=== PATIENT | female | born 1955 | race Caucasian/White ===

== ENCOUNTER 2016-08-03 16:42 | Inpatient (IN) | payer OTHER ==
[~2016-08-03] VITALS: Ht 170.2 cm; Wt 74.0 kg
[2016-08-03] MEDS ORDERED: SOD CHLORIDE 0.9% 1,000 ML IV STA (17:09)
[2016-08-03] MEDS ORDERED: morphine 4 MG/ML VIAL IV STA (17:09)
[2016-08-03] MEDS ORDERED: ONDANSETRON 4 MG INJ IV STA (17:09)
[2016-08-03] MEDS ORDERED: LETR2.5T11 PO (17:23)
[2016-08-03] MEDS ORDERED: GABA400C PO (17:23)
[2016-08-03 17:41] LABS: ADD SCAN DIFF NO
[2016-08-03 17:42] LABS: BASOPHILS % 0.4 % (0.0-2.0); EOSINOPHILS # 0.2 10^3/ul (0.0-0.5); EOSINOPHILS % 2.2 % (0.0-7.0); HEMATOCRIT 40.4 % (37.0-47.0); HEMOGLOBIN 14.1 g/dl (12.0-16.0); LYMPHOCYTES # 1.3 10^3/ul (0.8-2.9); LYMPHOCYTES % 16.2 % (15.0-51.0); MEAN CORPUSCULAR HEMOGLOBIN 30.7 pg (29.0-33.0); MEAN CORPUSCULAR HGB CONC 34.9 g/dl (32.0-37.0); MEAN PLATELET VOLUME 9.5 fl (7.4-10.4); MONOCYTE # 0.6 10^3/ul (0.3-0.9); MONOCYTES % 7.4 % (0.0-11.0); NEUTROPHIL # 5.9 10^3/ul (1.6-7.5); NEUTROPHILS % 73.2 % (39.0-77.0); PLATELET COUNT 233 10^3/UL (140-415); RED BLOOD COUNT 4.59 10^6/ul (4.20-5.40); RED CELL DISTRIBUTION WIDTH 12.2 % (11.5-14.5)
[2016-08-03 17:44] LABS: ADD UMIC YES; URINE BILIRUBIN (Dip) NEGATIVE (NEGATIVE); URINE BLOOD (Dip) TRACE (NEGATIVE); URINE COLOR LT. YELLOW (YELLOW); URINE GLUCOSE (Dip) NEGATIVE (NEGATIVE); URINE KETONES (Dip) NEGATIVE (NEGATIVE); URINE LEUKOCYTE ESTERASE (Dip) NEGATIVE (NEGATIVE); URINE NITRITE (Dip) NEGATIVE (NEGATIVE); URINE TOTAL PROTEIN (Dip) NEGATIVE (NEGATIVE); URINE UROBILINOGEN (Dip) 0.2 E.U./dL (0.1-1.0)
--- NOTE | 2016-08-03 17:45 | RADRPT ---
PROCEDURE: XR Chest 1 View. CLINICAL INDICATION: Abdominal pain, abnormal breath sounds TECHNIQUE: AP view of the chest was obtained. COMPARISON: None. FINDINGS: The cardiomediastinal silhouette is within normal limits. The lungs are hyperexpanded. No consolidat ions are identified. No pneumothorax is seen. The osseous structures are osteopenic, but appear in tact. Diffuse sclerosis in the visualized right humeral head is seen. Surgical clips are noted in the left axilla. IMPRESSION: Hyperexpanded, clear lungs. Diffuse sclerosis in the visualized right humeral head. Etiology is uncertain. An underlying scler otic bony lesion or metastatic disease is not excluded. Further characterization is needed a dedica cachorro right shoulder series is recommended. RPTAT: AA .Chago Bryant MD, Date Time Electronically viewed and signed by .Chago Bryant MD, on 08/03/2016 17:44 .P/
[2016-08-03 17:56] LABS: SQUAMOUS EPITHELIAL CELL,UR FEW; URINE RBCS 0-2 /HPF (0)
[2016-08-03 18:03] LABS: POTASSIUM 3.8 mmol/L (3.5-5.1)
[2016-08-03 18:05] LABS: CREATININE 0.78 mg/dl (0.44-1.00)
[2016-08-03 18:06] LABS: ALBUMIN/GLOBULIN RATIO 1.38; BILIRUBIN,INDIRECT 0.4 mg/dl (0-1.1); BILIRUBIN,TOTAL 0.4 mg/dl (0.2-1.3); CALCIUM 10.2 mg/dl (8.4-10.2); TOTAL PROTEIN 8.6 g/dl (6.1-8.1)
[2016-08-03] MEDS ORDERED: HYDROmorphONE 1 MG/ML SYG IV STA (18:16)
[2016-08-03] MEDS ORDERED: ACETAMINOPHEN 325 MG TAB PO PRN ×2 (18:30→23:00)
[2016-08-03] MEDS ORDERED: ONDANSETRON 4 MG INJ IV PRN ×2 (18:30→23:00)
--- NOTE | 2016-08-03 18:51 | ERA ---
ER Documentation Chief Complaint Date/Time DATE: 08/03/16 TIME: 18:49 Chief Complaint SEVERE BACK PAIN,HISTORY OF BREAST CA 2011,BONE CA 2015 HPI Patient is a 52-year-old female with breast cancer who presents with back pain. The patient was sent by Dr. Bhatt for admission. She had lower back pain. She was concerned for cord compression. She has had 2 months of lower back pain which is worsening. Usually her pain meds last up to 6 hours but she was having to take pain medicines every 3 hours. She tried 2 Aleve prior to coming to the ER. The pain is in the left lower back. She has no fevers and no incontinence. Upon review of old medical records this is the patient's first visit to the emergency department. ROS All systems reviewed and are negative except as per history of present illness. 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 Neck: Full range of motion..~ No meningismus. Resp: Clear to auscultation bilaterally Cardio: Regular rate and rhythm, no murmurs Abd: Soft, non tender, non distended. Normal bowel sounds Skin: No petechiae or rashes Back: No midline or flank tenderness, left-sided lower back pain Ext: No cyanosis, or edema Neur: Awake and alert Psych: Normal Mood and Affect Result Diagram: 08/03/16 1724 08/03/16 1724 Results 24 hrs Laboratory Tests Test 08/03/16 15:03 08/03/16 17:24 Urine Color LT. YELLOW Urine Clarity CLEAR Urine pH 6.0 Urine Specific [place] <=1.005 Urine Ketones NEGATIVE Urine Nitrite NEGATIVE Urine Bilirubin NEGATIVE Urine Urobilinogen 0.2 E.U./dL Urine Leukocyte Esterase NEGATIVE Urine Microscopic RBC 0-2/HPF Urine Microscopic WBC 0-2/HPF Urine Squamous Epithelial Cells FEW Urine Hemoglobin TRACE Urine Glucose NEGATIVE% Urine Total Protein NEGATIVE White Blood Count 8.010^3/ul Red Blood Count 4.5910^6/ul Hemoglobin 14.1g/dl Hematocrit 40.4% Mean Corpuscular Volume 88.0fl Mean Corpuscular Hemoglobin 30.7pg Mean Corpuscular Hemoglobin Concent 34.9g/dl Red Cell Distribution Width 12.2% Platelet Count 11395^3/UL Mean Platelet Volume 9.5fl Neutrophils % 73.2% Lymphocytes % 16.2% Monocytes % 7.4% Eosinophils % 2.2% Basophils % 0.4% Nucleated Red Blood Cells % 0.0/100WBC Neutrophils # 5.910^3/ul Lymphocytes # 1.310^3/ul Monocytes # 0.610^3/ul Eosinophils # 0.210^3/ul Basophils # 0.010^3/ul Nucleated Red Blood Cells # 0.010^3/ul Sodium Level 144mmol/L Potassium Level 3.8mmol/L Chloride Level 100mmol/L Carbon Dioxide Level 28mmol/L Anion Gap 20 Blood Urea Nitrogen 16mg/dl Creatinine 0.78mg/dl Glucose Level 106mg/dl Calcium Level 10.2mg/dl Total Bilirubin 0.4mg/dl Direct Bilirubin 0.00mg/dl Indirect Bilirubin 0.4mg/dl Aspartate Amino Transf (AST/SGOT) 63IU/L Alanine Aminotransferase (ALT/SGPT) 35IU/L Alkaline Phosphatase 116IU/L Total Protein 8.6g/dl Albumin 5.0g/dl Globulin 3.60g/dl Albumin/Globulin Ratio 1.38 Lipase 71U/L Current Medications Medications (Trade) Dose Ordered Sig/Hai Route PRN Reason Start Time Stop Time Status Last Admin Dose Admin Sodium Chloride (NS) 1,000 ml @ 1,000 mls/hr Q1H STAT IV 08/03/16 17:09 08/03/16 18:08 DC 08/03/16 17:41 Morphine Sulfate (morphine) 4 mg ONCE STAT IV 08/03/16 17:09 08/03/16 17:10 DC 08/03/16 17:41 Ondansetron HCl (Zofran Inj) 4 mg ONCE STAT IV 08/03/16 17:09 08/03/16 17:10 DC 08/03/16 17:39 Hydromorphone HCl (Dilaudid) 1 mg ONCE STAT IV 08/03/16 18:16 08/03/16 18:17 DC Ondansetron HCl (Zofran Inj) 4 mg BRIDGE ORDER PRN IV NAUSEA AND/OR VOMITING 08/03/16 18:30 08/04/16 18:29 Acetaminophen (Tylenol Tab) 650 mg ER BRIDGE PRN PO MILD PAIN/FEVER 08/03/16 18:30 08/04/16 18:29 Procedures/MDM PROCEDURE: XR Chest 1 View. CLINICAL INDICATION: Abdominal pain, abnormal breath sounds TECHNIQUE: AP view of the chest was obtained. COMPARISON: None. FINDINGS: The cardiomediastinal silhouette is within normal limits. The lungs are hyperexpanded. No consolidations are identified. No pneumothorax is seen. The osseous structures are osteopenic, but appear intact. Diffuse sclerosis in the visualized right humeral head is seen. Surgical clips are noted in the left axilla. IMPRESSION: Hyperexpanded, clear lungs. Diffuse sclerosis in the visualized right humeral head. Etiology is uncertain. An underlying sclerotic bony lesion or metastatic disease is not excluded. Further characterization is needed a dedicated right shoulder series is recommended. RPTAT: AA .Chago Bryant MD, MD Date Time Electronically viewed and signed by .Chago Bryant MD, MD on 08/03/2016 17:44 MRI of the lumbar spine and pelvis is pending at this time. Patient is a 60-year-old female presents with acute intractable back pain. She has required morphine and Dilaudid in the emergency department. She has an MRI of the lumbar spine and pelvis that was ordered at Dr. Bhatt's request. Dr. Bhatt once the patient admitted. The patient has a physicians IPA and Dr. Bowser admits for this IPA. I spoke with Dr. Bowser who will admit the patient to a medical surgical bed for intractable back pain. At this point I doubt cauda equina syndrome, epidural abscess, or epidural hematoma but MRI is pending to confirm this. Departure Diagnosis: Primary Impression: Back pain Qualified Code: M54.42 - Acute left-sided low back pain with left-sided sciatica Condition: WYATT Avalos MD Aug 03, 2016 18:51
[2016-08-03] MEDS ORDERED: METHYLPRED. NA SUCC 1,000 MG in DEXTROSE 5% 50 ML IVPB ONE (20:00)
[2016-08-03] MEDS ORDERED: DEXAMETHASONE 10 MG/ML 1 ML INJ IV ONE (20:00)
--- NOTE | 2016-08-03 20:15 | RADRPT ---
PROCEDURE: MR Pelvis without and with contrast. CLINICAL INDICATION: Probable metastatic disease TECHNIQUE: Multiple MR pulse sequences in multiple planes were obtained before and after 10 ml of a Magnevist. Images were reviewed on a high-resolution PACS workstation. COMPARISON: None available FINDINGS: Osseous structures: There are extensive T2 hyperintense foci throughout the visualized pelvis consistent with metastatic disease. There is a large metastatic lesion in this right ilium measuring up to 3 cm in AP diamete r and 4 cm in craniocaudal dimension. Smaller metastatic lesion seen just proximal to this area on the coronal sequence image 9. Small T2 hyperintense foci are seen within the left ilium and left ac etabulum also that representing metastatic disease. scattered T2 hyperintense foci are noted within the left iliac bone representing metastatic disease. there is a large lesion seen in the right inte rtrochanteric region measuring up to 4 cm There is associated enhancement in all these lesions. A b enign enchondroma seen at the left femoral neck. The hip joints are grossly maintained bilaterally. No high-grade chondral defects are identified. A perineural cyst is seen in the sacral canal. Soft tissues: There is small bowel loops seen within the pelvis are within normal limits. The pelvic organs are g rossly within normal limits. No free pelvic fluid is identified. There is no bulky pelvic lymphadenopathy. IMPRESSION: 1. Findings of metastatic disease noted throughout the pelvis, sacrum and also scattered in the rig ht proximal femur, as above. 2. No evidence for a pathologic fracture about the pelvis or hips. 3. No evidence for bold acute pelvic lymphadenopathy. RPTAT: VV .Preston Fischer MD, MD Date Time Electronically viewed and signed by .Preston Fischer MD, MD on 08/03/2016 20:15 .d/
--- NOTE | 2016-08-03 20:49 | RADRPT ---
PROCEDURE: MRI lumbar spine with and without contrast CLINICAL INDICATION: Breast carcinoma with back pain. TECHNIQUE: An MRI of the lumbar spine was performed on a 1.5 don scanner utilizing the followin g sequences: pre and post contrast sagittal and axial T1 weighted, sagittal and axial T2 weighted, a nd sagittal T2 weighted with fat saturation. 10 ml of Magnevist were given intravenously without com plication. COMPARISON: None. FINDINGS: Intramedullary vertebral body infiltrating lesions at all visualized thoracic and lumbar levels demo nstrating low signal on T1-weighted , mixed signal on T2 weighted sequences, and heterogeneous enhan cement compatible with diffuse skeletal metastasis. Preservation of vertebral body height without evidence of pathologic fracture or subluxation. The d istal thoracic spinal cord and conus without evidence of intramedullary signal abnormality or patho logic enhancement. The conus medullaris is visible at the L1 level, and is normal in appearance. T10-T11: Diffuse marrow enhancement with prominent focal metastatic lesion along the posterior T10 vertebral body with extension of metastatic disease into the left pedicle and posterior elements. Tu mor extends into the epidural space circumferentially asymmetric to the left resulting in near compl ete obliteration of the central canal compressing the spinal cord and AP dimension. The residual kelli men measures 10 x 7 mm in transverse and AP dimension. The right neural foramen is patent. Tumor fi lls the left neural foramen with extension into the left paraspinal soft tissues with paraspinal tis rosaura mass measuring 2.5 x 1.0 cm in AP and transverse dimensions respectively. There is tumor expans ion of the left tenth rib. No disk protrusion or bulging. T11-T12 : Patchy marrow enhancement fluid or focal posterior left lateral lesion extending into the left pedicle and posterior elements as well as left eleventh rib. Epidural extension is noted poste riorly on the left resulting in severe central canal stenosis with residual lumen measuring 8 x 2 mm in transverse and AP dimensions compressing the distal thoracic spinal cord. Lobulated left parasp inal soft tissue mass measures 4 x 2.1 cm in size with nodular left posterior epidural mass measurin g 1.2 x 1 x 2 cm and transverse, AP and craniocaudal dimensions respectively. Lobulated anterior ep idural soft tissue measures 6 mm in greatest thickness. Normal disk height and hydration without si gnificant foraminal stenosis. T12 - L1: Enhancing well circumscribed lesion in the posterior left T12 vertebral body extending in to the left pedicle and twelfth rib with minimal paraspinal soft tissue enhancement. Normal disk he ight and hydration with central canal or foraminal stenosis. L1 - L2: 12 mm right anterior lateral enhancing metastatic deposit and small left posterior deposit s within the [id number] body . Normal disk height and hydration. No disk protrusion, central saurabh l, or foraminal stenosis. L2 - L3: Multiple vertebral body enhancing metastatic lesions with epidural extension most pronounc ed along the posterior left vertebral body measuring 1.4 x 1 x 3 cm and there is, AP, and craniocaud al dimensions respectively. The metastatic lesions extend into the left and posterior elements. So ft tissue tumor extends into the left neural foramen with mild left foraminal stenosis . No central canal or right foraminal stenosis. Schmorl's node formation within the inferior endplate of L2 with mild circumferential disk bulging. The disk is otherwise normal in height. No focal protrusion. L3 - L4: Multiple vertebral body metastatic lesions and diffuse enhancement with epidural soft tiss ue tumor spread as well as extension into the left pedicle. The epidural components is greatest on the left measuring 4 x 1.2 x 3 cm in transverse, AP, and craniocaudal dimensions respectively. Soft tissue tumor extends into the left neural foramen along the superior margin without significant fora leanne stenosis.. Disk desiccation without loss of disk height. Circumferential disk bulging with lucita tical annular fissure in the right the foraminal disk and horizontal fissure in the left foraminal d isk. No central canal or right foraminal stenosis. L4 - L5: Multiple vertebral body enhancing metastasis. No epidural or paraspinal extension. Moder ate to marked hypertrophic facet joint arthropathy. Mild disk desiccation and loss of disk height w ith minimal circumferential disk bulging asymmetric to the left with vertical annular fissure. No s ignificant central canal or foraminal stenosis. Gabby facet enhancement most compatible with synoviti s. L5 - S1: Multiple enhancing lesions the largest in the posterior left L5 vertebral body. No epidura l or paraspinal extension. Mild bilateral facet joint arthropathy. No disk protrusion, central can al, or foraminal stenosis. Metastatic pauses in S1. IMPRESSION: 1. Diffuse thoracic and lumbar skeletal metastasis with areas of paraspinal and epidural extension pron on the lef from T10 through T12 resulting in severe central canal stenosis and distal thoracic spinal cord and conus medullaris compression with residual central canal demonstrating near complete obliteration at T11-T12 as described in detail above. No intramedullary spinal cord signal abnormal ity, enhancement of the conus medullaris, or cauda equina. Neurosurgical consultation is recommende d. 2. Left foraminal and paraspinal soft tissue tumor extension at T10-T11 and T11-T12 with largest co mponent of the paraspinal mass measuring approximately 4 cm in greatest dimension. 3. Epidural soft tissue tumor extension at T10-T12 as well as posterior L2 and L3 of the left as de tailed above. 4. Disk bulging and degenerative annular fissures at the L3-L4 and L4-L5 . 5. Facet joint arthropathy at L4-L5 end L5-S1. 6. Results were discussed with Juancarlos Dodge 08/03/2016 8:47:45 PM . RPTAT:AAJJ Physician Elizabeth Date Time Electronically viewed and signed by Physician Elizabeth on 08/03/2016 20:49 NIKOLAS/
--- NOTE | 2016-08-03 23:16 | HP ---
Date/Time of Note Date/Time of Note DATE: 08/03/16 TIME: 22:41 Assessment/Plan VTE Prophylaxis VTE Prophylaxis Intervention: SCD's Assessment/Plan Assessment/Plan -Back pain - Diffuse thoracic and lumbar skeletal metastasis with areas of paraspinal and epidural extension pron on the lef from T10 through T12 resulting in severe central canal stenosis and distal thoracic spinal cord and conus medullaris compression with residual central canal demonstrating near complete obliteration at T11-T12 as described in detail above. No intramedullary spinal cord signal abnormality, enhancement of the conus medullaris, or cauda equina. Neurosurgical consultation is recommended. - Hematology consult- Dr Lee - pain control - resume home meds -. Left foraminal and paraspinal soft tissue tumor extension at T10-T11 and T11 -T12 with largest component of the paraspinal mass measuring approximately 4 cm in greatest dimension. -. Epidural soft tissue tumor extension at T10-T12 as well as posterior L2 and L3 of the left as detailed above. - Disk bulging and degenerative annular fissures at the L3-L4 and L4-L5 . - Facet joint arthropathy at L4-L5 end L5-S1. - Hx Left breast cancer dw Dr ELLIS/STAFF HPI/ROS Admit Date/Time Admit Date/Time Hx of Present Illness SEVERE BACK PAIN,HISTORY OF BREAST CA 2011,BONE CA 2015 HPI Patient is a 52-year-old female with Hx breast was sent by Dr. Bhatt to ER with c/o lower back pain. She was concerned for cord compression. Patient reported 2 months of lower back pain which is worsening. Usually her pain meds last up to 6 hours but she was having to take pain medicines every 3 hours. She tried 2 Aleve prior to coming to the ER. The pain is in the left lower back. She has no fevers and no incontinence. Upon review of old medical records this is the patient's first visit to the emergency department. Patient denies any chest pain, shortness of breath, headache, palpitations, dizziness, fever, chills, focal weakness/numbness, abdominal pain/N/V/D. Denies any recent trauma or injury. ROS All systems reviewed and are negative except as per history of present illness. Medications Home Meds Reported Medications Letrozole* (Femara*) 2.5 Mg Tablet, 2.5 MG PO DAILY, TAB 08/03/16 Gabapentin* (Neurontin*) 400 Mg Capsule, 800 MG PO QHS, #60 CAP 08/03/16 Allergies Allergies: Coded Allergies: No Known Allergy (Unverified , 08/03/16) ROS Constitutional: improved Eyes: no complaints ENT: no complaints Respiratory: no complaints Cardiovascular: no complaints Gastrointestinal: no complaints Genitourinary: no complaints Musculoskeletal: no complaints Skin: no complaints Neurologic: no complaints Endocrine: no complaints Lymphatic: no complaints Psychological: no complaints PMH/Family/Social Past Medical History PMhx/Soc History of Surgery: Yes (LEFT BREAT CANCER) Hx Miscellaneous Medical Probl: Yes (Breast Cancer Met to Bones ) Hx Alcohol Use: No Hx Substance Use: No Hx Tobacco Use: No Smoking Status: Never smoker FmHx Family History: No diabetes Back pain Social History Alcohol Use: none Smoking Status: Never smoker Drug Use: none Exam/Review of Systems Vital Signs Vitals Vital Signs Date Time Temp Pulse Resp B/P Pulse Ox O2 Delivery O2 Flow Rate FiO2 08/03/16 21:00 98.0 77 18 164/89 98 Room Air Exam Constitutional: alert, oriented, well developed Psych: nl mood/affect Head: atraumatic Eyes: EOMI ENMT: nl external ears & nose Neck: non-tender Respiratory: clear to auscultation Cardiovascular: nl pulses Gastrointestinal: non-tender, soft Musculoskeletal: nl extremities to inspection Extremities: normal pulses Neurological: nl mental status, nl speech Skin: nl turgor Lymph: nontender Labs Result Diagram: 08/03/16 1724 08/03/16 1724 Procedures Procedures PROCEDURE: XR Chest 1 View. CLINICAL INDICATION: Abdominal pain, abnormal breath sounds TECHNIQUE: AP view of the chest was obtained. COMPARISON: None. FINDINGS: The cardiomediastinal silhouette is within normal limits. The lungs are hyperexpanded. No consolidations are identified. No pneumothorax is seen. The osseous structures are osteopenic, but appear intact. Diffuse sclerosis in the visualized right humeral head is seen. Surgical clips are noted in the left axilla. IMPRESSION: Hyperexpanded, clear lungs. Diffuse sclerosis in the visualized right humeral head. Etiology is uncertain. An underlying sclerotic bony lesion or metastatic disease is not excluded. Further characterization is needed a dedicated right shoulder series is recommended. PROCEDURE: MR Pelvis without and with contrast. CLINICAL INDICATION: Probable metastatic disease TECHNIQUE: Multiple MR pulse sequences in multiple planes were obtained before and after 10 ml of a Magnevist. Images were reviewed on a high- resolution PACS workstation. COMPARISON: None available FINDINGS: Osseous structures: There are extensive T2 hyperintense foci throughout the visualized pelvis consistent with metastatic disease. There is a large metastatic lesion in this right ilium measuring up to 3 cm in AP diameter and 4 cm in craniocaudal dimension. Smaller metastatic lesion seen just proximal to this area on the coronal sequence image 9. Small T2 hyperintense foci are seen within the left ilium and left acetabulum also that representing metastatic disease. scattered T2 hyperintense foci are noted within the left iliac bone representing metastatic disease. there is a large lesion seen in the right intertrochanteric region measuring up to 4 cm There is associated enhancement in all these lesions. A benign enchondroma seen at the left femoral neck. The hip joints are grossly maintained bilaterally. No high-grade chondral defects are identified. A perineural cyst is seen in the sacral canal. Soft tissues: There is small bowel loops seen within the pelvis are within normal limits. The pelvic organs are grossly within normal limits. No free pelvic fluid is identified. There is no bulky pelvic lymphadenopathy. IMPRESSION: 1. Findings of metastatic disease noted throughout the pelvis, sacrum and also scattered in the right proximal femur, as above. 2. No evidence for a pathologic fracture about the pelvis or hips. 3. No evidence for bold acute pelvic lymphadenopathy. PROCEDURE: MRI lumbar spine with and without contrast CLINICAL INDICATION: Breast carcinoma with back pain. TECHNIQUE: An MRI of the lumbar spine was performed on a 1.5 don scanner utilizing the following sequences: pre and post contrast sagittal and axial T1 weighted, sagittal and axial T2 weighted, and sagittal T2 weighted with fat saturation. 10 ml of Magnevist were given intravenously without complication. COMPARISON: None. FINDINGS: Intramedullary vertebral body infiltrating lesions at all visualized thoracic and lumbar levels demonstrating low signal on T1-weighted , mixed signal on T2 weighted sequences, and heterogeneous enhancement compatible with diffuse skeletal metastasis. Preservation of vertebral body height without evidence of pathologic fracture or subluxation. The distal thoracic spinal cord and conus without evidence of intramedullary signal abnormality or pathologic enhancement. The conus medullaris is visible at the L1 level, and is normal in appearance. T10-T11: Diffuse marrow enhancement with prominent focal metastatic lesion along the posterior T10 vertebral body with extension of metastatic disease into the left pedicle and posterior elements. Tumor extends into the epidural space circumferentially asymmetric to the left resulting in near complete obliteration of the central canal compressing the spinal cord and AP dimension. The residual lumen measures 10 x 7 mm in transverse and AP dimension. The right neural foramen is patent. Tumor fills the left neural foramen with extension into the left paraspinal soft tissues with paraspinal tissue mass measuring 2.5 x 1.0 cm in AP and transverse dimensions respectively. There is tumor expansion of the left tenth rib. No disk protrusion or bulging. T11-T12 : Patchy marrow enhancement fluid or focal posterior left lateral lesion extending into the left pedicle and posterior elements as well as left eleventh rib. Epidural extension is noted posteriorly on the left resulting in severe central canal stenosis with residual lumen measuring 8 x 2 mm in transverse and AP dimensions compressing the distal thoracic spinal cord. Lobulated left paraspinal soft tissue mass measures 4 x 2.1 cm in size with nodular left posterior epidural mass measuring 1.2 x 1 x 2 cm and transverse, AP and craniocaudal dimensions respectively. Lobulated anterior epidural soft tissue measures 6 mm in greatest thickness. Normal disk height and hydration without significant foraminal stenosis. T12 - L1: Enhancing well circumscribed lesion in the posterior left T12 vertebral body extending into the left pedicle and twelfth rib with minimal paraspinal soft tissue enhancement. Normal disk height and hydration with central canal or foraminal stenosis. L1 - L2: 12 mm right anterior lateral enhancing metastatic deposit and small left posterior deposits within the [id number] body . Normal disk height and hydration. No disk protrusion, central canal, or foraminal stenosis. L2 - L3: Multiple vertebral body enhancing metastatic lesions with epidural extension most pronounced along the posterior left vertebral body measuring 1.4 x 1 x 3 cm and there is, AP, and craniocaudal dimensions respectively. The metastatic lesions extend into the left and posterior elements. Soft tissue tumor extends into the left neural foramen with mild left foraminal stenosis . No central canal or right foraminal stenosis. Schmorl's node formation within the inferior endplate of L2 with mild circumferential disk bulging. The disk is otherwise normal in height. No focal protrusion. L3 - L4: Multiple vertebral body metastatic lesions and diffuse enhancement with epidural soft tissue tumor spread as well as extension into the left pedicle. The epidural components is greatest on the left measuring 4 x 1.2 x 3 cm in transverse, AP, and craniocaudal dimensions respectively. Soft tissue tumor extends into the left neural foramen along the superior margin without significant foraminal stenosis.. Disk desiccation without loss of disk height. Circumferential disk bulging with vertical annular fissure in the right the foraminal disk and horizontal fissure in the left foraminal disk. No central canal or right foraminal stenosis. L4 - L5: Multiple vertebral body enhancing metastasis. No epidural or paraspinal extension. Moderate to marked hypertrophic facet joint arthropathy. Mild disk desiccation and loss of disk height with minimal circumferential disk bulging asymmetric to the left with vertical annular fissure. No significant central canal or foraminal stenosis. Gabby facet enhancement most compatible with synovitis. L5 - S1: Multiple enhancing lesions the largest in the posterior left L5 vertebral body. No epidural or paraspinal extension. Mild bilateral facet joint arthropathy. No disk protrusion, central canal, or foraminal stenosis. Metastatic pauses in S1. IMPRESSION: 1. Diffuse thoracic and lumbar skeletal metastasis with areas of paraspinal and epidural extension pron on the lef from T10 through T12 resulting in severe central canal stenosis and distal thoracic spinal cord and conus medullaris compression with residual central canal demonstrating near complete obliteration at T11-T12 as described in detail above. No intramedullary spinal cord signal abnormality, enhancement of the conus medullaris, or cauda equina. Neurosurgical consultation is recommended. 2. Left foraminal and paraspinal soft tissue tumor extension at T10-T11 and T11 -T12 with largest component of the paraspinal mass measuring approximately 4 cm in greatest dimension. 3. Epidural soft tissue tumor extension at T10-T12 as well as posterior L2 and L3 of the left as detailed above. 4. Disk bulging and degenerative annular fissures at the L3-L4 and L4-L5 . 5. Facet joint arthropathy at L4-L5 end L5-S1. 6. Results were discussed with Juancarlos Dodge 08/03/2016 8:47:45 PM . AGA MAC Aug 03, 2016 22:51
[2016-08-04] MEDS: DEXAMETHASONE 4 MG/ML 1 ML INJ IV SCH ×4 (00:49→17:51)
[2016-08-04 05:33] LABS: ADD SCAN DIFF NO
[2016-08-04 05:34] LABS: ABNORMAL IP MESSAGE 1; BASOPHILS % 0.2 % (0.0-2.0); HEMATOCRIT 38.9 % (37.0-47.0); HEMOGLOBIN 13.5 g/dl (12.0-16.0); LYMPHOCYTES # 0.6 10^3/ul (0.8-2.9); LYMPHOCYTES % 12.1 % (15.0-51.0); MEAN CORPUSCULAR HEMOGLOBIN 30.5 pg (29.0-33.0); MEAN CORPUSCULAR HGB CONC 34.7 g/dl (32.0-37.0); MEAN PLATELET VOLUME 9.5 fl (7.4-10.4); MONOCYTE # 0.1 10^3/ul (0.3-0.9); NEUTROPHIL # 4.2 10^3/ul (1.6-7.5); NEUTROPHILS % 86.3 % (39.0-77.0); PLATELET COUNT 200 10^3/UL (140-415); RED BLOOD COUNT 4.42 10^6/ul (4.20-5.40); RED CELL DISTRIBUTION WIDTH 12.3 % (11.5-14.5); WHITE BLOOD COUNT 4.9 10^3/ul (4.8-10.8)
[2016-08-04 05:56] LABS: POTASSIUM 4.2 mmol/L (3.5-5.1)
[2016-08-04 05:58] LABS: CREATININE 0.67 mg/dl (0.44-1.00)
[2016-08-04 05:59] LABS: CALCIUM 9.6 mg/dl (8.4-10.2)
[2016-08-04] MEDS: PANTOPRAZOLE 40 MG INJ IV SCH (07:27)
[2016-08-04] MEDS ORDERED: DOCUSATE SODIUM 100 MG CAP PO ONE (09:00)
--- NOTE | 2016-08-04 11:00 | RADRPT ---
PROCEDURE: MR Thoracic Spine noncontrast. CLINICAL INDICATION: Breast cancer. Metastases. TECHNIQUE: Multiplanar multisequence noncontrast MRI of the thoracic spine performed. COMPARISON: There are no similar studies submitted for comparison. MRI of the lumbar spine from [facility] 2016. FINDINGS: There are multilevel T2 hyperintense osseous lesions most compatible with metastases. There is a right dorsal T8 vertebral body metastasis without epidural extension of tumor. There is a left dorsal T9 vertebral body metastasis with tumor within the bilateral lamina and spino us process with dorsal epidural tumor measuring 6 mm anteroposteriorly at the lower T9 level causing mild spinal canal stenosis. There is a large T10 vertebral body metastasis with bilateral ventral epidural extension of tumor me asuring 5 mm on the right and 7 mm on the left. There is also enlargement of the bilateral lamina a nd transverse process for metastases. There is left paravertebral extension of tumor also noted. T his causes moderate spinal canal stenosis at the mid T10 level. At the T10-T11 level there is also a large left pedicle metastasis extending 7 mm into the spinal canal within the left dorsolateral reg ion as well as there is bilateral ventral epidural tumor at the T11 level measuring 4 mm on the righ t and 3 mm on the left causing spinal cord compression with the spinal cord measuring 3 mm compatibl e with severe spinal canal stenosis. There is no abnormal spinal cord edema. At this level there i s also a 4.0 x 2.6 cm left paravertebral metastasis extending from the T11 vertebral body. Epidural tumor extends into the bilateral foramina causes severe left and mild to moderate right T10-T11 foraminal stenosis. There is a left-sided T12 vertebral body metastasis involving the left pedicle and left transverse p rocess without epidural extension of tumor. There is preservation of the normal thoracic kyphosis. The vertebral body heights are maintained. There is normal alignment. There is multilevel disk desiccation with mild to moderate disk space narrowing from T5-T6 to T10-T1 1. The spinal cord is normal is signal. There are multilevel minimal disk bulges which do not cause spinal canal or bilateral foraminal sten osis. IMPRESSION: 1. Multilevel osseous metastases most pronounced at T10. There is bilateral ventral epidural extens ion of tumor at the mid T10 level causing moderate spinal canal stenosis. At the T10-T11 level there is also left dorsolateral epidural extension of tumor with bilateral ventral epidural tumor at the T11 level causing severe spinal canal stenosis and spinal cord compression. There is no abnormal sp inal cord edema. There is a left T11 4.0 x 2.6 cm paravertebral metastasis. Epidural tumor extends into the bilateral foramina causes severe left and mild to moderate right T10-T11 foraminal stenosis . Neurosurgical consultation is again recommended as noted on the recent MRI of the lumbar spine. 2. Dorsal epidural tumor at the lower T9 level causing mild spinal canal stenosis. 3. No acute compression fracture. Further findings as detailed above. RPTAT: PP .Indra Davison MD, MD Date Time Electronically viewed and signed by .Indra Davison MD, on 08/04/2016 10:59 .F/
[2016-08-04] MEDS ORDERED: IOHEXOL 300MG/ML 150 ML BTL ONE (11:17)
--- NOTE | 2016-08-04 12:43 | PN ---
Date/Time of Note Date/Time of Note DATE: 08/04/16 TIME: 12:38 Assessment/Plan VTE Prophylaxis VTE Prophylaxis Intervention: SCD's Assessment/Plan Assessment/Plan -Intractable back pain. Continue IV morphine as needed for pain. -Spinal cord compression per MRI, continue Decadron and Protonix, Dr. Andrews is asked to see patient in neurosurgery consultation. -Metastatic breast cancer with bone involvement, Dr. Bhatt is following in hematology oncology consultation. Further recommendations based on clinical course. Plan of care discussed with Dr. Bowser. Subjective 24 Hr Interval Summary Free Text/Dictation Patient is able to ambulate, awake alert, states some improvement in pain with IV morphine. Exam/Review of Systems Vital Signs Vitals Vital Signs Date Time Temp Pulse Resp B/P Pulse Ox O2 Delivery O2 Flow Rate FiO2 08/04/16 06:43 97.7 80 20 120/72 100 Room Air Exam Constitutional: alert, oriented Psych: no complaints Head: atraumatic, normocephalic Eyes: nl conjunctiva ENMT: nl external ears & nose Neck: supple Cardiovascular: nl pulses, regular rate and rhythm Gastrointestinal: non-tender, soft Extremities: normal pulses Neurological: WELL LOGGING MUD ANALYSIS CAPTAIN II-XII intact Results Result Diagram: 08/04/16 0519 08/04/16 0519 Results 24 hrs Laboratory Tests Test 08/03/16 15:03 08/03/16 17:24 08/04/16 05:19 Urine Color LT. YELLOW Urine Clarity CLEAR Urine pH 6.0 Urine Specific [place] <=1.005 L Urine Ketones NEGATIVE Urine Nitrite NEGATIVE Urine Bilirubin NEGATIVE Urine Urobilinogen 0.2 E.U./dL Urine Leukocyte Esterase NEGATIVE Urine Microscopic RBC 0-2 Urine Microscopic WBC 0-2 Urine Squamous Epithelial Cells FEW Urine Hemoglobin TRACE Urine Glucose NEGATIVE Urine Total Protein NEGATIVE White Blood Count 8.0 4.9 # Red Blood Count 4.59 4.42 Hemoglobin 14.1 13.5 Hematocrit 40.4 38.9 Mean Corpuscular Volume 88.0 88.0 Mean Corpuscular Hemoglobin 30.7 30.5 Mean Corpuscular Hemoglobin Concent 34.9 34.7 Red Cell Distribution Width 12.2 12.3 Platelet Count 233 200 Mean Platelet Volume 9.5 9.5 Neutrophils % 73.2 86.3 H Lymphocytes % 16.2 12.1 L Monocytes % 7.4 1.0 Eosinophils % 2.2 0.0 Basophils % 0.4 0.2 Nucleated Red Blood Cells % 0.0 0.0 Neutrophils # 5.9 4.2 Lymphocytes # 1.3 0.6 L Monocytes # 0.6 0.1 L Eosinophils # 0.2 0.0 Basophils # 0.0 0.0 Nucleated Red Blood Cells # 0.0 0.0 Sodium Level 144 146 H Potassium Level 3.8 4.2 Chloride Level 100 107 Carbon Dioxide Level 28 25 Anion Gap 20 H 18 H Blood Urea Nitrogen 16 17 Creatinine 0.78 0.67 Glucose Level 106 135 Calcium Level 10.2 9.6 Total Bilirubin 0.4 Direct Bilirubin 0.00 Indirect Bilirubin 0.4 Aspartate Amino Transf (AST/SGOT) 63 H Alanine Aminotransferase (ALT/SGPT) 35 Alkaline Phosphatase 116 Total Protein 8.6 H Albumin 5.0 H Globulin 3.60 H Albumin/Globulin Ratio 1.38 Lipase 71 Carcinoembryonic Antigen 4.7 Medications Medications Current Medications Gabapentin (Neurontin) 800 mg QHS PO ; Start 08/04/16 at 21:00 Letrozole (Femara) 2.5 mg DAILY PO ; Start 08/04/16 at 09:00 Ondansetron HCl (Zofran Inj) 4 mg Q6H PRN IV NAUSEA AND/OR VOMITING; Start at 23:00 Acetaminophen (Tylenol Tab) 650 mg ONCE PRN PO PAIN AND OR ELEVATED TEMP; Start 08/03/16 at 23:00; Stop 08/04/16 at 22:59 Pantoprazole (Protonix Iv) 40 mg DAILY@06 IV Last administered on 08/04/16 07: 27; Admin Dose 40 MG; Start 08/04/16 at 06:00 Dexamethasone (Decadron) 4 mg Q6 IV Last administered on 08/04/16 07:27; Admin Dose 4 MG; Start 08/04/16 at 00:00 AMANDA AVALOS Aug 04, 2016 12:43
--- NOTE | 2016-08-04 13:25 | RADRPT ---
PROCEDURE: CT Chest, abdomen and pelvis with contrast. CLINICAL INDICATION: Breast carcinoma with diffuse thoracic and lumbar bone metastasis. Breast can cer staging. TECHNIQUE: CT scan of the chest and abdomen with contrast was performed on a multidetector high-re solution CT scanner following administration of 100 cc cc of water-soluble contrast. Coronal and sa gittal reformatted images were obtained from the axial source images. Images were reviewed on a high -resolution PACS workstation. The total exam CTDI equals 12.94 mGy and the total exam DLP equals 101 4.7 mGy-cm. One or more of the following dose reduction techniques were used: - Automated exposure control. - Adjustment of the mA and/or kV according to patient size. Use of iterative reconstruction technique. COMPARISON: No. FINDINGS: CT Chest: There is a spiculated and marked of textural distortion in the 12 o'clock position of the central upper left breast. There is a adjacent calcification or clip. There is skin retraction an d skin thickening, findings believe related to postsurgical and therapy change. No enlarged supracl avicular or axillary lymph nodes are identified. The right breast tissue is normal. The thyroid gland and great vessels of the superior mediastinum are normal. There is a small amount of fluid the dorsal to the ascending aorta and in the aorticopulmonary windo w. A 1.3 cm lymph node and adjacent 0.9 cm AP subcarinal lymph node are identified. The pulmonary vasculature is normal. No pleural effusion is present. There are plate-like areas of atelectasis in the right lower lobe of the left lower lobe. There is a 1 mm pulmonary nodule in the periphery of the right middle lobe. Series 4 image 64. A 2.8 mm ple ural based nodule is identified in the posterior segment of the right upper lobe. Series 4; image 2 5. These likely represent small granulomas. Follow-up imaging is recommended in through 4 months to co nfirm stability. The heart is normal in size with no pericardial effusion present. There are degenerative changes of the right glenohumeral and left glenohumeral joints. Sclerotic armando nges in the right humeral head suspicious for a bone metastasis. There is a osteoblastic metastasis in the left scapula. There are bone metastases involving the ribs and multiple thoracic and lumbar vertebral bodies. Thes e are unchanged compared to the recent MRI in the same day dated 08/04/2016. There is an epidural me tastasis at T8-9. There is epidural metastasis at T9 with bone destruction involving the left T9 lamina. There is epidural mass resulting in a central canal stenosis at T10. There is extension of tumor to the left of T10 in the paraspinal space. Extensive with a bone metastasis are noted at T10. There is an expansile bone metastasis involving the posterior left 11th rib. There is epidural mass resulting in a central canal stenosis at T11. See MRI report of lumbar spine. No acute bony fracture is identified. The patient has rudimentary ribs associated with the last th oracic vertebra. This vertebra will be considered L1 for purposes of this report to maintain congru ency with the MRI lumbar spine. There is a osteoblastic bone metastasis of the T3 the spinous proces s. CT Abdomen and pelvis : The liver is enlarged measuring 16.6 cm AP. No hepatic metastasis or intrahepatic biliary ductal di latation is present. There is a 3 mm left hepatic cyst. The hepatic and portal veins are patent. The gallbladder and gallbladder wall are normal. The pancreas and extrahepatic common bile duct are normal. The spleen is normal. The adrenal glands are normal. A benign 8 mm cyst is noted off the midpole of the left kidney. A 5.7 mm benign cyst is noted off t he medial upper portion of the lower third of the left kidney. There is a 2 mm lesion to small to c haracterize which is likely a renal cyst off the lower pole of the right kidney. There is no eviden ce of hydronephrosis. There are vascular calcifications in the abdominal aorta. The inferior vena cava is normal. There are vascular calcifications in the distal right common iliac artery. No enlarged inguinal, pelvic sidewall, retroperitoneal, periportal and mesenteric lymph nodes are id entified. There is epidural tumor at the level of L2. There is tumor an epidural space to the left of midline along the lower body of L3 near L3-4. There are osteoblastic metastasis involving the innominate bone. There is a 5 mm sclerotic lesion w hich may be a bone island in the right pubic symphysis. There is no hiatal hernia. The stomach is distended with fluid. The small bowel loops have a raysa l caliber. There is fecal material in the colon. There is a small midline umbilical hernia contain ing fat. The urinary bladder is normal. The uterus is unremarkable. No abnormal adnexal mass or free fluid is present in the pelvis or dago toneal cavity. IMPRESSION: 1. Spiculated mass in the 12 o'clock position of the left breast which is associated with skin retr action and skin thickening. Findings may represent postsurgical change and/or changes with secondar y to left breast cancer. Breast marking clip calcification adjacent to the spiculated mass. 2. Multiple bone metastasis involving the thoracic spine, lumbar spine, manubrium and left scapula a nd right humeral head. 3. Ventral bilateral epidural tumor at mid T10 level with high-grade central canal stenosis. Extensi on of tumor into the left paravertebral space at the level of T10. Oncology and neurosurgical consu ltations recommended. 4. Bony central canal stenosis secondary to epidural metastasis at T11. 5. Epidural spread of tumor at the level of L2 into left of midline dorsal to the body of L3 near t he L3-4 disk space. 6. Midline small umbilical hernia. 7. Benign renal cysts. RPTAT:AAJJ Physician Ruddy Date Time Electronically viewed and signed by Physician Ruddy on 08/04/2016 13:25 TRUNG/
[2016-08-04] MEDS: LETROZOLE 2.5 MG TAB PO SCH (13:50)
[2016-08-04 15:56] VITALS: TEMP 97.7
[2016-08-04 16:22] VITALS: Ht 170.2 cm; Wt 74.0 kg
[2016-08-04 17:00] VITALS: BP 170/80; PULSE 87; RESP 18
[2016-08-04] MEDS ORDERED: morphine 2 MG INJ IV PRN (17:00)
[2016-08-04 17:44] VITALS: BP 164/96
[2016-08-04] MEDS: hydrALAzine 20 MG INJ IV PRN (17:52)
--- NOTE | 2016-08-04 20:09 | CONS ---
Date/Time of Note Date/Time of Note DATE: 08/04/16 TIME: 19:58 Assessment/Plan Assessment/Plan Problems: (1) Back pain Status: Acute Qualifiers: Qualified Code: M54.42 - Acute left-sided low back pain with left-sided sciatica Additional Assessment/Plan 60 year old female with known breast CA now with new diagnosis of multiple vertebral metastases including profound stenosis of the thoracic spinal canal and compression of the cord (without cord signal change or neurologic deficit). The patient may benefit from a laminectomy at T10-11 and removal of the compressive lesion; however she has no neurologic deficits and if urgent/ emergent XRT could be arranged this may be a reasonable alternative. I recommend rad-onc consultation as the patient will need radiation oncology input regardless. Thank you for this consultation. Consultation Date/Type/Reason Admit Date/Time Date of Consultation: Aug 04, 2016 Type of Consultation: neurological surgery Reason for Consultation T10-11 epidural spinal cord compression, back pain Hx of Present Illness patient is a 60 year old female with hx of breast CA diagnosed initially in 2011 , with known metastatic disease since 2013 (but no prior known vertebral mets) who has had a month or more of intercostal neuralgic pain followed by severe low back pain preventing the patient from sleeping, laying down, etc. She denies any hypoesthesia or anaesthesia, she denies any bowel or bladder complaints, she denies any weakness. MRI and CT demonstrate diffuse metastatic disease in the bony neuraxis, with severe epidural compression of the spinal cord seen at T10-11. There is no cord signal seen. Eyes: no complaints ENT: no complaints Respiratory: no complaints Cardiovascular: no complaints Gastrointestinal: no complaints Genitourinary: no complaints Musculoskeletal: no complaints Skin: no complaints Neurologic: no complaints Lymphatic: no complaints Psychological: no complaints Social History Alcohol Use: none Smoking Status: Never smoker Drug Use: none Exam/Review of Systems Vital Signs Vitals Vital Signs Date Time Temp Pulse Resp B/P Pulse Ox O2 Delivery O2 Flow Rate FiO2 08/04/16 17:44 164/96 08/04/16 17:00 97.1 87 18 98 Room Air Exam Constitutional: alert, oriented, well developed Psych: nl mood/affect, no complaints Head: atraumatic, normocephalic Eyes: EOMI, nl conjunctiva, nl lids, nl sclera ENMT: mucosa pink and moist, nl external ears & nose, nl lips & teeth Neck: non-tender, supple Cardiovascular: regular rate and rhythm Musculoskeletal: nl extremities to inspection, nl gait and stance Extremities: normal pulses Neurological: ALLEY TENDER II-XII intact, nl mental status, nl speech, nl strength Skin: nl turgor, rash or lesions Additional Comments motor exam 5/5 throughout no clonus LE, toes downgoing, patellar reflex ++ Results Result Diagram: 08/04/1651808/04/16 05 Results 24 hrs Laboratory Tests Test 08/04/16 05:19 White Blood Count 4.9 # Red Blood Count 4.42 Hemoglobin 13.5 Hematocrit 38.9 Mean Corpuscular Volume 88.0 Mean Corpuscular Hemoglobin 30.5 Mean Corpuscular Hemoglobin Concent 34.7 Red Cell Distribution Width 12.3 Platelet Count 200 Mean Platelet Volume 9.5 Neutrophils % 86.3 H Lymphocytes % 12.1 L Monocytes % 1.0 Eosinophils % 0.0 Basophils % 0.2 Nucleated Red Blood Cells % 0.0 Neutrophils # 4.2 Lymphocytes # 0.6 L Monocytes # 0.1 L Eosinophils # 0.0 Basophils # 0.0 Nucleated Red Blood Cells # 0.0 Sodium Level 146 H Potassium Level 4.2 Chloride Level 107 Carbon Dioxide Level 25 Anion Gap 18 H Blood Urea Nitrogen 17 Creatinine 0.67 Glucose Level 135 Calcium Level 9.6 Carcinoembryonic Antigen 4.7 Medications Medications Current Medications Gabapentin (Neurontin) 800 mg QHS PO ; Start 08/04/16 at 21:00 Letrozole (Femara) 2.5 mg DAILY PO Last administered on 08/04/16 13:50; Admin Dose 2.5 MG; Start 08/04/16 at 09:00 Ondansetron HCl (Zofran Inj) 4 mg Q6H PRN IV NAUSEA AND/OR VOMITING; Start at 23:00 Acetaminophen (Tylenol Tab) 650 mg ONCE PRN PO PAIN AND OR ELEVATED TEMP; Start 08/03/16 at 23:00; Stop 08/04/16 at 22:59 Pantoprazole (Protonix Iv) 40 mg DAILY@06 IV Last administered on 08/04/16 07: 27; Admin Dose 40 MG; Start 08/04/16 at 06:00 Dexamethasone (Decadron) 4 mg Q6 IV Last administered on 08/04/16 17:51; Admin Dose 4 MG; Start 08/04/16 at 00:00 Morphine Sulfate (morphine) 2 mg Q3H PRN IV SEVERE PAIN LEVEL 7-10; Start 08/04 at 17:00 Hydralazine HCl (Apresoline) 10 mg Q4H PRN IV ELEVATED DIASTOLIC BP Last administered on 08/04/16 17:52; Admin Dose 10 MG; Start 08/04/16 at 17:00 Lisinopril (Zestril) 5 mg DAILY PO ; Start 08/05/16 at 09:00 LUCINA BAUER MD Aug 04, 2016 20:09
[2016-08-04] MEDS: GABAPENTIN 400 MG CAP PO SCH (20:38)
[2016-08-04 20:51] VITALS: BP 156/90; RESP 20
--- NOTE | 2016-08-04 23:30 | CONS ---
Date/Time of Note Date/Time of Note DATE: 08/04/16 TIME: 23:29 Assessment/Plan Assessment/Plan Chief Complaint/Hosp Course metastatic breast cancer with known multiple bony mets and epidural cord compression at T10-T11 and metastatic lesions at L2-L3 with epidural extension most pronounced along the posterior left vertebral body and extending into the left neural foramen and posterior elements. neurosurg eval RADONC EVAL DECADRON ANTIESTROGENS Problems: Consultation Date/Type/Reason Admit Date/Time Date of Consultation: Aug 04, 2016 [facility] Consultation metastatic breast cancer Referring Provider: ANITHA ELLIS MD Hx of Present Illness The patient is a 60F diagnosed with breast cancer in 2011. She states that she needed three lumpectomies to clear the margin, and also had 2/16 nodes involved. she had HER2 positive disease. She received adjuvant chemotherapy at [place] and also had post lumpectomy radiotherapy under the care of Dr Montelongo at [place], completing therapy in 2012. She subsequently continued on Tamoxifen. She first developed right shoulder pain in 2015. The first X ray of the shoulder was non diagnostic but when the pain progressed, further imaging and a biopsy of the shoulder demonstrated metastatic disease in 2016. Restaging imaging demonstrated widespread bony metastatic disease. The patient changed insurance and started under my care care I changed her medication to Letrozole with good response. For the last several months, the patient reported progressive intercostal neuralgia which did not respond to Tylenol, Advil or Aleve. Ultimately, the pain continued to progress to severe left sided back pain over the last several weeks. She presented to me with these symptoms and was referred to the ER to rule out cord compression. The patient declined any fevers, saddle anesthesia or bowel/bladder incontinence. She underwent a workup which included imaging of the spine. The thoracic MRI demonstrated multilevel osseous metastases most pronounced at T10. There is bilateral ventral epidural extension of tumor at the mid T10 level causing moderate spinal canal stenosis. At the T10-T11 level there is also left dorsolateral epidural extension of tumor with bilateral ventral epidural tumor at the T11 level causing severe spinal canal stenosis and spinal cord compression. There is no abnormal spinal cord edema. There is a left T11 4.0 x 2.6 cm paravertebral metastasis. Epidural tumor extends into the bilateral foramina causes severe left and mild to moderate right T10-T11 foraminal stenosis. Neurosurgical consultation is again recommended as noted on the recent MRI of the lumbar spine. The lumbar spine MRI demonstrated multiple vertebral body enhancing metastatic lesions at L2-L3 with epidural extension most pronounced along the posterior left vertebral body measuring 1.4 x 1 x 3 cm and there is, AP, and craniocaudal dimensions respectively. The metastatic lesions extend into the left and posterior elements. Soft tissue tumor extends into the left neural foramen with mild left foraminal stenosis . No central canal or right foraminal stenosis. Schmorl's node formation within the inferior endplate of L2 with mild circumferential disk bulging. The disk is otherwise normal in height. No focal protrusion. The CT Chest demonstrated a spiculated mass in the 12 o'clock position of the left breast which is associated with skin retraction and skin thickening. Findings may represent postsurgical change and/or changes with secondary to left breast cancer. Breast marking clip calcification adjacent to the spiculated mass. The patient has been evaluated by Neurosurgery and found not to have any neurological deficits. Neurosurgery feels that a laminectomy is a reasonable approach followed by radiation therapy, but has asked radiation oncology to be on board. pt was started on Dexamethasone. She is also on Gabapentin. Eyes: no complaints ENT: no complaints Respiratory: no complaints Cardiovascular: no complaints Gastrointestinal: no complaints Genitourinary: no complaints Musculoskeletal: back pain Skin: no complaints Neurologic: no complaints Lymphatic: no complaints Psychological: nl mood/affect Immunologic: no complaints Past Medical History left sided breast cancer with bone metastases as above chemotherapy left breast radiation hypertension Past Surgical History left breast lumpectomy and axillary node dissection right shoulder biopsy Family History Significant Family History: no pertinent family hx Social History Alcohol Use: none Smoking Status: Never smoker Drug Use: none Other Social History works in [employer] at [employer] Eyes: no complaints ENT: no complaints Respiratory: no complaints Cardiovascular: no complaints Gastrointestinal: no complaints Genitourinary: no complaints Musculoskeletal: no complaints Skin: no complaints Neurologic: no complaints Lymphatic: no complaints Psychological: nl mood/affect, no complaints Social History Alcohol Use: none Smoking Status: Never smoker Drug Use: none Exam/Review of Systems Vital Signs Vitals Vital Signs Date Time Temp Pulse Resp B/P Pulse Ox O2 Delivery O2 Flow Rate FiO2 08/04/16 20:51 98.6 90 20 156/90 98 08/04/16 17:00 Room Air Exam Exam Constitutional: alert, oriented, well developed Psych: nl mood/affect, no complaints Head: atraumatic, normocephalic Eyes: EOMI, nl conjunctiva, nl lids, nl sclera ENMT: mucosa pink and moist, nl external ears & nose, nl lips & teeth Neck: non-tender, supple Respiratory: clear to auscultation, normal air movement, No wheezing Cardiovascular: regular rate and rhythm Gastrointestinal: bowel sounds, non-tender, soft Musculoskeletal: muscle tone, muscle weakness, nl extremities to inspection, range of motion, No spine non-tender (tenderness to percussion and palpation of the thoracolumbar spine particularly on the left side around L2) Extremities: normal pulses Neurological: CATERING ADMINISTRATIVE ASSISTANT II-XII intact, nl mental status, nl speech, nl strength (5/5 strength in the upper and lower extremities) Skin: nl turgor, rash or lesions Lymph: nl lymph nodes Results Result Diagram: 08/04/16 0519 08/04/16 0519 Results 24 hrs Laboratory Tests Test 08/04/16 05:19 White Blood Count 4.9 # Red Blood Count 4.42 Hemoglobin 13.5 Hematocrit 38.9 Mean Corpuscular Volume 88.0 Mean Corpuscular Hemoglobin 30.5 Mean Corpuscular Hemoglobin Concent 34.7 Red Cell Distribution Width 12.3 Platelet Count 200 Mean Platelet Volume 9.5 Neutrophils % 86.3 H Lymphocytes % 12.1 L Monocytes % 1.0 Eosinophils % 0.0 Basophils % 0.2 Nucleated Red Blood Cells % 0.0 Neutrophils # 4.2 Lymphocytes # 0.6 L Monocytes # 0.1 L Eosinophils # 0.0 Basophils # 0.0 Nucleated Red Blood Cells # 0.0 Sodium Level 146 H Potassium Level 4.2 Chloride Level 107 Carbon Dioxide Level 25 Anion Gap 18 H Blood Urea Nitrogen 17 Creatinine 0.67 Glucose Level 135 Calcium Level 9.6 Carcinoembryonic Antigen 4.7 Medications Medications Current Medications Gabapentin (Neurontin) 800 mg QHS PO Last administered on 08/04/16 20:38; Admin Dose 800 MG; Start 08/04/16 at 21:00 Letrozole (Femara) 2.5 mg DAILY PO Last administered on 08/04/16 13:50; Admin Dose 2.5 MG; Start 08/04/16 at 09:00 Ondansetron HCl (Zofran Inj) 4 mg Q6H PRN IV NAUSEA AND/OR VOMITING; Start at 23:00 Pantoprazole (Protonix Iv) 40 mg DAILY@06 IV Last administered on 08/04/16 07: 27; Admin Dose 40 MG; Start 08/04/16 at 06:00 Dexamethasone (Decadron) 4 mg Q6 IV Last administered on 08/04/16 17:51; Admin Dose 4 MG; Start 08/04/16 at 00:00 Morphine Sulfate (morphine) 2 mg Q3H PRN IV SEVERE PAIN LEVEL 7-10; Start 08/04 at 17:00 Hydralazine HCl (Apresoline) 10 mg Q4H PRN IV ELEVATED DIASTOLIC BP Last administered on 08/04/16 17:52; Admin Dose 10 MG; Start 08/04/16 at 17:00 Lisinopril (Zestril) 5 mg DAILY PO ; Start 08/05/16 at 09:00 BLADIMIR COURTNEY MD Aug 04, 2016 23:30
[2016-08-05] MEDS: DEXAMETHASONE 4 MG/ML 1 ML INJ IV SCH ×5 (00:05→23:59)
[2016-08-05] MEDS: PANTOPRAZOLE 40 MG INJ IV SCH (06:04)
[2016-08-05 06:22] VITALS: BP 141/84; PULSE 84; RESP 18
[2016-08-05 08:13] VITALS: BP 159/84; RESP 16
[2016-08-05 08:49] LABS: ADD SCAN DIFF NO
[2016-08-05] MEDS: LETROZOLE 2.5 MG TAB PO SCH (08:54)
[2016-08-05] MEDS: LISINOPRIL 5 MG TAB PO SCH (08:55)
[2016-08-05 09:05] LABS: BASOPHILS % 0.1 % (0.0-2.0); HEMOGLOBIN 13.3 g/dl (12.0-16.0); LYMPHOCYTES # 0.7 10^3/ul (0.8-2.9); LYMPHOCYTES % 4.6 % (15.0-51.0); MEAN CORPUSCULAR HEMOGLOBIN 30.9 pg (29.0-33.0); MEAN CORPUSCULAR VOLUME 88.2 fl (82.0-101.0); MEAN PLATELET VOLUME 9.8 fl (7.4-10.4); MONOCYTE # 0.4 10^3/ul (0.3-0.9); MONOCYTES % 2.7 % (0.0-11.0); NEUTROPHIL # 13.9 10^3/ul (1.6-7.5); NEUTROPHILS % 91.9 % (39.0-77.0); PLATELET COUNT 224 10^3/UL (140-415); RED BLOOD COUNT 4.31 10^6/ul (4.20-5.40); RED CELL DISTRIBUTION WIDTH 12.6 % (11.5-14.5); WHITE BLOOD COUNT 15.2 10^3/ul (4.8-10.8)
[2016-08-05 09:30] LABS: POTASSIUM 3.9 mmol/L (3.5-5.1)
[2016-08-05 09:32] LABS: CREATININE 0.66 mg/dl (0.44-1.00)
[2016-08-05 09:33] LABS: CALCIUM 9.3 mg/dl (8.4-10.2)
--- NOTE | 2016-08-05 13:57 | PN ---
Date/Time of Note Date/Time of Note DATE: 08/05/16 TIME: 13:56 Assessment/Plan VTE Prophylaxis VTE Prophylaxis Intervention: other Lines/Catheters IV Catheter Type (from Nrsg): Saline Lock Assessment/Plan Assessment/Plan -Intractable back pain. Continue IV morphine as needed for pain. -Spinal cord compression per MRI, continue Decadron and Protonix, Dr. Andrews is asked to see patient in neurosurgery consultation. -Metastatic breast cancer with bone involvement, Dr. Bhatt is following in hematology oncology consultation. - Leukocytosis- possibly sec to steroids - cont to monitor, am labs. Further recommendations based on clinical course. Plan of care discussed with Dr. Bowser. Subjective 24 Hr Interval Summary Free Text/Dictation NAD, ambulates-- tolerates well. dw staff Eyes: no complaints ENT: no complaints Respiratory: no complaints Cardiovascular: no complaints Gastrointestinal: no complaints Genitourinary: no complaints Musculoskeletal: back pain Skin: no complaints Neurologic: no complaints Lymphatic: no complaints Psychological: no complaints Immunologic: no complaints Exam/Review of Systems Vital Signs Vitals Vital Signs Date Time Temp Pulse Resp B/P Pulse Ox O2 Delivery O2 Flow Rate FiO2 08/05/16 08:13 98.1 78 16 159/84 97 08/05/16 06:22 Room Air Intake and Output 08/04/16 08/04/16 08/05/16 15:00 23:00 07:00 Intake Total 100 ml 250 ml Output Total 300 ml 300 ml Balance -200 ml -50 ml Exam Constitutional: alert, oriented, well developed Psych: nl mood/affect Head: normocephalic Eyes: EOMI ENMT: nl external ears & nose Neck: non-tender Respiratory: clear to auscultation Cardiovascular: nl pulses Gastrointestinal: non-tender, soft Musculoskeletal: nl extremities to inspection Extremities: normal pulses Neurological: nl mental status, nl speech Skin: nl turgor Lymph: other Results Result Diagram: 08/05/16 0840 08/05/16 0840 Results 24 hrs Laboratory Tests Test 08/05/16 08:40 White Blood Count 15.2 #H Red Blood Count 4.31 Hemoglobin 13.3 Hematocrit 38.0 Mean Corpuscular Volume 88.2 Mean Corpuscular Hemoglobin 30.9 Mean Corpuscular Hemoglobin Concent 35.0 Red Cell Distribution Width 12.6 Platelet Count 224 Mean Platelet Volume 9.8 Neutrophils % 91.9 H Lymphocytes % 4.6 L Monocytes % 2.7 Eosinophils % 0.0 Basophils % 0.1 Nucleated Red Blood Cells % 0.0 Neutrophils # 13.9 H Lymphocytes # 0.7 L Monocytes # 0.4 Eosinophils # 0.0 Basophils # 0.0 Nucleated Red Blood Cells # 0.0 Sodium Level 138 Potassium Level 3.9 Chloride Level 105 Carbon Dioxide Level 25 Anion Gap 12 Blood Urea Nitrogen 21 H Creatinine 0.66 Glucose Level 133 Calcium Level 9.3 Medications Medications Current Medications Gabapentin (Neurontin) 800 mg QHS PO Last administered on 08/04/16 20:38; Admin Dose 800 MG; Start 08/04/16 at 21:00 Letrozole (Femara) 2.5 mg DAILY PO Last administered on 08/05/16 08:54; Admin Dose 2.5 MG; Start 08/04/16 at 09:00 Ondansetron HCl (Zofran Inj) 4 mg Q6H PRN IV NAUSEA AND/OR VOMITING; Start at 23:00 Pantoprazole (Protonix Iv) 40 mg DAILY@06 IV Last administered on 08/05/16 06: 04; Admin Dose 40 MG; Start 08/04/16 at 06:00 Dexamethasone (Decadron) 4 mg Q6 IV Last administered on 08/05/16 13:01; Admin Dose 4 MG; Start 08/04/16 at 00:00 Morphine Sulfate (morphine) 2 mg Q3H PRN IV SEVERE PAIN LEVEL 7-10; Start 08/04 at 17:00 Hydralazine HCl (Apresoline) 10 mg Q4H PRN IV ELEVATED DIASTOLIC BP Last administered on 08/04/16 17:52; Admin Dose 10 MG; Start 08/04/16 at 17:00 Lisinopril (Zestril) 5 mg DAILY PO Last administered on 08/05/16 08:55; Admin Dose 5 MG; Start 08/05/16 at 09:00 AGA MAC Aug 05, 2016 13:57
[2016-08-05 19:26] VITALS: BP 126/76; RESP 16
--- NOTE | 2016-08-05 19:26 | CONS ---
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 Problems: Additional Assessment/Plan I have discussed the case at length with Dr Andrews. Given her good performance status and ER positive disease, aggressive treatment is merited. The patient will undergo laminectomy followed by radiation therapy to T10-T11 for consolidation. At the time, we will also address the disease at L2-L3 with radiotherapy as there is a risk of cauda equina from disease progression in that region. Continue dexamethasone and PPI at this time. I briefly reviewed the indications, risks, benefits, side effects and alternatives to radiation therapy. We have advised her to make a follow up appointment to see Dr Stephanie Ba or Dr Asif Gale within one week of discharge at [address] [place] [address], . Case management is requested to ensure she has follow up with Radiation Oncology prior to discharge. Thank you for the opportunity to participate in the care of this patient. Please call [phone] to reach the radiation oncologist production corrugator. Stephanie Ba MD Consultation Date/Type/Reason Admit Date/Time Date of Consultation: Aug 05, 2016 Type of Consultation: Radiation Oncology Reason for Consultation epidural cord compression at T10-T11 2/2 metastatic breast cancer Referring Provider: BLADIMIR BHATT MD Hx of Present Illness The patient is a 60F diagnosed with breast cancer in 2011. She states that she needed three lumpectomies to clear the margin, and also had 2/16 nodes involved. She recalls being told that she had HER2 positive disease. She received adjuvant chemotherapy at [facility] and also had post lumpectomy radiotherapy under the care of Dr Montelongo at [facility], completing therapy in 2012. She subsequently continued on Tamoxifen. She first developed right shoulder pain in 2016. The first X ray of the shoulder was non diagnostic but when the pain progressed, further imaging and a biopsy of the shoulder demonstrated metastatic disease in 2016. Restaging imaging demonstrated widespread bony metastatic disease. The patient changed insurance and started under the care of Dr Bhatt. Dr Bhatt changed her medication to Letrozole. For the last several months, the patient reported progressive intercostal neuralgia which did not respond to Tylenol, Advil or Aleve. She took her mother in law's Neurontin for some relief. Ultimately, the pain continued to progress to severe left sided back pain over the last several weeks. She presented to Dr Bhatt with these symptoms and was referred to the ER to rule out cord compression. The patient declined any fevers, saddle anesthesia or bowel/bladder incontinence. She underwent a workup which included imaging of the spine. The thoracic MRI demonstrated multilevel osseous metastases most pronounced at T10. There is bilateral ventral epidural extension of tumor at the mid T10 level causing moderate spinal canal stenosis. At the T10-T11 level there is also left dorsolateral epidural extension of tumor with bilateral ventral epidural tumor at the T11 level causing severe spinal canal stenosis and spinal cord compression. There is no abnormal spinal cord edema. There is a left T11 4.0 x 2.6 cm paravertebral metastasis. Epidural tumor extends into the bilateral foramina causes severe left and mild to moderate right T10-T11 foraminal stenosis. Neurosurgical consultation is again recommended as noted on the recent MRI of the lumbar spine. The lumbar spine MRI demonstrated multiple vertebral body enhancing metastatic lesions at L2-L3 with epidural extension most pronounced along the posterior left vertebral body measuring 1.4 x 1 x 3 cm and there is, AP, and craniocaudal dimensions respectively. The metastatic lesions extend into the left and posterior elements. Soft tissue tumor extends into the left neural foramen with mild left foraminal stenosis . No central canal or right foraminal stenosis. Schmorl's node formation within the inferior endplate of L2 with mild circumferential disk bulging. The disk is otherwise normal in height. No focal protrusion. The CT Chest demonstrated a spiculated mass in the 12 o'clock position of the left breast which is associated with skin retraction and skin thickening. Findings may represent postsurgical change and/or changes with secondary to left breast cancer. Breast marking clip calcification adjacent to the spiculated mass. The patient has been evaluated by Neurosurgery and found not to have any neurological deficits. Neurosurgery feels that a laminectomy is a reasonable approach followed by radiation therapy, but has asked radiation oncology to be on board. The patient has also been evaluated by Dr Bhatt in Medical Oncology, and started on Dexamethasone. She is also on Gabapentin. Eyes: no complaints ENT: no complaints Respiratory: no complaints Cardiovascular: no complaints Gastrointestinal: no complaints Genitourinary: no complaints Musculoskeletal: back pain Skin: no complaints Neurologic: no complaints Lymphatic: no complaints Psychological: nl mood/affect Immunologic: no complaints Past Medical History left sided breast cancer with bone metastases as above chemotherapy left breast radiation hypertension Past Surgical History left breast lumpectomy and axillary node dissection right shoulder biopsy Family History Significant Family History: no pertinent family hx Social History Alcohol Use: none Smoking Status: Never smoker Drug Use: none Other Social History works in [employer] at [employer] Exam/Review of Systems Vital Signs Vitals Vital Signs Date Time Temp Pulse Resp B/P Pulse Ox O2 Delivery O2 Flow Rate FiO2 08/05/16 08:13 98.1 78 16 159/84 97 08/05/16 06:22 Room Air Intake and Output 08/04/16 08/04/16 08/05/16 15:00 23:00 07:00 Intake Total 100 ml 250 ml Output Total 300 ml 300 ml Balance -200 ml -50 ml Exam Constitutional: alert, oriented, well developed Psych: nl mood/affect, no complaints Head: atraumatic, normocephalic Eyes: EOMI, nl conjunctiva, nl lids, nl sclera ENMT: mucosa pink and moist, nl external ears & nose, nl lips & teeth Neck: non-tender, supple Respiratory: clear to auscultation, normal air movement, No wheezing Cardiovascular: regular rate and rhythm Gastrointestinal: bowel sounds, non-tender, soft Musculoskeletal: muscle tone, muscle weakness, nl extremities to inspection, range of motion, No spine non-tender (tenderness to percussion and palpation of the thoracolumbar spine particularly on the left side around L2) Extremities: normal pulses 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1 Nucleated Red Blood Cells % 0.0 Neutrophils # 13.9 H Lymphocytes # 0.7 L Monocytes # 0.4 Eosinophils # 0.0 Basophils # 0.0 Nucleated Red Blood Cells # 0.0 Sodium Level 138 Potassium Level 3.9 Chloride Level 105 Carbon Dioxide Level 25 Anion Gap 12 Blood Urea Nitrogen 21 H Creatinine 0.66 Glucose Level 133 Calcium Level 9.3 Medications Medications Current Medications Gabapentin (Neurontin) 800 mg QHS PO Last administered on 08/04/16 20:38; Admin Dose 800 MG; Start 08/04/16 at 21:00 Letrozole (Femara) 2.5 mg DAILY PO Last administered on 08/05/16 08:54; Admin Dose 2.5 MG; Start 08/04/16 at 09:00 Ondansetron HCl (Zofran Inj) 4 mg Q6H PRN IV NAUSEA AND/OR VOMITING; Start at 23:00 Pantoprazole (Protonix Iv) 40 mg DAILY@06 IV Last administered on 08/05/16 06: 04; Admin Dose 40 MG; Start 08/04/16 at 06:00 Dexamethasone (Decadron) 4 mg Q6 IV Last administered on 08/05/16 18:41; Admin Dose 4 MG; Start 08/04/16 at 00:00 Morphine Sulfate (morphine) 2 mg Q3H PRN IV SEVERE PAIN LEVEL 7-10; Start 08/04 at 17:00 Hydralazine HCl (Apresoline) 10 mg Q4H PRN IV ELEVATED DIASTOLIC BP Last administered on 08/04/16 17:52; Admin Dose 10 MG; Start 08/04/16 at 17:00 Lisinopril (Zestril) 5 mg DAILY PO Last administered on 08/05/16 08:55; Admin Dose 5 MG; Start 08/05/16 at 09:00 STEPHANIE BA MD Aug 05, 2016 19:26
[2016-08-05] MEDS: GABAPENTIN 400 MG CAP PO SCH (20:29)
--- NOTE | 2016-08-05 22:25 | CONS ---
Date/Time of Note Date/Time of Note DATE: 08/05/16 TIME: 22:23 Assessment/Plan Assessment/Plan Chief Complaint/Hosp Course METASTATIC BREAST CANCER WITH KNOWN MULTIPLE BONY METS epidural cord compression at T10-T11 and metastatic lesions at L2-L3 with epidural extension most pronounced along the posterior left vertebral body and extending into the left neural foramen and posterior elements. laminectomy followed by radiation therapy to T10-T11 for consolidation. Continue dexamethasone and PPI at this time. PLAN SYSTEMIC THERAPY AFTER SURGERY AND XRT CONT ANTIESTROGENS CONT PAIN CONTROL Problems: Consultation Date/Type/Reason Admit Date/Time Aug 03, 2016 at 18:18 Initial Consult Date 08/05/16 Type of Consultation: HEMEONC Referring Provider: BLADIMIR COURTNEY MD 24 HR Interval Summary Free Text/Dictation FELLING BETTER SEEN BY RADON Exam/Review of Systems Vital Signs Vitals Vital Signs Date Time Temp Pulse Resp B/P Pulse Ox O2 Delivery O2 Flow Rate FiO2 08/05/16 19:26 98.3 83 16 126/76 99 08/05/16 06:22 Room Air Intake and Output 08/04/16 08/04/16 08/05/16 15:00 23:00 07:00 Intake Total 100 ml 250 ml Output Total 300 ml 300 ml Balance -200 ml -50 ml Results Result Diagram: 08/05/16 0840 08/05/16 0840 Results 24 hrs Laboratory Tests Test 08/05/16 08:40 White Blood Count 15.2 #H Red Blood Count 4.31 Hemoglobin 13.3 Hematocrit 38.0 Mean Corpuscular Volume 88.2 Mean Corpuscular Hemoglobin 30.9 Mean Corpuscular Hemoglobin Concent 35.0 Red Cell Distribution Width 12.6 Platelet Count 224 Mean Platelet Volume 9.8 Neutrophils % 91.9 H Lymphocytes % 4.6 L Monocytes % 2.7 Eosinophils % 0.0 Basophils % 0.1 Nucleated Red Blood Cells % 0.0 Neutrophils # 13.9 H Lymphocytes # 0.7 L Monocytes # 0.4 Eosinophils # 0.0 Basophils # 0.0 Nucleated Red Blood Cells # 0.0 Sodium Level 138 Potassium Level 3.9 Chloride Level 105 Carbon Dioxide Level 25 Anion Gap 12 Blood Urea Nitrogen 21 H Creatinine 0.66 Glucose Level 133 Calcium Level 9.3 Medications Medications Current Medications Gabapentin (Neurontin) 800 mg QHS PO Last administered on 08/05/16 20:29; Admin Dose 800 MG; Start 08/04/16 at 21:00 Letrozole (Femara) 2.5 mg DAILY PO Last administered on 08/05/16 08:54; Admin Dose 2.5 MG; Start 08/04/16 at 09:00 Ondansetron HCl (Zofran Inj) 4 mg Q6H PRN IV NAUSEA AND/OR VOMITING; Start at 23:00 Pantoprazole (Protonix Iv) 40 mg DAILY@06 IV Last administered on 08/05/16 06: 04; Admin Dose 40 MG; Start 08/04/16 at 06:00 Dexamethasone (Decadron) 4 mg Q6 IV Last administered on 08/05/16 18:41; Admin Dose 4 MG; Start 08/04/16 at 00:00 Morphine Sulfate (morphine) 2 mg Q3H PRN IV SEVERE PAIN LEVEL 7-10; Start 08/04 at 17:00 Hydralazine HCl (Apresoline) 10 mg Q4H PRN IV ELEVATED DIASTOLIC BP Last administered on 08/04/16 17:52; Admin Dose 10 MG; Start 08/04/16 at 17:00 Lisinopril (Zestril) 5 mg DAILY PO Last administered on 08/05/16 08:55; Admin Dose 5 MG; Start 08/05/16 at 09:00 BLADIMIR COURTNEY MD Aug 05, 2016 22:24
[2016-08-06 05:01] LABS: ADD SCAN DIFF NO
[2016-08-06 05:16] LABS: BASOPHILS % 0.1 % (0.0-2.0); HEMATOCRIT 35.8 % (37.0-47.0); HEMOGLOBIN 12.3 g/dl (12.0-16.0); LYMPHOCYTES # 0.9 10^3/ul (0.8-2.9); LYMPHOCYTES % 6.1 % (15.0-51.0); MEAN CORPUSCULAR HEMOGLOBIN 30.8 pg (29.0-33.0); MEAN CORPUSCULAR HGB CONC 34.4 g/dl (32.0-37.0); MEAN CORPUSCULAR VOLUME 89.5 fl (82.0-101.0); MEAN PLATELET VOLUME 9.9 fl (7.4-10.4); MONOCYTE # 0.4 10^3/ul (0.3-0.9); MONOCYTES % 2.7 % (0.0-11.0); NEUTROPHIL # 12.5 10^3/ul (1.6-7.5); NEUTROPHILS % 90.2 % (39.0-77.0); PLATELET COUNT 229 10^3/UL (140-415); RED CELL DISTRIBUTION WIDTH 12.5 % (11.5-14.5); WHITE BLOOD COUNT 13.8 10^3/ul (4.8-10.8)
[2016-08-06 05:19] LABS: POTASSIUM 4.1 mmol/L (3.5-5.1)
[2016-08-06 05:22] LABS: CREATININE 0.67 mg/dl (0.44-1.00)
[2016-08-06 05:23] LABS: CALCIUM 9.2 mg/dl (8.4-10.2)
[2016-08-06] MEDS: DEXAMETHASONE 4 MG/ML 1 ML INJ IV SCH ×4 (06:16→23:54)
[2016-08-06] MEDS: PANTOPRAZOLE 40 MG INJ IV SCH (06:16)
[2016-08-06 07:41] VITALS: BP 129/77; RESP 15
[2016-08-06] MEDS: LISINOPRIL 5 MG TAB PO SCH (08:51)
[2016-08-06] MEDS: LETROZOLE 2.5 MG TAB PO SCH (08:53)
--- NOTE | 2016-08-06 15:28 | PN ---
Date/Time of Note Date/Time of Note DATE: 08/06/16 TIME: 15:24 Assessment/Plan VTE Prophylaxis VTE Prophylaxis Intervention: SCD's Lines/Catheters IV Catheter Type (from Nrsg): Saline Lock Assessment/Plan Assessment/Plan -Intractable back pain. Continue IV morphine as needed for pain. -Spinal cord compression per MRI, continue Decadron and Protonix - per Dr. Andrews in neurosurgery consultation. - plan for possible laminectomy -Metastatic breast cancer with bone involvement, Dr. Bhatt is following in hematology oncology consultation. - Leukocytosis- possibly sec to steroids - cont to monitor, am labs. Further recommendations based on clinical course. Plan of care discussed with Dr. Bowser. Subjective 24 Hr Interval Summary Eyes: no complaints ENT: no complaints Respiratory: no complaints Cardiovascular: no complaints Gastrointestinal: no complaints Genitourinary: no complaints Musculoskeletal: back pain Skin: no complaints Neurologic: no complaints Endocrine: no complaints Lymphatic: no complaints Psychological: no complaints Immunologic: no complaints Exam/Review of Systems Vital Signs Vitals Vital Signs Date Time Temp Pulse Resp B/P Pulse Ox O2 Delivery O2 Flow Rate FiO2 08/06/16 07:41 98.2 77 15 129/77 100 08/05/16 06:22 Room Air Intake and Output 08/05/16 08/05/16 08/06/16 15:00 23:00 07:00 Intake Total 1560 ml 480 ml Balance 1560 ml 480 ml Exam Constitutional: alert, oriented, well developed Psych: nl mood/affect Head: atraumatic Eyes: EOMI ENMT: nl external ears & nose Neck: non-tender Respiratory: clear to auscultation Cardiovascular: nl pulses Gastrointestinal: non-tender, soft Musculoskeletal: nl extremities to inspection, other (lumbar tenderness) Extremities: normal pulses Neurological: nl mental status, nl speech Lymph: nontender Results Result Diagram: 08/06/162 08/06/16 0422 Results 24 hrs Laboratory Tests Test 08/06/16 04:22 White Blood Count 13.8 H Red Blood Count 4.00 L Hemoglobin 12.3 Hematocrit 35.8 L Mean Corpuscular Volume 89.5 Mean Corpuscular Hemoglobin 30.8 Mean Corpuscular Hemoglobin Concent 34.4 Red Cell Distribution Width 12.5 Platelet Count 229 Mean Platelet Volume 9.9 Neutrophils % 90.2 H Lymphocytes % 6.1 L Monocytes % 2.7 Eosinophils % 0.0 Basophils % 0.1 Nucleated Red Blood Cells % 0.0 Neutrophils # 12.5 H Lymphocytes # 0.9 Monocytes # 0.4 Eosinophils # 0.0 Basophils # 0.0 Nucleated Red Blood Cells # 0.0 Sodium Level 138 Potassium Level 4.1 Chloride Level 104 Carbon Dioxide Level 27 Anion Gap 11 Blood Urea Nitrogen 27 H Creatinine 0.67 Glucose Level 137 Calcium Level 9.2 Medications Medications Current Medications Gabapentin (Neurontin) 800 mg QHS PO Last administered on 08/05/16 20:29; Admin Dose 800 MG; Start 08/04/16 at 21:00 Letrozole (Femara) 2.5 mg DAILY PO Last administered on 08/06/16 08:53; Admin Dose 2.5 MG; Start 08/04/16 at 09:00 Ondansetron HCl (Zofran Inj) 4 mg Q6H PRN IV NAUSEA AND/OR VOMITING; Start at 23:00 Pantoprazole (Protonix Iv) 40 mg DAILY@06 IV Last administered on 08/06/16 06: 16; Admin Dose 40 MG; Start 08/04/16 at 06:00 Dexamethasone (Decadron) 4 mg Q6 IV Last administered on 08/06/16 11:22; Admin Dose 4 MG; Start 08/04/16 at 00:00 Morphine Sulfate (morphine) 2 mg Q3H PRN IV SEVERE PAIN LEVEL 7-10; Start 08/04 at 17:00 Hydralazine HCl (Apresoline) 10 mg Q4H PRN IV ELEVATED DIASTOLIC BP Last administered on 08/04/16 17:52; Admin Dose 10 MG; Start 08/04/16 at 17:00 Lisinopril (Zestril) 5 mg DAILY PO Last administered on 08/06/16 08:51; Admin Dose 5 MG; Start 08/05/16 at 09:00 AGA MAC Aug 06, 2016 15:28
--- NOTE | 2016-08-06 18:26 | QN ---
Documentation Comment Patient without new complaints or deficits. Plan discussed with Dr Toño Stout and reviewed again with patient: we recommend thoracic laminectomy for decompression of the spinal cord followed by radiation therapy. The patient understands the r/b/a of surgery including possible neurologic worsening after surgery. All questions were answered & no guarantees given. Patient expressed her understanding of all of the foregoing and wishes to proceed with surgery as described. LUCINA BAUER MD Aug 06, 2016 18:26
[2016-08-06 19:15] VITALS: BP 162/89; RESP 18
[2016-08-06] MEDS: DOCUSATE SODIUM 100 MG CAP PO SCH (21:49)
[2016-08-06] MEDS: GABAPENTIN 400 MG CAP PO SCH (21:50)
--- NOTE | 2016-08-06 22:18 | CONS ---
Date/Time of Note Date/Time of Note DATE: 08/06/16 TIME: 22:16 Assessment/Plan Assessment/Plan Chief Complaint/Hosp Course METASTATIC BREAST CANCER WITH KNOWN MULTIPLE BONY METS epidural cord compression at T10-T11 and metastatic lesions at L2-L3 with epidural extension most pronounced along the posterior left vertebral body and extending into the left neural foramen and posterior elements. laminectomy followed by radiation therapy to T10-T11 for consolidation. Continue dexamethasone and PPI at this time. PLAN SYSTEMIC THERAPY AFTER SURGERY AND XRT CONT ANTIESTROGENS CONT PAIN CONTROL Problems: Consultation Date/Type/Reason Admit Date/Time Aug 03, 2016 at 18:18 Initial Consult Date 08/05/16 [facility] Referring Provider: BLADIMIR COURTNEY MD 24 HR Interval Summary Free Text/Dictation ALL NOTED AGREE WITH PLAN- TO PROCEED WITH thoracic laminectomy for decompression of the spinal cord followed by radiation therapy. The patient understands the r/b/a of surgery including possible neurologic worsening after surgery. Exam/Review of Systems Vital Signs Vitals Vital Signs Date Time Temp Pulse Resp B/P Pulse Ox O2 Delivery O2 Flow Rate FiO2 08/06/16 19:15 97.9 95 18 162/89 97 08/05/16 06:22 Room Air Intake and Output 08/05/16 08/05/16 08/06/16 15:00 23:00 07:00 Intake Total 1560 ml 480 ml Balance 1560 ml 480 ml Exam Constitutional: alert, oriented, well developed Psych: nl mood/affect, no complaints Head: atraumatic, normocephalic Eyes: EOMI, nl conjunctiva, nl lids, nl sclera ENMT: mucosa pink and moist, nl external ears & nose, nl lips & teeth Neck: non-tender, supple Respiratory: clear to auscultation, normal air movement, No wheezing Cardiovascular: regular rate and rhythm Gastrointestinal: bowel sounds, non-tender, soft Musculoskeletal: muscle tone, muscle weakness, nl extremities to inspection, range of motion, No spine non-tender (tenderness to percussion and palpation of the thoracolumbar spine particularly on the left side around L2) Extremities: normal pulses 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, nl mental status, nl speech, nl strength (5/5 strength in the upper and lower extremities) Skin: nl turgor, rash or lesions Lymph: nl lymph nodes Results Result Diagram: 08/06/16 0422 08/06/16 0422 Results 24 hrs Laboratory Tests Test 08/06/16 04:22 White Blood Count 13.8 H Red Blood Count 4.00 L Hemoglobin 12.3 Hematocrit 35.8 L Mean Corpuscular Volume 89.5 Mean Corpuscular Hemoglobin 30.8 Mean Corpuscular Hemoglobin Concent 34.4 Red Cell Distribution Width 12.5 Platelet Count 229 Mean Platelet Volume 9.9 Neutrophils % 90.2 H Lymphocytes % 6.1 L Monocytes % 2.7 Eosinophils % 0.0 Basophils % 0.1 Nucleated Red Blood Cells % 0.0 Neutrophils # 12.5 H Lymphocytes # 0.9 Monocytes # 0.4 Eosinophils # 0.0 Basophils # 0.0 Nucleated Red Blood Cells # 0.0 Sodium Level 138 Potassium Level 4.1 Chloride Level 104 Carbon Dioxide Level 27 Anion Gap 11 Blood Urea Nitrogen 27 H Creatinine 0.67 Glucose Level 137 Calcium Level 9.2 Medications Medications Current Medications Gabapentin (Neurontin) 800 mg QHS PO Last administered on 08/06/16 21:50; Admin Dose 800 MG; Start 08/04/16 at 21:00 Letrozole (Femara) 2.5 mg DAILY PO Last administered on 08/06/16 08:53; Admin Dose 2.5 MG; Start 08/04/16 at 09:00 Ondansetron HCl (Zofran Inj) 4 mg Q6H PRN IV NAUSEA AND/OR VOMITING; Start at 23:00 Dexamethasone (Decadron) 4 mg Q6 IV Last administered on 08/06/16 18:10; Admin Dose 4 MG; Start 08/04/16 at 00:00 Morphine Sulfate (morphine) 2 mg Q3H PRN IV SEVERE PAIN LEVEL 7-10; Start 08/04 at 17:00 Hydralazine HCl (Apresoline) 10 mg Q4H PRN IV ELEVATED DIASTOLIC BP Last administered on 08/04/16 17:52; Admin Dose 10 MG; Start 08/04/16 at 17:00 Lisinopril (Zestril) 5 mg DAILY PO Last administered on 08/06/16 08:51; Admin Dose 5 MG; Start 08/05/16 at 09:00 Docusate Sodium (Colace) 100 mg BID PO Last administered on 3/26/17at 21:49; Admin Dose 100 MG; Start 08/06/16 at 21:00 Pantoprazole (Protonix Tab) 40 mg DAILY@06 PO ; Start 08/07/16 at 06:00 BLADIMIR COURTNEY MD Aug 06, 2016 22:18
[2016-08-06] MEDS: DEXTROSE 5%-0.45% NACL 1,000 ML IV SCH (23:54)
[2016-08-07] VITALS (26 sets, daily range): BP systolic 126–185; BP diastolic 78–95; PULSE 69–88; RESP 11–20
[2016-08-07] MEDS: DEXAMETHASONE 4 MG/ML 1 ML INJ IV SCH ×3 (05:51→21:17)
[2016-08-07] MEDS: PANTOPRAZOLE (EC) 40 MG TAB PO SCH (05:52)
[2016-08-07] MEDS: hydrALAzine 20 MG INJ IV PRN (08:19)
[2016-08-07] MEDS: LISINOPRIL 5 MG TAB PO SCH (08:19)
[2016-08-07] MEDS: DOCUSATE SODIUM 100 MG CAP PO SCH ×2 (08:22→21:17)
[2016-08-07] MEDS: LETROZOLE 2.5 MG TAB PO SCH (08:22)
[2016-08-07] MEDS ORDERED: POLYMYXIN/BACITRACIN 1L IRRIG ONE ×3 (10:16→16:52)
[2016-08-07] MEDS ORDERED: LIDOCAINE 0.5%/EPI (MDV) 50 ML INJ ONE (10:16)
[2016-08-07] MEDS ORDERED: THROMBIN 5000 UNIT VIAL ONE (10:16)
[2016-08-07] MEDS ORDERED: VANCOMYCIN 1 GM INJ ONE (10:16)
[2016-08-07] MEDS ORDERED: GELATIN SIZE 100 SPONGE ONE (10:16)
[2016-08-07] MEDS ORDERED: ROCURONIUM 50 MG INJ ONE (12:08)
[2016-08-07] MEDS ORDERED: ONDANSETRON 4 MG INJ ONE (12:08)
[2016-08-07] MEDS ORDERED: METOCLOPRAMIDE 10 MG INJ ONE (12:08)
[2016-08-07] MEDS ORDERED: FENTAnyl 50 MCG/ML VIAL ONE ×2 (12:08→14:17)
[2016-08-07] MEDS ORDERED: SUCCINYLCHOLINE CHLORIDE 100 MG/5 ML SYG IV ONE (12:08)
[2016-08-07] MEDS ORDERED: PROPOFOL 20 ML ONE ×4 (12:08→14:13)
[2016-08-07] MEDS: DEXTROSE 5%-0.45% NACL 1,000 ML IV SCH ×2 (12:50→21:18)
--- NOTE | 2016-08-07 13:06 | CONS ---
Date/Time of Note Date/Time of Note DATE: 08/07/16 TIME: 8:05 Assessment/Plan Assessment/Plan Chief Complaint/Hosp Course METASTATIC BREAST CANCER WITH KNOWN MULTIPLE BONY METS epidural cord compression at T10-T11 and metastatic lesions at L2-L3 with epidural extension most pronounced along the posterior left vertebral body and extending into the left neural foramen and posterior elements. laminectomy followed by radiation therapy to T10-T11 for consolidation. Continue dexamethasone and PPI at this time. PLAN SYSTEMIC THERAPY AFTER SURGERY AND XRT CONT ANTIESTROGENS CONT PAIN CONTROL Problems: Consultation Date/Type/Reason Admit Date/Time Aug 03, 2016 at 18:18 Initial Consult Date 08/05/16 [facility] Referring Provider: BLADIMIR COURTNEY MD 24 HR Interval Summary Free Text/Dictation Pt is for decompression laminectomy. Exam/Review of Systems Vital Signs Vitals Vital Signs Date Time Temp Pulse Resp B/P Pulse Ox O2 Delivery O2 Flow Rate FiO2 08/07/16 11:17 98.0 88 18 161/91 99 Room Air Intake and Output 08/06/16 08/06/16 08/07/16 15:00 23:00 07:00 Intake Total 675 ml Balance 675 ml Exam Constitutional: alert, oriented, well developed Psych: nl mood/affect, no complaints Head: atraumatic, normocephalic Eyes: EOMI, nl conjunctiva, nl lids, nl sclera ENMT: mucosa pink and moist, nl external ears & nose, nl lips & teeth Neck: non-tender, supple Respiratory: clear to auscultation, normal air movement, No wheezing Cardiovascular: regular rate and rhythm Gastrointestinal: bowel sounds, non-tender, soft Musculoskeletal: muscle tone, muscle weakness, nl extremities to inspection, range of motion, No spine non-tender (tenderness to percussion and palpation of the thoracolumbar spine particularly on the left side around L2) Extremities: normal pulses 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, nl mental status, nl speech, nl strength (5/5 strength in the upper and lower extremities) Skin: nl turgor, rash or lesions Lymph: nl lymph nodes Results Result Diagram: 08/06/1642108/06/16421 Medications Medications Current Medications Gabapentin (Neurontin) 800 mg QHS PO Last administered on 08/06/16t 21:50; Admin Dose 800 MG; Start 08/04/16 at 21:00 Letrozole (Femara) 2.5 mg DAILY PO Last administered on 08/06/16 08:53; Admin Dose 2.5 MG; Start 08/04/16 at 09:00 Ondansetron HCl (Zofran Inj) 4 mg Q6H PRN IV NAUSEA AND/OR VOMITING; Start at 23:00 Dexamethasone (Decadron) 4 mg Q6 IV Last administered on 08/07/16 05:51; Admin Dose 4 MG; Start 08/04/16 at 00:00 Morphine Sulfate (morphine) 2 mg Q3H PRN IV SEVERE PAIN LEVEL 7-10; Start 08/04 at 17:00 Hydralazine HCl (Apresoline) 10 mg Q4H PRN IV ELEVATED DIASTOLIC BP Last administered on 08/07/16 08:19; Admin Dose 10 MG; Start 08/04/16 at 17:00 Lisinopril (Zestril) 5 mg DAILY PO Last administered on 08/07/16 08:19; Admin Dose 5 MG; Start 08/05/16 at 09:00 Docusate Sodium (Colace) 100 mg BID PO Last administered on 08/06/16 21:49; Admin Dose 100 MG; Start 08/06/16 at 21:00 Pantoprazole 40 mg 40 mg DAILY@06 PO ; Start 08/07/16 at 06:00 Dextrose/Sodium Chloride (D5-1/2ns) 1,000 ml @ 75 mls/hr [id number] IV Last administered on 08/06/16 23:54; Admin Dose 75 MLS/HR; Start 08/06/16 at 23:30 BLADIMIR COURTNEY MD Aug 07, 2016 13:06
[2016-08-07] MEDS ORDERED: CEFAZOLIN 1 GM INJ ONE (13:27)
[2016-08-07] MEDS ORDERED: ONDANSETRON 4 MG INJ IV PRN (14:30)
[2016-08-07] MEDS ORDERED: FENTAnyl 50 MCG/ML VIAL IV PRN ×2 (14:30)
[2016-08-07] MEDS: BUPIVACAINE 0.5% (SDV) 30 ML INJ ONE ×2 (14:30→15:00)
[2016-08-07] MEDS ORDERED: LABETALOL HCL 20MG INJ IV PRN (14:30)
[2016-08-07] MEDS ORDERED: hydrALAzine 20 MG INJ IV PRN (14:30)
[2016-08-07] MEDS ORDERED: MEPERIDINE 25 MG INJ IV PRN (14:30)
[2016-08-07] MEDS ORDERED: HYDROmorphONE (0.2 MG/ML) 10ML SYG IV PRN ×2 (14:30)
--- NOTE | 2016-08-07 16:31 | RADRPT ---
PROCEDURE: Intraoperative XR. CLINICAL INDICATION: Intraoperative radiograph during lumbar laminectomy. TECHNIQUE: 3 spot intraoperative lateral lumbar x-ray image was provided. The images were reviewe d on a high-resolution PACS workstation. COMPARISON: MRI lumbar spine 08/03/2016 FINDINGS: Spot intraoperative lateral lumbar view were provided during lumbar laminectomy. The images demonst rate additional imaging with metallic probes at the level of L2-3 and T12. Subsequent imaging demon strates postoperative changes in the region of T11 - L1. No hardware is seen on the most delayed im age. IMPRESSION: 1. Spot intraoperative lateral lumbar views during lumbar laminectomy were provided. 2. Please see operative report of the same day for further information. RPTAT: HGAS .Ernesto Benavides MD, Date Time Electronically viewed and signed by .Ernesto Benavides MD, on 08/07/2016 16:31 .S/
[2016-08-07] MEDS: HYDROmorphONE (0.2 MG/ML) 10ML SYG IV PRN ×2 (17:25→17:34)
[2016-08-07] MEDS ORDERED: morphine 4 MG/ML VIAL IV PRN (18:00)
[2016-08-07] MEDS ORDERED: morphine 2 MG INJ IV PRN (18:00)
--- NOTE | 2016-08-07 18:41 | PN ---
Date/Time of Note Date/Time of Note DATE: 08/07/16 TIME: 18:39 Assessment/Plan VTE Prophylaxis VTE Prophylaxis Intervention: SCD's Lines/Catheters IV Catheter Type (from Nrsg): Peripheral IV Central line still needed: Yes Urinary Cath still in place: Yes Reason Cath still needed: urinary retention Assessment/Plan Chief Complaint/Hosp Course Assessment/Plan -Intractable back pain. Continue IV morphine as needed for pain. -Spinal cord compression per MRI, continue Decadron and Protonix, Dr. Andrews is following patient in neurosurgery consultation. Plan for decompression laminectomy today. DR Mckeon is following in radiation oncology. -Metastatic breast cancer with bone involvement, Dr. Bhatt is following in hematology oncology consultation. Further recommendations based on clinical course. Plan of care discussed with Dr. Bowser. Problems: Subjective 24 Hr Interval Summary Free Text/Dictation Pt is taken to OR for decompression laminectomy. Exam/Review of Systems Vital Signs Vitals Vital Signs Date Time Temp Pulse Resp B/P Pulse Ox O2 Delivery O2 Flow Rate FiO2 08/07/16 17:55 80 16 151/92 95 Room Air 08/07/16 16:48 98.2 Intake and Output 08/06/16 08/06/16 08/07/16 15:00 23:00 07:00 Intake Total 675 ml Balance 675 ml Results Result Diagram: 08/06/16 0422 08/06/16 0422 Medications Medications Current Medications Gabapentin (Neurontin) 800 mg QHS PO Last administered on 08/06/16 21:50; Admin Dose 800 MG; Start 08/04/16 at 21:00 Letrozole (Femara) 2.5 mg DAILY PO Last administered on 08/06/16 08:53; Admin Dose 2.5 MG; Start 08/04/16 at 09:00 Ondansetron HCl (Zofran Inj) 4 mg Q6H PRN IV NAUSEA AND/OR VOMITING Last administered on 08/07/16 17:27; Admin Dose 4 MG; Start 08/03/16 at 23:00 Dexamethasone (Decadron) 4 mg Q6 IV Last administered on 08/07/16 05:51; Admin Dose 4 MG; Start 08/04/16 at 00:00 Morphine Sulfate (morphine) 2 mg Q3H PRN IV SEVERE PAIN LEVEL 7-10; Start 08/04 at 17:00 Hydralazine HCl (Apresoline) 10 mg Q4H PRN IV ELEVATED DIASTOLIC BP Last administered on 08/07/16 08:19; Admin Dose 10 MG; Start 08/04/16 at 17:00 Lisinopril (Zestril) 5 mg DAILY PO Last administered on 08/07/16 08:19; Admin Dose 5 MG; Start 08/05/16 at 09:00 Docusate Sodium (Colace) 100 mg BID PO Last administered on 08/06/16 21:49; Admin Dose 100 MG; Start 08/06/16 at 21:00 Pantoprazole 40 mg 40 mg DAILY@06 PO ; Start 08/07/16 at 06:00 Dextrose/Sodium Chloride (D5-1/2ns) 1,000 ml @ 75 mls/hr [id number] IV Last administered on 08/06/16 23:54; Admin Dose 75 MLS/HR; Start 08/06/16 at 23:30 Morphine Sulfate (morphine) 2 mg Q1H PRN IV PAIN; Start 08/07/16 at 18:00 Morphine Sulfate (morphine) 4 mg Q1HWA PRN IV PAIN LEVEL 6-10; Start 08/07/16 at 18:00 AMANDA AVALOS Aug 07, 2016 18:41
[2016-08-07] MEDS: GABAPENTIN 400 MG CAP PO SCH (21:17)
[2016-08-08] VITALS (21 sets, daily range): BP systolic 109–143; BP diastolic 64–95; PULSE 67–84; RESP 11–21
[2016-08-08 05:08] LABS: ADD SCAN DIFF NO
[2016-08-08 05:17] LABS: BASOPHILS % 0.1 % (0.0-2.0); HEMATOCRIT 35.5 % (37.0-47.0); HEMOGLOBIN 12.3 g/dl (12.0-16.0); LYMPHOCYTES # 0.8 10^3/ul (0.8-2.9); LYMPHOCYTES % 7.3 % (15.0-51.0); MEAN CORPUSCULAR HEMOGLOBIN 30.7 pg (29.0-33.0); MEAN CORPUSCULAR HGB CONC 34.6 g/dl (32.0-37.0); MEAN CORPUSCULAR VOLUME 88.5 fl (82.0-101.0); MEAN PLATELET VOLUME 9.8 fl (7.4-10.4); MONOCYTE # 1.2 10^3/ul (0.3-0.9); MONOCYTES % 11.2 % (0.0-11.0); NEUTROPHIL # 8.7 10^3/ul (1.6-7.5); NEUTROPHILS % 79.5 % (39.0-77.0); PLATELET COUNT 202 10^3/UL (140-415); RED BLOOD COUNT 4.01 10^6/ul (4.20-5.40); RED CELL DISTRIBUTION WIDTH 12.8 % (11.5-14.5); WHITE BLOOD COUNT 10.9 10^3/ul (4.8-10.8)
[2016-08-08] MEDS: DEXAMETHASONE 4 MG/ML 1 ML INJ IV SCH ×5 (05:49→23:24)
[2016-08-08] MEDS: PANTOPRAZOLE (EC) 40 MG TAB PO SCH (05:49)
[2016-08-08 07:34] LABS: POTASSIUM 3.6 mmol/L (3.5-5.1)
[2016-08-08 07:36] LABS: CREATININE 0.61 mg/dl (0.44-1.00)
[2016-08-08 07:37] LABS: CALCIUM 8.2 mg/dl (8.4-10.2)
[2016-08-08] MEDS: DOCUSATE SODIUM 100 MG CAP PO SCH ×2 (08:42→20:10)
[2016-08-08] MEDS: LISINOPRIL 5 MG TAB PO SCH (08:43)
[2016-08-08] MEDS: LETROZOLE 2.5 MG TAB PO SCH (08:44)
[2016-08-08] MEDS: DEXTROSE 5%-0.45% NACL 1,000 ML IV SCH (10:58)
--- NOTE | 2016-08-08 14:21 | RADRPT ---
PROCEDURE: CT thoracic spine without contrast. CLINICAL INDICATION: Breast cancer, metastasis, postop TECHNIQUE: CT of the thoracic spine without contrast was performed on a multidetector CT scanner, w ith multiplanar reformats. One or more of the following dose reduction techniques were used: Automa cachorro exposure control, adjustment in mA and / or kV according to patient size, use of iterative recon structive technique. CTDIvol = 12 mGy and DLP = 502 mGy-cm. COMPARISON: MRI thoracic spine 08/04/2016, MRI of lumbar spine 08/03/2016 FINDINGS: Interval postoperative changes present with T10 and T11 laminectomy, overlying surgical drain, and p ostoperative soft tissue gas. There is osseous decompression of the spinal canal at these levels. Assessment for residual epidural tumor/status of the spinal canal in the thoracic region would be be tter assessed with MRI. Mixed sclerotic/lytic changes compatible with osseous metastatic disease are identified correspondin g to the findings on MRI, more notably at the T9, T10, T11, T12, L2 vertebra, as well as at T8, and L1. Focal epidural tumor involvement at the L2 level on the left ventrally is seen. Paraspinal tumo r is seen on the left at T10-11 and T11-12 with involvement of the left 11th rib which is markedly e xpanded with mixed sclerotic/lytic changes. Also seen is a small sclerotic focus in the T3 spinous p rocess base which could be a bone island versus metastasis. No pathologic fracture is seen. Vertebral bodies are grossly maintained in height. There is preser vation of the kyphosis of the thoracic spine without malalignment identified. There is anterior spon dylosis in the thoracic region seen at T5-6 through T9-10, with disk space narrowing more notably at T8-9, moderate to severe and T9-10, T10-11, mild to moderate. Facet arthropathy seen at multiple l evels down to T7-8, and at T11-12. Minimal posterior disk osteophytes are seen at T8-9, T9-10, T10-1 1. Mild foraminal narrowing is seen at T5-6, T6-7, T9-10 bilaterally. IMPRESSION: 1. Postoperative changes status post T10-T11 laminectomy with osseous decompression of the spinal c anal at these levels. Assessment for residual epidural tumor/status of the spinal canal in the thor acic region would be better assessed with MRI. 2. Multifocal osseous metastatic disease of the thoracolumbar spine detailed above, more pronounced on CT at T9-T12 and L2, with left paraspinal involvement at T10-11, T11-12, left eleventh rib metas tasis, and epidural tumor at L2 on the left ventrally seen. 3. Thoracic spondylosis. RPTAT: VV .Matthew De Los Santos MD, Date Time Electronically viewed and signed by .Matthew De Los Santos MD, on 08/08/2016 14:21 .O/
--- NOTE | 2016-08-08 18:13 | PN ---
Date/Time of Note Date/Time of Note DATE: 08/08/16 TIME: 18:09 Assessment/Plan VTE Prophylaxis VTE Prophylaxis Intervention: SCD's Lines/Catheters IV Catheter Type (from Nrsg): Peripheral IV Urinary Cath still in place: Yes Reason Cath still needed: urinary retention Assessment/Plan Chief Complaint/Hosp Course Assessment/Plan -Intractable back pain. Continue IV morphine as needed for pain. -Spinal cord compression, S/p decompression laminectomy by Dr Andrews, neurosurgery. Continue Decadron and Protonix. Dr Mckeon is following in radiation oncology. -Metastatic breast cancer with bone involvement, Dr. Bhatt is following in hematology oncology consultation. Further recommendations based on clinical course. Plan of care discussed with Dr. Bowser. Problems: Subjective 24 Hr Interval Summary Free Text/Dictation Patient is awake alert, denies any nausea and vomiting, complains of pain only with movements, surgical incision is dry clean and intact with a drain. Urine output is adequate via [place]. Exam/Review of Systems Vital Signs Vitals Vital Signs Date Time Temp Pulse Resp B/P Pulse Ox O2 Delivery O2 Flow Rate FiO2 08/08/16 16:00 98.2 79 18 127/95 98 Room Air Intake and Output 08/07/16 08/07/16 08/08/16 15:00 23:00 07:00 Intake Total 3670 ml 600 ml Output Total 1445 ml 905 ml Balance 2225 ml -305 ml Exam Constitutional: alert, oriented Psych: no complaints Head: atraumatic, normocephalic Eyes: nl conjunctiva ENMT: nl external ears & nose Neck: supple Cardiovascular: nl pulses, regular rate and rhythm Gastrointestinal: non-tender, soft Extremities: normal pulses Neurological: PARALEGAL INSTRUCTOR II-XII intact Skin: Posterior surgical incision was dry clean and intact dressing and drain. Results Result Diagram: 08/08/16 0430 08/08/16 0430 Results 24 hrs Laboratory Tests Test 08/08/16 04:30 White Blood Count 10.9 #H Red Blood Count 4.01 L Hemoglobin 12.3 Hematocrit 35.5 L Mean Corpuscular Volume 88.5 Mean Corpuscular Hemoglobin 30.7 Mean Corpuscular Hemoglobin Concent 34.6 Red Cell Distribution Width 12.8 Platelet Count 202 Mean Platelet Volume 9.8 Neutrophils % 79.5 H Lymphocytes % 7.3 L Monocytes % 11.2 H Eosinophils % 0.0 Basophils % 0.1 Nucleated Red Blood Cells % 0.0 Neutrophils # 8.7 H Lymphocytes # 0.8 Monocytes # 1.2 H Eosinophils # 0.0 Basophils # 0.0 Nucleated Red Blood Cells # 0.0 Sodium Level 136 Potassium Level 3.6 Chloride Level 105 Carbon Dioxide Level 25 Anion Gap 10 Blood Urea Nitrogen 18 Creatinine 0.61 Glucose Level 124 Calcium Level 8.2 L Medications Medications Current Medications Gabapentin (Neurontin) 800 mg QHS PO Last administered on 08/07/16 21:17; Admin Dose 800 MG; Start 08/04/16 at 21:00 Letrozole (Femara) 2.5 mg DAILY PO Last administered on 08/08/16 08:44; Admin Dose 2.5 MG; Start 08/04/16 at 09:00 Ondansetron HCl (Zofran Inj) 4 mg Q6H PRN IV NAUSEA AND/OR VOMITING Last administered on 08/07/16 17:27; Admin Dose 4 MG; Start 08/03/16 at 23:00 Dexamethasone (Decadron) 4 mg Q6 IV Last administered on 08/08/16 17:30; Admin Dose 4 MG; Start 08/04/16 at 00:00 Morphine Sulfate (morphine) 2 mg Q3H PRN IV SEVERE PAIN LEVEL 7-10; Start 08/04 at 17:00 Hydralazine HCl (Apresoline) 10 mg Q4H PRN IV ELEVATED DIASTOLIC BP Last administered on 08/07/16 08:19; Admin Dose 10 MG; Start 08/04/16 at 17:00 Lisinopril (Zestril) 5 mg DAILY PO Last administered on 08/08/16 08:43; Admin Dose 5 MG; Start 08/05/16 at 09:00 Docusate Sodium (Colace) 100 mg BID PO Last administered on 08/08/16 08:42; Admin Dose 100 MG; Start 08/06/16 at 21:00 Pantoprazole 40 mg 40 mg DAILY@06 PO Last administered on 08/08/16 05:49; Admin Dose 40 MG; Start 08/07/16 at 06:00 Dextrose/Sodium Chloride (D5-1/2ns) 1,000 ml @ 75 mls/hr [id number] IV Last administered on 3/28/17at 10:58; Admin Dose 75 MLS/HR; Start 08/06/16 at 23:30 Morphine Sulfate (morphine) 2 mg Q1H PRN IV PAIN; Start 08/07/16 at 18:00 Morphine Sulfate (morphine) 4 mg Q1HWA PRN IV PAIN LEVEL 6-10; Start 08/07/16 at 18:00 AMANDA AVALOS Aug 08, 2016 18:13
[2016-08-08] MEDS: GABAPENTIN 400 MG CAP PO SCH (20:10)
--- NOTE | 2016-08-08 21:00 | OPR ---
DATE OF OPERATION: 08/07/2016 PREOPERATIVE DIAGNOSIS: Metastatic breast tumor. POSTOPERATIVE DIAGNOSIS: Metastatic breast tumor. OPERATION PERFORMED: 1. Thoracic 9, thoracic 10, thoracic 11, and thoracic 12 laminectomy for decompression of the neura l elements. 2. Microsurgical resection of extradural, extramedullary spinal cord tumor. 3. Operative microscope. 4. Somatosensory motor-evoked potentials x4 hours. SURGEON: Bryan Andrews MD ANESTHESIA: General endotracheal anesthesia. INDICATIONS: The patient is a 60-year-old female with a history of metastatic breast carcinoma who presents with back pain secondary to a large confluence of metastatic tumor at the T10-T11 junction, involving most of the left T11 pedicle, and causing severe cord compression. The risks, benefits, alternatives to laminectomy and resection of tumor in the involved pedicle were explained to the pat ient in detail and informed consent was obtained. The patient was brought to the operating room. OPERATION: The patient was positioned prone on Todd table. After induction of general anesthesi a, all pressure points were padded. Baseline motor-evoked potentials and somatosensory motor-evoked potentials were obtained. Spinal needles were used to confirm the approximate level of the 12th th oracic vertebrae and then the patient was prepped and draped in usual sterile fashion. The skin was infiltrated with local anesthetic. Then using a 10 blade, the skin was incised at the T11-T12 junc tion as determined by the cross table x-rays with the spinal needle. The incision was made and the posterior elements were skeletonized with Bovie electrocautery from transverse process to transverse process. At this point, a dental tool was placed in the facet joint at T10-T11 indicating what we felt would be the T11 pedicle and cross table x-rays were obtained again. This confirmed the T11 sp malachi. A combination of [place] and Kerrison rongeurs were then used to perform a complete laminectom y T10, complete laminectomy at T11, rostral laminectomy at T12, and caudal laminectomy at T9. Gross tumor was visible in the epidural space causing severe and marked compression of the spinal canal c entered at the T11 as expected in the T11 pedicle. The pedicle was drilled down with a high speed b ur under the operative microscope. Then using combination of standard microsurgical techniques, the tumor was peeled off the dura to which it was tightly adherent. Frozen section was obtained and co nfirmed the presence of metastatic adenocarcinoma. A complete resection of the portion of tumor ext ending from the pedicle laterally into the canal and causing compression was achieved. The canal di ameter was normal upon completion of removal of tumor, although undoubtedly further tumor remained v entrally and outside canal in the soft tissues on the left side. A complete pedicle subtraction ost eotomy at T11 had been performed. In doing so, a dental tool was passed ventral to cord and ventral to the cord dura to ensure the absence of any further ventral stenosis. Meticulous hemostasis was then obtained with bipolar electrocautery and FloSeal. The wound was irrigated with copious amounts of antibiotic irrigation. A #10 Hemovac drain was placed in the epidural space, tunneled to the sk in, and secured with a 2-0 nylon drain stitch. A multilayer closure was performed with 0 Vicryl linn ng used to close the muscle and fascia, 2-0 interrupted inverted Vicryl being used to close the subc uticular layer, and itzel on skin. The patient tolerated the procedure well. MEP and SSEP electr ode recordings were stable throughout the duration of the procedure. Dictated By: BRYAN SCHROEDER/NTS Conf#: [id number] DID#: [id number] CC: ANITHA ELLIS MD;*EndCC*
--- NOTE | 2016-08-08 22:19 | CONS ---
Date/Time of Note Date/Time of Note DATE: 08/08/16 TIME: 22:19 Assessment/Plan Assessment/Plan Chief Complaint/Hosp Course METASTATIC BREAST CANCER WITH KNOWN MULTIPLE BONY METS epidural cord compression at T10-T11 and metastatic lesions at L2-L3 with epidural extension most pronounced along the posterior left vertebral body and extending into the left neural foramen and posterior elements. post Thoracic 9, thoracic 10, thoracic 11, and thoracic 12 laminectomy for decompression of the neural elements and Microsurgical resection of extradural, extramedullary spinal cord tumor. plan- laminectomy followed by radiation therapy to T10-T11 for consolidation. Continue dexamethasone and PPI at this time. PLAN SYSTEMIC THERAPY AFTER SURGERY AND XRT CONT ANTIESTROGENS CONT PAIN CONTROL Problems: Consultation Date/Type/Reason Admit Date/Time Aug 03, 2016 at 18:18 Initial Consult Date 08/05/16 [facility] Referring Provider: BLADIMIR COURTNEY MD 24 HR Interval Summary Free Text/Dictation Patient is awake alert, denies any nausea and vomiting, complains of pain only with movements, surgical incision is dry clean and intact with a drain. Urine output is adequate via [place]. post op Exam/Review of Systems Vital Signs Vitals Vital Signs Date Time Temp Pulse Resp B/P Pulse Ox O2 Delivery O2 Flow Rate FiO2 08/08/16 20:00 97.6 83 20 110/64 92 08/08/16 18:00 Room Air Intake and Output 08/07/16 08/07/16 08/08/16 15:00 23:00 07:00 Intake Total 3670 ml 600 ml Output Total 1445 ml 905 ml Balance 2225 ml -305 ml Exam Constitutional: alert, oriented Psych: no complaints Head: atraumatic, normocephalic Eyes: nl conjunctiva ENMT: nl external ears & nose Neck: supple Cardiovascular: nl pulses, regular rate and rhythm Gastrointestinal: non-tender, soft Extremities: normal pulses Neurological: BOARD WINDER II-XII intact Skin: Posterior surgical incision was dry clean and intact dressing and drain. Results Result Diagram: 08/08/16 0430 08/08/16 0430 Results 24 hrs Laboratory Tests Test 08/08/16 04:30 White Blood Count 10.9 #H Red Blood Count 4.01 L Hemoglobin 12.3 Hematocrit 35.5 L Mean Corpuscular Volume 88.5 Mean Corpuscular Hemoglobin 30.7 Mean Corpuscular Hemoglobin Concent 34.6 Red Cell Distribution Width 12.8 Platelet Count 202 Mean Platelet Volume 9.8 Neutrophils % 79.5 H Lymphocytes % 7.3 L Monocytes % 11.2 H Eosinophils % 0.0 Basophils % 0.1 Nucleated Red Blood Cells % 0.0 Neutrophils # 8.7 H Lymphocytes # 0.8 Monocytes # 1.2 H Eosinophils # 0.0 Basophils # 0.0 Nucleated Red Blood Cells # 0.0 Sodium Level 136 Potassium Level 3.6 Chloride Level 105 Carbon Dioxide Level 25 Anion Gap 10 Blood Urea Nitrogen 18 Creatinine 0.61 Glucose Level 124 Calcium Level 8.2 L Medications Medications Current Medications Gabapentin (Neurontin) 800 mg QHS PO Last administered on 08/08/16 20:10; Admin Dose 800 MG; Start 08/04/16 at 21:00 Letrozole (Femara) 2.5 mg DAILY PO Last administered on 08/08/16 08:44; Admin Dose 2.5 MG; Start 08/04/16 at 09:00 Ondansetron HCl (Zofran Inj) 4 mg Q6H PRN IV NAUSEA AND/OR VOMITING Last administered on 08/07/16 17:27; Admin Dose 4 MG; Start 08/03/16 at 23:00 Dexamethasone (Decadron) 4 mg Q6 IV Last administered on 08/08/16 17:30; Admin Dose 4 MG; Start 08/04/16 at 00:00 Morphine Sulfate (morphine) 2 mg Q3H PRN IV SEVERE PAIN LEVEL 7-10; Start 08/04 at 17:00 Hydralazine HCl (Apresoline) 10 mg Q4H PRN IV ELEVATED DIASTOLIC BP Last administered on 08/07/16 08:19; Admin Dose 10 MG; Start 08/04/16 at 17:00 Lisinopril (Zestril) 5 mg DAILY PO Last administered on 08/08/16 08:43; Admin Dose 5 MG; Start 08/05/16 at 09:00 Docusate Sodium (Colace) 100 mg BID PO Last administered on 08/08/16 20:10; Admin Dose 100 MG; Start 08/06/16 at 21:00 Pantoprazole 40 mg 40 mg DAILY@06 PO Last administered on 08/08/16 05:49; Admin Dose 40 MG; Start 08/07/16 at 06:00 Dextrose/Sodium Chloride (D5-1/2ns) 1,000 ml @ 75 mls/hr [id number] IV Last administered on 08/08/16t 10:58; Admin Dose 75 MLS/HR; Start 08/06/16 at 23:30 Morphine Sulfate (morphine) 2 mg Q1H PRN IV PAIN; Start 08/07/16 at 18:00 Morphine Sulfate (morphine) 4 mg Q1HWA PRN IV PAIN LEVEL 6-10; Start 08/07/16 at 18:00 BLADIMIR COURTNEY MD Aug 08, 2016 22:19
[2016-08-09] MEDS: DEXTROSE 5%-0.45% NACL 1,000 ML IV SCH ×2 (02:41→18:02)
[2016-08-09] MEDS: DEXAMETHASONE 4 MG/ML 1 ML INJ IV SCH ×4 (05:22→23:52)
[2016-08-09] MEDS: PANTOPRAZOLE (EC) 40 MG TAB PO SCH (05:22)
[2016-08-09 07:25] VITALS: BP 120/69; RESP 18
[2016-08-09 07:29] LABS: ADD SCAN DIFF NO
[2016-08-09 07:49] LABS: ABNORMAL IP MESSAGE 1; BASOPHILS % 0.1 % (0.0-2.0); HEMATOCRIT 35.5 % (37.0-47.0); HEMOGLOBIN 12.3 g/dl (12.0-16.0); LYMPHOCYTES # 0.5 10^3/ul (0.8-2.9); LYMPHOCYTES % 5.3 % (15.0-51.0); MEAN CORPUSCULAR HEMOGLOBIN 30.4 pg (29.0-33.0); MEAN CORPUSCULAR HGB CONC 34.6 g/dl (32.0-37.0); MEAN CORPUSCULAR VOLUME 87.7 fl (82.0-101.0); MEAN PLATELET VOLUME 9.9 fl (7.4-10.4); MONOCYTE # 0.6 10^3/ul (0.3-0.9); MONOCYTES % 6.3 % (0.0-11.0); NEUTROPHIL # 7.7 10^3/ul (1.6-7.5); NEUTROPHILS % 84.1 % (39.0-77.0); PLATELET COUNT 186 10^3/UL (140-415); RED BLOOD COUNT 4.05 10^6/ul (4.20-5.40); RED CELL DISTRIBUTION WIDTH 12.6 % (11.5-14.5); WHITE BLOOD COUNT 9.2 10^3/ul (4.8-10.8)
[2016-08-09 07:53] LABS: POTASSIUM 3.9 mmol/L (3.5-5.1)
[2016-08-09 07:55] LABS: CREATININE 0.59 mg/dl (0.44-1.00)
[2016-08-09 07:56] LABS: CALCIUM 8.5 mg/dl (8.4-10.2)
[2016-08-09] MEDS: DOCUSATE SODIUM 100 MG CAP PO SCH ×2 (09:14→21:17)
[2016-08-09] MEDS: LISINOPRIL 5 MG TAB PO SCH (09:15)
[2016-08-09] MEDS: LETROZOLE 2.5 MG TAB PO SCH (09:18)
--- NOTE | 2016-08-09 18:51 | PN ---
Date/Time of Note Date/Time of Note DATE: 08/09/16 TIME: 18:48 Assessment/Plan VTE Prophylaxis VTE Prophylaxis Intervention: SCD's Lines/Catheters IV Catheter Type (from Nrs): Saline Lock Urinary Cath still in place: Yes Reason Cath still needed: urinary retention Assessment/Plan Chief Complaint/Hosp Course Assessment/Plan -Intractable back pain secondary to spinal cord compression, continue IV morphine as needed for pain. -Spinal cord compression, S/p decompression laminectomy and microsurgical tumor resection by Dr Andrews, neurosurgery. Continue Decadron and Protonix. Dr Mckeon is following in radiation oncology. -Metastatic breast cancer with bone involvement, Dr. Bhatt is following in hematology oncology consultation. Continue physical therapy. Further recommendations based on clinical course. Plan of care discussed with Dr. Bowser. Problems: Subjective 24 Hr Interval Summary Free Text/Dictation Patient denies any pain, was able to get up and ambulate with physical therapy, denies any fever, remains hemodynamically stable. Exam/Review of Systems Vital Signs Vitals Vital Signs Date Time Temp Pulse Resp B/P Pulse Ox O2 Delivery O2 Flow Rate FiO2 08/09/16 07:25 98.2 18 120/69 94 08/08/16 20:00 83 08/08/16 18:00 Room Air Intake and Output 08/08/16 08/08/16 08/09/16 14:59 22:59 06:59 Intake Total 675 ml 360 ml 1390 ml Output Total 1220 ml 670 ml 950 ml Balance -545 ml -310 ml 440 ml Exam Constitutional: alert, oriented Psych: no complaints Head: atraumatic, normocephalic Eyes: nl conjunctiva ENMT: nl external ears & nose Neck: supple Cardiovascular: nl pulses, regular rate and rhythm Gastrointestinal: non-tender, soft Extremities: normal pulses Neurological: LEVEL VIAL INSPECTOR AND TESTER II-XII intact Skin: Posterior surgical incision was dry clean and intact dressing and drain. Results Result Diagram: 08/09/16 0655 08/09/16 0655 Results 24 hrs Laboratory Tests Test 08/09/16 06:55 White Blood Count 9.2 Red Blood Count 4.05 L Hemoglobin 12.3 Hematocrit 35.5 L Mean Corpuscular Volume 87.7 Mean Corpuscular Hemoglobin 30.4 Mean Corpuscular Hemoglobin Concent 34.6 Red Cell Distribution Width 12.6 Platelet Count 186 Mean Platelet Volume 9.9 Neutrophils % 84.1 H Lymphocytes % 5.3 L Monocytes % 6.3 Eosinophils % 0.0 Basophils % 0.1 Nucleated Red Blood Cells % 0.0 Neutrophils # 7.7 H Lymphocytes # 0.5 L Monocytes # 0.6 Eosinophils # 0.0 Basophils # 0.0 Nucleated Red Blood Cells # 0.0 Sodium Level 138 Potassium Level 3.9 Chloride Level 106 Carbon Dioxide Level 26 Anion Gap 10 Blood Urea Nitrogen 18 Creatinine 0.59 Glucose Level 135 Calcium Level 8.5 Medications Medications Current Medications Gabapentin (Neurontin) 800 mg QHS PO Last administered on 08/08/16 20:10; Admin Dose 800 MG; Start 08/04/16 at 21:00 Letrozole (Femara) 2.5 mg DAILY PO Last administered on 08/09/16 09:18; Admin Dose 2.5 MG; Start 08/04/16 at 09:00 Ondansetron HCl (Zofran Inj) 4 mg Q6H PRN IV NAUSEA AND/OR VOMITING Last administered on 08/07/16 17:27; Admin Dose 4 MG; Start 08/03/16 at 23:00 Dexamethasone (Decadron) 4 mg Q6 IV Last administered on 08/09/16 17:14; Admin Dose 4 MG; Start 08/04/16 at 00:00 Morphine Sulfate (morphine) 2 mg Q3H PRN IV SEVERE PAIN LEVEL 7-10; Start 08/04 at 17:00 Hydralazine HCl (Apresoline) 10 mg Q4H PRN IV ELEVATED DIASTOLIC BP Last administered on 08/07/16 08:19; Admin Dose 10 MG; Start 08/04/16 at 17:00 Lisinopril (Zestril) 5 mg DAILY PO Last administered on 08/09/16 09:15; Admin Dose 5 MG; Start 08/05/16 at 09:00 Docusate Sodium (Colace) 100 mg BID PO Last administered on 08/09/16 09:14; Admin Dose 100 MG; Start 08/06/16 at 21:00 Pantoprazole 40 mg 40 mg DAILY@06 PO Last administered on 08/09/16 05:22; Admin Dose 40 MG; Start 08/07/16 at 06:00 Dextrose/Sodium Chloride (D5-1/2ns) 1,000 ml @ 75 mls/hr [id number] IV Last administered on 08/09/16t 18:02; Admin Dose 75 MLS/HR; Start 08/06/16 at 23:30 Morphine Sulfate (morphine) 2 mg Q1H PRN IV PAIN; Start 08/07/16 at 18:00 Morphine Sulfate (morphine) 4 mg Q1HWA PRN IV PAIN LEVEL 6-10; Start 08/07/16 at 18:00 AMANDA AVALOS Aug 09, 2016 18:51
[2016-08-09 19:55] VITALS: BP 164/98; RESP 16
[2016-08-09] MEDS: GABAPENTIN 400 MG CAP PO SCH (21:17)
[2016-08-10 06:05] LABS: ADD SCAN DIFF NO
[2016-08-10 06:14] LABS: ABNORMAL IP MESSAGE 1; BASOPHIL # 0.1 10^3/ul (0.0-0.1); BASOPHILS % 0.6 % (0.0-2.0); HEMOGLOBIN 12.5 g/dl (12.0-16.0); LYMPHOCYTES # 0.7 10^3/ul (0.8-2.9); MEAN CORPUSCULAR HEMOGLOBIN 30.3 pg (29.0-33.0); MEAN CORPUSCULAR HGB CONC 34.7 g/dl (32.0-37.0); MEAN CORPUSCULAR VOLUME 87.2 fl (82.0-101.0); MEAN PLATELET VOLUME 9.8 fl (7.4-10.4); MONOCYTE # 0.7 10^3/ul (0.3-0.9); NEUTROPHIL # 8.2 10^3/ul (1.6-7.5); NEUTROPHILS % 78.9 % (39.0-77.0); PLATELET COUNT 211 10^3/UL (140-415); RED BLOOD COUNT 4.13 10^6/ul (4.20-5.40); RED CELL DISTRIBUTION WIDTH 12.2 % (11.5-14.5); WHITE BLOOD COUNT 10.4 10^3/ul (4.8-10.8)
[2016-08-10 06:23] LABS: POTASSIUM 3.7 mmol/L (3.5-5.1)
[2016-08-10 06:25] LABS: CREATININE 0.59 mg/dl (0.44-1.00)
[2016-08-10 06:26] LABS: CALCIUM 8.4 mg/dl (8.4-10.2)
[2016-08-10] MEDS: DEXAMETHASONE 4 MG/ML 1 ML INJ IV SCH ×3 (06:27→18:29)
[2016-08-10] MEDS: PANTOPRAZOLE (EC) 40 MG TAB PO SCH (06:27)
[2016-08-10] MEDS: DEXTROSE 5%-0.45% NACL 1,000 ML IV SCH ×2 (07:36→22:06)
[2016-08-10 08:35] VITALS: BP 128/72; PULSE 78; RESP 20
[2016-08-10] MEDS: DOCUSATE SODIUM 100 MG CAP PO SCH ×2 (08:36→20:25)
[2016-08-10] MEDS: LISINOPRIL 5 MG TAB PO SCH (08:37)
[2016-08-10] MEDS: LETROZOLE 2.5 MG TAB PO SCH (08:43)
--- NOTE | 2016-08-10 19:12 | PN ---
Date/Time of Note Date/Time of Note DATE: 08/10/16 TIME: 19:11 Assessment/Plan VTE Prophylaxis VTE Prophylaxis Intervention: other Lines/Catheters IV Catheter Type (from Nrsg): Peripheral IV Urinary Cath still in place: Yes Assessment/Plan Assessment/Plan -Intractable back pain secondary to spinal cord compression, continue IV morphine as needed for pain. -Spinal cord compression, S/p decompression laminectomy and microsurgical tumor resection by Dr Andrews, neurosurgery. Continue Decadron and Protonix. Dr Mckeon is following in radiation oncology. -Metastatic breast cancer with bone involvement, Dr. Bhatt is following in hematology oncology consultation. Continue physical therapy. Further recommendations based on clinical course. Plan of care discussed with Dr. Bowser. Subjective 24 Hr Interval Summary Free Text/Dictation NAD, c/o mild numbness off and on. not at present- RN to inform Dr Blair regarding numbness. dw staff Eyes: no complaints ENT: no complaints Respiratory: no complaints Cardiovascular: no complaints Gastrointestinal: no complaints Genitourinary: no complaints Musculoskeletal: no complaints Skin: no complaints Neurologic: other Endocrine: no complaints Psychological: no complaints Exam/Review of Systems Vital Signs Vitals Vital Signs Date Time Temp Pulse Resp B/P Pulse Ox O2 Delivery O2 Flow Rate FiO2 08/10/16 08:35 98.7 78 20 128/72 97 Room Air Intake and Output 08/09/16 08/09/16 08/10/16 15:00 23:00 07:00 Intake Total 3480 ml 1830 ml Output Total 0 ml 2300 ml 2750 ml Balance 0 ml 1180 ml -920 ml Exam NAD, feels better with back pain.dw staff. Constitutional: alert Psych: no complaints Head: atraumatic Eyes: EOMI ENMT: nl external ears & nose Neck: non-tender Cardiovascular: nl pulses Gastrointestinal: non-tender, soft Extremities: normal pulses Neurological: nl mental status, nl speech, other (sp back sx- hemovac noted- BLOODY DRAINAGE, , DDI ) Skin: other Lymph: nontender Results Result Diagram: 08/10/1652608/10/16526 Results 24 hrs Laboratory Tests Test 08/10/16 05:27 White Blood Count 10.4 Red Blood Count 4.13 L Hemoglobin 12.5 Hematocrit 36.0 L Mean Corpuscular Volume 87.2 Mean Corpuscular Hemoglobin 30.3 Mean Corpuscular Hemoglobin Concent 34.7 Red Cell Distribution Width 12.2 Platelet Count 211 Mean Platelet Volume 9.8 Neutrophils % 78.9 H Lymphocytes % 7.0 L Monocytes % 7.0 Eosinophils % 0.0 Basophils % 0.6 Nucleated Red Blood Cells % 0.0 Neutrophils # 8.2 H Lymphocytes # 0.7 L Monocytes # 0.7 Eosinophils # 0.0 Basophils # 0.1 Nucleated Red Blood Cells # 0.0 Sodium Level 137 Potassium Level 3.7 Chloride Level 105 Carbon Dioxide Level 27 Anion Gap 9 Blood Urea Nitrogen 18 Creatinine 0.59 Glucose Level 129 Calcium Level 8.4 Medications Medications Current Medications Gabapentin (Neurontin) 800 mg QHS PO Last administered on 08/09/16 21:17; Admin Dose 800 MG; Start 08/04/16 at 21:00 Letrozole (Femara) 2.5 mg DAILY PO Last administered on 08/10/16 08:43; Admin Dose 2.5 MG; Start 08/04/16 at 09:00 Ondansetron HCl (Zofran Inj) 4 mg Q6H PRN IV NAUSEA AND/OR VOMITING Last administered on 08/07/16 17:27; Admin Dose 4 MG; Start 08/03/16 at 23:00 Dexamethasone (Decadron) 4 mg Q6 IV Last administered on 08/10/16 18:29; Admin Dose 4 MG; Start 08/04/16 at 00:00 Morphine Sulfate (morphine) 2 mg Q3H PRN IV SEVERE PAIN LEVEL 7-10; Start 08/04 at 17:00 Hydralazine HCl (Apresoline) 10 mg Q4H PRN IV ELEVATED DIASTOLIC BP Last administered on 08/07/16 08:19; Admin Dose 10 MG; Start 08/04/16 at 17:00 Lisinopril (Zestril) 5 mg DAILY PO Last administered on 08/10/16 08:37; Admin Dose 5 MG; Start 08/05/16 at 09:00 Docusate Sodium (Colace) 100 mg BID PO Last administered on 08/10/16 08:36; Admin Dose 100 MG; Start 08/06/16 at 21:00 Pantoprazole 40 mg 40 mg DAILY@06 PO Last administered on 3/30/17at 06:27; Admin Dose 40 MG; Start 08/07/16 at 06:00 Dextrose/Sodium Chloride (D5-1/2ns) 1,000 ml @ 75 mls/hr [id number] IV Last administered on 08/10/16t 07:36; Admin Dose 75 MLS/HR; Start 08/06/16 at 23:30 Morphine Sulfate (morphine) 2 mg Q1H PRN IV PAIN; Start 08/07/16 at 18:00 Morphine Sulfate (morphine) 4 mg Q1HWA PRN IV PAIN LEVEL 6-10; Start 08/07/16 at 18:00 AGA MAC Aug 10, 2016 19:12
[2016-08-10] MEDS: GABAPENTIN 400 MG CAP PO SCH (20:25)
--- NOTE | 2016-08-10 21:11 | CONS ---
Date/Time of Note Date/Time of Note DATE: 08/10/16 TIME: 21:10 Assessment/Plan Assessment/Plan Chief Complaint/Hosp Course METASTATIC BREAST CANCER WITH KNOWN MULTIPLE BONY METS epidural cord compression at T10-T11 and metastatic lesions at L2-L3 with epidural extension most pronounced along the posterior left vertebral body and extending into the left neural foramen and posterior elements. post Thoracic 9, thoracic 10, thoracic 11, and thoracic 12 laminectomy for decompression of the neural elements and Microsurgical resection of extradural, extramedullary spinal cord tumor. plan- laminectomy followed by radiation therapy to T10-T11 for consolidation. Continue dexamethasone and PPI at this time. PLAN SYSTEMIC THERAPY AFTER SURGERY AND XRT CONT ANTIESTROGENS CONT PAIN CONTROL Problems: Consultation Date/Type/Reason Admit Date/Time Aug 03, 2016 at 18:18 Initial Consult Date 08/05/16 Type of Consultation: [facility] Referring Provider: BLADIMIR COURTNEY MD 24 HR Interval Summary Free Text/Dictation ALL NOTED D/W PT DOING WELL POSTOP Exam/Review of Systems Vital Signs Vitals Vital Signs Date Time Temp Pulse Resp B/P Pulse Ox O2 Delivery O2 Flow Rate FiO2 08/10/16 08:35 98.7 78 20 128/72 97 Room Air Intake and Output 08/09/16 08/09/16 08/10/16 15:00 23:00 07:00 Intake Total 3480 ml 1830 ml Output Total 0 ml 2300 ml 2750 ml Balance 0 ml 1180 ml -920 ml Exam NAD, feels better with back pain.dw staff. Constitutional: alert Psych: no complaints Head: atraumatic Eyes: EOMI ENMT: nl external ears & nose Neck: non-tender Cardiovascular: nl pulses Gastrointestinal: non-tender, soft Extremities: normal pulses Neurological: nl mental status, nl speech, other (sp back sx- hemovac noted- BLOODY DRAINAGE, , DDI ) Skin: other Lymph: nontender Results Result Diagram: 08/10/1627 08/10/16 0527 Results 24 hrs Laboratory Tests Test 08/10/16 05:27 White Blood Count 10.4 Red Blood Count 4.13 L Hemoglobin 12.5 Hematocrit 36.0 L Mean Corpuscular Volume 87.2 Mean Corpuscular Hemoglobin 30.3 Mean Corpuscular Hemoglobin Concent 34.7 Red Cell Distribution Width 12.2 Platelet Count 211 Mean Platelet Volume 9.8 Neutrophils % 78.9 H Lymphocytes % 7.0 L Monocytes % 7.0 Eosinophils % 0.0 Basophils % 0.6 Nucleated Red Blood Cells % 0.0 Neutrophils # 8.2 H Lymphocytes # 0.7 L Monocytes # 0.7 Eosinophils # 0.0 Basophils # 0.1 Nucleated Red Blood Cells # 0.0 Sodium Level 137 Potassium Level 3.7 Chloride Level 105 Carbon Dioxide Level 27 Anion Gap 9 Blood Urea Nitrogen 18 Creatinine 0.59 Glucose Level 129 Calcium Level 8.4 Medications Medications Current Medications Gabapentin (Neurontin) 800 mg QHS PO Last administered on 08/10/16 20:25; Admin Dose 800 MG; Start 08/04/16 at 21:00 Letrozole (Femara) 2.5 mg DAILY PO Last administered on 08/10/16 08:43; Admin Dose 2.5 MG; Start 08/04/16 at 09:00 Ondansetron HCl (Zofran Inj) 4 mg Q6H PRN IV NAUSEA AND/OR VOMITING Last administered on 08/07/16 17:27; Admin Dose 4 MG; Start 08/03/16 at 23:00 Dexamethasone (Decadron) 4 mg Q6 IV Last administered on 08/10/16 18:29; Admin Dose 4 MG; Start 08/04/16 at 00:00 Morphine Sulfate (morphine) 2 mg Q3H PRN IV SEVERE PAIN LEVEL 7-10; Start 08/04 at 17:00 Hydralazine HCl (Apresoline) 10 mg Q4H PRN IV ELEVATED DIASTOLIC BP Last administered on 08/07/16 08:19; Admin Dose 10 MG; Start 08/04/16 at 17:00 Lisinopril (Zestril) 5 mg DAILY PO Last administered on 08/10/16 08:37; Admin Dose 5 MG; Start 08/05/16 at 09:00 Docusate Sodium (Colace) 100 mg BID PO Last administered on 08/10/16 20:25; Admin Dose 100 MG; Start 08/06/16 at 21:00 Pantoprazole 40 mg 40 mg DAILY@06 PO Last administered on 08/10/16 06:27; Admin Dose 40 MG; Start 08/07/16 at 06:00 Dextrose/Sodium Chloride (D5-1/2ns) 1,000 ml @ 75 mls/hr [id number] IV Last administered on 08/10/16 07:36; Admin Dose 75 MLS/HR; Start 08/06/16 at 23:30 Morphine Sulfate (morphine) 2 mg Q1H PRN IV PAIN; Start 08/07/16 at 18:00 Morphine Sulfate (morphine) 4 mg Q1HWA PRN IV PAIN LEVEL 6-10; Start 08/07/16 at 18:00 BLADIMIR COURTNEY MD Aug 10, 2016 21:11
[2016-08-11] MEDS: DEXAMETHASONE 4 MG/ML 1 ML INJ IV SCH ×4 (00:25→18:27)
[2016-08-11] MEDS: PANTOPRAZOLE (EC) 40 MG TAB PO SCH (05:35)
[2016-08-11 05:44] LABS: ADD SCAN DIFF NO
[2016-08-11 05:54] LABS: POTASSIUM 4.3 mmol/L (3.5-5.1)
[2016-08-11 05:57] LABS: CREATININE 0.71 mg/dl (0.44-1.00)
[2016-08-11 05:58] LABS: CALCIUM 8.4 mg/dl (8.4-10.2)
[2016-08-11 06:02] LABS: ABNORMAL IP MESSAGE 1; HEMATOCRIT 34.7 % (37.0-47.0); HEMOGLOBIN 11.9 g/dl (12.0-16.0); MEAN CORPUSCULAR HEMOGLOBIN 30.2 pg (29.0-33.0); MEAN CORPUSCULAR HGB CONC 34.3 g/dl (32.0-37.0); MEAN CORPUSCULAR VOLUME 88.1 fl (82.0-101.0); MEAN PLATELET VOLUME 9.8 fl (7.4-10.4); PLATELET COUNT 198 10^3/UL (140-415); RED BLOOD COUNT 3.94 10^6/ul (4.20-5.40); RED CELL DISTRIBUTION WIDTH 12.3 % (11.5-14.5); WHITE BLOOD COUNT 10.3 10^3/ul (4.8-10.8)
[2016-08-11 08:42] VITALS: BP 148/66; RESP 16
[2016-08-11] MEDS: DOCUSATE SODIUM 100 MG CAP PO SCH ×2 (09:49→20:46)
[2016-08-11] MEDS: LISINOPRIL 5 MG TAB PO SCH (09:50)
[2016-08-11 10:04] LABS: LYMPHOCYTES # 0.8 10^3/ul (0.8-2.9); MONOCYTE # 0.6 10^3/ul (0.3-0.9); MYELOCYTES # 0.1; NEUTROPHIL # 8.3 10^3/ul (1.6-7.5)
[2016-08-11] MEDS: LETROZOLE 2.5 MG TAB PO SCH (10:29)
[2016-08-11] MEDS: DEXTROSE 5%-0.45% NACL 1,000 ML IV SCH ×2 (11:32→23:30)
--- NOTE | 2016-08-11 17:35 | PN ---
Date/Time of Note Date/Time of Note DATE: 08/11/16 TIME: 17:32 Assessment/Plan VTE Prophylaxis VTE Prophylaxis Intervention: SCD's Lines/Catheters [facility]from [facility] Peripheral IV Urinary Cath still in place: No Assessment/Plan Chief Complaint/Hosp Course Assessment/Plan -Intractable back pain secondary to spinal cord compression, resolved. -Spinal cord compression, S/p decompression laminectomy and microsurgical tumor resection by Dr Andrews, neurosurgery. Continue Decadron and Protonix. Dr Mckeon is following in radiation oncology. -Metastatic breast cancer with bone involvement, Dr. Bhatt is following in hematology oncology consultation. Further recommendations based on clinical course. Plan of care discussed with Dr. Bowser. Problems: Subjective 24 Hr Interval Summary Free Text/Dictation Patient is awake alert, denies any pain, patient did gets out of bed with no problems, will DC [place], continue to monitor intake and output. Exam/Review of Systems Vital Signs Vitals Vital Signs Date Time Temp Pulse Resp B/P Pulse Ox O2 Delivery O2 Flow Rate FiO2 08/11/16 08:42 98.6 74 16 148/66 96 08/10/16 08:35 Room Air Intake and Output 08/10/16 08/10/16 08/11/16 15:00 23:00 07:00 Intake Total 2540 ml 1560 ml Output Total 2200 ml 3200 ml Balance 340 ml -1640 ml Exam Constitutional: alert, oriented Psych: no complaints Head: atraumatic, normocephalic Eyes: nl conjunctiva ENMT: nl external ears & nose Neck: supple Cardiovascular: nl pulses, regular rate and rhythm Gastrointestinal: non-tender, soft Extremities: normal pulses Neurological: MOTHER SUPERIOR II-XII intact Skin: Posterior surgical incision was dry clean and intact dressing and drain. Results Result Diagram: 08/11/16 0440 08/11/16 0454 Results 24 hrs Laboratory Tests Test 08/11/16 04:40 08/11/16 04:54 White Blood Count 10.3 Red Blood Count 3.94 L Hemoglobin 11.9 L Hematocrit 34.7 L Mean Corpuscular Volume 88.1 Mean Corpuscular Hemoglobin 30.2 Mean Corpuscular Hemoglobin Concent 34.3 Red Cell Distribution Width 12.3 Platelet Count 198 Mean Platelet Volume 9.8 Neutrophils % 81.0 H Band Neutrophils % 1.0 Lymphocytes % 8.0 L Monocytes % 6.0 Metamyelocytes % 2.0 H Myelocytes % 1.0 H Promyelocytes % 1.0 H Neutrophils # 8.3 H Lymphocytes # 0.8 Monocytes # 0.6 Metamyelocytes # 0.2 Myelocytes # 0.1 Promyelocytes # 0.1 Sodium Level 137 Potassium Level 4.3 Chloride Level 104 Carbon Dioxide Level 29 Anion Gap 8 Blood Urea Nitrogen 19 Creatinine 0.71 Glucose Level 154 Calcium Level 8.4 Medications Medications Current Medications Gabapentin (Neurontin) 800 mg QHS PO Last administered on 08/10/16 20:25; Admin Dose 800 MG; Start 08/04/16 at 21:00 Letrozole (Femara) 2.5 mg DAILY PO Last administered on 08/11/16 10:29; Admin Dose 2.5 MG; Start 08/04/16 at 09:00 Ondansetron HCl (Zofran Inj) 4 mg Q6H PRN IV NAUSEA AND/OR VOMITING Last administered on 08/07/16 17:27; Admin Dose 4 MG; Start 08/03/16 at 23:00 Dexamethasone (Decadron) 4 mg Q6 IV Last administered on 08/11/16 11:32; Admin Dose 4 MG; Start 08/04/16 at 00:00 Morphine Sulfate (morphine) 2 mg Q3H PRN IV SEVERE PAIN LEVEL 7-10; Start 08/04 at 17:00 Hydralazine HCl (Apresoline) 10 mg Q4H PRN IV ELEVATED DIASTOLIC BP Last administered on 08/07/16 08:19; Admin Dose 10 MG; Start 08/04/16 at 17:00 Lisinopril (Zestril) 5 mg DAILY PO Last administered on 08/11/16 09:50; Admin Dose 5 MG; Start 08/05/16 at 09:00 Docusate Sodium (Colace) 100 mg BID PO Last administered on 08/11/16 09:49; Admin Dose 100 MG; Start 08/06/16 at 21:00 Pantoprazole 40 mg 40 mg DAILY@06 PO Last administered on 08/11/16 05:35; Admin Dose 40 MG; Start 08/07/16 at 06:00 Dextrose/Sodium Chloride (D5-1/2ns) 1,000 ml @ 75 mls/hr [id number] IV Last administered on 08/11/16t 11:32; Admin Dose 75 MLS/HR; Start 08/06/16 at 23:30 Morphine Sulfate (morphine) 2 mg Q1H PRN IV PAIN; Start 08/07/16 at 18:00 Morphine Sulfate (morphine) 4 mg Q1HWA PRN IV PAIN LEVEL 6-10; Start 08/07/16 at 18:00 AMANDA AVALOS Aug 11, 2016 17:35
[2016-08-11] MEDS: POLYETHYLENE GLYCOL 17 GM PACKET PO SCH (18:28)
[2016-08-11] MEDS ORDERED: POLYETHYLENE GLYCOL 17 GM PACKET PO PRN (18:30)
[2016-08-11 20:11] VITALS: BP 144/83; RESP 18
[2016-08-11] MEDS: GABAPENTIN 400 MG CAP PO SCH (20:46)
--- NOTE | 2016-08-11 23:02 | CONS ---
Date/Time of Note Date/Time of Note DATE: 08/11/16 TIME: 23:01 Assessment/Plan Assessment/Plan Chief Complaint/Hosp Course METASTATIC BREAST CANCER WITH KNOWN MULTIPLE BONY METS epidural cord compression at T10-T11 and metastatic lesions at L2-L3 with epidural extension most pronounced along the posterior left vertebral body and extending into the left neural foramen and posterior elements. post Thoracic 9, thoracic 10, thoracic 11, and thoracic 12 laminectomy for decompression of the neural elements and Microsurgical resection of extradural, extramedullary spinal cord tumor. plan- laminectomy followed by radiation therapy to T10-T11 for consolidation. Continue dexamethasone and PPI at this time. PLAN SYSTEMIC THERAPY AFTER SURGERY AND XRT CONT ANTIESTROGENS CONT PAIN CONTROL Problems: Consultation Date/Type/Reason Admit Date/Time Aug 03, 2016 at 18:18 Initial Consult Date 08/05/16 [facility] Referring Provider: BLADIMIR COURTNEY MD 24 HR Interval Summary Free Text/Dictation Patient is awake alert, denies any pain, patient did gets out of bed with no problems, DC [place], continue to monitor intake and output. Exam/Review of Systems Vital Signs Vitals Vital Signs Date Time Temp Pulse Resp B/P Pulse Ox O2 Delivery O2 Flow Rate FiO2 08/11/16 20:11 97.9 79 18 144/83 96 08/10/16 08:35 Room Air Intake and Output 08/10/16 08/10/16 08/11/16 15:00 23:00 07:00 Intake Total 2540 ml 1560 ml Output Total 2200 ml 3200 ml Balance 340 ml -1640 ml Exam Exam Constitutional: alert, oriented Psych: no complaints Head: atraumatic, normocephalic Eyes: nl conjunctiva ENMT: nl external ears & nose Neck: supple Cardiovascular: nl pulses, regular rate and rhythm Gastrointestinal: non-tender, soft Extremities: normal pulses Neurological: HAIR CUTTER II-XII intact Skin: Posterior surgical incision was dry clean and intact dressing and drain. Results Result Diagram: 08/11/16 0440 08/11/16 0454 Results 24 hrs Laboratory Tests Test 08/11/16 04:40 08/11/16 04:54 White Blood Count 10.3 Red Blood Count 3.94 L Hemoglobin 11.9 L Hematocrit 34.7 L Mean Corpuscular Volume 88.1 Mean Corpuscular Hemoglobin 30.2 Mean Corpuscular Hemoglobin Concent 34.3 Red Cell Distribution Width 12.3 Platelet Count 198 Mean Platelet Volume 9.8 Neutrophils % 81.0 H Band Neutrophils % 1.0 Lymphocytes % 8.0 L Monocytes % 6.0 Metamyelocytes % 2.0 H Myelocytes % 1.0 H Promyelocytes % 1.0 H Neutrophils # 8.3 H Lymphocytes # 0.8 Monocytes # 0.6 Metamyelocytes # 0.2 Myelocytes # 0.1 Promyelocytes # 0.1 Sodium Level 137 Potassium Level 4.3 Chloride Level 104 Carbon Dioxide Level 29 Anion Gap 8 Blood Urea Nitrogen 19 Creatinine 0.71 Glucose Level 154 Calcium Level 8.4 Medications Medications Current Medications Gabapentin (Neurontin) 800 mg QHS PO Last administered on 08/11/16 20:46; Admin Dose 800 MG; Start 08/04/16 at 21:00 Letrozole (Femara) 2.5 mg DAILY PO Last administered on 08/11/16 10:29; Admin Dose 2.5 MG; Start 08/04/16 at 09:00 Ondansetron HCl (Zofran Inj) 4 mg Q6H PRN IV NAUSEA AND/OR VOMITING Last administered on 08/07/16 17:27; Admin Dose 4 MG; Start 08/03/16 at 23:00 Dexamethasone (Decadron) 4 mg Q6 IV Last administered on 08/11/16 18:27; Admin Dose 4 MG; Start 08/04/16 at 00:00 Morphine Sulfate (morphine) 2 mg Q3H PRN IV SEVERE PAIN LEVEL 7-10; Start 08/04 at 17:00 Hydralazine HCl (Apresoline) 10 mg Q4H PRN IV ELEVATED DIASTOLIC BP Last administered on 08/07/16 08:19; Admin Dose 10 MG; Start 08/04/16 at 17:00 Lisinopril (Zestril) 5 mg DAILY PO Last administered on 08/11/16 09:50; Admin Dose 5 MG; Start 08/05/16 at 09:00 Docusate Sodium (Colace) 100 mg BID PO Last administered on 08/11/16 20:46; Admin Dose 100 MG; Start 08/06/16 at 21:00 Pantoprazole 40 mg 40 mg DAILY@06 PO Last administered on 08/11/16 05:35; Admin Dose 40 MG; Start 08/07/16 at 06:00 Dextrose/Sodium Chloride (D5-1/2ns) 1,000 ml @ 75 mls/hr [id number] IV Last administered on 08/11/16 11:32; Admin Dose 75 MLS/HR; Start 08/06/16 at 23:30 Morphine Sulfate (morphine) 2 mg Q1H PRN IV PAIN; Start 08/07/16 at 18:00 Morphine Sulfate (morphine) 4 mg Q1HWA PRN IV PAIN LEVEL 6-10; Start 08/07/16 at 18:00 Polyethylene Glycol (Miralax) 17 gm DAILY PO Last administered on 08/11/16 18: 28; Admin Dose 17 GM; Start 08/12/16 at 09:00 Polyethylene Glycol (Miralax) 17 gm DAILY PRN PO constipation; Start 08/11/16 at 18:30 BLADIMIR COURTNEY MD Aug 11, 2016 23:02
[2016-08-12] MEDS: DEXAMETHASONE 4 MG/ML 1 ML INJ IV SCH ×4 (00:53→18:00)
[2016-08-12] MEDS: PANTOPRAZOLE (EC) 40 MG TAB PO SCH (05:55)
[2016-08-12] MEDS: DEXTROSE 5%-0.45% NACL 1,000 ML IV SCH (05:58)
[2016-08-12 06:38] LABS: ADD SCAN DIFF NO
[2016-08-12 06:52] LABS: ABNORMAL IP MESSAGE 1; HEMOGLOBIN 11.9 g/dl (12.0-16.0); MEAN CORPUSCULAR HEMOGLOBIN 30.2 pg (29.0-33.0); MEAN CORPUSCULAR VOLUME 88.8 fl (82.0-101.0); MEAN PLATELET VOLUME 10.1 fl (7.4-10.4); PLATELET COUNT 209 10^3/UL (140-415); RED BLOOD COUNT 3.94 10^6/ul (4.20-5.40); RED CELL DISTRIBUTION WIDTH 12.5 % (11.5-14.5); WHITE BLOOD COUNT 13.2 10^3/ul (4.8-10.8)
[2016-08-12 07:14] LABS: POTASSIUM 4.1 mmol/L (3.5-5.1)
[2016-08-12 07:16] LABS: CREATININE 0.66 mg/dl (0.44-1.00)
[2016-08-12 07:17] LABS: CALCIUM 8.5 mg/dl (8.4-10.2)
[2016-08-12] MEDS: POLYETHYLENE GLYCOL 17 GM PACKET PO SCH (09:33)
[2016-08-12] MEDS: DOCUSATE SODIUM 100 MG CAP PO SCH (09:33)
[2016-08-12] MEDS: LISINOPRIL 5 MG TAB PO SCH (09:33)
[2016-08-12] MEDS: LETROZOLE 2.5 MG TAB PO SCH (10:07)
[2016-08-12 11:37] LABS: LYMPHOCYTES # 1.1 10^3/ul (0.8-2.9); MONOCYTE # 1.1 10^3/ul (0.3-0.9); MYELOCYTES # 0.5; NEUTROPHIL # 9.8 10^3/ul (1.6-7.5)
--- NOTE | 2016-08-12 12:07 | PN ---
Date/Time of Note Date/Time of Note DATE: 08/12/16 TIME: 12:06 Assessment/Plan VTE Prophylaxis VTE Prophylaxis Intervention: other Lines/Catheters [facility] (from [facility] Peripheral IV Urinary Cath still in place: No Assessment/Plan Chief Complaint/Hosp Course -Intractable back pain secondary to spinal cord compression, resolved. -Spinal cord compression, S/p decompression laminectomy and microsurgical tumor resection by Dr Andrews, neurosurgery. Continue Decadron and Protonix. Dr Mckeon is following in radiation oncology. -Metastatic breast cancer with bone involvement, Dr. Bhatt is following in hematology oncology consultation. Problems: Subjective 24 Hr Interval Summary Free Text/Dictation Patient still has post operative pain Exam/Review of Systems Vital Signs Vitals Vital Signs Date Time Temp Pulse Resp B/P Pulse Ox O2 Delivery O2 Flow Rate FiO2 08/11/16 20:11 97.9 79 18 144/83 96 08/10/16 08:35 Room Air Intake and Output 08/11/16 08/11/16 08/12/16 15:00 23:00 07:00 Intake Total 400 ml 3520 ml 1300 ml Output Total 60 ml 3200 ml Balance 340 ml 320 ml 1300 ml Exam Constitutional: well developed Head: atraumatic, normocephalic Neck: supple Respiratory: clear to auscultation Cardiovascular: regular rate and rhythm Gastrointestinal: soft Extremities: normal pulses Results Result Diagram: 08/12/1622 08/12/16 0522 Results 24 hrs Laboratory Tests Test 08/12/16 05:22 White Blood Count 13.2 #H Red Blood Count 3.94 L Hemoglobin 11.9 L Hematocrit 35.0 L Mean Corpuscular Volume 88.8 Mean Corpuscular Hemoglobin 30.2 Mean Corpuscular Hemoglobin Concent 34.0 Red Cell Distribution Width 12.5 Platelet Count 209 Mean Platelet Volume 10.1 Neutrophils % 74.0 Band Neutrophils % 5.0 Lymphocytes % 8.0 L Monocytes % 8.0 Eosinophils % Basophils % Metamyelocytes % 1.0 H Myelocytes % 4.0 H Nucleated Red Blood Cells % Neutrophils # 9.8 H Lymphocytes # 1.1 Monocytes # 1.1 H Eosinophils # Basophils # Metamyelocytes # 0.1 Myelocytes # 0.5 Nucleated Red Blood Cells # Differential Comment MANUAL DIFF Sodium Level 134 L Potassium Level 4.1 Chloride Level 105 Carbon Dioxide Level 25 Anion Gap 8 Blood Urea Nitrogen 23 H Creatinine 0.66 Glucose Level 121 Calcium Level 8.5 Medications Medications Current Medications Gabapentin (Neurontin) 800 mg QHS PO Last administered on 08/11/16 20:46; Admin Dose 800 MG; Start 08/04/16 at 21:00 Letrozole (Femara) 2.5 mg DAILY PO Last administered on 08/12/16 10:07; Admin Dose 2.5 MG; Start 08/04/16 at 09:00 Ondansetron HCl (Zofran Inj) 4 mg Q6H PRN IV NAUSEA AND/OR VOMITING Last administered on 08/07/16 17:27; Admin Dose 4 MG; Start 08/03/16 at 23:00 Dexamethasone (Decadron) 4 mg Q6 IV Last administered on 08/12/16 05:55; Admin Dose 4 MG; Start 08/04/16 at 00:00 Morphine Sulfate (morphine) 2 mg Q3H PRN IV SEVERE PAIN LEVEL 7-10; Start 08/04 at 17:00 Hydralazine HCl (Apresoline) 10 mg Q4H PRN IV ELEVATED DIASTOLIC BP Last administered on 08/07/16 08:19; Admin Dose 10 MG; Start 08/04/16 at 17:00 Lisinopril (Zestril) 5 mg DAILY PO Last administered on 08/12/16 09:33; Admin Dose 5 MG; Start 08/05/16 at 09:00 Docusate Sodium (Colace) 100 mg BID PO Last administered on 08/12/16 09:33; Admin Dose 100 MG; Start 08/06/16 at 21:00 Pantoprazole 40 mg 40 mg DAILY@06 PO Last administered on 08/12/16 05:55; Admin Dose 40 MG; Start 08/07/16 at 06:00 Dextrose/Sodium Chloride (D5-1/2ns) 1,000 ml @ 75 mls/hr [id number] IV Last administered on 08/12/16 05:58; Admin Dose 75 MLS/HR; Start 08/06/16 at 23:30 Morphine Sulfate (morphine) 2 mg Q1H PRN IV PAIN; Start 08/07/16 at 18:00 Morphine Sulfate (morphine) 4 mg Q1HWA PRN IV PAIN LEVEL 6-10; Start 08/07/16 at 18:00 Polyethylene Glycol (Miralax) 17 gm DAILY PO Last administered on 08/12/16t 09: 33; Admin Dose 17 GM; Start 08/12/16 at 09:00 Polyethylene Glycol (Miralax) 17 gm DAILY PRN PO constipation; Start 08/11/16 at 18:30 VILMA TORIBIO Aug 12, 2016 12:07
--- NOTE | 2016-08-12 13:33 | CONS ---
Date/Time of Note Date/Time of Note DATE: 08/12/16 TIME: 13:33 Assessment/Plan Assessment/Plan Chief Complaint/Hosp Course METASTATIC BREAST CANCER WITH KNOWN MULTIPLE BONY METS epidural cord compression at T10-T11 and metastatic lesions at L2-L3 with epidural extension most pronounced along the posterior left vertebral body and extending into the left neural foramen and posterior elements. post Thoracic 9, thoracic 10, thoracic 11, and thoracic 12 laminectomy for decompression of the neural elements and Microsurgical resection of extradural, extramedullary spinal cord tumor. plan- laminectomy followed by radiation therapy to T10-T11 for consolidation. Continue dexamethasone and PPI at this time. PLAN SYSTEMIC THERAPY AFTER SURGERY AND XRT CONT ANTIESTROGENS CONT PAIN CONTROL Problems: Consultation Date/Type/Reason Admit Date/Time Aug 03, 2016 at 18:18 Initial Consult Date 08/05/16 [facility]ation[facility] Referring Provider: BLADIMIR COURTNEY MD Exam/Review of Systems Vital Signs Vitals Vital Signs Date Time Temp Pulse Resp B/P Pulse Ox O2 Delivery O2 Flow Rate FiO2 08/11/16 20:11 97.9 79 18 144/83 96 08/10/16 08:35 Room Air Intake and Output 08/11/16 08/11/16 08/12/16 15:00 23:00 07:00 Intake Total 400 ml 3520 ml 1300 ml Output Total 60 ml 3200 ml Balance 340 ml 320 ml 1300 ml Results Result Diagram: 08/12/16 0522 08/12/16 0522 Results 24 hrs Laboratory Tests Test 08/12/16 05:22 White Blood Count 13.2 #H Red Blood Count 3.94 L Hemoglobin 11.9 L Hematocrit 35.0 L Mean Corpuscular Volume 88.8 Mean Corpuscular Hemoglobin 30.2 Mean Corpuscular Hemoglobin Concent 34.0 Red Cell Distribution Width 12.5 Platelet Count 209 Mean Platelet Volume 10.1 Neutrophils % 74.0 Band Neutrophils % 5.0 Lymphocytes % 8.0 L Monocytes % 8.0 Eosinophils % Basophils % Metamyelocytes % 1.0 H Myelocytes % 4.0 H Nucleated Red Blood Cells % Neutrophils # 9.8 H Lymphocytes # 1.1 Monocytes # 1.1 H Eosinophils # Basophils # Metamyelocytes # 0.1 Myelocytes # 0.5 Nucleated Red Blood Cells # Differential Comment MANUAL DIFF Sodium Level 134 L Potassium Level 4.1 Chloride Level 105 Carbon Dioxide Level 25 Anion Gap 8 Blood Urea Nitrogen 23 H Creatinine 0.66 Glucose Level 121 Calcium Level 8.5 Medications Medications Current Medications Gabapentin (Neurontin) 800 mg QHS PO Last administered on 08/11/16 20:46; Admin Dose 800 MG; Start 08/04/16 at 21:00 Letrozole (Femara) 2.5 mg DAILY PO Last administered on 08/12/16 10:07; Admin Dose 2.5 MG; Start 08/04/16 at 09:00 Ondansetron HCl (Zofran Inj) 4 mg Q6H PRN IV NAUSEA AND/OR VOMITING Last administered on 08/07/16 17:27; Admin Dose 4 MG; Start 08/03/16 at 23:00 Dexamethasone (Decadron) 4 mg Q6 IV Last administered on 08/12/16 12:36; Admin Dose 4 MG; Start 08/04/16 at 00:00 Morphine Sulfate (morphine) 2 mg Q3H PRN IV SEVERE PAIN LEVEL 7-10; Start 08/04 at 17:00 Hydralazine HCl (Apresoline) 10 mg Q4H PRN IV ELEVATED DIASTOLIC BP Last administered on 08/07/16 08:19; Admin Dose 10 MG; Start 08/04/16 at 17:00 Lisinopril (Zestril) 5 mg DAILY PO Last administered on 08/12/16 09:33; Admin Dose 5 MG; Start 08/05/16 at 09:00 Docusate Sodium (Colace) 100 mg BID PO Last administered on 08/12/16 09:33; Admin Dose 100 MG; Start 08/06/16 at 21:00 Pantoprazole 40 mg 40 mg DAILY@06 PO Last administered on 08/12/16 05:55; Admin Dose 40 MG; Start 08/07/16 at 06:00 Dextrose/Sodium Chloride (D5-1/2ns) 1,000 ml @ 75 mls/hr [id number] IV Last administered on 08/12/16 05:58; Admin Dose 75 MLS/HR; Start 08/06/16 at 23:30 Morphine Sulfate (morphine) 2 mg Q1H PRN IV PAIN; Start 08/07/16 at 18:00 Morphine Sulfate (morphine) 4 mg Q1HWA PRN IV PAIN LEVEL 6-10; Start 08/07/16 at 18:00 Polyethylene Glycol (Miralax) 17 gm DAILY PO Last administered on 08/12/16t 09: 33; Admin Dose 17 GM; Start 08/12/16 at 09:00 Polyethylene Glycol (Miralax) 17 gm DAILY PRN PO constipation; Start 08/11/16 at 18:30 BLADIMIR COURTNEY MD Aug 12, 2016 13:33
--- NOTE | 2016-08-12 17:45 | QN ---
Documentation Comment Doing well post operatively, no neurologic deficits. Hemo vac d/c'd. Ok to discharge from neurosurgical point of view. No heavy lifting (>10lbs), no restriction on activity otherwise, may shower. Follow up in 10 days for suture removal. LUCINA BAUER MD Aug 12, 2016 17:45
[2016-08-12 20:18] VITALS: BP 133/86; RESP 18
--- NOTE | 2016-08-17 12:32 | DS ---
Date/Time of Note Date/Time of Note DATE: 08/17/16 TIME: 12:31 Discharge Summary Admission/Discharge Info Admit Date/Time Aug 03, 2016 at 18:18 Discharge Date/Time Aug 12, 2016 at 20:20 Final Diagnosis 1) back pain Hx of Present Illness SEVERE BACK PAIN,HISTORY OF BREAST CA 2011,BONE CA 2015 HPI Patient is a 52-year-old female with Hx breast was sent by Dr. Bhatt to ER with c/o lower back pain. She was concerned for cord compression. Patient reported 2 months of lower back pain which is worsening. Usually her pain meds last up to 6 hours but she was having to take pain medicines every 3 hours. She tried 2 Aleve prior to coming to the ER. The pain is in the left lower back. She has no fevers and no incontinence. Upon review of old medical records this is the patient's first visit to the emergency department. Patient denies any chest pain, shortness of breath, headache, palpitations, dizziness, fever, chills, focal weakness/numbness, abdominal pain/N/V/D. Denies any recent trauma or injury. ROS All systems reviewed and are negative except as per history of present illness. Medications Home Meds Reported Medications Letrozole* (Femara*) 2.5 Mg Tablet, 2.5 MG PO DAILY, TAB 08/03/16 Gabapentin* (Neurontin*) 400 Mg Capsule, 800 MG PO QHS, #60 CAP 08/03/16 Allergies Allergies: Coded Allergies: No Known Allergy (Unverified , 08/03/16) Hospital Course Patient comes in with severe back pain due to spinal cord compression. Patient underwent decompression laminectomy and microsurgical tumor resection. Patient tolerated the procedure fine. Once he was deemed stable, he was sent home. He will follow up with Dr. Andrews and Dr. Mckeon. -Intractable back pain secondary to spinal cord compression, resolved. -Spinal cord compression, S/p decompression laminectomy and microsurgical tumor resection by Dr Andrews, neurosurgery. Continue Decadron and Protonix. Dr Mckeon is following in radiation oncology. -Metastatic breast cancer with bone involvement, Dr. Bhatt is following in hematology oncology consultation. Home Meds Reported Medications Letrozole* (Femara*) 2.5 Mg Tablet, 2.5 MG PO DAILY, TAB 08/03/16 Gabapentin* (Neurontin*) 400 Mg Capsule, 800 MG PO QHS, #60 CAP 08/03/16 VILMA TORIBIO Aug 17, 2016 12:32
== END 2016-08-12 20:20 | disposition home or self-care (01) | DRG 29 ==
LOC: E/R 16:42 → UNDOADMIN 18:18 → MS1 18:18 → ICU 08-07 19:53 → MS2 08-08 18:15
PROVIDERS: ADMIT Internal Medicine; ATTEND Internal Medicine
PROC: 30233N1 Transfusion of Nonautologous Red Blood Cells into Peripheral Vein, Percutaneous Approach (ICD-10-PCS; 2016-08-07)
PROC: 00BX0ZZ Excision of Thoracic Spinal Cord, Open Approach (ICD-10-PCS; principal; 2016-08-07 12:00)
DX: G95.29 Other cord compression (principal); C79.49 Secondary malignant neoplasm of other parts of nervous system; C77.9 Secondary and unspecified malignant neoplasm of lymph node, unspecified; C79.51 Secondary malignant neoplasm of bone; M48.05 Spinal stenosis, thoracolumbar region; M51.16 Intervertebral disc disorders with radiculopathy, lumbar region; Z85.3 Personal history of malignant neoplasm of breast; I10 Essential (primary) hypertension
CPT/HCPCS: 36415; 36430; 71010; 71260; 72100; 72128; 72146; 72158; 72197; 74177; 80048; 80053; 81001; 81003; 82378; 83690; 85025; 86300; 86850; 86900; 86901; 86920; 87081; 87086; 88104; 88304; 88307; 88311; 88341; 88342; 93005; 96374; 96375; 96376; 97116; 97162; C9113; J0330; J0360; J0690; J1100; J1170; J2270; J2405; J2765; J2930; J3010; J3370; J7030; J7042; P9016; Q9967

== ENCOUNTER 2016-10-15 18:50 | Emergency (ER) | payer OTHER ==
[~2016-10-15] VITALS: Ht 167.6 cm; Wt 69.0 kg
[~2016-10-15 18:50] MED LIST: GABA400C PO; LETR2.5T11 PO
[2016-10-15 18:54] VITALS: Ht 167.6 cm; Wt 69.0 kg
[2016-10-15] MEDS ORDERED: SOD CHLORIDE 0.9% 1,000 ML IV STA (19:22)
[2016-10-15] MEDS ORDERED: ACETAMINOPHEN 325 MG TAB PO ONE (19:30)
[2016-10-15 19:43] LABS: ADD SCAN DIFF NO
[2016-10-15 19:48] LABS: BASOPHILS % 0.5 % (0.0-2.0); EOSINOPHILS # 0.1 10^3/ul (0.0-0.5); EOSINOPHILS % 2.7 % (0.0-7.0); HEMATOCRIT 35.2 % (37.0-47.0); HEMOGLOBIN 12.4 g/dl (12.0-16.0); LYMPHOCYTES % 21.5 % (15.0-51.0); MEAN CORPUSCULAR HEMOGLOBIN 31.3 pg (29.0-33.0); MEAN CORPUSCULAR HGB CONC 35.2 g/dl (32.0-37.0); MEAN CORPUSCULAR VOLUME 88.9 fl (82.0-101.0); MEAN PLATELET VOLUME 9.5 fl (7.4-10.4); MONOCYTE # 0.6 10^3/ul (0.3-0.9); MONOCYTES % 12.4 % (0.0-11.0); NEUTROPHIL # 2.8 10^3/ul (1.6-7.5); NEUTROPHILS % 62.4 % (39.0-77.0); PLATELET COUNT 141 10^3/UL (140-415); RED BLOOD COUNT 3.96 10^6/ul (4.20-5.40); RED CELL DISTRIBUTION WIDTH 12.5 % (11.5-14.5); WHITE BLOOD COUNT 4.4 10^3/ul (4.8-10.8)
[2016-10-15 20:04] LABS: CALCIUM 9.5 mg/dl (8.4-10.2); CREATININE 0.71 mg/dl (0.44-1.00); POTASSIUM 3.7 mmol/L (3.5-5.1)
--- NOTE | 2016-10-15 20:30 | ERD ---
ER Documentation Chief Complaint Date/Time DATE: 10/15/16 TIME: 20:23 Chief Complaint UPPER BACK PAIN SINCE JULY. COUGH SINCE YESTERDAY. NO FEVER. NO PHLEGM HPI This pleasant 61-year-old female presents to emergency department today with complaint of left posterior back pain, stabbing, sharp, symptoms started this morning. Patient reports that she has cough, nasal congestion since yesterday, she has been treating herself with TheraFlu last taken this morning. Patient reports profuse sweating after taking TheraFlu. Reports no known fever. Patient has history of cancer, status post spine surgery August 07, 2016 here at [facility], patient reports that radiation completed 4 weeks ago. Patient also reports that she has breast cancer with metastases. Reports weakness and fatigue. Denies chest pain, shortness of breath, palpitations or dizziness. Denies nausea, vomiting, ROS All systems reviewed and are negative except as per history of present illness. Medications Home Meds Active Scripts Hydrocodone Bit/Homatrop Me-Br (Hydrocodone-Homatropine Syrup) 5 Ml Syrup, 5 ML PO QID for 3 Days, #60 Prov:FLORIDA,LENNIE 10/15/16 Reported Medications Letrozole* (Femara*) 2.5 Mg Tablet, 2.5 MG PO DAILY, TAB 08/03/16 Gabapentin* (Neurontin*) 400 Mg Capsule, 800 MG PO QHS, #60 CAP 08/03/16 Allergies Allergies: Coded Allergies: No Known Allergy (Unverified , 08/03/16) PMhx/Soc History of Surgery: Yes (3x lumpectomy, back surgery for CA mets) Anesthesia Reaction: No Hx Neurological Disorder: No Hx Respiratory Disorders: No Hx Cardiac Disorders: Yes (high cholesterol) Hx Psychiatric Problems: No Hx Miscellaneous Medical Probl: Yes (breast CA w mets to bone; p radiation ) Hx Alcohol Use: No Hx Substance Use: No Hx Tobacco Use: No Smoking Status: Never smoker Physical Exam Vitals Vital Signs Date Time Temp Pulse Resp B/P Pulse Ox O2 Delivery O2 Flow Rate FiO2 10/15/16 22:25 89 16 143/86 98 Room Air 10/15/16 18:54 99.2 99 18 137/98 97 Vitals stable, triage notes reviewed Physical Exam Const: Patient placed in basic facemask, no acute distress Head: Atraumatic Eyes: Normal Conjunctiva, PERRLA, EOMI ENT: Tympanic membranes translucent, auditory canals are clear, nasal mucosa is edematous, right terminates +3 without bleeding points. Symptoms midline. No maxillary tenderness. Pharynx pink, mucus noted posteriorly, uvula midline rises and falls with pronation Neck: Full range of motion..~ No meningismus. Resp: Chest rise and fall symmetrically, scattered rhonchi with diminished posterior bases no egophony or respiratory distress Cardio: Regular rate and rhythm, no murmurs Abd: Skin: Back: No midline or flank tenderness Ext: Neur: Awake and alert Psych: Normal Mood and Affect Result Diagram: 10/15/16193410/15/161934 Results 24 hrs Laboratory Tests Test 10/15/16 19:35 White Blood Count 4.410^3/ul Red Blood Count 3.9610^6/ul Hemoglobin 12.4g/dl Hematocrit 35.2% Mean Corpuscular Volume 88.9fl Mean Corpuscular Hemoglobin 31.3pg Mean Corpuscular Hemoglobin Concent 35.2g/dl Red Cell Distribution Width 12.5% Platelet Count 12075^3/UL Mean Platelet Volume 9.5fl Neutrophils % 62.4% Lymphocytes % 21.5% Monocytes % 12.4% Eosinophils % 2.7% Basophils % 0.5% Nucleated Red Blood Cells % 0.0/100WBC Neutrophils # 2.810^3/ul Lymphocytes # 1.010^3/ul Monocytes # 0.610^3/ul Eosinophils # 0.110^3/ul Basophils # 0.010^3/ul Nucleated Red Blood Cells # 0.010^3/ul Sodium Level 145mmol/L Potassium Level 3.7mmol/L Chloride Level 111mmol/L Carbon Dioxide Level 27mmol/L Anion Gap 11 Blood Urea Nitrogen 8mg/dl Creatinine 0.71mg/dl Glucose Level 104mg/dl Calcium Level 9.5mg/dl Current Medications Medications (Trade) Dose Ordered Sig/Hai Route PRN Reason Start Time Stop Time Status Last Admin Dose Admin Sodium Chloride (NS) 1,000 ml @ 1,000 mls/hr Q1H STAT IV 10/15/16 19:22 10/15/16 20:21 DC 10/15/16 19:32 Acetaminophen (Tylenol Tab) 650 mg ONCE ONCE PO 10/15/16 19:30 10/15/16 19:31 DC 10/15/16 19:34 Interpretation text CBC shows no evidence of hemorrhage or infection, leukopenia at 4.4 noted Chemistry shows no evidence of significant electrolyte abnormalities or renal insufficiency Liver function tests shows no evidence of acute biliary or hepatic dysfunction Procedures/MDM PROCEDURE: XR Chest. CLINICAL INDICATION: Cough. Personal history of cancer TECHNIQUE: PA and Lateral views of the chest were obtained. COMPARISON: 08/03/2016 FINDINGS: The cardiomediastinal silhouette is within normal limits. The lungs are clear. No signs of pleural fluid or pneumothorax are seen. The osseous structures and soft tissues are unremarkable. Surgical itzel are present in the left axilla. There is sclerosis of the right humeral head an osseous metastatic disease cannot be excluded. IMPRESSION: No radiographic evidence for acute cardiopulmonary disease. Sclerotic lesion in the right humeral head suspicious for osseous metastatic disease. Electronically viewed and signed by .Silviano Tejada MD, on 10/15/2016 21:14 This pleasant 61-year-old female presents to emergency department today for cough, nasal congestion and stabbing back pain located on left posteriorly. Patient reports feeling dehydrated, vomiting secondary to coughing, poor p.o. intake today. History of breast cancer with metastases, spinal tumor removed August 07, 2016. Radiation completed 4 weeks ago. Patient is not on chemotherapy. Viral syndrome, pneumonia, metastatic lesion, intractable pain cancer, CBC shows leukopenia at 4.4 possible effect of radiation or viral syndrome, chemistry unremarkable for evidence of renal insufficiency or electrolyte imbalance. Chest x-ray negative for evidence of consolidation atelectasis,No radiographic evidence for acute cardiopulmonary disease.Sclerotic lesion in the right humeral head suspicious for osseous metastatic disease. Patient treated with IV normal saline, and Tylenol for pain reports feeling improvement after IV fluids. Patient will be treated for a viral upper respiratory infection with Hycodan for cough and back pain, return to emergency room for worsening of pain, cough not responding to medication. I feel the patient is stable for discharge at this time with outpatient management by oncologist. Patient will receive copy of x-ray report to give to oncologist.. I have discussed results, examination findings, the treatment plan with the patient and family present prior to discharge. Indications for emergent reevaluation, side effects of medication were also discussed. All questions were answered. Patient verbalizes understanding and agrees with plan of care. Departure Diagnosis: Primary Impression: URI (upper respiratory infection) URI type: unspecified viral URI Qualified Code: J06.9 - Viral upper respiratory tract infection Condition: Good Patient Instructions: Adult Self-Care for Colds Additional Instructions: Thank you for for coming [facility] for your care today. Please ask your nurse or provider if you have questions about your care today and do not leave until all your questions have been answered. Please use any medications given as directed and follow-up with your doctor (or the doctor you were referred to) in the next 2-3 days. If you do not have a primary care doctor you may follow up at the [facility] (listed below). You may also use motrin and tylenol as needed for fever and/or pain unless instructed otherwise by your provider or nurse. Indications for more urgent follow-up have been discussed, but you may return to the Emergency Department at ANY time for any worrisome or worsening symptoms. If you have abdominal pain, please know that no test or exam you received is perfect and you should follow up within 8 hours for continued pain. If you had any imaging studies today, such as an X-Ray or CT Scan, these studies will be reviewed later by a radiologist. You will be called if there are important findings that were not identified today, so make sure the contact information you provided at registration is correct. If you received any narcotic pain control medicine today, such as Vicodin, Morphine or Dilaudid, your coordination and judgment may be affected for a number of hours. Please do not drive or operate heavy machinery, and you may want someone to assist you at home. If you were given a prescription for narcotic medication, be aware that it is very addictive- use sparingly and only if necessary. LENNIE BARTHOLOMEW Oct 15, 2016 20:30
--- NOTE | 2016-10-15 21:14 | RADRPT ---
PROCEDURE: XR Chest. CLINICAL INDICATION: Cough. Personal history of cancer TECHNIQUE: PA and Lateral views of the chest were obtained. COMPARISON: 08/03/2016 FINDINGS: The cardiomediastinal silhouette is within normal limits. The lungs are clear. No signs of pleural f luid or pneumothorax are seen. The osseous structures and soft tissues are unremarkable. Surgical st aples are present in the left axilla. There is sclerosis of the right humeral head an osseous metas tatic disease cannot be excluded. IMPRESSION: No radiographic evidence for acute cardiopulmonary disease. Sclerotic lesion in the right humeral head suspicious for osseous metastatic disease. RPTAT: PP .Silviano Tejada MD, Date Time Electronically viewed and signed by .Silviano Tejada MD, on 10/15/2016 21:14 .Louis
[2016-10-15] MEDS ORDERED: HYDR5SYR PO (22:08)
[2016-10-15 22:25] VITALS: BP 143/86; PULSE 89; RESP 16
== END 2016-10-15 22:26 | disposition home or self-care (01) ==
LOC: FTE 18:50
DX: J06.9 Acute upper respiratory infection, unspecified (principal); Z85.3 Personal history of malignant neoplasm of breast
CPT/HCPCS: 36415; 71020; 80048; 85025; 99284; J7030

== ENCOUNTER 2016-11-20 07:34 | Emergency (ER) | payer OTHER ==
[~2016-11-20] VITALS: Ht 167.6 cm; Wt 65.5 kg
[~2016-11-20 07:34] MED LIST changes: +HYDR5SYR PO
[2016-11-20 07:38] VITALS: Ht 167.6 cm; Wt 65.5 kg
[2016-11-20] MEDS ORDERED: ONDANSETRON 4 MG INJ IV STA ×2 (08:11→12:46)
[2016-11-20] MEDS ORDERED: morphine 10 MG INJ IV ONE ×2 (08:30→13:00)
[2016-11-20 08:43] LABS: ADD SCAN DIFF NO
[2016-11-20 08:47] LABS: BASOPHILS % 0.3 % (0.0-2.0); EOSINOPHILS # 0.1 10^3/ul (0.0-0.5); EOSINOPHILS % 0.9 % (0.0-7.0); HEMATOCRIT 40.5 % (37.0-47.0); HEMOGLOBIN 14.1 g/dl (12.0-16.0); LYMPHOCYTES # 0.8 10^3/ul (0.8-2.9); LYMPHOCYTES % 10.8 % (15.0-51.0); MEAN CORPUSCULAR HEMOGLOBIN 30.8 pg (29.0-33.0); MEAN CORPUSCULAR HGB CONC 34.8 g/dl (32.0-37.0); MEAN CORPUSCULAR VOLUME 88.4 fl (82.0-101.0); MEAN PLATELET VOLUME 9.4 fl (7.4-10.4); MONOCYTE # 0.6 10^3/ul (0.3-0.9); MONOCYTES % 7.7 % (0.0-11.0); NEUTROPHIL # 5.9 10^3/ul (1.6-7.5); NEUTROPHILS % 79.5 % (39.0-77.0); PLATELET COUNT 187 10^3/UL (140-415); RED BLOOD COUNT 4.58 10^6/ul (4.20-5.40); RED CELL DISTRIBUTION WIDTH 12.7 % (11.5-14.5); WHITE BLOOD COUNT 7.4 10^3/ul (4.8-10.8)
[2016-11-20 09:11] LABS: INR 0.95; PROTIME 12.7 Sec (12.2-14.2)
[2016-11-20 09:34] LABS: ALBUMIN 5.1 g/dl (3.3-4.9); ALBUMIN/GLOBULIN RATIO 1.75; BILIRUBIN,INDIRECT 0.4 mg/dl (0-1.1); BILIRUBIN,TOTAL 0.4 mg/dl (0.2-1.3); CALCIUM 9.6 mg/dl (8.4-10.2); CREATININE 0.7 mg/dl (0.44-1.00); POTASSIUM 3.9 mmol/L (3.5-5.1)
--- NOTE | 2016-11-20 12:41 | RADRPT ---
PROCEDURE: MRI lumbar spine with and without contrast CLINICAL INDICATION: Back pain and weakness in legs. Metastatic breast cancer. TECHNIQUE: An MRI of the lumbar spine was performed on a GE 1.5 don scanner utilizing the follow ing sequences: pre and post contrast sagittal and axial T1 weighted, sagittal and axial T2 weighted, and sagittal T2 weighted with fat saturation. 10 cc of Magnevist were given intravenously without c omplication. COMPARISON: MRI L-spine 08/03/2016. FINDINGS: Redemonstrated are numerous foci of abnormal bone marrow signal in the visualized spine and the pelv ic bones in keeping with diffuse osseous metastasis. There has been significant interval improvemen t of epidural soft tissue component at L2 and L3 however there has been interval worsening of metast atic lesion involving the right aspect of the sacrum and right iliac wing. There is involvement of the S2 vertebral body with soft tissue extending into the right sided neural foramina with encasemen t of the exiting right S2 nerve root. Hypertrophic right facet of L2 with distortion of the thecal sac. There is mild facet arthropathy and L4-L5 and L5-S1. There is increased joint effusion at L 4-L5 facet joints. The conus medullaris is visible at L1 level and is normal in appearance. IMPRESSION: 1. Significant improvement of epidural soft tissue component at L2 and L3 levels. 2. The central canal is adequately patent at lumbar levels. 3. Interval worsening of metastatic lesion involving the right sacrum / right iliac wing. Obliterat ion of the right S2 neural foramen with impingement upon the exiting right S2 nerve root. RPTAT: BB .Mary De Paz MD, Date Time Electronically viewed and signed by .Mayr De Paz MD, MD on 11/20/2016 12:40 .O/
--- NOTE | 2016-11-20 12:47 | RADRPT ---
PROCEDURE: MRI thoracic spine with and without IV contrast CLINICAL INDICATION: Metastatic breast carcinoma. History of surgical intervention for spinal sk eletal metastasis. TECHNIQUE: An MRI of the thoracic spine was performed on a 1.5 don scanner utilizing the follow ing sequences: Pre and postcontrast sagittal and axial T1 weighted, sagittal and axial T2 weighted, and sagittal STIR. 10 ml Magnevist. COMPARISON: MR thoracic spine 08/04/2016 FINDINGS: Again noted are diffuse skeletal metastasis involving all visualized levels of the cervical, thoraci c, and lumbar spine, new, posterior elements, and ribs new. As previously described, this is most p ronounced at the T10 with ventral epidural extension extending from the T9-T10 through T11-T12 level s most pronounced at the T10 measuring 4 mm in greatest AP dimension. On the left at T10 epidural e xtension is contiguous with left paraspinal metastatic extension with the extension into the T10-L11 neural foramen. Grossly similar appearance of expansile left tenth and eleventh rib metastasis. D ecompression laminectomy extending from T9-T10 through T12-L1. This results in persistent moderate t o severe left foraminal stenosis at T9-T10, severe foraminal stenosis at T10-T11 and moderate stenos is at T11-T12. No right foraminal or central canal stenosis. On the current study, new metastatic extension is noted the involving the posterior aspect of the T4 vertebral body with minimal bilateral ventral epidural extension measuring 1-2 mm in greatest thick ness along the length of the T4 vertebral body with left posterior paraspinal enhancing soft tissue mass measuring 1.8 x 2.8 x 3 cm (AP/TR/CC) extending along the posterior aspect of the left T4 post erior elements and rib superiorly. More pronounced metastatic involvement of the posterior T5 and T6 vertebral bodies are with minimal epidural spread greater on the left measuring approximately 1-2 m m in greatest thickness along the left T5 the and T6 vertebral bodies with extension into the neural foramina and paraspinal soft tissues. There is involvement of the posterior ribs as well as transv erse processes and posterior elements of the fourth through sixth vertebral levels with diffuse soft tissue extension. This results in moderate to severe foraminal stenosis on the left at T4-T5 through T6-T7 without significant central canal stenosis. No pathologic vertebral body fracture. The thoracic spinal cord is normal in signal intensity and c aliber without pathologic enhancement. The conus medullaris terminates at L1. IMPRESSION: 1. Interval decompression laminectomies at T9-T12 without evidence of residual central canal stenosi s or cord compression. 2. Interval progression of multilevel skeletal metastasis with epidural and paraspinal tumor spread as detailed above. This results in varying degrees of left foraminal stenosis from T4-T5 through T 6-T7 levels and T9-T10 through T11-T12 levels. 3. No pathologic fracture. RPTAT:AAJJ Physician Elizabeth Date Time Electronically viewed and signed by Physician Elizabeth on 11/20/2016 12:46 NIKOLAS/
[2016-11-20] MEDS ORDERED: OXYC-279 PO (13:14)
[2016-11-20 13:18] LABS: ADD UMIC YES; UR ASCORBIC ACID 20 mg/dL (NEGATIVE); UR BILIRUBIN (Dip) NEGATIVE (NEGATIVE); UR BLOOD (Dip) NEGATIVE (NEGATIVE); UR CLARITY CLEAR (CLEAR); UR COLOR YELLOW (YELLOW); UR GLUCOSE (Dip) NEGATIVE (NEGATIVE); UR KETONES (Dip) NEGATIVE (NEGATIVE); UR LEUKOCYTE ESTERASE (Dip) TRACE Leu/ul (NEGATIVE); UR MUCUS FEW /HPF (NONE SEEN); UR NITRITE (Dip) NEGATIVE (NEGATIVE); UR RBC 2 /HPF (0-5); UR SPECIFIC GRAVITY (Dip) 1.019 (1.003-1.030); UR TOTAL PROTEIN (Dip) NEGATIVE (NEGATIVE); UR UROBILINOGEN (Dip) NEGATIVE (NEGATIVE)
--- NOTE | 2016-11-20 13:24 | ERD ---
ER Documentation Chief Complaint Date/Time DATE: 11/20/16 TIME: 13:18 Chief Complaint lower back pain radiating down R leg X 1 months, Back sx 2017. norco 0700 HPI This is a 61-year-old female presents to the ER with a past medical history of metastatic breast cancer. Patient is complaining of lower back pain. Patient has had this pain over the last month however the last week pain has worsened. Patient noticed that over the last 2 weeks she has had some numbness and tingling of the lateral right leg that extends down into her pinky toe. Patient denies any fevers or chills. She denies any saddle like anesthesia she denies any urinary bowel incontinence. Patient takes [place] for her pain however it has not been working and pain breakthrough before the 4 hours her up. Patient is experiencing constipation. She denies any nausea or vomiting read patient is currently being seen by Dr. Martha Schwartz, however she was not able to get in contact with her today. Patient has been undergoing radiation and is taking chemotherapy. ROS 12 point review of systems was done, all negative except per HPI. Medications Home Meds Active Scripts Oxycodone HCl/Acetaminophen (Percocet 5-325 mg Tablet) 1 Each Tablet, 1 EACH PO Q6, #20 TAB Prov:NORIS ALBERTO 11/20/16 Hydrocodone Bit/Homatrop Me-Br (Hydrocodone-Homatropine Syrup) 5 Ml Syrup, 5 ML PO QID for 3 Days, #60 Prov:FLORIDALENNIE 10/15/16 Reported Medications Letrozole* (Femara*) 2.5 Mg Tablet, 2.5 MG PO DAILY, TAB 08/03/16 Gabapentin* (Neurontin*) 400 Mg Capsule, 800 MG PO QHS, #60 CAP 08/03/16 Allergies Allergies: Coded Allergies: No Known Allergy (Unverified , 08/03/16) PMhx/Soc History of Surgery: Yes (3x lumpectomy, back surgery for CA mets) Anesthesia Reaction: No Hx Neurological Disorder: No Hx Respiratory Disorders: No Hx Cardiac Disorders: Yes (high cholesterol) Hx Psychiatric Problems: No Hx Miscellaneous Medical Probl: Yes (breast CA w mets to bone; p radiation ) Hx Alcohol Use: No Hx Substance Use: Yes (CBD oil) Hx Tobacco Use: No Smoking Status: Former smoker Physical Exam Vitals Vital Signs Date Time Temp Pulse Resp B/P Pulse Ox O2 Delivery O2 Flow Rate FiO2 11/20/16 10:53 98.0 83 18 124/73 96 Room Air 11/20/16 07:38 98.5 97 18 182/96 98 Physical Exam GENERAL: The patient is well developed and appropriate for usual state of health , in no apparent distress. CHEST: Clear to auscultation bilaterally. There are no rales, wheezes or rhonchi. HEART: Regular rate and rhythm. No murmurs, clicks, rubs or gallops. ABDOMEN: Soft, nontender and nondistended. Good bowel sounds. No rebound or guarding. No gross peritonitis. No gross organomegaly or masses. No Hall sign or McBurney point tenderness. No pulsatile abdominal mass. BACK: Patient is seated in a wheelchair, she has pain when she tries to stand up. There is no abrasions, scars, ecchymosis. Patient is tender to palpation to the T3-T5 she also has some tenderness to palpation throughout the lumbar spine. Patient has normal dorsi and plantarflexion with good strength, she has normal range of motion of the quadriceps and dorsiflexion of the great toe. Patient does feel numbness along S1. Good dorsalis pedal pulses and posterior tibial pulse. Patellar reflexes equal and brisk bilaterally. NEURO: Alert and oriented. SKIN: There is no apparent rash or petechia. The skin is warm and dry. Result Diagram: 11/20/1682711/20/1628 Results 24 hrs Laboratory Tests Test 11/20/16 08:28 White Blood Count 7.410^3/ul Red Blood Count 4.5810^6/ul Hemoglobin 14.1g/dl Hematocrit 40.5% Mean Corpuscular Volume 88.4fl Mean Corpuscular Hemoglobin 30.8pg Mean Corpuscular Hemoglobin Concent 34.8g/dl Red Cell Distribution Width 12.7% Platelet Count 09154^3/UL Mean Platelet Volume 9.4fl Neutrophils % 79.5% Lymphocytes % 10.8% Monocytes % 7.7% Eosinophils % 0.9% Basophils % 0.3% Nucleated Red Blood Cells % 0.0/100WBC Neutrophils # 5.910^3/ul Lymphocytes # 0.810^3/ul Monocytes # 0.610^3/ul Eosinophils # 0.110^3/ul Basophils # 0.010^3/ul Nucleated Red Blood Cells # 0.010^3/ul Prothrombin Time 12.7Sec Prothrombin Time Ratio 1.0 INR International Normalized Ratio 0.95 Activated Partial Thromboplast Time 29.0Sec Sodium Level 141mmol/L Potassium Level 3.9mmol/L Chloride Level 103mmol/L Carbon Dioxide Level 26mmol/L Anion Gap 16 Blood Urea Nitrogen 13mg/dl Creatinine 0.70mg/dl Glucose Level 108mg/dl Calcium Level 9.6mg/dl Total Bilirubin 0.4mg/dl Direct Bilirubin 0.00mg/dl Indirect Bilirubin 0.4mg/dl Aspartate Amino Transf (AST/SGOT) 143IU/L Alanine Aminotransferase (ALT/SGPT) 74IU/L Alkaline Phosphatase 101IU/L Total Protein 8.0g/dl Albumin 5.1g/dl Globulin 2.90g/dl Albumin/Globulin Ratio 1.75 Current Medications Medications (Trade) Dose Ordered Sig/Hai Route PRN Reason Start Time Stop Time Status Last Admin Dose Admin Morphine Sulfate (morphine) 6 mg ONCE ONCE IV 11/20/16 08:30 11/20/16 08:31 DC 11/20/16 08:35 Ondansetron HCl (Zofran Inj) 4 mg ONCE STAT IV 11/20/16 08:11 11/20/16 08:15 DC 11/20/16 08:35 Morphine Sulfate (morphine) 6 mg ONCE ONCE IV 11/20/16 13:00 11/20/16 13:01 DC 11/20/16 13:16 Ondansetron HCl (Zofran Inj) 4 mg ONCE STAT IV 11/20/16 12:46 11/20/16 12:47 DC 11/20/16 13:17 Procedures/MDM This is a 61-year-old female presents to the ER with metastatic breast cancer that has spread to her bones, patient did have cord compression a few months ago and because patient was having any symptoms MRI was repeated however at this time cord compression has improved. Patient unfortunately does have extension of metastatic disease. This is likely the cause of her pain. Patient 's pain was controlled in the ER with 12 mg of morphine total given over 6 hours. Patient has been afebrile she does not have any history of trauma. I discussed the MRI findings and my medical decision making and 5 for this patient with my supervising physician Dr. Dodge. Patient is stable for outpatient follow-up should be sent home with Percocet. Patient is to follow- up with her primary care doctor within 1-2 days or return to ER sooner if symptoms worsen. My medical decision making shared with the patient she understands and agrees with plan. Departure Diagnosis: Primary Impression: Back pain Condition: Stable Patient Instructions: Back Pain (Acute Or Chronic) Referrals: LUCY SNEED (PCP) Additional Instructions: Call your primary care doctor TOMORROW for an appointment during the next 1-2 days.See the doctor sooner or return here if your condition worsens before your appointment time. NORIS ALBERTO Nov 20, 2016 13:24
[2016-11-20 13:47] VITALS: BP 149/89; PULSE 85; RESP 20; TEMP 97.7
== END 2016-11-20 13:55 | disposition home or self-care (01) ==
LOC: FTE 07:34
DX: M54.5 Low back pain (principal); Z85.3 Personal history of malignant neoplasm of breast; Z87.891 Personal history of nicotine dependence
CPT/HCPCS: 36415; 72157; 72158; 80053; 81001; 85025; 85610; 85730; 96374; 96375; 96376; 99285; J2270; J2405

== ENCOUNTER 2016-12-01 15:09 | Inpatient (IN) | payer OTHER, MEDICAID ==
[~2016-12-01] VITALS: Ht 157.5 cm; Wt 62.2 kg
[~2016-12-01 15:09] MED LIST changes: +OXYC-279 PO
[2016-12-01] MEDS ORDERED: ONDANSETRON 4 MG INJ IV STA (20:08)
[2016-12-01] MEDS ORDERED: SOD CHLORIDE 0.9% 1,000 ML IV STA ×2 (20:08→23:31)
[2016-12-01] MEDS ORDERED: HYDROmorphONE 1 MG/ML SYG IV STA (20:08)
[2016-12-01 20:24] LABS: BASOPHILS % 0.4 % (0.0-2.0); EOSINOPHILS # 0.1 10^3/ul (0.0-0.5); EOSINOPHILS % 0.7 % (0.0-7.0); HEMATOCRIT 38.2 % (37.0-47.0); HEMOGLOBIN 13.6 g/dl (12.0-16.0); LYMPHOCYTES # 0.9 10^3/ul (0.8-2.9); LYMPHOCYTES % 11.5 % (15.0-51.0); MEAN CORPUSCULAR HEMOGLOBIN 31.1 pg (29.0-33.0); MEAN CORPUSCULAR HGB CONC 35.6 g/dl (32.0-37.0); MEAN CORPUSCULAR VOLUME 87.4 fl (82.0-101.0); MEAN PLATELET VOLUME 9.2 fl (7.4-10.4); MONOCYTE # 0.7 10^3/ul (0.3-0.9); MONOCYTES % 8.7 % (0.0-11.0); NEUTROPHIL # 5.9 10^3/ul (1.6-7.5); PLATELET COUNT 207 10^3/UL (140-415); RED BLOOD COUNT 4.37 10^6/ul (4.20-5.40); RED CELL DISTRIBUTION WIDTH 12.1 % (11.5-14.5); WHITE BLOOD COUNT 7.6 10^3/ul (4.8-10.8)
[2016-12-01 20:28] LABS: ADD UMIC YES; UR ASCORBIC ACID NEGATIVE (NEGATIVE); UR BILIRUBIN (Dip) NEGATIVE (NEGATIVE); UR BLOOD (Dip) NEGATIVE (NEGATIVE); UR CLARITY CLEAR (CLEAR); UR COLOR YELLOW (YELLOW); UR GLUCOSE (Dip) NEGATIVE (NEGATIVE); UR KETONES (Dip) TRACE mg/dL (NEGATIVE); UR LEUKOCYTE ESTERASE (Dip) NEGATIVE Leu/ul (NEGATIVE); UR NITRITE (Dip) NEGATIVE (NEGATIVE); UR RBC 3 /HPF (0-5); UR SPECIFIC GRAVITY (Dip) 1.021 (1.003-1.030); UR TOTAL PROTEIN (Dip) 1+ mg/dl (NEGATIVE); UR UROBILINOGEN (Dip) NEGATIVE (NEGATIVE)
[2016-12-01] MEDS ORDERED: HYDR-906 PO (20:39)
[2016-12-01 20:40] LABS: ALBUMIN 4.6 g/dl (3.3-4.9); ALBUMIN/GLOBULIN RATIO 1.35; BILIRUBIN,INDIRECT 0.5 mg/dl (0-1.1); BILIRUBIN,TOTAL 0.5 mg/dl (0.2-1.3); CREATININE 0.64 mg/dl (0.44-1.00); POTASSIUM 3.7 mmol/L (3.5-5.1)
[2016-12-01] MEDS ORDERED: AMLO5TAB4 PO (20:40)
[2016-12-01] MEDS ORDERED: SOD CHLORIDE 0.9% 100 ML ONE (21:16)
[2016-12-01] MEDS ORDERED: IOHEXOL 300MG/ML 150 ML BTL ONE (21:16)
--- NOTE | 2016-12-01 22:13 | ERA ---
ER Documentation Chief Complaint Date/Time DATE: 12/01/16 TIME: 22:11 Chief Complaint WEAKNESS X 3 DAYS HPI This is a 61-year-old female with a history of left breast cancer who underwent chemotherapy. The patient was sent here by her oncologist for workup. The patient states that she has had some nausea vomiting for the past 2 days. She said that today she is unable to tolerate any solids or fluids. She has had no diarrhea no fever no cough shortness of breath chest pain. No headache no focal neurological complaints. Patient's breast cancer is in remission but is now subsequently returned with metastasis to cervical spine and other areas. The patient underwent a laminectomy of the cervical spine July 2016 ROS All systems reviewed and are negative except as per history of present illness. Medications Home Meds Reported Medications Amlodipine Besylate* (Norvasc*) 5 Mg Tablet, 5 MG PO DAILY, TAB 12/01/16 Hydrocodone/Acetaminophen ([place] 5-325 Tablet) 1 Each Tablet, 1 EACH PO Q8H, TAB 12/01/16 Discontinued Reported Medications Letrozole* (Femara*) 2.5 Mg Tablet, 2.5 MG PO DAILY, TAB 08/03/16 Gabapentin* (Neurontin*) 400 Mg Capsule, 800 MG PO QHS, #60 CAP 08/03/16 Discontinued Scripts Oxycodone HCl/Acetaminophen (Percocet 5-325 mg Tablet) 1 Each Tablet, 1 EACH PO Q6, #20 TAB Prov:NORIS ALBERTO 11/20/16 Hydrocodone Bit/Homatrop Me-Br (Hydrocodone-Homatropine Syrup) 5 Ml Syrup, 5 ML PO QID for 3 Days, #60 Prov:LENNIE BARTHOLOMEW 10/15/16 Allergies Allergies: Coded Allergies: No Known Allergy (Unverified , 12/01/16) PMhx/Soc History of Surgery: Yes (3x lumpectomy, back surgery for CA mets) Anesthesia Reaction: No Hx Neurological Disorder: No Hx Respiratory Disorders: No Hx Cardiac Disorders: Yes (high cholesterol) Hx Psychiatric Problems: No Hx Miscellaneous Medical Probl: Yes (breast CA w mets to bone; p radiation ) Hx Alcohol Use: No Hx Substance Use: Yes (CBD oil) Hx Tobacco Use: No Smoking Status: Never smoker FmHx Family History: No coronary disease Physical Exam Vitals Vital Signs Date Time Temp Pulse Resp B/P Pulse Ox O2 Delivery O2 Flow Rate FiO2 12/01/16 21:50 78 18 135/77 99 Room Air 12/01/16 19:50 88 18 148/88 99 Room Air 12/01/16 15:12 98.0 93 18 154/90 99 Physical Exam Const: Well-developed, well-nourished Head: Atraumatic, normocephalic Eyes: Normal Conjunctiva, PERRLA, EOMI, normal sclera, no nystagmus ENT: Normal External Ears, Nose and Mouth, moist mucus membranes. Neck: Full range of motion. No meningismus, no lymphadenopathy. Resp: Clear to auscultation bilaterally, no wheezing, rhonchi, rales Cardio: Regular rate and rhythm, no murmurs, S1 S2 present Abd: Soft, mild left upper quadrant tenderness, non distended. Normal bowel sounds, no guarding or rebound, no pulsitile abdominal masses or bruits Skin: No petechiae or rashes, no ecchymosis , no maculopapular rash Back: No midline or flank tenderness Ext: No cyanosis, or edema, FROM x 4, normal inspection, neurovascularly intact x 4 Neur: Awake and alert, STR 5/5 x 4, sensation intact x 4, no focal findings, cerebellum intact Psych: Normal Mood and Affect Result Diagram: 12/01/16201312/01/162013 Results 24 hrs Laboratory Tests Test 12/01/16 20:14 White Blood Count 7.610^3/ul Red Blood Count 4.3710^6/ul Hemoglobin 13.6g/dl Hematocrit 38.2% Mean Corpuscular Volume 87.4fl Mean Corpuscular Hemoglobin 31.1pg Mean Corpuscular Hemoglobin Concent 35.6g/dl Red Cell Distribution Width 12.1% Platelet Count 51456^3/UL Mean Platelet Volume 9.2fl Neutrophils % 78.0% Lymphocytes % 11.5% Monocytes % 8.7% Eosinophils % 0.7% Basophils % 0.4% Nucleated Red Blood Cells % 0.0/100WBC Neutrophils # 5.910^3/ul Lymphocytes # 0.910^3/ul Monocytes # 0.710^3/ul Eosinophils # 0.110^3/ul Basophils # 0.010^3/ul Nucleated Red Blood Cells # 0.010^3/ul Urine Color YELLOW Urine Clarity CLEAR Urine pH 6.0 Urine Specific [place] 1.021 Urine Ketones TRACEmg/dL Urine Nitrite NEGATIVEmg/dL Urine Bilirubin NEGATIVEmg/dL Urine Urobilinogen NEGATIVEmg/dL Urine Leukocyte Esterase NEGATIVELeu/ul Urine Microscopic RBC 3/HPF Urine Microscopic WBC 2/HPF Urine Hemoglobin NEGATIVEmg/dL Urine Glucose NEGATIVEmg/dL Urine Total Protein 1+mg/dl Sodium Level 145mmol/L Potassium Level 3.7mmol/L Chloride Level 98mmol/L Carbon Dioxide Level 31mmol/L Anion Gap 20 Blood Urea Nitrogen 14mg/dl Creatinine 0.64mg/dl Glucose Level 113mg/dl Calcium Level 10.0mg/dl Total Bilirubin 0.5mg/dl Direct Bilirubin 0.00mg/dl Indirect Bilirubin 0.5mg/dl Aspartate Amino Transf (AST/SGOT) 96IU/L Alanine Aminotransferase (ALT/SGPT) 43IU/L Alkaline Phosphatase 100IU/L Total Protein 8.0g/dl Albumin 4.6g/dl Globulin 3.40g/dl Albumin/Globulin Ratio 1.35 Lipase 17U/L Current Medications Medications (Trade) Dose Ordered Sig/Hai Route PRN Reason Start Time Stop Time Status Last Admin Dose Admin Sodium Chloride (NS) 1,000 ml @ 1,000 mls/hr Q1H STAT IV 12/01/16 20:08 12/01/16 21:07 DC 12/01/16 20:27 Hydromorphone HCl (Dilaudid) 1 mg ONCE STAT IV 12/01/16 20:08 12/01/16 20:10 DC 12/01/16 20:27 Ondansetron HCl (Zofran Inj) 4 mg ONCE STAT IV 12/01/16 20:08 12/01/16 20:10 DC 12/01/16 20:27 IV Flush 10 ml 10 ml STK-MED ONCE .ROUTE 12/01/16 21:16 12/01/16 21:17 DC 12/01/16 21:33 Sodium Chloride (NS) 100 ml @ ud STK-MED ONCE .ROUTE 12/01/16 21:16 12/01/16 21:17 DC 12/01/16 21:34 Iohexol (Omnipaque 300mg/ ml) 150 ml STK-MED ONCE .ROUTE 12/01/16 21:16 12/01/16 21:17 DC 12/01/16 21:34 Procedures/MDM PROCEDURE: CT Abdomen and Pelvis with contrast. CLINICAL INDICATION: Abdominal pain, weakness. History of breast cancer with osseous metastases. TECHNIQUE: A CT scan of the abdomen and pelvis was performed with intravenous contrast. The patient was scanned following the uncomplicated intravenous administration of 90 cc of Omnipaque-300. Coronal and sagittal reformatted images were obtained from the axial source images. Images were reviewed on a high-resolution PACS workstation. CTDIvol: 7.62 mGy. DLP: 401.93 mGy-cm. One or more of the following dose reduction techniques were used: - Automated exposure control. - Adjustment of the mA and/or kV according to patient size. - Use of iterative reconstruction technique. COMPARISON: Thoracic and lumbar spine MRIs dated 11/20/2016. FINDINGS: There is linear atelectasis or scarring in the left lower lobe. There is a cluster of hypoenhancing lesions in the right hepatic lobe measuring up to 2.8 x 2.3 cm. Some of these lesions demonstrate right enhancement. These lesions are suspicious for metastatic disease. Additional smaller scattered low attenuation lesions are seen within the liver, nonspecific. The gallbladder is normal in appearance. The common bile duct is not dilated. The spleen is not enlarged. No pancreatic lesion is identified and there is no pancreatic ductal dilatation. The adrenal glands are unremarkable. The kidneys are normal in size. There is no perinephric fat stranding. No hydronephrosis is seen. There is a nonspecific 1.0 cm hypodensity in the left kidney. Additional smaller hypodensities are noted in both kidneys, also nonspecific. The small and large bowel are normal in caliber. There is no bowel wall thickening. The appendix is not identified. The urinary bladder is unremarkable. The pelvic organs are within normal limits. No lymphadenopathy is identified. There is no ascites. No pneumoperitoneum is seen. There are minimal arterial calcifications. There is an expansile lytic and sclerotic lesion in the left eleventh rib head. The lesions are identified in the right ischium and femur. The extensive spinal and sacral metastases seen on the prior MRIs are less well visualized in this examination. IMPRESSION: 1. Cluster of lesions in the right lobe measure up to 2.8 cm, suspicious for metastatic disease. Additional smaller scattered low attenuation lesions are also seen within the liver, nonspecific. The liver could be further evaluated with contrast-enhanced MRI if clinically warranted. 2. Expansile lytic and sclerotic metastatic lesion in the left eleventh rib head. Additional lytic metastases is identified in the right ischium and right femur. The extensive spinal and sacral metastases seen on the prior MRIs are less well visualized in this examination. 3. Nonspecific 1.0 cm hypodensity in the left kidney. Additional smaller hypodensities are also noted in both kidneys, nonspecific. These lesions probably represent cysts, which could be confirmed with ultrasound or MRI if clinically warranted. 4. The appendix is not identified. RPTAT: HTAR .Torin Horn MD, MD Date Time Electronically viewed and signed by .Torin Horn MD, MD on 12/01/2016 23:11 .R/ CC: DEIRDRE BENOIT DO Patient's blood work is relatively unremarkable. CAT scan does not show any acute pathology. I called Dr. Schwartz, but I spoke with her partner communications manager. He was familiar with this case and saw the note that was left for him. He said the patient's blood work and CAT scan looks unremarkable then she is okay to go home on Zofran and scopolamine. The patient is feeling better after IV fluids and Zofran she says her nausea is gone. She is requesting little bit more IV fluids and some oral water. I will administer this and then let her go home Departure Diagnosis: Primary Impression: Nausea and vomiting Qualified Code: R11.2 - Non-intractable vomiting with nausea, unspecified vomiting type Condition: Stable DEIRDRE BENOIT DO Dec 01, 2016 22:13
--- NOTE | 2016-12-01 23:12 | RADRPT ---
PROCEDURE: CT Abdomen and Pelvis with contrast. CLINICAL INDICATION: Abdominal pain, weakness. History of breast cancer with osseous metastases. TECHNIQUE: A CT scan of the abdomen and pelvis was performed with intravenous contrast. The patie nt was scanned following the uncomplicated intravenous administration of 90 cc of Omnipaque-300. Co julius and sagittal reformatted images were obtained from the axial source images. Images were review ed on a high-resolution PACS workstation. CTDIvol: 7.62 mGy. DLP: 401.93 mGy-cm. One or more of the following dose reduction techniques were used: - Automated exposure control. - Adjustment of the mA and/or kV according to patient size. - Use of iterative reconstruction technique. COMPARISON: Thoracic and lumbar spine MRIs dated 11/20/2016. FINDINGS: There is linear atelectasis or scarring in the left lower lobe. There is a cluster of hypoenhancing lesions in the right hepatic lobe measuring up to 2.8 x 2.3 cm. Some of these lesions demonstrate right enhancement. These lesions are suspicious for metastatic d isease. Additional smaller scattered low attenuation lesions are seen within the liver, nonspecific . The gallbladder is normal in appearance. The common bile duct is not dilated. The spleen is not en larged. No pancreatic lesion is identified and there is no pancreatic ductal dilatation. The adrenal glands are unremarkable. The kidneys are normal in size. There is no perinephric fat stranding. No hydronephrosis is seen. Th ere is a nonspecific 1.0 cm hypodensity in the left kidney. Additional smaller hypodensities are no cachorro in both kidneys, also nonspecific. The small and large bowel are normal in caliber. There is no bowel wall thickening. The appendix is not identified. The urinary bladder is unremarkable. The pelvic organs are within normal limits. No lymphadenopathy is identified. There is no ascites. No pneumoperitoneum is seen. There are minima l arterial calcifications. There is an expansile lytic and sclerotic lesion in the left eleventh rib head. The lesions are iden tified in the right ischium and femur. The extensive spinal and sacral metastases seen on the prior MRIs are less well visualized in this examination. IMPRESSION: 1. Cluster of lesions in the right lobe measure up to 2.8 cm, suspicious for metastatic disease. Ad ditional smaller scattered low attenuation lesions are also seen within the liver, nonspecific. The liver could be further evaluated with contrast-enhanced MRI if clinically warranted. 2. Expansile lytic and sclerotic metastatic lesion in the left eleventh rib head. Additional lytic metastases is identified in the right ischium and right femur. The extensive spinal and sacral meta stases seen on the prior MRIs are less well visualized in this examination. 3. Nonspecific 1.0 cm hypodensity in the left kidney. Additional smaller hypodensities are also not ed in both kidneys, nonspecific. These lesions probably represent cysts, which could be confirmed w ith ultrasound or MRI if clinically warranted. 4. The appendix is not identified. RPTAT: HTAR .Torin Horn MD, MD Date Time Electronically viewed and signed by .Torin Horn MD, on 12/01/2016 23:11 .R/
[2016-12-01] MEDS ORDERED: ONDA8TAB14 PO (23:34)
[2016-12-01] MEDS ORDERED: ONDANSETRON 4 MG INJ IV ONE (23:35)
[2016-12-01] MEDS ORDERED: RANI150T9 PO (23:36)
[2016-12-02] MEDS ORDERED: HYDROmorphONE 1 MG/ML SYG IV STA ×2 (02:43→09:20)
[2016-12-02] MEDS ORDERED: ONDANSETRON 4 MG INJ IV STA (02:43)
--- NOTE | 2016-12-02 03:10 | RADRPT ---
PROCEDURE: CT BRAIN WITHOUT CONTRAST CLINICAL INDICATION: 61-year-old female with headaches and weakness. TECHNIQUE: The study was performed utilizing [employer] VCT 64-slice CT scanner. Direct axial sections were obtained from the foramen magnum to the vertex without the use of intravenous contrast material. Sagittal and coronal reformations were obtained. One or more of the following dose reduc tion techniques were utilized: automated exposure control, adjustment of the mA and/or kV according to patient's size or use of iterative reconstruction technique. The images were viewed on a PACS w orkstation. CTD/vol = 45.0 mGy; Total Exam DLP = 720.2 mGy-cm. COMPARISON: None. FINDINGS: There is a ovoid extra-axial 7 x 6 x 8 mm soft tissue density on axial image 2-10 within the right a mbient cistern region which appears to project along the inferior aspect of the tentorium and causin g mild mass effect on the adjacent pontine isthmus region. There is mild prominence of the sulci and cisternal spaces consistent with diffuse volume loss. Otherwise, the ventricles have a normal shap e and position. There is no evidence for midline shift. There is no evidence for acute intra or ext ra-axial blood. The bony calvarium is intact. The partially visualized paranasal sinuses and mastoid air cells are without significant abnormal soft tissue. IMPRESSION: 1. Ovoid extra-axial soft tissue mass right ambient cistern region which appears to be along the in ferior aspect of the right tentorium causing mass effect on the lateral aspect of the right pontine isthmus region. Further evaluation with MRI imaging with contrast is suggested. 2. Mild diffuse volume loss. .Luis Velasquez MD, Date Time Electronically viewed and signed by .Luis Velasquez MD, on 12/02/2016 03:09 .Cyril/
[2016-12-02] MEDS ORDERED: ACETAMINOPHEN 325 MG TAB PO PRN (04:30)
[2016-12-02] MEDS ORDERED: ONDANSETRON 4 MG INJ IV PRN (04:30)
[2016-12-02 05:19] VITALS: TEMP 98.2
[2016-12-02 06:15] VITALS: Ht 157.5 cm; Wt 62.2 kg
[2016-12-02 06:22] VITALS: BP 173/89; PULSE 94; RESP 20
[2016-12-02 07:59] VITALS: BP 165/93; RESP 15
[2016-12-02] MEDS: DEXTROSE 5%-0.45% NACL 1,000 ML IV SCH (09:34)
[2016-12-02] MEDS: morphine (ER) 15 MG TAB PO SCH ×2 (12:37→20:40)
[2016-12-02] MEDS: HYDROmorphONE 1 MG/ML SYG IV PRN ×4 (12:38→23:09)
--- NOTE | 2016-12-02 12:43 | HP ---
Date/Time of Note Date/Time of Note DATE: 12/02/16 TIME: 12:26 Assessment/Plan VTE Prophylaxis VTE Prophylaxis Intervention: SCD's Assessment/Plan Assessment/Plan -Intractable nausea vomiting-improved at present-we will resume her p.o. medications once okay with GI -IV fluids -GI consult/Dr. Muniz notified -N.p.o., diet per GI -Zofran for nausea - breast CA w mets to bone; p radiation, status post chemo -Pain controlled with Dilaudid, MS Contin 50 mg p.o. 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 Patient is admitted under Dr. Bowser from the oncology floor for further treatment and evaluation. Dr. Barron notified to assess the patient further Patient denies any diarrhea, fever, cough, shortness of breath, chest pain, palpitations, dizziness, headache , focal neurological complaints. Patient's breast cancer is in remission but is now subsequently returned with metastasis to cervical spine and other areas. ROS All systems reviewed and are negative except as per history of present illness. ROS Constitutional: other (Left breast pain status post radiation and chemo) ENT: no complaints Respiratory: no complaints Cardiovascular: no complaints Gastrointestinal: nausea, vomiting Genitourinary: no complaints Neurologic: other (Status post cervical laminectomy) PMH/Family/Social Past Medical History Allergies Allergies: Coded Allergies: No Known Allergy (Unverified , 12/01/16) PMhx/Soc History of Surgery: Yes (3x lumpectomy, back surgery for CA mets) Anesthesia Reaction: No Hx Neurological Disorder: No Hx Respiratory Disorders: No Hx Cardiac Disorders: Yes (high cholesterol) Hx Psychiatric Problems: No Hx Miscellaneous Medical Probl: Yes (breast CA w mets to bone; p radiation ) Hx Alcohol Use: No Hx Substance Use: Yes (CBD oil) Hx Tobacco Use: No Smoking Status: Never smoker FmHx Family History: No coronary disease Social History Smoking Status: Never smoker Drug Use: other (CBD oil) Exam/Review of Systems Vital Signs Vitals Vital Signs Date Time Temp Pulse Resp B/P Pulse Ox O2 Delivery O2 Flow Rate FiO2 12/02/16 07:59 98.3 88 15 165/93 100 12/02/16 06:22 Room Air Exam Constitutional: alert, oriented, well developed Respiratory: clear to auscultation, normal air movement Cardiovascular: nl pulses, regular rate and rhythm Gastrointestinal: non-tender, soft Musculoskeletal: nl extremities to inspection Extremities: normal pulses Neurological: nl mental status, nl speech Labs Result Diagram: 12/01/16201312/01/162013 Medications Medications Current Medications Dextrose/Sodium Chloride (D5-1/2ns) 1,000 ml @ 60 mls/hr [id number] IV Last administered on 12/02/16t 09:34; Admin Dose 60 MLS/HR; Start 12/02/16 at 09:30 Morphine Sulfate (Ms Contin (Er)) 15 mg BID PO ; Start 12/02/16 at 10:00 Hydromorphone HCl (Dilaudid) 1 mg Q3H PRN IV PAIN; Start 12/02/16 at 10:00 AGA MAC Dec 02, 2016 12:37
[2016-12-02] MEDS ORDERED: PANTOPRAZOLE 40 MG INJ IV ONE (13:00)
--- NOTE | 2016-12-02 13:44 | CONS ---
Date/Time of Note Date/Time of Note DATE: 12/02/16 TIME: 13:43 Assessment/Plan Assessment/Plan Additional Assessment/Plan 1. Nausea vomiting and epigastric pain 2. Breast cancer status post chemotherapy, metastases to the bone Plan PPI and Reglan If no improvement in EGD. Diet as tolerated by the patient Consultation Date/Type/Reason Admit Date/Time Dec 02, 2016 at 04:06 Hx of Present Illness Patient is a 61-year-old female with a history of breast cancer status post chemoradiation also has metastases to the bone. Patient has also had a bone surgery. Now for nausea vomiting and epigastric pain. No GI bleeding. Patient is constipated. No chest pain shortness of breath no or TIRE MOLD TESTER problem ENT: no complaints Respiratory: no complaints Cardiovascular: no complaints Gastrointestinal: nausea, vomiting Genitourinary: no complaints Neurologic: other (Status post cervical laminectomy) Social History Alcohol Use: none Smoking Status: Never smoker Drug Use: none, other (CBD oil) Exam/Review of Systems Vital Signs Vitals Vital Signs Date Time Temp Pulse Resp B/P Pulse Ox O2 Delivery O2 Flow Rate FiO2 12/02/16 07:59 98.3 88 15 165/93 100 12/02/16 06:22 Room Air Exam Constitutional: alert, oriented, well developed Psych: nl mood/affect, no complaints Head: atraumatic, normocephalic Eyes: EOMI, PERRL, nl conjunctiva, nl lids, nl sclera ENMT: nl external ears & nose, nl lips & teeth, nl nasal mucosa & septum Neck: non-tender, supple Respiratory: clear to auscultation, normal air movement Cardiovascular: nl pulses, regular rate and rhythm Gastrointestinal: nl liver, spleen, non-tender, soft Musculoskeletal: nl extremities to inspection, nl gait and stance Extremities: normal pulses Neurological: TIRE MOLD TESTER II-XII intact, nl mental status, nl speech, nl strength Skin: nl turgor, No rash or lesions Lymph: nl lymph nodes Results Result Diagram: 12/01/16201312/01/162013 Results 24 hrs Laboratory Tests Test 12/01/16 20:14 White Blood Count 7.6 Red Blood Count 4.37 Hemoglobin 13.6 Hematocrit 38.2 Mean Corpuscular Volume 87.4 Mean Corpuscular Hemoglobin 31.1 Mean Corpuscular Hemoglobin Concent 35.6 Red Cell Distribution Width 12.1 Platelet Count 207 Mean Platelet Volume 9.2 Neutrophils % 78.0 H Lymphocytes % 11.5 L Monocytes % 8.7 Eosinophils % 0.7 Basophils % 0.4 Nucleated Red Blood Cells % 0.0 Neutrophils # 5.9 Lymphocytes # 0.9 Monocytes # 0.7 Eosinophils # 0.1 Basophils # 0.0 Nucleated Red Blood Cells # 0.0 Urine Color YELLOW Urine Clarity CLEAR Urine pH 6.0 Urine Specific [place] 1.021 Urine Ketones TRACE A Urine Nitrite NEGATIVE Urine Bilirubin NEGATIVE Urine Urobilinogen NEGATIVE Urine Leukocyte Esterase NEGATIVE Urine Microscopic RBC 3 Urine Microscopic WBC 2 Urine Hemoglobin NEGATIVE Urine Glucose NEGATIVE Urine Total Protein 1+ H Sodium Level 145 H Potassium Level 3.7 Chloride Level 98 Carbon Dioxide Level 31 Anion Gap 20 H Blood Urea Nitrogen 14 Creatinine 0.64 Glucose Level 113 Calcium Level 10.0 Total Bilirubin 0.5 Direct Bilirubin 0.00 Indirect Bilirubin 0.5 Aspartate Amino Transf (AST/SGOT) 96 H Alanine Aminotransferase (ALT/SGPT) 43 Alkaline Phosphatase 100 Total Protein 8.0 Albumin 4.6 Globulin 3.40 H Albumin/Globulin Ratio 1.35 Lipase 17 L Medications Medications Current Medications Dextrose/Sodium Chloride (D5-1/2ns) 1,000 ml @ 60 mls/hr [id number] IV Last administered on 12/02/16 09:34; Admin Dose 60 MLS/HR; Start 12/02/16 at 09:30 Morphine Sulfate (Ms Contin (Er)) 15 mg BID PO Last administered on 12/02/16 12:37; Admin Dose 15 MG; Start 12/02/16 at 10:00 Hydromorphone HCl (Dilaudid) 1 mg Q3H PRN IV PAIN Last administered on 12:38; Admin Dose 1 MG; Start 12/02/16 at 10:00 Pantoprazole (Protonix Iv) 40 mg DAILY@06 IV ; Start 12/03/16 at 06:00 Ondansetron HCl (Zofran Inj) 4 mg Q6H PRN IV NAUSEA AND/OR VOMITING; Start at 13:00 ELIOT PAYAN MD Dec 02, 2016 13:44
[2016-12-02] MEDS: ONDANSETRON 4 MG INJ IV PRN (17:15)
[2016-12-02 20:20] VITALS: BP 147/87; RESP 18
[2016-12-02 21:20] VITALS: BP 131/70; PULSE 88
[2016-12-02] MEDS: METOCLOPRAMIDE 10 MG INJ IV PRN (23:08)
[2016-12-03 02:00] VITALS: BP 132/71; PULSE 89; RESP 18
[2016-12-03] MEDS: HYDROmorphONE 1 MG/ML SYG IV PRN ×5 (02:07→19:10)
[2016-12-03] MEDS: DEXTROSE 5%-0.45% NACL 1,000 ML IV SCH ×2 (02:07→18:50)
[2016-12-03] MEDS: ONDANSETRON 4 MG INJ IV PRN ×3 (02:07→14:28)
[2016-12-03 05:28] LABS: BASOPHILS % 0.5 % (0.0-2.0); EOSINOPHILS # 0.1 10^3/ul (0.0-0.5); EOSINOPHILS % 1.6 % (0.0-7.0); HEMATOCRIT 35.6 % (37.0-47.0); HEMOGLOBIN 12.6 g/dl (12.0-16.0); LYMPHOCYTES # 0.9 10^3/ul (0.8-2.9); LYMPHOCYTES % 14.6 % (15.0-51.0); MEAN CORPUSCULAR HEMOGLOBIN 30.6 pg (29.0-33.0); MEAN CORPUSCULAR HGB CONC 35.4 g/dl (32.0-37.0); MEAN CORPUSCULAR VOLUME 86.4 fl (82.0-101.0); MEAN PLATELET VOLUME 9.3 fl (7.4-10.4); MONOCYTE # 0.6 10^3/ul (0.3-0.9); MONOCYTES % 9.8 % (0.0-11.0); NEUTROPHIL # 4.5 10^3/ul (1.6-7.5); PLATELET COUNT 193 10^3/UL (140-415); RED BLOOD COUNT 4.12 10^6/ul (4.20-5.40); RED CELL DISTRIBUTION WIDTH 12.3 % (11.5-14.5); WHITE BLOOD COUNT 6.1 10^3/ul (4.8-10.8)
[2016-12-03] MEDS: PANTOPRAZOLE 40 MG INJ IV SCH (05:37)
[2016-12-03 05:55] LABS: BILIRUBIN,INDIRECT 0.5 mg/dl (0-1.1); BILIRUBIN,TOTAL 0.5 mg/dl (0.2-1.3); TOTAL PROTEIN 6.8 g/dl (6.1-8.1)
[2016-12-03 06:04] LABS: CALCIUM 8.8 mg/dl (8.4-10.2); CREATININE 0.64 mg/dl (0.44-1.00); POTASSIUM 3.4 mmol/L (3.5-5.1)
[2016-12-03] MEDS: morphine (ER) 15 MG TAB PO SCH ×2 (09:00→20:37)
[2016-12-03 09:39] VITALS: BP 154/91; RESP 16
--- NOTE | 2016-12-03 13:13 | CONS ---
Date/Time of Note Date/Time of Note DATE: 12/03/16 TIME: 13:12 Assessment/Plan Assessment/Plan Chief Complaint/Hosp Course Patient is a 61-year-old female with a history of breast cancer status post chemoradiation also has metastases to the bone. Patient has also had a bone surgery. Now for nausea vomiting and epigastric pain. No GI bleeding. Patient is constipated. No chest pain shortness of breath no or [employer]IST problem Problems: Additional Assessment/Plan Additional Assessment/Plan 1. Nausea vomiting and epigastric pain 2. Breast cancer status post chemotherapy, metastases to the bone, to the liver 3. Soft tissue mass in the brain Plan PPI and Reglan If no improvement in EGD. Diet as tolerated by the patient Advance diet Oncology follow-up Consultation Date/Type/Reason Admit Date/Time Dec 02, 2016 at 04:06 Initial Consult Date 24 HR Interval Summary Free Text/Dictation No nausea or vomiting. Patient is able to tolerate liquid diet Constitutional: improved Exam/Review of Systems Vital Signs Vitals Vital Signs Date Time Temp Pulse Resp B/P Pulse Ox O2 Delivery O2 Flow Rate FiO2 12/03/16 09:39 98.2 89 16 154/91 96 12/03/16 02:00 Room Air Intake and Output 12/02/16 12/02/16 12/03/16 15:00 23:00 07:00 Intake Total 480 ml 700 ml Output Total 50 ml 80 ml Balance 430 ml 620 ml Exam Constitutional: alert, oriented, well developed Psych: nl mood/affect, no complaints Head: atraumatic, normocephalic Eyes: EOMI, PERRL, nl conjunctiva, nl lids, nl sclera ENMT: nl external ears & nose, nl lips & teeth, nl nasal mucosa & septum Neck: non-tender, supple Respiratory: clear to auscultation, normal air movement Cardiovascular: nl pulses, regular rate and rhythm Gastrointestinal: nl liver, spleen, non-tender, soft Musculoskeletal: nl extremities to inspection, nl gait and stance Extremities: normal pulses Neurological: MARK[employer]IST II-XII intact, nl mental status, nl speech, nl strength Skin: nl turgor, No rash or lesions Lymph: nl lymph nodes Results Result Diagram: 12/03/16 0445 12/03/16 0445 Results 24 hrs Laboratory Tests Test 12/03/16 04:45 White Blood Count 6.1 Red Blood Count 4.12 L Hemoglobin 12.6 Hematocrit 35.6 L Mean Corpuscular Volume 86.4 Mean Corpuscular Hemoglobin 30.6 Mean Corpuscular Hemoglobin Concent 35.4 Red Cell Distribution Width 12.3 Platelet Count 193 Mean Platelet Volume 9.3 Neutrophils % 73.0 Lymphocytes % 14.6 L Monocytes % 9.8 Eosinophils % 1.6 Basophils % 0.5 Nucleated Red Blood Cells % 0.0 Neutrophils # 4.5 Lymphocytes # 0.9 Monocytes # 0.6 Eosinophils # 0.1 Basophils # 0.0 Nucleated Red Blood Cells # 0.0 Sodium Level 143 Potassium Level 3.4 L Chloride Level 99 Carbon Dioxide Level 30 Anion Gap 17 H Blood Urea Nitrogen 8 Creatinine 0.64 Glucose Level 99 Calcium Level 8.8 Total Bilirubin 0.5 Direct Bilirubin 0.00 Indirect Bilirubin 0.5 Aspartate Amino Transf (AST/SGOT) 83 H Alanine Aminotransferase (ALT/SGPT) 40 Alkaline Phosphatase 79 Total Protein 6.8 # Albumin 4.0 Medications Medications Current Medications Dextrose/Sodium Chloride (D5-1/2ns) 1,000 ml @ 60 mls/hr [id number] IV Last administered on 12/03/16 02:07; Admin Dose 60 MLS/HR; Start 12/02/16 at 09:30 Morphine Sulfate (Ms Contin (Er)) 15 mg BID PO Last administered on 12/02/16 12:37; Admin Dose 15 MG; Start 12/02/16 at 10:00 Hydromorphone HCl (Dilaudid) 1 mg Q3H PRN IV PAIN Last administered on 08:41; Admin Dose 1 MG; Start 12/02/16 at 10:00 Pantoprazole (Protonix Iv) 40 mg DAILY@06 IV Last administered on 12/03/16 05: 37; Admin Dose 40 MG; Start 12/03/16 at 06:00 Ondansetron HCl (Zofran Inj) 4 mg Q6H PRN IV NAUSEA AND/OR VOMITING Last administered on 12/03/16 08:41; Admin Dose 4 MG; Start 12/02/16 at 13:00 Metoclopramide HCl (Reglan) 10 mg Q6H PRN IV NAUSEA AND/OR VOMITING Last administered on 12/02/16 23:08; Admin Dose 10 MG; Start 12/02/16 at 21:30 ELIOT PAYAN MD Dec 03, 2016 13:13
--- NOTE | 2016-12-03 17:04 | PN ---
Date/Time of Note Date/Time of Note DATE: 12/03/16 TIME: 16:55 Assessment/Plan VTE Prophylaxis VTE Prophylaxis Intervention: SCD's Lines/Catheters IV Catheter Type (from Nrsg): Peripheral IV Urinary Cath still in place: No Assessment/Plan Assessment/Plan -Hypokalemia - replace potassium, BMP am - Severe pain sec to cancer mets - will get palliative care consult- Dr Jackson is notified -Intractable nausea vomiting-improved at present - IV fluids - per GI consult/Dr. Muniz -clear liquids -Zofran for nausea - breast CA w mets to bone; p radiation, status post chemo - Dilaudid, MS Contin 50 mg p.o. twice daily -Continue to monitor -3x lumpectomy, back surgery for CA mets -Dyslipidemia -Substance use/CBD oilGive Protonix for GI prophylaxis -SCDs for DVT prophylaxis Subjective 24 Hr Interval Summary Free Text/Dictation resting, feels better, pain is better than yesterday, patient was informed for palliative consult. dw staff/patient. Respiratory: no complaints Cardiovascular: no complaints Gastrointestinal: no complaints Musculoskeletal: back pain Exam/Review of Systems Vital Signs Vitals Vital Signs Date Time Temp Pulse Resp B/P Pulse Ox O2 Delivery O2 Flow Rate FiO2 12/03/16 09:39 98.2 89 16 154/91 96 12/03/16 02:00 Room Air Intake and Output 12/02/16 12/02/16 12/03/16 14:59 22:59 06:59 Intake Total 480 ml 700 ml Output Total 50 ml 80 ml Balance 430 ml 620 ml Exam Constitutional: alert, oriented, well developed Respiratory: clear to auscultation, normal air movement Cardiovascular: nl pulses, regular rate and rhythm Gastrointestinal: soft, tender (difuse tenderness) Musculoskeletal: nl extremities to inspection Extremities: normal pulses Neurological: nl mental status, nl speech Skin: nl turgor Results Result Diagram: 12/03/165 12/03/165 Results 24 hrs Laboratory Tests Test 12/03/16 04:45 White Blood Count 6.1 Red Blood Count 4.12 L Hemoglobin 12.6 Hematocrit 35.6 L Mean Corpuscular Volume 86.4 Mean Corpuscular Hemoglobin 30.6 Mean Corpuscular Hemoglobin Concent 35.4 Red Cell Distribution Width 12.3 Platelet Count 193 Mean Platelet Volume 9.3 Neutrophils % 73.0 Lymphocytes % 14.6 L Monocytes % 9.8 Eosinophils % 1.6 Basophils % 0.5 Nucleated Red Blood Cells % 0.0 Neutrophils # 4.5 Lymphocytes # 0.9 Monocytes # 0.6 Eosinophils # 0.1 Basophils # 0.0 Nucleated Red Blood Cells # 0.0 Sodium Level 143 Potassium Level 3.4 L Chloride Level 99 Carbon Dioxide Level 30 Anion Gap 17 H Blood Urea Nitrogen 8 Creatinine 0.64 Glucose Level 99 Calcium Level 8.8 Total Bilirubin 0.5 Direct Bilirubin 0.00 Indirect Bilirubin 0.5 Aspartate Amino Transf (AST/SGOT) 83 H Alanine Aminotransferase (ALT/SGPT) 40 Alkaline Phosphatase 79 Total Protein 6.8 # Albumin 4.0 Medications Medications Current Medications Dextrose/Sodium Chloride (D5-1/2ns) 1,000 ml @ 60 mls/hr [id number] IV Last administered on 12/03/16 02:07; Admin Dose 60 MLS/HR; Start 12/02/16 at 09:30 Morphine Sulfate (Ms Contin (Er)) 15 mg BID PO Last administered on 12/02/16 12:37; Admin Dose 15 MG; Start 12/02/16 at 10:00 Hydromorphone HCl (Dilaudid) 1 mg Q3H PRN IV PAIN Last administered on 14:25; Admin Dose 1 MG; Start 12/02/16 at 10:00 Pantoprazole (Protonix Iv) 40 mg DAILY@06 IV Last administered on 12/03/16 05: 37; Admin Dose 40 MG; Start 12/03/16 at 06:00 Ondansetron HCl (Zofran Inj) 4 mg Q6H PRN IV NAUSEA AND/OR VOMITING Last administered on 12/03/16 14:28; Admin Dose 4 MG; Start 12/02/16 at 13:00 Metoclopramide HCl (Reglan) 10 mg Q6H PRN IV NAUSEA AND/OR VOMITING Last administered on 12/02/16 23:08; Admin Dose 10 MG; Start 12/02/16 at 21:30 AGA MAC Dec 03, 2016 17:04
[2016-12-03] MEDS: DEXAMETHASONE 4 MG/ML 1 ML INJ IV SCH (17:53)
[2016-12-03] MEDS: METOCLOPRAMIDE 10 MG INJ IV PRN (18:04)
[2016-12-03] MEDS ORDERED: POTASSIUM CHLORIDE 20 MEQ in SOD CHLORIDE 0.9% 100 ML IVPB ONE (18:30)
--- NOTE | 2016-12-03 20:27 | RADRPT ---
PROCEDURE: MRI Brain without and with contrast. CLINICAL INDICATION: Headache, history of breast cancer, evaluate for metastasis. TECHNIQUE: An MRI of the brain was performed utilizing the following sequences: Sagittal T1-weigh cachorro, axial T2-weighted, axial FLAIR, axial T1, coronal GRE axial diffusion-weighted with ADC mapping . Following the uneventful administration of 10 cc Magnevist, postcontrast axial and coronal T1-weig hted images were obtained. Images were viewed on a PACS workstation. COMPARISON: Brain CT 12/02/2016. FINDINGS: No diffusion weighted abnormalities are seen to suggest the presence of acute ischemia or recent inf arct. There is no intracranial hemorrhage or midline shift. No extra-axial fluid collection is see n. The ventricles and sulci are mildly enlarged indicative of volume loss. The following foci are concerning for intracranial metastasis. There is 4 mm enhancing lesion in the posterior medial aspect of the left cerebellum. There is 4 mm enhancing lesion in the right frontal subcortical region. An ovoid dural-based extra-axial enhancing lesion within the right ambient cistern along the inferio r aspect of the tentorium measuring approximately 10 x 6 x 6 mm (AP x transverse x craniocaudal) and causing mild mass effect on the adjacent pontine isthmus. A dural-based extra-axial enhancing lesion along the left posterior aspect of falx in the which wong uring approximately 9 x 2 x 8 mm (AP x transverse x craniocaudal). There is 8 mm enhancing lesion in the right parasagittal parietal bone. There are minimal scattered foci of T2 and FLAIR hyperintensity in the white matter, which are nonsp ecific in etiology but likely reflect chronic small vessel ischemic changes. Small focal gradient susceptibility effect is noted in the inferior right cerebellum which may repre sent mineralization or hemosiderin. No abnormal intracranial vascular flow voids are noted. The pituitary and sella reveal no abnormali ty. The suprasellar cistern is clear. The visualized paranasal sinuses are clear. The mastoid air cells are clear. IMPRESSION: 1. No acute intracranial hemorrhage or infarction. 2. Several enhancing lesions are noted concerning for intracranial metastasis: in the posterior med ial aspect of the left cerebellum, in the right frontal subcortical region, dural-based extra-axial enhancing lesion within the right ambient cistern along the inferior aspect of the tentorium and tyler ng the left posterior aspect of falx. 3. 8 mm enhancing lesion in the right parasagittal parietal bone, concerning for metastasis. 4. Minimal chronic small vessel ischemic changes. 5. Mild generalized cerebral volume loss. RPTAT: HFN .Toshia Roger MD, MD Date Time Electronically viewed and signed by .Toshia Roger MD, on 12/03/2016 20:26 .N/
[2016-12-03 20:45] VITALS: BP 145/91; RESP 16
[2016-12-04] MEDS: DEXTROSE 5%-0.45% NACL 1,000 ML IV SCH ×3 (04:10→23:30)
[2016-12-04 05:23] LABS: ABNORMAL IP MESSAGE 1; HEMATOCRIT 35.8 % (37.0-47.0); HEMOGLOBIN 12.7 g/dl (12.0-16.0); LYMPHOCYTES # 0.5 10^3/ul (0.8-2.9); MEAN CORPUSCULAR HEMOGLOBIN 30.5 pg (29.0-33.0); MEAN CORPUSCULAR HGB CONC 35.5 g/dl (32.0-37.0); MEAN CORPUSCULAR VOLUME 85.9 fl (82.0-101.0); MEAN PLATELET VOLUME 9.2 fl (7.4-10.4); MONOCYTE # 0.1 10^3/ul (0.3-0.9); MONOCYTES % 3.4 % (0.0-11.0); NEUTROPHIL # 3.2 10^3/ul (1.6-7.5); NEUTROPHILS % 84.1 % (39.0-77.0); PLATELET COUNT 199 10^3/UL (140-415); RED BLOOD COUNT 4.17 10^6/ul (4.20-5.40); RED CELL DISTRIBUTION WIDTH 12.2 % (11.5-14.5); WHITE BLOOD COUNT 3.8 10^3/ul (4.8-10.8)
[2016-12-04 05:36] LABS: POSITIVE DIFF @See below
[2016-12-04 05:39] LABS: ALBUMIN/GLOBULIN RATIO 1.31
[2016-12-04] MEDS: PANTOPRAZOLE 40 MG INJ IV SCH (05:45)
[2016-12-04] MEDS: HYDROmorphONE 1 MG/ML SYG IV PRN (05:47)
[2016-12-04 06:24] LABS: ALBUMIN 3.8 g/dl (3.3-4.9); BILIRUBIN,INDIRECT 0.4 mg/dl (0-1.1); BILIRUBIN,TOTAL 0.4 mg/dl (0.2-1.3); CALCIUM 9.4 mg/dl (8.4-10.2); CREATININE 0.58 mg/dl (0.44-1.00); TOTAL PROTEIN 6.7 g/dl (6.1-8.1)
[2016-12-04 06:26] LABS: CALCIUM 9.4 mg/dl (8.4-10.2); CREATININE 0.58 mg/dl (0.44-1.00); POTASSIUM 4.2 mmol/L (3.5-5.1)
[2016-12-04] MEDS: AMLODIPINE 5 MG TAB PO SCH (09:00)
[2016-12-04] MEDS: morphine (ER) 15 MG TAB PO SCH ×2 (09:03→23:30)
[2016-12-04] MEDS: DEXAMETHASONE 4 MG/ML 1 ML INJ IV SCH (09:03)
[2016-12-04 09:28] VITALS: BP 118/70; RESP 16
[2016-12-04] MEDS ORDERED: HYDROmorphONE 1 MG/ML SYG IV PRN (10:00)
--- NOTE | 2016-12-04 11:45 | CONS ---
Date/Time of Note Date/Time of Note DATE: 12/04/16 TIME: 11:42 Assessment/Plan Assessment/Plan Chief Complaint/Hosp Course 61 year old female with a history of pT2N1c ER+/CO+/her2 negative by FISH s/p left lumpectomy, AC x 4 then taxol x 12, radiation, then tamoxifen then switched to letrozole, with developed of metastatic disease to the right shoulder in 2016 then cord compression s/p T9-12 laminectomy ER 98%, CO neg, HER2 indeterminate (unable to run on surgical path), now on faslodex started 11/17 (PET/CT 11/01/16 shows liver mets, bony mets, not being considered visceral crisis as intact liver function). # Brain metastases - MRI brain showed that there is 4 mm enhancing lesion in the posterior medial aspect of the left cerebellum. There is 4 mm enhancing lesion in the right frontal subcortical region. An ovoid dural-based extra-axial enhancing lesion within the right ambient cistern along the inferior aspect of the tentorium measuring approximately 10 x 6 x 6 mm (AP x transverse x craniocaudal) and causing mild mass effect on the adjacent pontine isthmus. A dural-based extra-axial enhancing lesion along the left posterior aspect of falx in the which measuring approximately 9 x 2 x 8 mm (AP x transverse x craniocaudal). There is 8 mm enhancing lesion in the right parasagittal parietal bone. - patient already started on dexamethasone - pending eval by Dr. Andrews - pending eval by rad onc Dr. Gale # Metastatic breast cancer - appreciate Dr. Sanford recs for pain control. CT 12/01/16 showed lytic mets in right ischium and right femur which likely accounts for right leg pain though with radicular component, agree with MRI spine per Dr. Sanford - pending ibrance once liver biopsy obtained to determine HER2 status. Will plan for liver biopsy once patient stable from TEAM PHYSICIAN standpoint - Also received zometa on 11/27/16. - pending repeat MRI C-T-L-S spine # Nausea/vomiting, likely related to brain mets with mass effect vs. GI, improved - appreciate GI recs, ADAT, reglan and PPI - continue IV fluids, anti-emetics - management of brain mets as above Problems: Consultation Date/Type/Reason Admit Date/Time Dec 02, 2016 at 04:06 Date of Consultation: Dec 04, 2016 Type of Consultation: Oncology Reason for Consultation Metastatic breast cancer Hx of Present Illness 61 year old female with a history of pT2N1c ER+/CO+/her2 negative by FISH s/p left lumpectomy, AC x 4 then taxol x 12, radiation, then tamoxifen then switched to letrozole, with developed of metastatic disease to the right shoulder in 2016 then cord compression s/p T9-12 laminectomy ER 98%, CO neg, HER2 indeterminate (unable to run on surgical path), now on faslodex started 11/17 (PET/CT 11/01/16 shows liver mets, bony mets, not being considered visceral crisis as intact liver function). I tried to add ibrance but denied without knowledge of HER2 status so planned for liver bx but not yet done as an outpatient. Also received zometa on 11/27/16. She was supposed to have a f/u MRI spine as well as MRI brain but the latter was not yet done as an outpatient. I saw her in the office on 12/01/16because she started having N/V the day prior and could not tolerate PO. She endorsed some abdominal discomfort, ? gastroenteritis vs. ?TEAM PHYSICIAN. I sent her to the ER for N/V workup, hydration, anti- emetics, MRI brain, pain control, and with plan for liver bx while in in the hospital. Since admission, her nausea and vomiting has improved. She was seen by GI as well as Dr. Sanford for pain control. Constitutional: improved ENT: no complaints Respiratory: no complaints Cardiovascular: no complaints Gastrointestinal: nausea, vomiting Genitourinary: no complaints Neurologic: other (Status post cervical laminectomy) Psychological: nl mood/affect, no complaints Past Medical History Medical History: cancer, hypertension Family History Significant Family History: no pertinent family hx Social History Alcohol Use: none Smoking Status: Never smoker Drug Use: none, other (CBD oil) Exam/Review of Systems Vital Signs Vitals Vital Signs Date Time Temp Pulse Resp B/P Pulse Ox O2 Delivery O2 Flow Rate FiO2 12/04/16 09:28 98.3 88 16 118/70 93 12/03/16 02:00 Room Air Intake and Output 12/03/16 12/03/16 12/04/16 15:00 23:00 07:00 Intake Total 1320 ml 1120 ml Balance 1320 ml 1120 ml Exam Constitutional: frail Head: normocephalic Neck: supple Respiratory: clear to auscultation Cardiovascular: regular rate and rhythm Gastrointestinal: soft, tender Musculoskeletal: nl extremities to inspection Neurological: TEAM PHYSICIAN II-XII intact, nl strength Results Result Diagram: 12/04/16 0504 12/04/16 0504 Results 24 hrs Laboratory Tests Test 12/04/16 05:04 White Blood Count 3.8 #L Red Blood Count 4.17 L Hemoglobin 12.7 Hematocrit 35.8 L Mean Corpuscular Volume 85.9 Mean Corpuscular Hemoglobin 30.5 Mean Corpuscular Hemoglobin Concent 35.5 Red Cell Distribution Width 12.2 Platelet Count 199 Mean Platelet Volume 9.2 Neutrophils % 84.1 H Lymphocytes % 12.0 L Monocytes % 3.4 Eosinophils % 0.0 Basophils % 0.0 Nucleated Red Blood Cells % 0.0 Neutrophils # 3.2 Lymphocytes # 0.5 L Monocytes # 0.1 L Eosinophils # 0.0 Basophils # 0.0 Nucleated Red Blood Cells # 0.0 Sodium Level 144 Potassium Level 4.2 Chloride Level 105 Carbon Dioxide Level 25 Anion Gap 18 H Blood Urea Nitrogen 12 Creatinine 0.58 Glucose Level 135 Calcium Level 9.4 Total Bilirubin 0.4 Direct Bilirubin 0.00 Indirect Bilirubin 0.4 Aspartate Amino Transf (AST/SGOT) 69 H Alanine Aminotransferase (ALT/SGPT) 35 Alkaline Phosphatase 79 Total Protein 6.7 Albumin 3.8 Globulin 2.90 Albumin/Globulin Ratio 1.31 Medications Medications Current Medications Dextrose/Sodium Chloride (D5-1/2ns) 1,000 ml @ 60 mls/hr [id number] IV Last administered on 12/04/16 04:10; Admin Dose 60 MLS/HR; Start 12/02/16 at 09:30 Morphine Sulfate (Ms Contin (Er)) 15 mg BID PO Last administered on 12/04/16 09:03; Admin Dose 15 MG; Start 12/02/16 at 10:00 Pantoprazole (Protonix Iv) 40 mg DAILY@06 IV Last administered on 12/04/16 05: 45; Admin Dose 40 MG; Start 12/03/16 at 06:00 Ondansetron HCl (Zofran Inj) 4 mg Q6H PRN IV NAUSEA AND/OR VOMITING Last administered on 12/03/16 14:28; Admin Dose 4 MG; Start 12/02/16 at 13:00 Metoclopramide HCl (Reglan) 10 mg Q6H PRN IV NAUSEA AND/OR VOMITING Last administered on 12/03/16 18:04; Admin Dose 10 MG; Start 12/02/16 at 21:30 Amlodipine Besylate (Norvasc) 5 mg DAILY PO ; Start 12/04/16 at 09:00 Hydromorphone HCl (Dilaudid) 2 mg Q3H PRN IV PAIN; Start 12/04/16 at 10:00 Dexamethasone (Decadron) 6 mg Q6 IV ; Start 12/04/16 at 12:00 TOSPARKLE MD Dec 04, 2016 11:45 Dexamethasone (Decadron) 6 mg Q6 IV ; Start 12/04/16 at 12:00 TOSPARKLE MD Dec 04, 2016 11:45
[2016-12-04] MEDS: DEXAMETHASONE 10 MG/ML 1 ML INJ IV SCH ×2 (12:00→18:38)
--- NOTE | 2016-12-04 14:17 | RADRPT ---
PROCEDURE: MR Cervical Spine with and without contrast. CLINICAL INDICATION: Breast cancer. Evaluate for metastases. TECHNIQUE: Multiplanar multisequence MRI of the cervical spine was performed before and following t he intravenous administration of 10 cc of Magnevist. COMPARISON: There are no similar studies submitted for comparison. FINDINGS: Evaluation of the axial postcontrast images are limited due to artifact. There is normal cervical lordosis. The vertebral body heights are maintained. There is normal alignment. There is no abnormal bone marrow edema. There is disk desiccation from C2-C3 to C6-C7. The spinal cord is normal in caliber. The spinal cord is normal in signal. There is no abnormal spin al cord enhancement. No definite epidural enhancement is identified. C2-C3 : There is a 1 mm broad-based disk osteophyte complex without spinal canal or bilateral forami nal stenosis. C3-C4 : There is mild disk space narrowing. There is trace retrolisthesis with a 1 mm circumferenti al disk osteophyte complex without spinal canal or bilateral foraminal stenosis. C4-C5 : There is mild disk space narrowing. There is a 2 mm broad-based disk osteophyte complex wit hout spinal canal stenosis. There is moderate left and mild right facet arthropathy and bilateral u ncovertebral hypertrophy causing moderate bilateral foraminal stenosis. C5-C6 : There is moderate disk space narrowing. There is a 2 mm circumferential disk osteophyte com plex without spinal canal stenosis. There is mild bilateral facet arthropathy and bilateral uncover tebral hypertrophy causing moderate to severe left and moderate right foraminal stenosis. This like ly affects the exiting left C6 nerve root. C6-C7 : There is moderate disk space narrowing. There is a 2 mm circumferential disk osteophyte com plex with mild to moderate spinal canal stenosis. There is moderate bilateral facet arthropathy and bilateral uncovertebral hypertrophy causing moderate to severe left with moderate right foraminal s tenosis. This likely affects the exiting left C7 nerve root. C7-T1 : There is a 1 mm broad-based disk osteophyte complex without spinal canal stenosis. There is moderate bilateral facet arthropathy and bilateral uncovertebral hypertrophy without bilateral fora leanne stenosis. There is an enhancing left paraspinal intramuscular lesion at the T4 level most compatible with meta stasis (image 7 series 10). IMPRESSION: Evaluation of the axial postcontrast images are limited due to artifact. No definite epidural enhanc ement is identified. 1. Heterogeneous bone marrow without abnormal bone marrow edema. There is no definite epidural enha ncing tumor. 2. Left paraspinal intramuscular enhancing lesion most compatible with a metastasis. 3. Multilevel bilateral foraminal stenosis affecting the exiting left C6 and left C7 nerve roots as detailed above. 4. No abnormal spinal cord enhancement. Further findings as detailed above. RPTAT: PP .Indra Davison MD, MD Date Time Electronically viewed and signed by .Indra Davison MD, MD on 12/04/2016 14:17 .F/
--- NOTE | 2016-12-04 14:17 | RADRPT ---
PROCEDURE: MR Thoracic Spine with and without contrast. CLINICAL INDICATION: Breast cancer. Metastases. Postoperative. TECHNIQUE: Multiplanar multisequence MRI of the thoracic spine performed was performed before and following the intravenous administration of 10 cc of Magnevist. COMPARISON: MRI of the thoracic spine with and without contrast from a November 20, 2016 as well as [facility] 2016. FINDINGS: There is preservation of the normal thoracic kyphosis. The vertebral body heights are maintained. There is normal alignment. There are multiple T1 hypointense enhancing lesion with associated bone marrow edema most compatible with metastases. These air present within the T4, T5, T6, T7, T8, T9, and most pronounced within the T10 vertebral bodies as well as the T11 and T12 vertebral bodies. There is also involvement of the T6, T9 spinous processes. There is also involvement of multiple bilateral pedicles. There is multilevel disk desiccation with multilevel mild disk space narrowing. There is stable trace left ventral epidural tumor at the T5-T6 level. This causes mild to moderate s rikki canal stenosis at this level. There is also a left foraminal epidural tumor effacement at the T5-T6 and T6-T7 levels. There is stable trace ventral epidural tumor at the T10 level. This causes mild to moderate spinal canal stenosis at this level. There is also enhancing tumor extending into the left T10-T11 foramen causing foraminal effacement. There is also trace bilateral ventral epidura l tumor at the T11 level. Bilateral laminectomies are again noted at the T10 to T12 levels. There i s stable left paraspinal tumor invading the ribs at the T6 and T7 levels. The spinal cord is normal is signal.There is no abnormal spinal cord enhancement. There are multilevel mild disk bulges from T5-T6 to T10-T11 without spinal canal or bilateral forami nal stenosis. There is an enhancing left paraspinal intramuscular lesion at the T4 level measuring 4.0 x 2.[address] compatible with metastasis. There is a 3 cm left paraspinal intramuscular lesion at the T11 level again noted. There are multiple right hepatic lesions which are incompletely evaluated. There are m inimal bilateral pleural effusions. IMPRESSION: No significant change. 1. Multilevel osseous metastases. Stable epidural extension of tumor and spinal canal stenosis as de tailed above. 2. No acute compression fracture. 3. Bilateral laminectomies are again noted at the T10 to T12 levels. 4. Stable left paraspinal intramuscular lesions as detailed above. 5. Multiple right hepatic lesion which incompletely evaluated. Metastases are not excluded. Further findings as detailed above. RPTAT: PP .Indra Davison MD, Date Time Electronically viewed and signed by .Indra Davison MD, on 12/04/2016 14:16 .F/
--- NOTE | 2016-12-04 15:13 | PN ---
Date/Time of Note Date/Time of Note DATE: 12/04/16 TIME: 15:03 Assessment/Plan VTE Prophylaxis VTE Prophylaxis Intervention: SCD's Lines/Catheters IV Catheter Type (from Nrs): Peripheral IV Urinary Cath still in place: No Assessment/Plan Chief Complaint/Hosp Course Patient stated improvement in nausea and vomiting, remains afebrile, able to ambulate using walker, complains of right lower extremity weakness and pain with ambulation which is currently better controlled. Assessment/Plan - Metastatic breast cancer with liver, bone, spinal cord and brain involvement, status post radiation. is following in hematology oncology consultation. Dr. Thompson is following in pain management consultation. - Brain metastasis, continue Decadron, Dr. Andrews is asked to see patient in neurosurgery consultation. - Intractable nausea and vomiting, resolved. Continue Zofran as needed for nausea. Dr. Muniz is following in gastroenterology consultation. - Hx of decompression laminectomy and microsurgical tumor resection by Dr Andrews, neurosurgery. Further recommendations based on clinical course. Plan of care discussed with Dr. Bowser. Problems: Exam/Review of Systems Vital Signs Vitals Vital Signs Date Time Temp Pulse Resp B/P Pulse Ox O2 Delivery O2 Flow Rate FiO2 12/04/16 09:28 98.3 88 16 118/70 93 12/03/16 02:00 Room Air Intake and Output 12/03/16 12/03/16 12/04/16 15:00 23:00 07:00 Intake Total 1320 ml 1120 ml Balance 1320 ml 1120 ml Exam Constitutional: alert, oriented Head: normocephalic Neck: supple Respiratory: normal air movement Cardiovascular: nl pulses Gastrointestinal: non-tender Extremities: normal pulses Neurological: other (Right lower extremity weakness) Results Result Diagram: 12/04/16 0504 12/04/16 0504 Results 24 hrs Laboratory Tests Test 12/04/16 05:04 White Blood Count 3.8 #L Red Blood Count 4.17 L Hemoglobin 12.7 Hematocrit 35.8 L Mean Corpuscular Volume 85.9 Mean Corpuscular Hemoglobin 30.5 Mean Corpuscular Hemoglobin Concent 35.5 Red Cell Distribution Width 12.2 Platelet Count 199 Mean Platelet Volume 9.2 Neutrophils % 84.1 H Lymphocytes % 12.0 L Monocytes % 3.4 Eosinophils % 0.0 Basophils % 0.0 Nucleated Red Blood Cells % 0.0 Neutrophils # 3.2 Lymphocytes # 0.5 L Monocytes # 0.1 L Eosinophils # 0.0 Basophils # 0.0 Nucleated Red Blood Cells # 0.0 Sodium Level 144 Potassium Level 4.2 Chloride Level 105 Carbon Dioxide Level 25 Anion Gap 18 H Blood Urea Nitrogen 12 Creatinine 0.58 Glucose Level 135 Calcium Level 9.4 Total Bilirubin 0.4 Direct Bilirubin 0.00 Indirect Bilirubin 0.4 Aspartate Amino Transf (AST/SGOT) 69 H Alanine Aminotransferase (ALT/SGPT) 35 Alkaline Phosphatase 79 Total Protein 6.7 Albumin 3.8 Globulin 2.90 Albumin/Globulin Ratio 1.31 Medications Medications Current Medications Dextrose/Sodium Chloride (D5-1/2ns) 1,000 ml @ 60 mls/hr [id number] IV Last administered on 12/04/16 04:10; Admin Dose 60 MLS/HR; Start 12/02/16 at 09:30 Morphine Sulfate (Ms Contin (Er)) 15 mg BID PO Last administered on 12/04/16 09:03; Admin Dose 15 MG; Start 12/02/16 at 10:00 Pantoprazole (Protonix Iv) 40 mg DAILY@06 IV Last administered on 12/04/16 05: 45; Admin Dose 40 MG; Start 12/03/16 at 06:00 Ondansetron HCl (Zofran Inj) 4 mg Q6H PRN IV NAUSEA AND/OR VOMITING Last administered on 12/03/16 14:28; Admin Dose 4 MG; Start 12/02/16 at 13:00 Metoclopramide HCl (Reglan) 10 mg Q6H PRN IV NAUSEA AND/OR VOMITING Last administered on 12/03/16 18:04; Admin Dose 10 MG; Start 12/02/16 at 21:30 Amlodipine Besylate (Norvasc) 5 mg DAILY PO ; Start 12/04/16 at 09:00 Hydromorphone HCl (Dilaudid) 2 mg Q3H PRN IV PAIN Last administered on 14:34; Admin Dose 2 MG; Start 12/04/16 at 10:00 Dexamethasone (Decadron) 6 mg Q6 IV ; Start 12/04/16 at 12:00 AMANDA AVALOS Dec 04, 2016 15:13
--- NOTE | 2016-12-04 16:19 | CONS ---
Date/Time of Note Date/Time of Note DATE: 12/04/16 TIME: 16:18 Assessment/Plan Assessment/Plan Chief Complaint/Hosp Course Patient is a 61-year-old female with a history of breast cancer status post chemoradiation also has metastases to the bone. Patient has also had a bone surgery. Now for nausea vomiting and epigastric pain. No GI bleeding. Patient is constipated. 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 Nausea vomiting and epigastric pain 2. Breast cancer status post chemotherapy, metastases to the bone, to the liver 3. Soft tissue mass in the brain Plan PPI and Reglan If no improvement in EGD. Diet as tolerated by the patient Advance diet Oncology follow-up Consultation Date/Type/Reason Admit Date/Time Dec 02, 2016 at 04:06 Type of Consultation: Oncology 24 HR Interval Summary Constitutional: improved, no complaints Exam/Review of Systems Vital Signs Vitals Vital Signs Date Time Temp Pulse Resp B/P Pulse Ox O2 Delivery O2 Flow Rate FiO2 12/04/16 09:28 98.3 88 16 118/70 93 12/03/16 02:00 Room Air Intake and Output 12/03/16 12/03/16 12/04/16 14:59 22:59 06:59 Intake Total 1320 ml 1120 ml Balance 1320 ml 1120 ml Exam Constitutional: alert, oriented, well developed Psych: nl mood/affect, no complaints Head: atraumatic, normocephalic Eyes: EOMI, PERRL, nl conjunctiva, nl lids, nl sclera ENMT: nl external ears & nose, nl lips & teeth, nl nasal mucosa & septum Neck: non-tender, supple Respiratory: clear to auscultation, normal air movement Cardiovascular: nl pulses, regular rate and rhythm Gastrointestinal: nl liver, spleen, non-tender, soft Musculoskeletal: nl extremities to inspection, nl gait and stance Extremities: normal pulses Neurological: CAR WASH MANAGER II-XII intact, nl mental status, nl speech, nl strength Skin: nl turgor, No rash or lesions Lymph: nl lymph nodes Results Result Diagram: 12/04/16 0504 12/04/16 0504 Results 24 hrs Laboratory Tests Test 12/04/16 05:04 White Blood Count 3.8 #L Red Blood Count 4.17 L Hemoglobin 12.7 Hematocrit 35.8 L Mean Corpuscular Volume 85.9 Mean Corpuscular Hemoglobin 30.5 Mean Corpuscular Hemoglobin Concent 35.5 Red Cell Distribution Width 12.2 Platelet Count 199 Mean Platelet Volume 9.2 Neutrophils % 84.1 H Lymphocytes % 12.0 L Monocytes % 3.4 Eosinophils % 0.0 Basophils % 0.0 Nucleated Red Blood Cells % 0.0 Neutrophils # 3.2 Lymphocytes # 0.5 L Monocytes # 0.1 L Eosinophils # 0.0 Basophils # 0.0 Nucleated Red Blood Cells # 0.0 Sodium Level 144 Potassium Level 4.2 Chloride Level 105 Carbon Dioxide Level 25 Anion Gap 18 H Blood Urea Nitrogen 12 Creatinine 0.58 Glucose Level 135 Calcium Level 9.4 Total Bilirubin 0.4 Direct Bilirubin 0.00 Indirect Bilirubin 0.4 Aspartate Amino Transf (AST/SGOT) 69 H Alanine Aminotransferase (ALT/SGPT) 35 Alkaline Phosphatase 79 Total Protein 6.7 Albumin 3.8 Globulin 2.90 Albumin/Globulin Ratio 1.31 Medications Medications Current Medications Dextrose/Sodium Chloride (D5-1/2ns) 1,000 ml @ 60 mls/hr [id number] IV Last administered on 12/04/16 04:10; Admin Dose 60 MLS/HR; Start 12/02/16 at 09:30 Morphine Sulfate (Ms Contin (Er)) 15 mg BID PO Last administered on 12/04/16 09:03; Admin Dose 15 MG; Start 12/02/16 at 10:00 Pantoprazole (Protonix Iv) 40 mg DAILY@06 IV Last administered on 12/04/16 05: 45; Admin Dose 40 MG; Start 12/03/16 at 06:00 Ondansetron HCl (Zofran Inj) 4 mg Q6H PRN IV NAUSEA AND/OR VOMITING Last administered on 12/03/16 14:28; Admin Dose 4 MG; Start 12/02/16 at 13:00 Metoclopramide HCl (Reglan) 10 mg Q6H PRN IV NAUSEA AND/OR VOMITING Last administered on 12/03/16 18:04; Admin Dose 10 MG; Start 12/02/16 at 21:30 Amlodipine Besylate (Norvasc) 5 mg DAILY PO ; Start 12/04/16 at 09:00 Hydromorphone HCl (Dilaudid) 2 mg Q3H PRN IV PAIN Last administered on t 14:34; Admin Dose 2 MG; Start 12/04/16 at 10:00 Dexamethasone (Decadron) 6 mg Q6 IV ; Start 12/04/16 at 12:00 ELIOT PAYAN MD Dec 04, 2016 16:19
--- NOTE | 2016-12-04 18:32 | PN ---
Date/Time of Note Date/Time of Note DATE: 12/04/16 TIME: 18:30 Assessment/Plan VTE Prophylaxis VTE Prophylaxis Intervention: other Lines/Catheters [facility] Peripheral IV Urinary Cath still in place: No Assessment/Plan Chief Complaint/Hosp Course A/P METASTAITIC BREAST CA S/P RADIATION PLAN PER ONCOLOGY Problems: Subjective 24 Hr Interval Summary Eyes: no complaints ENT: no complaints Respiratory: no complaints Cardiovascular: no complaints Gastrointestinal: no complaints Genitourinary: no complaints Musculoskeletal: bone/joint pain Skin: no complaints Neurologic: no complaints Endocrine: no complaints Lymphatic: no complaints Exam/Review of Systems Vital Signs Vitals Vital Signs Date Time Temp Pulse Resp B/P Pulse Ox O2 Delivery O2 Flow Rate FiO2 12/04/16 09:28 98.3 88 16 118/70 93 12/03/16 02:00 Room Air Intake and Output 12/03/16 12/03/16 12/04/16 15:00 23:00 07:00 Intake Total 1320 ml 1120 ml Balance 1320 ml 1120 ml Exam Head: normocephalic Neck: supple Respiratory: clear to auscultation Cardiovascular: regular rate and rhythm Gastrointestinal: soft Musculoskeletal: nl extremities to inspection Extremities: normal pulses Results Result Diagram: 12/04/16 0504 12/04/16 0504 Results 24 hrs Laboratory Tests Test 12/04/16 05:04 White Blood Count 3.8 #L Red Blood Count 4.17 L Hemoglobin 12.7 Hematocrit 35.8 L Mean Corpuscular Volume 85.9 Mean Corpuscular Hemoglobin 30.5 Mean Corpuscular Hemoglobin Concent 35.5 Red Cell Distribution Width 12.2 Platelet Count 199 Mean Platelet Volume 9.2 Neutrophils % 84.1 H Lymphocytes % 12.0 L Monocytes % 3.4 Eosinophils % 0.0 Basophils % 0.0 Nucleated Red Blood Cells % 0.0 Neutrophils # 3.2 Lymphocytes # 0.5 L Monocytes # 0.1 L Eosinophils # 0.0 Basophils # 0.0 Nucleated Red Blood Cells # 0.0 Sodium Level 144 Potassium Level 4.2 Chloride Level 105 Carbon Dioxide Level 25 Anion Gap 18 H Blood Urea Nitrogen 12 Creatinine 0.58 Glucose Level 135 Calcium Level 9.4 Total Bilirubin 0.4 Direct Bilirubin 0.00 Indirect Bilirubin 0.4 Aspartate Amino Transf (AST/SGOT) 69 H Alanine Aminotransferase (ALT/SGPT) 35 Alkaline Phosphatase 79 Total Protein 6.7 Albumin 3.8 Globulin 2.90 Albumin/Globulin Ratio 1.31 Medications Medications Current Medications Dextrose/Sodium Chloride (D5-1/2ns) 1,000 ml @ 60 mls/hr [id number] IV Last administered on 12/04/16 04:10; Admin Dose 60 MLS/HR; Start 12/02/16 at 09:30 Morphine Sulfate (Ms Contin (Er)) 15 mg BID PO Last administered on 12/04/16 09:03; Admin Dose 15 MG; Start 12/02/16 at 10:00 Pantoprazole (Protonix Iv) 40 mg DAILY@06 IV Last administered on 12/04/16 05: 45; Admin Dose 40 MG; Start 12/03/16 at 06:00 Ondansetron HCl (Zofran Inj) 4 mg Q6H PRN IV NAUSEA AND/OR VOMITING Last administered on 12/03/16 14:28; Admin Dose 4 MG; Start 12/02/16 at 13:00 Metoclopramide HCl (Reglan) 10 mg Q6H PRN IV NAUSEA AND/OR VOMITING Last administered on 12/03/16 18:04; Admin Dose 10 MG; Start 12/02/16 at 21:30 Amlodipine Besylate (Norvasc) 5 mg DAILY PO ; Start 12/04/16 at 09:00 Hydromorphone HCl (Dilaudid) 2 mg Q3H PRN IV PAIN Last administered on 14:34; Admin Dose 2 MG; Start 12/04/16 at 10:00 Dexamethasone (Decadron) 6 mg Q6 IV ; Start 12/04/16 at 12:00 DEON GRIFFIN MD Dec 04, 2016 18:32
[2016-12-04 19:59] VITALS: BP 131/77; RESP 18
[2016-12-05] MEDS: DEXAMETHASONE 10 MG/ML 1 ML INJ IV SCH ×2 (01:58→07:11)
[2016-12-05] MEDS: DEXTROSE 5%-0.45% NACL 1,000 ML IV SCH (04:10)
[2016-12-05 05:06] LABS: ABNORMAL IP MESSAGE 1; BASOPHILS % 0.1 % (0.0-2.0); HEMATOCRIT 32.3 % (37.0-47.0); HEMOGLOBIN 11.5 g/dl (12.0-16.0); LYMPHOCYTES # 0.5 10^3/ul (0.8-2.9); LYMPHOCYTES % 5.3 % (15.0-51.0); MEAN CORPUSCULAR HEMOGLOBIN 30.4 pg (29.0-33.0); MEAN CORPUSCULAR HGB CONC 35.6 g/dl (32.0-37.0); MEAN CORPUSCULAR VOLUME 85.4 fl (82.0-101.0); MEAN PLATELET VOLUME 9.4 fl (7.4-10.4); MONOCYTE # 0.2 10^3/ul (0.3-0.9); MONOCYTES % 2.4 % (0.0-11.0); NEUTROPHIL # 7.9 10^3/ul (1.6-7.5); NEUTROPHILS % 91.5 % (39.0-77.0); PLATELET COUNT 192 10^3/UL (140-415); RED BLOOD COUNT 3.78 10^6/ul (4.20-5.40); RED CELL DISTRIBUTION WIDTH 12.4 % (11.5-14.5); WHITE BLOOD COUNT 8.6 10^3/ul (4.8-10.8)
[2016-12-05 05:11] LABS: POSITIVE DIFF @See below
[2016-12-05 05:46] LABS: CALCIUM 9.4 mg/dl (8.4-10.2); CREATININE 0.62 mg/dl (0.44-1.00); POTASSIUM 4.2 mmol/L (3.5-5.1)
[2016-12-05] MEDS: PANTOPRAZOLE 40 MG INJ IV SCH (07:08)
--- NOTE | 2016-12-05 07:54 | CONS ---
Date/Time of Note Date/Time of Note DATE: 12/05/16 TIME: 07:53 Assessment/Plan Assessment/Plan Additional Assessment/Plan Breast cancer with extension metastasis Brain metastasis Skeletal metastasis Liver metastasis Pain out of control secondary to the above Nausea and vomiting resolved I agree with current pain control, she has received Zometa in the past for 4 months and currently on steroids. I have ordered MRI of her thoracic lumbar sacral spines to rule out pathological fracture or infiltration. She has benign neurological examination of bilateral lower extremities so I do not believe that there is a very high chance of pain being secondary to spinal tumor. We will continue to follow her closely will not address palliative conversation at this time. Consultation Date/Type/Reason Admit Date/Time Dec 02, 2016 at 04:06 Date of Consultation: Dec 04, 2016 Reason for Consultation Pain management Constitutional: improved, no complaints Eyes: no complaints ENT: no complaints Respiratory: no complaints Cardiovascular: no complaints Gastrointestinal: no complaints Genitourinary: no complaints Musculoskeletal: bone/joint pain Skin: no complaints Neurologic: no complaints Endocrine: no complaints Lymphatic: no complaints Psychological: nl mood/affect, no complaints Past Medical History Medical History: cancer, hypertension Social History Alcohol Use: none Smoking Status: Never smoker Drug Use: none, other (CBD oil) Exam/Review of Systems Vital Signs Vitals Vital Signs Date Time Temp Pulse Resp B/P Pulse Ox O2 Delivery O2 Flow Rate FiO2 12/04/16 19:59 98.4 84 18 131/77 97 12/03/16 02:00 Room Air Intake and Output 12/04/16 12/04/16 12/05/16 15:00 23:00 07:00 Intake Total 2080 ml 1160 ml Balance 2080 ml 1160 ml Exam Constitutional: alert, oriented, well developed Psych: nl mood/affect, no complaints Head: atraumatic, normocephalic Neck: non-tender, supple Respiratory: clear to auscultation, normal air movement Cardiovascular: nl pulses, regular rate and rhythm Neurological: HULL SORTER II-XII intact, DTR's symmetric, nl mental status, nl speech, nl strength Results Result Diagram: 12/05/162 12/05/162 Results 24 hrs Laboratory Tests Test 12/05/16 04:42 White Blood Count 8.6 # Red Blood Count 3.78 L Hemoglobin 11.5 L Hematocrit 32.3 L Mean Corpuscular Volume 85.4 Mean Corpuscular Hemoglobin 30.4 Mean Corpuscular Hemoglobin Concent 35.6 Red Cell Distribution Width 12.4 Platelet Count 192 Mean Platelet Volume 9.4 Neutrophils % 91.5 H Lymphocytes % 5.3 L Monocytes % 2.4 Eosinophils % 0.0 Basophils % 0.1 Nucleated Red Blood Cells % 0.0 Neutrophils # 7.9 H Lymphocytes # 0.5 L Monocytes # 0.2 L Eosinophils # 0.0 Basophils # 0.0 Nucleated Red Blood Cells # 0.0 Sodium Level 144 Potassium Level 4.2 Chloride Level 107 Carbon Dioxide Level 25 Anion Gap 16 Blood Urea Nitrogen 14 Creatinine 0.62 Glucose Level 142 Calcium Level 9.4 Medications Medications Current Medications Dextrose/Sodium Chloride (D5-1/2ns) 1,000 ml @ 60 mls/hr [id number] IV Last administered on 12/04/16 23:30; Admin Dose 60 MLS/HR; Start 12/02/16 at 09:30 Morphine Sulfate (Ms Contin (Er)) 15 mg BID PO Last administered on 12/04/16 23:30; Admin Dose 15 MG; Start 12/02/16 at 10:00 Pantoprazole (Protonix Iv) 40 mg DAILY@06 IV Last administered on 12/05/16 07: 08; Admin Dose 40 MG; Start 12/03/16 at 06:00 Ondansetron HCl (Zofran Inj) 4 mg Q6H PRN IV NAUSEA AND/OR VOMITING Last administered on 12/03/16 14:28; Admin Dose 4 MG; Start 12/02/16 at 13:00 Metoclopramide HCl (Reglan) 10 mg Q6H PRN IV NAUSEA AND/OR VOMITING Last administered on 12/03/16 18:04; Admin Dose 10 MG; Start 12/02/16 at 21:30 Amlodipine Besylate (Norvasc) 5 mg DAILY PO ; Start 12/04/16 at 09:00 Hydromorphone HCl (Dilaudid) 2 mg Q3H PRN IV PAIN Last administered on 14:34; Admin Dose 2 MG; Start 12/04/16 at 10:00 Dexamethasone (Decadron) 6 mg Q6 IV Last administered on 12/05/16 07:11; Admin Dose 6 MG; Start 12/04/16 at 12:00 JORDAN CHÁVEZ Dec 05, 2016 07:53
[2016-12-05 08:29] VITALS: BP 128/70; RESP 18
--- NOTE | 2016-12-05 08:30 | CONS ---
Date/Time of Note Date/Time of Note DATE: 12/05/16 TIME: 08:26 Assessment/Plan Assessment/Plan Additional Assessment/Plan Breast cancer Widespread metastasis Pain out of control Status post chemotherapy and XRT Intractable nausea vomiting She feels much improved today except she states that her pain decreases prior to the next dose of MS Contin. She also complains of constipation will adjust her MS Contin and optimize her bowel regimen. Continue to support I will not address palliation of care however recommend POLST form prior to discharge Consultation Date/Type/Reason Admit Date/Time Dec 02, 2016 at 04:06 Initial Consult Date 12/04/16 Type of Consultation: Palliative Care 24 HR Interval Summary Free Text/Dictation # Brain metastases - MRI brain showed that there is 4 mm enhancing lesion in the posterior medial aspect of the left cerebellum. There is 4 mm enhancing lesion in the right frontal subcortical region. An ovoid dural-based extra-axial enhancing lesion within the right ambient cistern along the inferior aspect of the tentorium measuring approximately 10 x 6 x 6 mm (AP x transverse x craniocaudal) and causing mild mass effect on the adjacent pontine isthmus. A dural-based extra-axial enhancing lesion along the left posterior aspect of falx in the which measuring approximately 9 x 2 x 8 mm (AP x transverse x craniocaudal). There is 8 mm enhancing lesion in the right parasagittal parietal bone. # Metastatic breast cancer # Nausea/vomiting, likely related to brain mets with mass effect vs. GI, improved - Exam/Review of Systems Vital Signs Vitals Vital Signs Date Time Temp Pulse Resp B/P Pulse Ox O2 Delivery O2 Flow Rate FiO2 12/04/16 19:59 98.4 84 18 131/77 97 12/03/16 02:00 Room Air Intake and Output 12/04/16 12/04/16 12/05/16 15:00 23:00 07:00 Intake Total 2080 ml 1160 ml Balance 2080 ml 1160 ml Exam Constitutional: alert, oriented, well developed Eyes: EOMI, PERRL, nl conjunctiva, nl lids, nl sclera Neck: non-tender, supple Respiratory: clear to auscultation, normal air movement Cardiovascular: nl pulses, regular rate and rhythm Neurological: AUDIOVISUAL TECHNICIAN II-XII intact, nl mental status, nl speech, nl strength Results Result Diagram: 12/05/16 0442 12/05/16 0442 Results 24 hrs Laboratory Tests Test 12/05/16 04:42 White Blood Count 8.6 # Red Blood Count 3.78 L Hemoglobin 11.5 L Hematocrit 32.3 L Mean Corpuscular Volume 85.4 Mean Corpuscular Hemoglobin 30.4 Mean Corpuscular Hemoglobin Concent 35.6 Red Cell Distribution Width 12.4 Platelet Count 192 Mean Platelet Volume 9.4 Neutrophils % 91.5 H Lymphocytes % 5.3 L Monocytes % 2.4 Eosinophils % 0.0 Basophils % 0.1 Nucleated Red Blood Cells % 0.0 Neutrophils # 7.9 H Lymphocytes # 0.5 L Monocytes # 0.2 L Eosinophils # 0.0 Basophils # 0.0 Nucleated Red Blood Cells # 0.0 Sodium Level 144 Potassium Level 4.2 Chloride Level 107 Carbon Dioxide Level 25 Anion Gap 16 Blood Urea Nitrogen 14 Creatinine 0.62 Glucose Level 142 Calcium Level 9.4 Medications Medications Current Medications Dextrose/Sodium Chloride (D5-1/2ns) 1,000 ml @ 60 mls/hr [id number] IV Last administered on 12/04/16 23:30; Admin Dose 60 MLS/HR; Start 12/02/16 at 09:30 Morphine Sulfate (Ms Contin (Er)) 15 mg BID PO Last administered on 12/04/16 23:30; Admin Dose 15 MG; Start 12/02/16 at 10:00 Pantoprazole (Protonix Iv) 40 mg DAILY@06 IV Last administered on 12/05/16 07: 08; Admin Dose 40 MG; Start 12/03/16 at 06:00 Ondansetron HCl (Zofran Inj) 4 mg Q6H PRN IV NAUSEA AND/OR VOMITING Last administered on 12/03/16 14:28; Admin Dose 4 MG; Start 12/02/16 at 13:00 Metoclopramide HCl (Reglan) 10 mg Q6H PRN IV NAUSEA AND/OR VOMITING Last administered on 12/03/16 18:04; Admin Dose 10 MG; Start 12/02/16 at 21:30 Amlodipine Besylate (Norvasc) 5 mg DAILY PO ; Start 12/04/16 at 09:00 Hydromorphone HCl (Dilaudid) 2 mg Q3H PRN IV PAIN Last administered on 7/24/ 17at 14:34; Admin Dose 2 MG; Start 12/04/16 at 10:00 Dexamethasone (Decadron) 6 mg Q6 IV Last administered on 12/05/16t 07:11; Admin Dose 6 MG; Start 12/04/16 at 12:00 JORDAN CHÁVEZ Dec 05, 2016 08:30
[2016-12-05] MEDS: morphine (ER) 30 MG TAB PO SCH ×2 (08:49→20:40)
[2016-12-05] MEDS: AMLODIPINE 5 MG TAB PO SCH (08:49)
[2016-12-05] MEDS: DEXAMETHASONE 4 MG TAB PO SCH ×2 (08:52→20:39)
[2016-12-05] MEDS ORDERED: DEXAMETHASONE 10 MG/ML 1 ML INJ PO SCH (09:00)
[2016-12-05] MEDS ORDERED: morphine (ER) 15 MG TAB PO SCH (09:00)
--- NOTE | 2016-12-05 09:33 | CONS ---
Date/Time of Note Date/Time of Note DATE: 12/05/16 TIME: 09:29 Assessment/Plan Assessment/Plan Chief Complaint/Hosp Course 61 year old female with a history of pT2N1c ER+/[place]+/her2 negative by FISH s/p left lumpectomy, AC x 4 then taxol x 12, radiation, then tamoxifen then switched to letrozole, with developed of metastatic disease to the right shoulder in 2016 then cord compression s/p T9-12 laminectomy ER 98%, [place] neg, HER2 indeterminate (unable to run on surgical path), now on faslodex started 11/17 (PET/CT 11/01/16 shows liver mets, bony mets, not being considered visceral crisis as intact liver function). # Brain metastases - MRI brain showed that there is 4 mm enhancing lesion in the posterior medial aspect of the left cerebellum. There is 4 mm enhancing lesion in the right frontal subcortical region. An ovoid dural-based extra-axial enhancing lesion within the right ambient cistern along the inferior aspect of the tentorium measuring approximately 10 x 6 x 6 mm (AP x transverse x craniocaudal) and causing mild mass effect on the adjacent pontine isthmus. A dural-based extra-axial enhancing lesion along the left posterior aspect of falx in the which measuring approximately 9 x 2 x 8 mm (AP x transverse x craniocaudal). There is 8 mm enhancing lesion in the right parasagittal parietal bone. - patient already started on dexamethasone - pending eval by Dr. Andrews - pending eval by rad onc Dr. Gale # Metastatic breast cancer - appreciate Dr. Sanford recs for pain control. CT 12/01/16 showed lytic mets in right ischium and right femur which likely accounts for right leg pain though with radicular component, agree with MRI spine per Dr. Sanford - pending ibrance once liver biopsy obtained to determine HER2 status. Will plan for liver biopsy once patient stable from BIOLOGICAL SCIENCE TECHNICIAN standpoint - Also received zometa on 11/27/16. - MRI cervical spine 12/04/16 showed no definite epidural enhancement is identified. Heterogeneous bone marrow without abnormal bone marrow edema. There is no definite epidural enhancing tumor. Left paraspinal intramuscular enhancing lesion most compatible with a metastasis. Multilevel bilateral foraminal stenosis affecting the exiting left C6 and left C7 nerve roots as detailed above. No abnormal spinal cord enhancement. - MRI thoracic spine 12/04/16 showed no significant change. Multilevel osseous metastases. Stable epidural extension of tumor and spinal canal stenosis as detailed above. No acute compression fracture. Bilateral laminectomies are again noted at the T10 to T12 levels. Stable left paraspinal intramuscular lesions as detailed above. Multiple right hepatic lesion which incompletely evaluated. Metastases are not excluded. - pending MRI lumbar and sacral spine # Nausea/vomiting, likely related to brain mets with mass effect vs. GI, improved - appreciate GI recs, ADAT, reglan and PPI - continue IV fluids, anti-emetics - management of brain mets as above Problems: Consultation Date/Type/Reason Admit Date/Time Dec 02, 2016 at 04:06 Initial Consult Date 12/04/16 Type of Consultation: Oncology 24 HR Interval Summary Free Text/Dictation No acute issues. Pending neurosurgery and rad onc evaluation. Exam/Review of Systems Vital Signs Vitals Vital Signs Date Time Temp Pulse Resp B/P Pulse Ox O2 Delivery O2 Flow Rate FiO2 12/05/16 08:29 98.7 87 18 128/70 97 12/03/16 02:00 Room Air Intake and Output 12/04/16 12/04/16 12/05/16 15:00 23:00 07:00 Intake Total 2080 ml 1160 ml Balance 2080 ml 1160 ml Exam Constitutional: alert, oriented Head: normocephalic Eyes: nl conjunctiva Neck: supple Respiratory: clear to auscultation Cardiovascular: regular rate and rhythm Gastrointestinal: non-tender, soft Musculoskeletal: nl extremities to inspection Neurological: BIOLOGICAL SCIENCE TECHNICIAN II-XII intact Results Result Diagram: 12/05/16 0442 12/05/16 0442 Results 24 hrs Laboratory Tests Test 12/05/16 04:42 White Blood Count 8.6 # Red Blood Count 3.78 L Hemoglobin 11.5 L Hematocrit 32.3 L Mean Corpuscular Volume 85.4 Mean Corpuscular Hemoglobin 30.4 Mean Corpuscular Hemoglobin Concent 35.6 Red Cell Distribution Width 12.4 Platelet Count 192 Mean Platelet Volume 9.4 Neutrophils % 91.5 H Lymphocytes % 5.3 L Monocytes % 2.4 Eosinophils % 0.0 Basophils % 0.1 Nucleated Red Blood Cells % 0.0 Neutrophils # 7.9 H Lymphocytes # 0.5 L Monocytes # 0.2 L Eosinophils # 0.0 Basophils # 0.0 Nucleated Red Blood Cells # 0.0 Sodium Level 144 Potassium Level 4.2 Chloride Level 107 Carbon Dioxide Level 25 Anion Gap 16 Blood Urea Nitrogen 14 Creatinine 0.62 Glucose Level 142 Calcium Level 9.4 Medications Medications Current Medications Dextrose/Sodium Chloride (D5-1/2ns) 1,000 ml @ 60 mls/hr [id number] IV Last administered on 12/04/16 23:30; Admin Dose 60 MLS/HR; Start 12/02/16 at 09:30 Pantoprazole (Protonix Iv) 40 mg DAILY@06 IV Last administered on 12/05/16 07: 08; Admin Dose 40 MG; Start 12/03/16 at 06:00 Ondansetron HCl (Zofran Inj) 4 mg Q6H PRN IV NAUSEA AND/OR VOMITING Last administered on 12/03/16 14:28; Admin Dose 4 MG; Start 12/02/16 at 13:00 Metoclopramide HCl (Reglan) 10 mg Q6H PRN IV NAUSEA AND/OR VOMITING Last administered on 12/03/16 18:04; Admin Dose 10 MG; Start 12/02/16 at 21:30 Amlodipine Besylate (Norvasc) 5 mg DAILY PO Last administered on 12/05/16 08: 49; Admin Dose 5 MG; Start 12/04/16 at 09:00 Hydromorphone HCl (Dilaudid) 2 mg Q3H PRN IV PAIN Last administered on 14:34; Admin Dose 2 MG; Start 12/04/16 at 10:00 Morphine Sulfate (Ms Contin (Er)) 30 mg BID PO Last administered on 12/05/16 08:49; Admin Dose 30 MG; Start 12/05/16 at 09:00 Dexamethasone (Decadron) 8 mg BID PO Last administered on 12/05/16 08:52; Admin Dose 8 MG; Start 12/05/16 at 09:00 SPARKLE SINGH MD Dec 05, 2016 09:33
[2016-12-05] MEDS: BISACODYL 10 MG SUPP PR PRN (15:57)
[2016-12-05] MEDS: POLYETHYLENE GLYCOL 17 GM PACKET PO SCH (16:00)
[2016-12-05 16:08] VITALS: BP 153/71; RESP 18
--- NOTE | 2016-12-05 17:28 | PN ---
Date/Time of Note Date/Time of Note DATE: 12/05/16 TIME: 17:26 Assessment/Plan VTE Prophylaxis VTE Prophylaxis Intervention: other Lines/Catheters IV Catheter Type (from Nrs): Peripheral IV Urinary Cath still in place: No Assessment/Plan Chief Complaint/Hosp Course A/P METASTAITIC BREAST CA 1. Heterogeneous bone marrow without abnormal bone marrow edema. There is no definite epidural enhancing tumor. 2. Left paraspinal intramuscular enhancing lesion most compatible with a metastasis. 3. Multilevel bilateral foraminal stenosis affecting the exiting left C6 and left C7 nerve roots as detailed above. PLAN PER ONCOLOGY dr steele called to see pain meds home health Problems: Subjective 24 Hr Interval Summary Subjective hx not possible: other Respiratory: no complaints Cardiovascular: no complaints Musculoskeletal: other (bodyache,back pain+) Exam/Review of Systems Vital Signs Vitals Vital Signs Date Time Temp Pulse Resp B/P Pulse Ox O2 Delivery O2 Flow Rate FiO2 12/05/16 16:08 98.3 88 18 153/71 95 12/03/16 02:00 Room Air Intake and Output 12/04/16 12/04/16 12/05/16 15:00 23:00 07:00 Intake Total 2080 ml 1160 ml Balance 2080 ml 1160 ml Exam Neck: supple Respiratory: clear to auscultation Cardiovascular: regular rate and rhythm Gastrointestinal: soft Musculoskeletal: nl extremities to inspection Extremities: normal pulses Neurological: SUPERVISOR ALTERATION WORKROOM II-XII intact, nl mental status, nl speech, nl strength Results Result Diagram: 12/05/16 0442 12/05/16 0442 Results 24 hrs Laboratory Tests Test 12/05/16 04:42 White Blood Count 8.6 # Red Blood Count 3.78 L Hemoglobin 11.5 L Hematocrit 32.3 L Mean Corpuscular Volume 85.4 Mean Corpuscular Hemoglobin 30.4 Mean Corpuscular Hemoglobin Concent 35.6 Red Cell Distribution Width 12.4 Platelet Count 192 Mean Platelet Volume 9.4 Neutrophils % 91.5 H Lymphocytes % 5.3 L Monocytes % 2.4 Eosinophils % 0.0 Basophils % 0.1 Nucleated Red Blood Cells % 0.0 Neutrophils # 7.9 H Lymphocytes # 0.5 L Monocytes # 0.2 L Eosinophils # 0.0 Basophils # 0.0 Nucleated Red Blood Cells # 0.0 Sodium Level 144 Potassium Level 4.2 Chloride Level 107 Carbon Dioxide Level 25 Anion Gap 16 Blood Urea Nitrogen 14 Creatinine 0.62 Glucose Level 142 Calcium Level 9.4 Medications Medications Current Medications Dextrose/Sodium Chloride (D5-1/2ns) 1,000 ml @ 60 mls/hr [id number] IV Last administered on 12/04/16 23:30; Admin Dose 60 MLS/HR; Start 12/02/16 at 09:30 Pantoprazole (Protonix Iv) 40 mg DAILY@06 IV Last administered on 12/05/16 07: 08; Admin Dose 40 MG; Start 12/03/16 at 06:00 Ondansetron HCl (Zofran Inj) 4 mg Q6H PRN IV NAUSEA AND/OR VOMITING Last administered on 12/03/16 14:28; Admin Dose 4 MG; Start 12/02/16 at 13:00 Metoclopramide HCl (Reglan) 10 mg Q6H PRN IV NAUSEA AND/OR VOMITING Last administered on 12/03/16 18:04; Admin Dose 10 MG; Start 12/02/16 at 21:30 Amlodipine Besylate (Norvasc) 5 mg DAILY PO Last administered on 12/05/16 08: 49; Admin Dose 5 MG; Start 12/04/16 at 09:00 Hydromorphone HCl (Dilaudid) 2 mg Q3H PRN IV PAIN Last administered on 14:34; Admin Dose 2 MG; Start 12/04/16 at 10:00 Morphine Sulfate (Ms Contin (Er)) 30 mg BID PO Last administered on 12/05/16 08:49; Admin Dose 30 MG; Start 12/05/16 at 09:00 Dexamethasone (Decadron) 8 mg BID PO Last administered on 12/05/16 08:52; Admin Dose 8 MG; Start 12/05/16 at 09:00 Bisacodyl (Dulcolax Supp) 10 mg DAILY PRN [place] CONSTIPATION Last administered on 12/05/16 15:57; Admin Dose 10 MG; Start 12/05/16 at 16:00 Polyethylene Glycol (Miralax) 17 gm DAILY PO ; Start 12/05/16 at 16:00 Senna/Docusate Sodium (Senokot-S) 2 tab BID PO ; Start 12/05/16 at 21:00 DEON GRIFFIN MD Dec 05, 2016 17:28
--- NOTE | 2016-12-05 19:44 | CONS ---
Date/Time of Note Date/Time of Note DATE: 12/05/16 TIME: 19:43 Assessment/Plan Assessment/Plan Chief Complaint/Hosp Course Patient is a 61-year-old female with a history of breast cancer status post chemoradiation also has metastases to the bone. Patient has also had a bone surgery. Now for nausea vomiting and epigastric pain. No GI bleeding. Patient is constipated. 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 Nausea vomiting and epigastric pain, subsided 2. Breast cancer status post chemotherapy, metastases to the bone, to the liver 3. Soft tissue mass in the brain Plan PPI and Reglan Diet as tolerated by the patient Advance diet Oncology follow-up We will see patient as needed Consultation Date/Type/Reason Admit Date/Time Dec 02, 2016 at 04:06 Type of Consultation: Oncology 24 HR Interval Summary Constitutional: improved, no complaints Exam/Review of Systems Vital Signs Vitals Vital Signs Date Time Temp Pulse Resp B/P Pulse Ox O2 Delivery O2 Flow Rate FiO2 12/05/16 16:08 98.3 88 18 153/71 95 12/03/16 02:00 Room Air Intake and Output 12/04/16 12/04/16 12/05/16 15:00 23:00 07:00 Intake Total 2080 ml 1160 ml Balance 2080 ml 1160 ml Exam Constitutional: alert, oriented, well developed Psych: nl mood/affect, no complaints Head: atraumatic, normocephalic Eyes: EOMI, PERRL, nl conjunctiva, nl lids, nl sclera ENMT: nl external ears & nose, nl lips & teeth, nl nasal mucosa & septum Neck: non-tender, supple Respiratory: clear to auscultation, normal air movement Cardiovascular: nl pulses, regular rate and rhythm Gastrointestinal: nl liver, spleen, non-tender, soft Musculoskeletal: nl extremities to inspection, nl gait and stance Extremities: normal pulses Neurological: MILLINERY COPYIST II-XII intact, nl mental status, nl speech, nl strength Skin: nl turgor, No rash or lesions Lymph: nl lymph nodes Results Result Diagram: 12/05/16 0442 12/05/16 0442 Results 24 hrs Laboratory Tests Test 12/05/16 04:42 White Blood Count 8.6 # Red Blood Count 3.78 L Hemoglobin 11.5 L Hematocrit 32.3 L Mean Corpuscular Volume 85.4 Mean Corpuscular Hemoglobin 30.4 Mean Corpuscular Hemoglobin Concent 35.6 Red Cell Distribution Width 12.4 Platelet Count 192 Mean Platelet Volume 9.4 Neutrophils % 91.5 H Lymphocytes % 5.3 L Monocytes % 2.4 Eosinophils % 0.0 Basophils % 0.1 Nucleated Red Blood Cells % 0.0 Neutrophils # 7.9 H Lymphocytes # 0.5 L Monocytes # 0.2 L Eosinophils # 0.0 Basophils # 0.0 Nucleated Red Blood Cells # 0.0 Sodium Level 144 Potassium Level 4.2 Chloride Level 107 Carbon Dioxide Level 25 Anion Gap 16 Blood Urea Nitrogen 14 Creatinine 0.62 Glucose Level 142 Calcium Level 9.4 Medications Medications Current Medications Dextrose/Sodium Chloride (D5-1/2ns) 1,000 ml @ 60 mls/hr [id number] IV Last administered on 12/04/16 23:30; Admin Dose 60 MLS/HR; Start 12/02/16 at 09:30 Pantoprazole (Protonix Iv) 40 mg DAILY@06 IV Last administered on 12/05/16 07: 08; Admin Dose 40 MG; Start 12/03/16 at 06:00 Ondansetron HCl (Zofran Inj) 4 mg Q6H PRN IV NAUSEA AND/OR VOMITING Last administered on 12/03/16 14:28; Admin Dose 4 MG; Start 12/02/16 at 13:00 Metoclopramide HCl (Reglan) 10 mg Q6H PRN IV NAUSEA AND/OR VOMITING Last administered on 12/03/16 18:04; Admin Dose 10 MG; Start 12/02/16 at 21:30 Amlodipine Besylate (Norvasc) 5 mg DAILY PO Last administered on 12/05/16 08: 49; Admin Dose 5 MG; Start 12/04/16 at 09:00 Hydromorphone HCl (Dilaudid) 2 mg Q3H PRN IV PAIN Last administered on 14:34; Admin Dose 2 MG; Start 12/04/16 at 10:00 Morphine Sulfate (Ms Contin (Er)) 30 mg BID PO Last administered on 12/05/16 08:49; Admin Dose 30 MG; Start 12/05/16 at 09:00 Dexamethasone (Decadron) 8 mg BID PO Last administered on 12/05/16 08:52; Admin Dose 8 MG; Start 12/05/16 at 09:00 Bisacodyl (Dulcolax Supp) 10 mg DAILY PRN [place] CONSTIPATION Last administered on 12/05/16 15:57; Admin Dose 10 MG; Start 12/05/16 at 16:00 Polyethylene Glycol (Miralax) 17 gm DAILY PO ; Start 12/05/16 at 16:00 Senna/Docusate Sodium (Senokot-S) 2 tab BID PO ; Start 12/05/16 at 21:00 ELIOT PAYAN MD Dec 05, 2016 19:44
[2016-12-05 20:14] VITALS: BP 138/80; RESP 20
[2016-12-05] MEDS: SENNA/DOCUSATE NA (8.6MG/50MG) TAB PO SCH (20:40)
[2016-12-06] VITALS (20 sets, daily range): BP systolic 115–156; BP diastolic 61–98; PULSE 71–95; RESP 14–19
[2016-12-06] MEDS: DEXTROSE 5%-0.45% NACL 1,000 ML IV SCH ×3 (00:17→18:53)
--- NOTE | 2016-12-06 03:00 | RADRPT ---
PROCEDURE: MRI LUMBAR SPINE WITHOUT AND WITH CONTRAST CLINICAL INDICATION: 61-year-old female with back pain and lower extremity weakness. The patient has metastatic breast cancer. TECHNIQUE: An MRI of the lumbar spine was performed on a GE HDxt 3.0 Mague scanner utilizing the following sequences: Sagittal T1, sagittal T2, sagittal STIR, axial T1-weighted, axial T2-weighted s equences. In addition, sagittal T1 with fat saturation and axial T1-weighted images after the admini stration of 10 cc of Magnevist contrast material were obtained. The images reviewed on a [facility]st [facility]. COMPARISON: MRI lumbar spine November 20, 2016 CT abdomen/pelvis December 01, 2016. FINDINGS: The conus medullaris is visible at the lower L1 level. The lower thoracic cord and conus region are without evidence for abnormal signal intensity or contrast enhancement. The cauda quinine are witho ut evidence for abnormal clumping or enhancement to suggest arachnoiditis or drop metastases. There are extensive metastatic lesions identified throughout the lumbar spine similar in appearance to the patient's prior study. There is a small ovoid metastasis within the right peripheral anterio r T1 vertebral body measuring 10 x 8 mm. There is extensive metastatic disease throughout the L2 ve rtebral body more prominently on the left side extending into the pedicle. There is extensive left- sided L3 vertebral body metastasis extending into the pedicle. There is a small metastatic lesion w ithin the right inferior L4 vertebral body measuring 3 x 3 mm. There is extensive metastatic diseas e within the L5 vertebral body. Diffuse metastases are seen within the upper sacrum more prominentl y on the right side. At L1-2 the disk space has a normal height and signal intensity. There is no significant central or foraminal stenosis. At L2-3 there is mild decreased disk signal intensity without loss of height. There is no significa nt central or foraminal stenosis. At L3-4 there is decreased disk signal intensity without loss of height. There is mild left postero lateral disk bulge. There is minimal bilateral facet degenerative changes. There is mild left suba rticular recess stenosis. There is no significant central spinal stenosis. At L4-5 there is decreased disk signal intensity without loss of height. There is minimal diffuse d isk bulge and mild bilateral facet degenerative changes. This is resulting in minimal bilateral sub articular recess stenosis and minimal central spinal stenosis. At L5-S1 the disk space has a normal appearance. There is mild bilateral facet arthropathy. There is no significant central or foraminal stenosis. IMPRESSION: Extensive metastatic lesions throughout the lumbar spine as previously identified and without signif icant interval change compared to the patient's prior study from November 20, 2016. .Luis Velasquez MD, Date Time Electronically viewed and signed by .Luis Velasquez MD, on 12/06/2016 02:59 .M/
--- NOTE | 2016-12-06 03:18 | RADRPT ---
PROCEDURE: MRI SACROCOCCYGEAL WITHOUT AND WITH CONTRAST CLINICAL INDICATION: 61-year-old female with back pain and lower extremity weakness. The patient has metastatic breast cancer. TECHNIQUE: An MRI of the sacrococcygeal spine was performed on a GE HDxt 3.0 Mague scanner utiliz ing the following sequences: Sagittal T1, sagittal T2, axial T2, oblique axial, coronal proton densi ty with fat saturation. In addition, axial and sagittal T1-weighted images with fat saturation afte r the administration of 10 cc of Magnevist contrast material were obtained. The images reviewed on a PACS workstation. COMPARISON: MRI lumbar spine obtained concurrently; CT abdomen/pelvis December 01, 2016. FINDINGS: There is extensive metastatic disease again identified within the sacrum somewhat more prominently o n the right side. There are diffuse metastatic lesions identified throughout the iliac bone bilater ally. There is patchy signal intensity and enhancement within the right sacrum and findings worriso me for an impending pathologic insufficiency fracture. There is abnormal soft tissue extending into the lateral aspects of the right S1 and S2 neural foramina which is surrounding and compressing the exiting nerve roots. There are prominent perineural cysts within the mid sacrum with the largest me asuring approximately 1.4 x 1.5 x 1.4 cm. The inferior most aspect of the sacrum and coccyx are unr emarkable. IMPRESSION: 1. Extensive metastatic disease involving the iliac bone bilaterally and upper sacrum more prominen tly on the right side. 2. Soft tissue extending into the right S1 and S2 neural foramina with encroachment and compression of the exiting nerve roots. 3. Impending pathologic right sacral insufficiency fracture. 4. Multiple small mid sacral perineural cysts. .Luis Velasquez MD, MD Date Time Electronically viewed and signed by .Luis Velasquez MD, MD on 12/06/2016 03:18 .M/
[2016-12-06] MEDS: PANTOPRAZOLE 40 MG INJ IV SCH (05:34)
[2016-12-06 06:02] LABS: INR 1.05; PARTIAL THROMBOPLASTIN TIME 24.5 Sec (25.0-35.0); PROTIME 13.7 Sec (12.2-14.2); PT RATIO 1.1
--- NOTE | 2016-12-06 07:45 | QN ---
Documentation Comment Patient is well known to me, s/p T10-12 laminectomy for metastastic tumor with cord compression. From the standpoint of this prior surgery the patient has been doing well. She was re-admitted for nausea and vomiting. MRI of the thoracic and lumbar spine demonstrate stable but extensive metastatic disease throughout the spinal column, but no cord compression or significant canal stenosis is present and there is preserved spinal alignment and vertebral body height is maintained (ie no evidence of pathological fracture). Unfortunately, MRI brain shows several small foci of enhancement (right frontal, cerebellar, right mesial temporal, etc) suggestive of multi-focal brain metastases. None of these lesions requires surgical intervention as there are multiple small metastases without mass effect. My preference would be to consider stereotactic radiosurgery, though the cortical location of at least one of the mets may be consistent with leptomeningeal disease and so an LP to rule out the same could be considered. Alternatively, the patient could be treated with whole brain RT. In any event, if there is an urgent neurosurgical issue needing immediate intervention please contact the neurosurgeon on-call, as I am out of town and will be returning on December 18. Dr. Asif Garcia is covering for me as well. Otherwise, the patient is welcome to follow up with me as scheduled (she has an appointment to see me in mid-December). Thank you. LUCINA BAUER MD Dec 06, 2016 07:44
[2016-12-06] MEDS: morphine (ER) 30 MG TAB PO SCH ×3 (09:00→20:59)
[2016-12-06] MEDS: DEXAMETHASONE 4 MG TAB PO SCH ×3 (09:00→21:00)
[2016-12-06] MEDS: POLYETHYLENE GLYCOL 17 GM PACKET PO SCH (09:00)
[2016-12-06] MEDS: SENNA/DOCUSATE NA (8.6MG/50MG) TAB PO SCH ×3 (09:00→20:59)
[2016-12-06] MEDS: AMLODIPINE 5 MG TAB PO SCH ×2 (09:00→13:15)
--- NOTE | 2016-12-06 10:38 | CONS ---
Date/Time of Note Date/Time of Note DATE: 12/06/16 TIME: 10:35 Assessment/Plan Assessment/Plan Chief Complaint/Hosp Course 61 year old female with a history of pT2N1c ER+/IA+/her2 negative by FISH s/p left lumpectomy, AC x 4 then taxol x 12, radiation, then tamoxifen then switched to letrozole, with developed of metastatic disease to the right shoulder in 2015 then cord compression s/p T9-12 laminectomy ER 98%, IA neg, HER2 indeterminate (unable to run on surgical path), now on faslodex started 11/17 (PET/CT 11/01/16 shows liver mets, bony mets, not being considered visceral crisis as intact liver function). # Brain metastases - MRI brain showed that there is 4 mm enhancing lesion in the posterior medial aspect of the left cerebellum. There is 4 mm enhancing lesion in the right frontal subcortical region. An ovoid dural-based extra-axial enhancing lesion within the right ambient cistern along the inferior aspect of the tentorium measuring approximately 10 x 6 x 6 mm (AP x transverse x craniocaudal) and causing mild mass effect on the adjacent pontine isthmus. A dural-based extra-axial enhancing lesion along the left posterior aspect of falx in the which measuring approximately 9 x 2 x 8 mm (AP x transverse x craniocaudal). There is 8 mm enhancing lesion in the right parasagittal parietal bone. - patient already started on dexamethasone - Per Dr. Andrews, to whom patient is well known, patient is s/p T10-12 laminectomy for metastastic tumor with cord compression. From the standpoint of this prior surgery the patient has been doing well. She was re-admitted for nausea and vomiting. MRI of the thoracic and lumbar spine demonstrate stable but extensive metastatic disease throughout the spinal column, but no cord compression or significant canal stenosis is present and there is preserved spinal alignment and vertebral body height is maintained (ie no evidence of pathological fracture). Unfortunately, MRI brain shows several small foci of enhancement (right frontal, cerebellar, right mesial temporal, etc) suggestive of multi-focal brain metastases. None of these lesions requires surgical intervention as there are multiple small metastases without mass effect. My preference would be to consider stereotactic radiosurgery, though the cortical location of at least one of the mets may be consistent with leptomeningeal disease and so an LP to rule out the same could be considered. Alternatively, the patient could be treated with whole brain RT. In any event, if there is an urgent neurosurgical issue needing immediate intervention please contact the neurosurgeon on-call, as I am out of town and will be returning on December 18. Dr. Asif Garcia is covering for me as well. Otherwise, the patient is welcome to follow up with me as scheduled (she has an appointment to see me in mid- December). Thank you. - Discussed with Dr. David, who agreed that cortical met could be consistent with leptomeningeal disease. Will order LP to be done tomorrow. - Per patient, seen by Dr. Frank who said no surgical intervention indicated. - Discussed with Dr. Gale who evaluated patient. Per Dr. Gale, nausea is stable, and due to one focal lesion pushing on brainstem. Question of focal vs. nonfocal radiation therapy, consider stereotactic radiation vs. whole brain radiation. Pain in buttocks from sacral involvement, can radiation if think beneficial. MRI sacral spine showed extensive metastatic disease involving the iliac bone bilaterally and upper sacrum and soft tissue extending into the right S1 and S2 neural foramina with encroachment and compression of the exiting nerve roots. Once pain controlled, plan to set up in [place] for radiation as she has received radiation there in the past with Dr. Willis. Per Dr. Gale, Dr. Willis's office will call the patient for an appointment on Sunday. # Metastatic breast cancer - appreciate Dr. Claribel mckinney for pain control. CT 12/01/16 showed lytic mets in right ischium and right femur. MRI sacral spine showed soft tissue extending into the right S1 and S2 neural foramina with encroachment and compression of the exiting nerve roots. Patient on MS Contin and Dilaudid changed to PO. Consider neurontin for neuropathic component. - Received second dose of Faslodex 12/01, next due 12/15/16 then monthly - pending ibrance once path obtained to determine HER2 status. Plan for biopsy of soft tissue near left 11th rib per IR. - Also received zometa on 11/27/16. - MRI cervical spine 12/04/16 showed no definite epidural enhancement is identified. Heterogeneous bone marrow without abnormal bone marrow edema. There is no definite epidural enhancing tumor. Left paraspinal intramuscular enhancing lesion most compatible with a metastasis. Multilevel bilateral foraminal stenosis affecting the exiting left C6 and left C7 nerve roots as detailed above. No abnormal spinal cord enhancement. - MRI thoracic spine 12/04/16 showed no significant change. Multilevel osseous metastases. Stable epidural extension of tumor and spinal canal stenosis as detailed above. No acute compression fracture. Bilateral laminectomies are again noted at the T10 to T12 levels. Stable left paraspinal intramuscular lesions as detailed above. Multiple right hepatic lesion which incompletely evaluated. Metastases are not excluded. - pending MRI lumbar Extensive metastatic lesions throughout the lumbar spine as previously identified and without significant interval change compared to the patient's prior study from November 20, 2016. - MRI sacral spine showed 1. Extensive metastatic disease involving the iliac bone bilaterally and upper sacrum more prominently on the right side. 2. Soft tissue extending into the right S1 and S2 neural foramina with encroachment and compression of the exiting nerve roots. 3. Impending pathologic right sacral insufficiency fracture. 4. Multiple small mid sacral perineural cysts. # Impending pathologic right sacral insufficiency fracture. Pending ortho consult. # Nausea/vomiting, likely related to brain mets with mass effect vs. less likely GI, improved - appreciate GI recs, ADAT, reglan and PPI - continue IV fluids, anti-emetics - management of brain mets as above Dispo: Plan for bx today and LP tomorrow. Once pain controlled and cleared by ortho, ok to discharge home and f/u with Dr. Willis of [facility] and f/u with Dr. Virginia Sharp Problems: Consultation Date/Type/Reason Admit Date/Time Dec 02, 2016 at 04:06 Initial Consult Date 12/04/16 Type of Consultation: Oncology 24 HR Interval Summary Free Text/Dictation Patient's pain is better today. She wants to make sure that she is tolerating an oral pain regimen prior to going home. Exam/Review of Systems Vital Signs Vitals Vital Signs Date Time Temp Pulse Resp B/P Pulse Ox O2 Delivery O2 Flow Rate FiO2 12/06/16 07:40 98.9 76 19 130/78 100 12/03/16 02:00 Room Air Intake and Output 12/05/16 12/05/16 12/06/16 15:00 23:00 07:00 Intake Total 1300 ml 870 ml Output Total 1 ml Balance 1299 ml 870 ml Exam Constitutional: alert, oriented Head: normocephalic Eyes: nl conjunctiva Neck: supple Respiratory: clear to auscultation Cardiovascular: regular rate and rhythm Gastrointestinal: non-tender, soft Musculoskeletal: nl extremities to inspection Neurological: [employer] COORDINATOR II-XII intact Results Result Diagram: 12/05/1644112/05/16441 Results 24 hrs Laboratory Tests Test 12/06/16 04:51 Prothrombin Time 13.7 Prothrombin Time Ratio 1.1 INR International Normalized Ratio 1.05 Activated Partial Thromboplast Time 24.5 L Medications Medications Current Medications Dextrose/Sodium Chloride (D5-1/2ns) 1,000 ml @ 60 mls/hr [id number] IV Last administered on 12/06/16 00:17; Admin Dose 60 MLS/HR; Start 12/02/16 at 09:30 Pantoprazole (Protonix Iv) 40 mg DAILY@06 IV Last administered on 12/06/16 05: 34; Admin Dose 40 MG; Start 12/03/16 at 06:00 Ondansetron HCl (Zofran Inj) 4 mg Q6H PRN IV NAUSEA AND/OR VOMITING Last administered on 12/03/16 14:28; Admin Dose 4 MG; Start 12/02/16 at 13:00 Metoclopramide HCl (Reglan) 10 mg Q6H PRN IV NAUSEA AND/OR VOMITING Last administered on 12/03/16 18:04; Admin Dose 10 MG; Start 12/02/16 at 21:30 Amlodipine Besylate (Norvasc) 5 mg DAILY PO Last administered on 12/05/16 08: 49; Admin Dose 5 MG; Start 12/04/16 at 09:00 Hydromorphone HCl (Dilaudid) 2 mg Q3H PRN IV PAIN Last administered on 14:34; Admin Dose 2 MG; Start 12/04/16 at 10:00 Morphine Sulfate (Ms Contin (Er)) 30 mg BID PO Last administered on 12/05/16 20:40; Admin Dose 30 MG; Start 12/05/16 at 09:00 Dexamethasone (Decadron) 8 mg BID PO Last administered on 12/05/16 20:39; Admin Dose 8 MG; Start 12/05/16 at 09:00 Bisacodyl (Dulcolax Supp) 10 mg DAILY PRN [place] CONSTIPATION Last administered on 12/05/16 15:57; Admin Dose 10 MG; Start 12/05/16 at 16:00 Polyethylene Glycol (Miralax) 17 gm DAILY PO ; Start 12/05/16 at 16:00 Senna/Docusate Sodium (Senokot-S) 2 tab BID PO Last administered on 12/05/16 20:40; Admin Dose 2 TAB; Start 12/05/16 at 21:00 SPARKLE SINGH MD Dec 06, 2016 10:38
--- NOTE | 2016-12-06 12:16 | RADRPT ---
PROCEDURE: CT guided biopsy of the left posterior 11th rib. CLINICAL INDICATION: History of breast cancer. Lytic lesion of the left eleventh rib posteriorly. TECHNIQUE: Informed consent was obtained. The procedure, risks, benefits, complications and alternatives were e xplained to the patient. Risks including bleeding and infection were explained. The patient understo od and was willing to proceed. A procedural pause was performed. The patient's name, date of , and procedure to be performed were verified. One or more of the following dose reduction techni ques were used: Automated exposure control, adjustment of the mA and/or kV according to patient size , use of iterative reconstruction technique. Using local anesthetic, sterile technique and CT guidance, an 18-gauge automated core biopsy needle was used to biopsy the lytic lesion of the left eleventh rib posteriorly. Multiple passes were made . Adequate tissue was obtained according to the pathologist present during the procedure. The need le was removed. A postprocedural scan was performed. A dressing was applied. The patient tolerated procedure well. COMPARISON: CT scan dated 12/01/2016. FINDINGS: Initial images demonstrate the tip of the needle at the posterior margin of the left eleventh rib at the site of the lytic lesion. Post biopsy images demonstrate no immediate complication. IMPRESSION: 1. Successful CT guided biopsy of lytic lesion of left eleventh rib posteriorly. RPTAT: QQ .Arnold David MD, Date Time Electronically viewed and signed by .Arnold David MD, on 12/06/2016 12:16 .R/
[2016-12-06] MEDS: HYDROmorphONE 2 MG TAB PO PRN ×2 (13:09→22:22)
[2016-12-06] MEDS ORDERED: FENTAnyl 50 MCG/ML VIAL ONE (18:03)
[2016-12-06] MEDS ORDERED: MIDAZOLAM 1 MG/ML 2 ML INJ ONE (18:03)
[2016-12-06] MEDS ORDERED: SOD CHLORIDE 0.9% 500 ML ONE (18:03)
[2016-12-06] MEDS ORDERED: LIDOCAINE 1% (MDV) 20 ML INJ ONE (18:03)
--- NOTE | 2016-12-06 22:05 | PN ---
Date/Time of Note Date/Time of Note DATE: 12/06/16 TIME: 22:03 Assessment/Plan VTE Prophylaxis VTE Prophylaxis Intervention: other Lines/Catheters IV [facility] Urinary Cath still in place: No Assessment/Plan Chief Complaint/Hosp Course A/P METASTAITIC BREAST CA 1. Heterogeneous bone marrow without abnormal bone marrow edema. There is no definite epidural enhancing tumor. 2. Left paraspinal intramuscular enhancing lesion most compatible with a metastasis. 3. Multilevel bilateral foraminal stenosis affecting the exiting left C6 and left C7 nerve roots 4 s/p bone biopsy PLAN PER ONCOLOGY ck biopsy pain meds home health Problems: Subjective 24 Hr Interval Summary Subjective hx not possible: other (s/p bone biopsy,metastatic ca) Exam/Review of Systems Vital Signs Vitals Vital Signs Date Time Temp Pulse Resp B/P Pulse Ox O2 Delivery O2 Flow Rate FiO2 12/06/16 20:15 98.1 85 18 131/98 93 12/06/16 16:00 Room Air 12/06/16 12:15 2.0 Intake and Output 12/05/16 12/05/16 12/06/16 15:00 23:00 07:00 Intake Total 1300 ml 870 ml Output Total 1 ml Balance 1299 ml 870 ml Exam Respiratory: clear to auscultation Cardiovascular: regular rate and rhythm Gastrointestinal: soft Musculoskeletal: nl extremities to inspection Extremities: normal pulses Results Result Diagram: 12/05/16 0442 12/05/16 0442 Results 24 hrs Laboratory Tests Test 12/06/16 04:51 Prothrombin Time 13.7 Prothrombin Time Ratio 1.1 INR International Normalized Ratio 1.05 Activated Partial Thromboplast Time 24.5 L Medications Medications Current Medications Dextrose/Sodium Chloride (D5-1/2ns) 1,000 ml @ 60 mls/hr [id number] IV Last administered on 12/06/16 18:53; Admin Dose 60 MLS/HR; Start 12/02/16 at 09:30 Pantoprazole (Protonix Iv) 40 mg DAILY@06 IV Last administered on 12/06/16 05: 34; Admin Dose 40 MG; Start 12/03/16 at 06:00 Ondansetron HCl (Zofran Inj) 4 mg Q6H PRN IV NAUSEA AND/OR VOMITING Last administered on 12/03/16 14:28; Admin Dose 4 MG; Start 12/02/16 at 13:00 Metoclopramide HCl (Reglan) 10 mg Q6H PRN IV NAUSEA AND/OR VOMITING Last administered on 12/03/16 18:04; Admin Dose 10 MG; Start 12/02/16 at 21:30 Amlodipine Besylate (Norvasc) 5 mg DAILY PO Last administered on 12/06/16 13: 15; Admin Dose 5 MG; Start 12/04/16 at 09:00 Morphine Sulfate (Ms Contin (Er)) 30 mg BID PO Last administered on 12/06/16 20:59; Admin Dose 30 MG; Start 12/05/16 at 09:00 Dexamethasone (Decadron) 8 mg BID PO Last administered on 12/06/16 21:00; Admin Dose 8 MG; Start 12/05/16 at 09:00 Bisacodyl (Dulcolax Supp) 10 mg DAILY PRN [place] CONSTIPATION Last administered on 12/05/16 15:57; Admin Dose 10 MG; Start 12/05/16 at 16:00 Polyethylene Glycol (Miralax) 17 gm DAILY PO ; Start 12/05/16 at 16:00 Senna/Docusate Sodium (Senokot-S) 2 tab BID PO Last administered on 12/06/16 20:59; Admin Dose 2 TAB; Start 12/05/16 at 21:00 Hydromorphone HCl (Dilaudid) 2 mg Q3H PRN PO PAIN LEVEL 4-6 Last administered on 12/06/16 13:09; Admin Dose 2 MG; Start 12/06/16 at 12:30 DEON GRIFFIN MD Dec 06, 2016 22:05
[2016-12-07 01:57] VITALS: BP 137/79; PULSE 70; RESP 17
[2016-12-07 05:31] LABS: ABNORMAL IP MESSAGE 1; BASOPHILS % 0.1 % (0.0-2.0); HEMATOCRIT 32.2 % (37.0-47.0); HEMOGLOBIN 11.3 g/dl (12.0-16.0); LYMPHOCYTES # 0.4 10^3/ul (0.8-2.9); LYMPHOCYTES % 5.1 % (15.0-51.0); MEAN CORPUSCULAR HEMOGLOBIN 30.6 pg (29.0-33.0); MEAN CORPUSCULAR HGB CONC 35.1 g/dl (32.0-37.0); MEAN CORPUSCULAR VOLUME 87.3 fl (82.0-101.0); MEAN PLATELET VOLUME 9.8 fl (7.4-10.4); MONOCYTE # 0.3 10^3/ul (0.3-0.9); MONOCYTES % 4.3 % (0.0-11.0); NEUTROPHIL # 6.4 10^3/ul (1.6-7.5); NEUTROPHILS % 88.4 % (39.0-77.0); PLATELET COUNT 188 10^3/UL (140-415); RED BLOOD COUNT 3.69 10^6/ul (4.20-5.40); RED CELL DISTRIBUTION WIDTH 12.4 % (11.5-14.5); WHITE BLOOD COUNT 7.2 10^3/ul (4.8-10.8)
[2016-12-07 05:41] LABS: POSITIVE DIFF @See below
[2016-12-07] MEDS: DEXTROSE 5%-0.45% NACL 1,000 ML IV SCH ×2 (06:10→23:29)
[2016-12-07] MEDS: PANTOPRAZOLE 40 MG INJ IV SCH (06:28)
[2016-12-07 06:37] LABS: ALBUMIN 3.4 g/dl (3.3-4.9); ALBUMIN/GLOBULIN RATIO 1.47; BILIRUBIN,INDIRECT 0.2 mg/dl (0-1.1); BILIRUBIN,TOTAL 0.2 mg/dl (0.2-1.3); CALCIUM 8.5 mg/dl (8.4-10.2); CREATININE 0.61 mg/dl (0.44-1.00); TOTAL PROTEIN 5.7 g/dl (6.1-8.1)
[2016-12-07 07:29] VITALS: BP 135/77; RESP 20
[2016-12-07] MEDS: DEXAMETHASONE 4 MG TAB PO SCH ×2 (08:18→20:08)
[2016-12-07] MEDS: AMLODIPINE 5 MG TAB PO SCH (08:18)
[2016-12-07] MEDS: morphine (ER) 30 MG TAB PO SCH ×2 (08:18→20:08)
[2016-12-07] MEDS: POLYETHYLENE GLYCOL 17 GM PACKET PO SCH (08:21)
[2016-12-07] MEDS: SENNA/DOCUSATE NA (8.6MG/50MG) TAB PO SCH ×2 (08:21→20:08)
--- NOTE | 2016-12-07 09:53 | CONS ---
Date/Time of Note Date/Time of Note DATE: 12/07/16 TIME: 09:41 Consultation Date/Type/Reason Admit Date/Time Dec 02, 2016 at 04:06 Initial Consult Date 12/04/16 Type of Consultation: Palliative Care 24 HR Interval Summary Free Text/Dictation Metastatic breast cancer with bone ,liver brain metastases - detailed above. Impending pathologic right sacral insufficiency fracture. Pending ortho consult. 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 Hopefully most of this discomfort with be controlled with XRT Subjective hx not possible: other (Comortable, no acute distresss, cn intact, mottor intact, affect positive, oriented times three) Exam/Review of Systems Vital Signs Vitals Vital Signs Date Time Temp Pulse Resp B/P Pulse Ox O2 Delivery O2 Flow Rate FiO2 12/07/16 07:29 98.8 81 20 135/77 94 12/07/16 01:57 Room Air 12/06/16 12:15 2.0 Intake and Output 12/06/16 12/06/16 12/07/16 15:00 23:00 07:00 Intake Total 150 ml 1260 ml Balance 150 ml 1260 ml Exam Constitutional: alert, oriented Psych: nl mood/affect, no complaints Neurological: ASSISTANT FINANCE DIRECTOR II-XII intact, nl mental status, nl speech, nl strength Results Result Diagram: 12/07/16 0429 12/07/16 0429 Results 24 hrs Laboratory Tests Test 12/07/16 04:29 White Blood Count 7.2 Red Blood Count 3.69 L Hemoglobin 11.3 L Hematocrit 32.2 L Mean Corpuscular Volume 87.3 Mean Corpuscular Hemoglobin 30.6 Mean Corpuscular Hemoglobin Concent 35.1 Red Cell Distribution Width 12.4 Platelet Count 188 Mean Platelet Volume 9.8 Neutrophils % 88.4 H Lymphocytes % 5.1 L Monocytes % 4.3 Eosinophils % 0.0 Basophils % 0.1 Nucleated Red Blood Cells % 0.0 Neutrophils # 6.4 Lymphocytes # 0.4 L Monocytes # 0.3 Eosinophils # 0.0 Basophils # 0.0 Nucleated Red Blood Cells # 0.0 Sodium Level 145 H Potassium Level 4.0 Chloride Level 103 Carbon Dioxide Level 28 Anion Gap 18 H Blood Urea Nitrogen 16 Creatinine 0.61 Glucose Level 138 Calcium Level 8.5 Total Bilirubin 0.2 Direct Bilirubin 0.00 Indirect Bilirubin 0.2 Aspartate Amino Transf (AST/SGOT) 101 H Alanine Aminotransferase (ALT/SGPT) 35 Alkaline Phosphatase 75 Total Protein 5.7 L Albumin 3.4 Globulin 2.30 Albumin/Globulin Ratio 1.47 Medications Medications Current Medications Dextrose/Sodium Chloride (D5-1/2ns) 1,000 ml @ 60 mls/hr [id number] IV Last administered on 12/06/16 18:53; Admin Dose 60 MLS/HR; Start 12/02/16 at 09:30 Pantoprazole (Protonix Iv) 40 mg DAILY@06 IV Last administered on 12/07/16 06: 28; Admin Dose 40 MG; Start 12/03/16 at 06:00 Ondansetron HCl (Zofran Inj) 4 mg Q6H PRN IV NAUSEA AND/OR VOMITING Last administered on 12/03/16 14:28; Admin Dose 4 MG; Start 12/02/16 at 13:00 Metoclopramide HCl (Reglan) 10 mg Q6H PRN IV NAUSEA AND/OR VOMITING Last administered on 12/03/16 18:04; Admin Dose 10 MG; Start 12/02/16 at 21:30 Amlodipine Besylate (Norvasc) 5 mg DAILY PO Last administered on 12/07/16 08: 18; Admin Dose 5 MG; Start 12/04/16 at 09:00 Morphine Sulfate (Ms Contin (Er)) 30 mg BID PO Last administered on 12/07/16 08:18; Admin Dose 30 MG; Start 12/05/16 at 09:00 Dexamethasone (Decadron) 8 mg BID PO Last administered on 12/07/16 08:18; Admin Dose 8 MG; Start 12/05/16 at 09:00 Bisacodyl (Dulcolax Supp) 10 mg DAILY PRN IN CONSTIPATION Last administered on 12/05/16 15:57; Admin Dose 10 MG; Start 12/05/16 at 16:00 Polyethylene Glycol (Miralax) 17 gm DAILY PO ; Start 12/05/16 at 16:00 Senna/Docusate Sodium (Senokot-S) 2 tab BID PO Last administered on 12/06/16 20:59; Admin Dose 2 TAB; Start 12/05/16 at 21:00 Hydromorphone HCl (Dilaudid) 2 mg Q3H PRN PO PAIN LEVEL 4-6 Last administered on 12/06/16t 22:22; Admin Dose 2 MG; Start 12/06/16 at 12:30 JORDAN CHÁVEZ Dec 07, 2016 09:51
[2016-12-07 10:33] LABS: INR 0.97; PROTIME 12.9 Sec (12.2-14.2)
[2016-12-07 10:34] LABS: PARTIAL THROMBOPLASTIN TIME 25.4 Sec (25.0-35.0)
[2016-12-07 11:32] VITALS: BP 156/88; RESP 18
[2016-12-07 12:37] LABS: CSF COLOR COLORLESS; CSF#TUBE COUNT TUBE#4; CSF#TUBES REC'D 4
[2016-12-07 12:41] LABS: GLUCOSE,CSF 73 mg/dl (50-80)
--- NOTE | 2016-12-07 12:54 | CONS ---
Date/Time of Note Date/Time of Note DATE: 12/07/16 TIME: 12:52 Assessment/Plan Assessment/Plan Chief Complaint/Hosp Course 61 year old female with a history of pT2N1c ER+/VT+/her2 negative by FISH s/p left lumpectomy, AC x 4 then taxol x 12, radiation, then tamoxifen then switched to letrozole, with developed of metastatic disease to the right shoulder in 2015 then cord compression s/p T9-12 laminectomy ER 98%, VT neg, HER2 indeterminate (unable to run on surgical path), now on faslodex started 11/17 (PET/CT 11/01/16 shows liver mets, bony mets, not being considered visceral crisis as intact liver function). # Brain metastases - MRI brain showed that there is 4 mm enhancing lesion in the posterior medial aspect of the left cerebellum. There is 4 mm enhancing lesion in the right frontal subcortical region. An ovoid dural-based extra-axial enhancing lesion within the right ambient cistern along the inferior aspect of the tentorium measuring approximately 10 x 6 x 6 mm (AP x transverse x craniocaudal) and causing mild mass effect on the adjacent pontine isthmus. A dural-based extra-axial enhancing lesion along the left posterior aspect of falx in the which measuring approximately 9 x 2 x 8 mm (AP x transverse x craniocaudal). There is 8 mm enhancing lesion in the right parasagittal parietal bone. - patient already started on dexamethasone - Per Dr. Andrews, to whom patient is well known, patient is s/p T10-12 laminectomy for metastastic tumor with cord compression. From the standpoint of this prior surgery the patient has been doing well. She was re-admitted for nausea and vomiting. MRI of the thoracic and lumbar spine demonstrate stable but extensive metastatic disease throughout the spinal column, but no cord compression or significant canal stenosis is present and there is preserved spinal alignment and vertebral body height is maintained (ie no evidence of pathological fracture). Unfortunately, MRI brain shows several small foci of enhancement (right frontal, cerebellar, right mesial temporal, etc) suggestive of multi-focal brain metastases. None of these lesions requires surgical intervention as there are multiple small metastases without mass effect. My preference would be to consider stereotactic radiosurgery, though the cortical location of at least one of the mets may be consistent with leptomeningeal disease and so an LP to rule out the same could be considered. Alternatively, the patient could be treated with whole brain RT. In any event, if there is an urgent neurosurgical issue needing immediate intervention please contact the neurosurgeon on-call, as I am out of town and will be returning on December 18. Dr. Asif Garcia is covering for me as well. Otherwise, the patient is welcome to follow up with me as scheduled (she has an appointment to see me in mid- December). Thank you. - Discussed with Dr. David, who agreed that cortical met could be consistent with leptomeningeal disease. LP to be done today. - Per patient, seen by Dr. Frank who said no surgical intervention indicated. - Discussed with Dr. Gale who evaluated patient. Per Dr. Gale, nausea is stable, and due to one focal lesion pushing on brainstem. Question of focal vs. nonfocal radiation therapy, consider stereotactic radiation vs. whole brain radiation. Pain in buttocks from sacral involvement, can radiation if think beneficial. MRI sacral spine showed extensive metastatic disease involving the iliac bone bilaterally and upper sacrum and soft tissue extending into the right S1 and S2 neural foramina with encroachment and compression of the exiting nerve roots. Once pain controlled, plan to set up in [place] for radiation as she has received radiation there in the past with Dr. Willis. Per Dr. Gale, Dr. Willis's office will call the patient for an appointment on Sunday. # Metastatic breast cancer - appreciate Dr. Claribel mckinney for pain control. CT 12/01/16 showed lytic mets in right ischium and right femur. MRI sacral spine showed soft tissue extending into the right S1 and S2 neural foramina with encroachment and compression of the exiting nerve roots. Patient on MS Contin and Dilaudid changed to PO. Consider neurontin for neuropathic component. - Received second dose of Faslodex 12/01, next due 12/15/16 then monthly - pending ibrance once path obtained to determine HER2 status. s/p biopsy of soft tissue near left 11th rib per IR, pending results. - Also received zometa on 11/27/16. - MRI cervical spine 12/04/16 showed no definite epidural enhancement is identified. Heterogeneous bone marrow without abnormal bone marrow edema. There is no definite epidural enhancing tumor. Left paraspinal intramuscular enhancing lesion most compatible with a metastasis. Multilevel bilateral foraminal stenosis affecting the exiting left C6 and left C7 nerve roots as detailed above. No abnormal spinal cord enhancement. - MRI thoracic spine 12/04/16 showed no significant change. Multilevel osseous metastases. Stable epidural extension of tumor and spinal canal stenosis as detailed above. No acute compression fracture. Bilateral laminectomies are again noted at the T10 to T12 levels. Stable left paraspinal intramuscular lesions as detailed above. Multiple right hepatic lesion which incompletely evaluated. Metastases are not excluded. - pending MRI lumbar Extensive metastatic lesions throughout the lumbar spine as previously identified and without significant interval change compared to the patient's prior study from November 20, 2016. - MRI sacral spine showed 1. Extensive metastatic disease involving the iliac bone bilaterally and upper sacrum more prominently on the right side. 2. Soft tissue extending into the right S1 and S2 neural foramina with encroachment and compression of the exiting nerve roots. 3. Impending pathologic right sacral insufficiency fracture. 4. Multiple small mid sacral perineural cysts. # Impending pathologic right sacral insufficiency fracture. Pending ortho consult. # Nausea/vomiting, likely related to brain mets with mass effect vs. less likely GI, improved - appreciate GI recs, ADAT, reglan and PPI - continue IV fluids, anti-emetics - management of brain mets as above Dispo: Plan for LP today. Once pain controlled and cleared by ortho, ok to discharge home and f/u with Dr. Willis of rad onc and f/u with Dr. Virginia Sharp Problems: Consultation Date/Type/Reason Admit Date/Time Dec 02, 2016 at 04:06 Initial Consult Date 12/04/16 Type of Consultation: Oncology 24 HR Interval Summary Free Text/Dictation Patient feeling better today, pain fairly well controlled. Exam/Review of Systems Vital Signs Vitals Vital Signs Date Time Temp Pulse Resp B/P Pulse Ox O2 Delivery O2 Flow Rate FiO2 12/07/16 11:32 98.3 74 18 156/88 95 12/07/16 01:57 Room Air 12/06/16 12:15 2.0 Intake and Output 12/06/16 12/06/16 12/07/16 15:00 23:00 07:00 Intake Total 150 ml 1260 ml Balance 150 ml 1260 ml Exam Constitutional: alert, oriented Head: normocephalic Eyes: nl conjunctiva Neck: supple Respiratory: clear to auscultation Cardiovascular: regular rate and rhythm Gastrointestinal: non-tender, soft Musculoskeletal: nl extremities to inspection Neurological: DEICER INSPECTOR ELECTRIC II-XII intact Results Result Diagram: 12/07/1642812/07/16428 Results 24 hrs Laboratory Tests Test 12/07/16 04:26 12/07/16 04:29 12/07/16 10:45 Prothrombin Time 12.9 Prothrombin Time Ratio 1.0 INR International Normalized Ratio 0.97 Activated Partial Thromboplast Time 25.4 White Blood Count 7.2 Red Blood Count 3.69 L Hemoglobin 11.3 L Hematocrit 32.2 L Mean Corpuscular Volume 87.3 Mean Corpuscular Hemoglobin 30.6 Mean Corpuscular Hemoglobin Concent 35.1 Red Cell Distribution Width 12.4 Platelet Count 188 Mean Platelet Volume 9.8 Neutrophils % 88.4 H Lymphocytes % 5.1 L Monocytes % 4.3 Eosinophils % 0.0 Basophils % 0.1 Nucleated Red Blood Cells % 0.0 Neutrophils # 6.4 Lymphocytes # 0.4 L Monocytes # 0.3 Eosinophils # 0.0 Basophils # 0.0 Nucleated Red Blood Cells # 0.0 Sodium Level 145 H Potassium Level 4.0 Chloride Level 103 Carbon Dioxide Level 28 Anion Gap 18 H Blood Urea Nitrogen 16 Creatinine 0.61 Glucose Level 138 Calcium Level 8.5 Total Bilirubin 0.2 Direct Bilirubin 0.00 Indirect Bilirubin 0.2 Aspartate Amino Transf (AST/SGOT) 101 H Alanine Aminotransferase (ALT/SGPT) 35 Alkaline Phosphatase 75 Total Protein 5.7 L Albumin 3.4 Globulin 2.30 Albumin/Globulin Ratio 1.47 CSF Tubes Submitted 4 CSF Volume 4.0 CSF Appearance CLEAR CSF Color COLORLESS CSF WBC 4 CSF RBC 0 CSF Cell Count Tube # TUBE#4 CSF Mononuclear Cells % (Auto) 50.0 CSF Polynuclear WBCs (%) 50.0 Medications Medications Current Medications Dextrose/Sodium Chloride (D5-1/2ns) 1,000 ml @ 60 mls/hr [id number] IV Last administered on 12/06/16 18:53; Admin Dose 60 MLS/HR; Start 12/02/16 at 09:30 Pantoprazole (Protonix Iv) 40 mg DAILY@06 IV Last administered on 12/07/16 06: 28; Admin Dose 40 MG; Start 12/03/16 at 06:00 Ondansetron HCl (Zofran Inj) 4 mg Q6H PRN IV NAUSEA AND/OR VOMITING Last administered on 12/03/16 14:28; Admin Dose 4 MG; Start 12/02/16 at 13:00 Metoclopramide HCl (Reglan) 10 mg Q6H PRN IV NAUSEA AND/OR VOMITING Last administered on 12/03/16 18:04; Admin Dose 10 MG; Start 12/02/16 at 21:30 Amlodipine Besylate (Norvasc) 5 mg DAILY PO Last administered on 12/07/16 08: 18; Admin Dose 5 MG; Start 12/04/16 at 09:00 Morphine Sulfate (Ms Contin (Er)) 30 mg BID PO Last administered on 12/07/16 08:18; Admin Dose 30 MG; Start 12/05/16 at 09:00 Dexamethasone (Decadron) 8 mg BID PO Last administered on 12/07/16 08:18; Admin Dose 8 MG; Start 12/05/16 at 09:00 Bisacodyl (Dulcolax Supp) 10 mg DAILY PRN [place] CONSTIPATION Last administered on 12/05/16 15:57; Admin Dose 10 MG; Start 12/05/16 at 16:00 Polyethylene Glycol (Miralax) 17 gm DAILY PO ; Start 12/05/16 at 16:00 Senna/Docusate Sodium (Senokot-S) 2 tab BID PO Last administered on 12/06/16 20:59; Admin Dose 2 TAB; Start 12/05/16 at 21:00 Hydromorphone HCl (Dilaudid) 2 mg Q3H PRN PO PAIN LEVEL 4-6 Last administered on 12/06/16 22:22; Admin Dose 2 MG; Start 12/06/16 at 12:30 SPARKLE SINGH MD Dec 07, 2016 12:54
--- NOTE | 2016-12-07 17:54 | RADRPT ---
PROCEDURE: Fluoroscopic guided lumbar puncture. CLINICAL INDICATION: Breast cancer with possible leptomeningeal metastatic disease. Headache. TECHNIQUE: Prior to the procedure, informed consent was obtained. Risks including bleeding and in fection were explained to the patient. The patient understood and was willing to proceed. A proced ural pause was performed. The patient's name, date of , and procedure to be performed were lucita ified. Using local anesthetic, sterile technique, and fluoroscopic guidance, a 22-gauge spinal needle was a dvanced into the thecal sac at the L5-S1 level. 4 mL of clear cerebrospinal fluid was aspirated a nd sent for laboratory analysis. The needle was removed. A dressing was applied. The patient tole rated the procedure well. A total of 0.1 minutes of fluoroscopy time was used. 2 images were obtained with image intensifier. COMPARISON: None. FINDINGS: Images demonstrate the needle at the L5-S1 level in the thecal sac. IMPRESSION: Satisfactory fluoroscopic guided lumbar puncture. The opening pressure was 10 cm of water. RPTAT: QQ .Arnold David MD, Date Time Electronically viewed and signed by .Arnold David MD, on 12/07/2016 17:54 .R/
[2016-12-07] MEDS: BISACODYL 10 MG SUPP PR PRN (18:45)
[2016-12-07 19:51] VITALS: BP 150/86; RESP 20
--- NOTE | 2016-12-07 20:08 | PN ---
Date/Time of Note Date/Time of Note DATE: 12/07/16 TIME: 20:08 Assessment/Plan VTE Prophylaxis VTE Prophylaxis Intervention: other Lines/Catheters IV Catheter Type (from Nrs): Peripheral IV Urinary Cath still in place: No Assessment/Plan Chief Complaint/Hosp Course A/P METASTAITIC BREAST CA 1. Heterogeneous bone marrow without abnormal bone marrow edema. There is no definite epidural enhancing tumor. 2. Left paraspinal intramuscular enhancing lesion most compatible with a metastasis. 3. Multilevel bilateral foraminal stenosis affecting the exiting left C6 and left C7 nerve roots 4 s/p bone biopsy PLAN PER ONCOLOGY ck biopsy pain meds home health OUT PT Problems: Subjective 24 Hr Interval Summary Subjective hx not possible: other (STILL BACK PAIN+) Exam/Review of Systems Vital Signs Vitals Vital Signs Date Time Temp Pulse Resp B/P Pulse Ox O2 Delivery O2 Flow Rate FiO2 12/07/16 19:51 98.3 86 20 150/86 98 12/07/16 01:57 Room Air 12/06/16 12:15 2.0 Intake and Output 12/06/16 12/06/16 12/07/16 15:00 23:00 07:00 Intake Total 150 ml 1260 ml Balance 150 ml 1260 ml Exam Respiratory: clear to auscultation Cardiovascular: regular rate and rhythm Gastrointestinal: bowel sounds (+), soft Musculoskeletal: nl extremities to inspection Extremities: normal pulses Results Result Diagram: 12/07/16 0429 12/07/16 0429 Results 24 hrs Laboratory Tests Test 12/07/16 04:26 12/07/16 04:29 12/07/16 10:45 Prothrombin Time 12.9 Prothrombin Time Ratio 1.0 INR International Normalized Ratio 0.97 Activated Partial Thromboplast Time 25.4 White Blood Count 7.2 Red Blood Count 3.69 L Hemoglobin 11.3 L Hematocrit 32.2 L Mean Corpuscular Volume 87.3 Mean Corpuscular Hemoglobin 30.6 Mean Corpuscular Hemoglobin Concent 35.1 Red Cell Distribution Width 12.4 Platelet Count 188 Mean Platelet Volume 9.8 Neutrophils % 88.4 H Lymphocytes % 5.1 L Monocytes % 4.3 Eosinophils % 0.0 Basophils % 0.1 Nucleated Red Blood Cells % 0.0 Neutrophils # 6.4 Lymphocytes # 0.4 L Monocytes # 0.3 Eosinophils # 0.0 Basophils # 0.0 Nucleated Red Blood Cells # 0.0 Sodium Level 145 H Potassium Level 4.0 Chloride Level 103 Carbon Dioxide Level 28 Anion Gap 18 H Blood Urea Nitrogen 16 Creatinine 0.61 Glucose Level 138 Calcium Level 8.5 Total Bilirubin 0.2 Direct Bilirubin 0.00 Indirect Bilirubin 0.2 Aspartate Amino Transf (AST/SGOT) 101 H Alanine Aminotransferase (ALT/SGPT) 35 Alkaline Phosphatase 75 Total Protein 5.7 L Albumin 3.4 Globulin 2.30 Albumin/Globulin Ratio 1.47 CSF Tubes Submitted 4 CSF Volume 4.0 CSF Appearance CLEAR CSF Color COLORLESS CSF WBC 4 CSF RBC 0 CSF Cell Count Tube # TUBE#4 CSF Mononuclear Cells % (Auto) 50.0 CSF Polynuclear WBCs (%) 50.0 CSF Glucose 73 CSF Total Protein 127 H Medications Medications Current Medications Dextrose/Sodium Chloride (D5-1/2ns) 1,000 ml @ 60 mls/hr [id number] IV Last administered on 12/06/16 18:53; Admin Dose 60 MLS/HR; Start 12/02/16 at 09:30 Pantoprazole (Protonix Iv) 40 mg DAILY@06 IV Last administered on 12/07/16 06: 28; Admin Dose 40 MG; Start 12/03/16 at 06:00 Ondansetron HCl (Zofran Inj) 4 mg Q6H PRN IV NAUSEA AND/OR VOMITING Last administered on 12/03/16 14:28; Admin Dose 4 MG; Start 12/02/16 at 13:00 Metoclopramide HCl (Reglan) 10 mg Q6H PRN IV NAUSEA AND/OR VOMITING Last administered on 12/03/16 18:04; Admin Dose 10 MG; Start 12/02/16 at 21:30 Amlodipine Besylate (Norvasc) 5 mg DAILY PO Last administered on 12/07/16 08: 18; Admin Dose 5 MG; Start 12/04/16 at 09:00 Morphine Sulfate (Ms Contin (Er)) 30 mg BID PO Last administered on 12/07/16 08:18; Admin Dose 30 MG; Start 12/05/16 at 09:00 Dexamethasone (Decadron) 8 mg BID PO Last administered on 12/07/16 08:18; Admin Dose 8 MG; Start 12/05/16 at 09:00 Bisacodyl (Dulcolax Supp) 10 mg DAILY PRN [place] CONSTIPATION Last administered on 12/07/16 18:45; Admin Dose 10 MG; Start 12/05/16 at 16:00 Polyethylene Glycol (Miralax) 17 gm DAILY PO ; Start 12/05/16 at 16:00 Senna/Docusate Sodium (Senokot-S) 2 tab BID PO Last administered on 12/06/16 20:59; Admin Dose 2 TAB; Start 12/05/16 at 21:00 Hydromorphone HCl (Dilaudid) 2 mg Q3H PRN PO PAIN LEVEL 4-6 Last administered on 12/06/16 22:22; Admin Dose 2 MG; Start 12/06/16 at 12:30 DEON GRIFFIN MD Dec 07, 2016 20:08
[2016-12-08] MEDS: PANTOPRAZOLE 40 MG INJ IV SCH (05:51)
--- NOTE | 2016-12-08 06:50 | CONS ---
DATE OF ADMISSION: 12/02/2016 DATE OF CONSULTATION: 12/03/[address] Baljinder Bowser: Thank you for referring . HISTORY OF PRESENT ILLNESS: Ms. Stephens is a 61-year-old female originally from [place] with regard to her history of breast cancer, vomiting and dizziness. This patient's history originally goes back to 2011 when she had a left lumpectomy showing a T2 N1c M0 breast cancer which was ER and HI positive and HER2-negative. She had lumpectomy, adjuvant chemotherapy with Adriamycin and Cytoxan and then Taxol followed by radiation then tamoxifen then later switched to letrozole. She developed metastasis to the right shoulder in 2015 and had cord compression at T9-T12 levels. She had laminectomy followed by radiation. The patient is now on Faslodex since 11/2016. Her PET scan showed liver and bony metastasis. The patient was admitted to the hospital on 12/02 since she has been complaining of severe dizziness and vomiting. She had some headaches in the beginning but she states it is better. Her CT of the brain without contrast done yesterday showed an extra- axial mass with mass effect on the right aspect of right pontine isthmus region. Her CT of the abdomen and pelvis with contrast showed lung metastasis, multiple bone lesions. It is very kind of you to ask me to see the patient. PAST MEDICAL HISTORY: She has no history of hypertension, heart disease. No history of diabetes. PAST SURGICAL HISTORY: As mentioned above. Had a left breast lumpectomy and laminectomy of the lower T-spine. SOCIAL HISTORY: She never smoked and does not drink alcohol. FAMILY HISTORY: No history of breast or ovarian cancer or other cancer in the immediate family. REVIEW OF SYSTEMS: A 10-point review of systems was done and are unremarkable except as mentioned above. PHYSICAL EXAMINATION: GENERAL APPEARANCE: A moderately built female who is alert, oriented, cooperative. VITAL SIGNS: She is afebrile and vital signs unremarkable. HEENT: Head normocephalic. Eyes: PERRLA, EOM normal. NECK: Supple without any abnormal masses or pulse. BREASTS: Symmetrical breasts. The right breast normal. The left breast is smaller and has evidence of lumpectomy. LYMPH NODES: No palpable lymph nodes. ABDOMEN: Soft. No masses. EXTERNAL GENITALIA: Normal. EXTREMITIES: No edema, clubbing or cyanosis. NEUROLOGIC: Higher function, speech. Cranial nerves normal. She has mild ataxia and then has slightly difficult gait. Other systems unremarkable. LABORATORY: Her CBC and CMP were unremarkable except for elevated AST. IMPRESSION: 1. T2 N1 carcinoma of the left breast, ER and HI positive, HER2- negative, status post lumpectomy, adjuvant chemotherapy and radiation in 2011. 2. Development of wide-spread bone metastasis with involvement of T9-12, status post laminectomy plus radiation. 3. History of vomiting and mild headaches since the last few days with an extra-axial lesion near the right isthmus, most likely brain metastasis. PLAN: This patient with multiple metastasis to the liver and bone now also has evidence of lung metastasis. In addition, MRI of the brain shows an extra-axial lesion with mass effect on the right pontine isthmus region. This may be causing her ataxia. She most likely has a brain metastasis. I have ordered an MRA of the brain with IV contrast. I will review that. Her oncologist, Dr. Schwartz, will be seeing her tomorrow. She also might need Decadron and I will start her on that. Thanks again very much. Dictated By: Fausto Ford MD /[email or web address] /Document#: [id number]
[2016-12-08 07:00] VITALS: BP 136/81; RESP 20
[2016-12-08] MEDS: POLYETHYLENE GLYCOL 17 GM PACKET PO SCH (08:43)
[2016-12-08] MEDS: morphine (ER) 30 MG TAB PO SCH ×2 (08:44→20:41)
[2016-12-08] MEDS: DEXAMETHASONE 4 MG TAB PO SCH ×2 (08:44→20:41)
[2016-12-08] MEDS: SENNA/DOCUSATE NA (8.6MG/50MG) TAB PO SCH ×2 (08:44→20:41)
[2016-12-08] MEDS: AMLODIPINE 5 MG TAB PO SCH (08:45)
--- NOTE | 2016-12-08 10:01 | CONS ---
Date/Time of Note Date/Time of Note DATE: 12/08/16 TIME: 09:59 Assessment/Plan Assessment/Plan Chief Complaint/Hosp Course 61 year old female with a history of pT2N1c ER+/OR+/her2 negative by FISH s/p left lumpectomy, AC x 4 then taxol x 12, radiation, then tamoxifen then switched to letrozole, with developed of metastatic disease to the right shoulder in 2016 then cord compression s/p T9-12 laminectomy ER 98%, OR neg, HER2 indeterminate (unable to run on surgical path), now on faslodex started 11/17 (PET/CT 11/01/16 shows liver mets, bony mets, not being considered visceral crisis as intact liver function). # Brain metastases - MRI brain showed that there is 4 mm enhancing lesion in the posterior medial aspect of the left cerebellum. There is 4 mm enhancing lesion in the right frontal subcortical region. An ovoid dural-based extra-axial enhancing lesion within the right ambient cistern along the inferior aspect of the tentorium measuring approximately 10 x 6 x 6 mm (AP x transverse x craniocaudal) and causing mild mass effect on the adjacent pontine isthmus. A dural-based extra-axial enhancing lesion along the left posterior aspect of falx in the which measuring approximately 9 x 2 x 8 mm (AP x transverse x craniocaudal). There is 8 mm enhancing lesion in the right parasagittal parietal bone. - patient already started on dexamethasone - Per Dr. Andrews, to whom patient is well known, patient is s/p T10-12 laminectomy for metastastic tumor with cord compression. From the standpoint of this prior surgery the patient has been doing well. She was re-admitted for nausea and vomiting. MRI of the thoracic and lumbar spine demonstrate stable but extensive metastatic disease throughout the spinal column, but no cord compression or significant canal stenosis is present and there is preserved spinal alignment and vertebral body height is maintained (ie no evidence of pathological fracture). Unfortunately, MRI brain shows several small foci of enhancement (right frontal, cerebellar, right mesial temporal, etc) suggestive of multi-focal brain metastases. None of these lesions requires surgical intervention as there are multiple small metastases without mass effect. My preference would be to consider stereotactic radiosurgery, though the cortical location of at least one of the mets may be consistent with leptomeningeal disease and so an LP to rule out the same could be considered. Alternatively, the patient could be treated with whole brain RT. In any event, if there is an urgent neurosurgical issue needing immediate intervention please contact the neurosurgeon on-call, as I am out of town and will be returning on December 18. Dr. Asif Garcia is covering for me as well. Otherwise, the patient is welcome to follow up with me as scheduled (she has an appointment to see me in mid- December). Thank you. - Discussed with Dr. David, who agreed that cortical met could be consistent with leptomeningeal disease. s/p LP 12/07/16, f/u results. - Per patient, seen by Dr. Frank who said no surgical intervention indicated. - Discussed with Dr. Gale who evaluated patient. Per Dr. Gale, nausea is stable, and due to one focal lesion pushing on brainstem. Question of focal vs. nonfocal radiation therapy, consider stereotactic radiation vs. whole brain radiation. Pain in buttocks from sacral involvement, can radiation if think beneficial. MRI sacral spine showed extensive metastatic disease involving the iliac bone bilaterally and upper sacrum and soft tissue extending into the right S1 and S2 neural foramina with encroachment and compression of the exiting nerve roots. Once pain controlled, plan to set up in [place] for radiation as she has received radiation there in the past with Dr. Willis. Per Dr. Gale, Dr. Willis's office will call the patient for an appointment on Sunday. # Metastatic breast cancer - appreciate Dr. Claribel mckinney for pain control. CT 12/01/16 showed lytic mets in right ischium and right femur. MRI sacral spine showed soft tissue extending into the right S1 and S2 neural foramina with encroachment and compression of the exiting nerve roots. Patient on MS Contin and Dilaudid changed to PO. Consider neurontin for neuropathic component. - Received second dose of Faslodex 12/01, next due 12/15/16 then monthly - pending ibrance once path obtained to determine HER2 status. s/p biopsy of soft tissue near left 11th rib per IR, pending results. Per path, have scanty tissue from biopsy of soft tissue mass. Will try to run HER2 abel. Dr. Davdi had wanted to avoid liver biopsy as soft tissue mass safer, but if unable to obtain HER2 status, will consider liver biopsy at that time. - Also received zometa on 11/27/16. - MRI cervical spine 12/04/16 showed no definite epidural enhancement is identified. Heterogeneous bone marrow without abnormal bone marrow edema. There is no definite epidural enhancing tumor. Left paraspinal intramuscular enhancing lesion most compatible with a metastasis. Multilevel bilateral foraminal stenosis affecting the exiting left C6 and left C7 nerve roots as detailed above. No abnormal spinal cord enhancement. - MRI thoracic spine 12/04/16 showed no significant change. Multilevel osseous metastases. Stable epidural extension of tumor and spinal canal stenosis as detailed above. No acute compression fracture. Bilateral laminectomies are again noted at the T10 to T12 levels. Stable left paraspinal intramuscular lesions as detailed above. Multiple right hepatic lesion which incompletely evaluated. Metastases are not excluded. - pending MRI lumbar Extensive metastatic lesions throughout the lumbar spine as previously identified and without significant interval change compared to the patient's prior study from November 20, 2016. - MRI sacral spine showed 1. Extensive metastatic disease involving the iliac bone bilaterally and upper sacrum more prominently on the right side. 2. Soft tissue extending into the right S1 and S2 neural foramina with encroachment and compression of the exiting nerve roots. 3. Impending pathologic right sacral insufficiency fracture. 4. Multiple small mid sacral perineural cysts. # Impending pathologic right sacral insufficiency fracture. Pending ortho consult. # Nausea/vomiting, likely related to brain mets with mass effect vs. less likely GI, improved - appreciate GI recs, ADAT, reglan and PPI - continue IV fluids, anti-emetics - management of brain mets as above Dispo: Once pain controlled and cleared by ortho, ok to discharge home and f/u with Dr. Willis of [facility] onc and f/u with Dr. Virginia Sharp Problems: Consultation Date/Type/Reason Admit Date/Time Dec 02, 2016 at 04:06 Initial Consult Date 12/04/16 Type of Consultation: Oncology 24 HR Interval Summary Free Text/Dictation Patient states pain level is acceptable at this time. Pending evaluation by ortho. Exam/Review of Systems Vital Signs Vitals Vital Signs Date Time Temp Pulse Resp B/P Pulse Ox O2 Delivery O2 Flow Rate FiO2 12/08/16 07:00 97.9 78 20 136/81 98 12/07/16 01:57 Room Air 12/06/16 12:15 2.0 Intake and Output 12/07/16 12/07/16 12/08/16 14:59 22:59 06:59 Intake Total 240 ml 740 ml 840 ml Balance 240 ml 740 ml 840 ml Exam Constitutional: alert, oriented Head: normocephalic Eyes: nl conjunctiva Neck: supple Respiratory: clear to auscultation Cardiovascular: regular rate and rhythm Gastrointestinal: non-tender, soft Musculoskeletal: nl extremities to inspection Neurological: LEASE ADMINISTRATION ANALYST II-XII intact Results Result Diagram: 12/07/1642812/07/16428 Results 24 hrs Laboratory Tests Test 12/07/16 10:45 CSF Tubes Submitted 4 CSF Volume 4.0 CSF Appearance CLEAR CSF Color COLORLESS CSF WBC 4 CSF RBC 0 CSF Cell Count Tube # TUBE#4 CSF Mononuclear Cells % (Auto) 50.0 CSF Polynuclear WBCs (%) 50.0 CSF Glucose 73 CSF Total Protein 127 H Medications Medications Current Medications Dextrose/Sodium Chloride (D5-1/2ns) 1,000 ml @ 60 mls/hr [id number] IV Last administered on 12/07/16 23:29; Admin Dose 60 MLS/HR; Start 12/02/16 at 09:30 Pantoprazole (Protonix Iv) 40 mg DAILY@06 IV Last administered on 12/08/16 05: 51; Admin Dose 40 MG; Start 12/03/16 at 06:00 Ondansetron HCl (Zofran Inj) 4 mg Q6H PRN IV NAUSEA AND/OR VOMITING Last administered on 12/03/16 14:28; Admin Dose 4 MG; Start 12/02/16 at 13:00 Metoclopramide HCl (Reglan) 10 mg Q6H PRN IV NAUSEA AND/OR VOMITING Last administered on 12/03/16 18:04; Admin Dose 10 MG; Start 12/02/16 at 21:30 Amlodipine Besylate (Norvasc) 5 mg DAILY PO Last administered on 12/08/16 08: 45; Admin Dose 5 MG; Start 12/04/16 at 09:00 Morphine Sulfate (Ms Contin (Er)) 30 mg BID PO Last administered on 12/08/16 08:44; Admin Dose 30 MG; Start 12/05/16 at 09:00 Dexamethasone (Decadron) 8 mg BID PO Last administered on 12/08/16 08:44; Admin Dose 8 MG; Start 12/05/16 at 09:00 Bisacodyl (Dulcolax Supp) 10 mg DAILY PRN [place] CONSTIPATION Last administered on 12/07/16 18:45; Admin Dose 10 MG; Start 12/05/16 at 16:00 Polyethylene Glycol (Miralax) 17 gm DAILY PO Last administered on 12/08/16 08: 43; Admin Dose 17 GM; Start 12/05/16 at 16:00 Senna/Docusate Sodium (Senokot-S) 2 tab BID PO Last administered on 12/08/16 08:44; Admin Dose 2 TAB; Start 12/05/16 at 21:00 Hydromorphone HCl (Dilaudid) 2 mg Q3H PRN PO PAIN LEVEL 4-6 Last administered on 12/06/16 22:22; Admin Dose 2 MG; Start 12/06/16 at 12:30 TOSPARKLE MD Dec 08, 2016 10:01
--- NOTE | 2016-12-08 10:34 | PN ---
Date/Time of Note Date/Time of Note DATE: 12/08/16 TIME: 10:30 Assessment/Plan VTE Prophylaxis VTE Prophylaxis Intervention: ambulation Lines/Catheters [facility] Peripheral IV Urinary Cath still in place: No Assessment/Plan Chief Complaint/Hosp Course 1. METASTATIC BREAST CA left 2. Left paraspinal intramuscular enhancing lesion most compatible with a metastasis. 3. Multilevel bilateral foraminal stenosis affecting the exiting left C6 and left C7 nerve roots 4. s/p bone biopsy 5. constipation Problems: Assessment/Plan 1/ Stop IV fluids per pt request, she said she is unable to ambulate 2. constipation relief 3. pain control. 4. Start radiation per dr Shelton Subjective 24 Hr Interval Summary Free Text/Dictation pt requested to d/c iv fluids . unable to walk Musculoskeletal: back pain Exam/Review of Systems Vital Signs Vitals Vital Signs Date Time Temp Pulse Resp B/P Pulse Ox O2 Delivery O2 Flow Rate FiO2 12/08/16 07:00 97.9 78 20 136/81 98 12/07/16 01:57 Room Air 12/06/16 12:15 2.0 Intake and Output 12/07/16 12/07/16 12/08/16 15:00 23:00 07:00 Intake Total 240 ml 740 ml 840 ml Balance 240 ml 740 ml 840 ml Exam Constitutional: alert, oriented Neck: supple Gastrointestinal: soft Musculoskeletal: muscle tone (decreased right), muscle weakness Results Result Diagram: 12/07/16 0429 12/07/16 0429 Results 24 hrs Laboratory Tests Test 12/07/16 10:45 CSF Tubes Submitted 4 CSF Volume 4.0 CSF Appearance CLEAR CSF Color COLORLESS CSF WBC 4 CSF RBC 0 CSF Cell Count Tube # TUBE#4 CSF Mononuclear Cells % (Auto) 50.0 CSF Polynuclear WBCs (%) 50.0 CSF Glucose 73 CSF Total Protein 127 H Medications Medications Current Medications Dextrose/Sodium Chloride (D5-1/2ns) 1,000 ml @ 60 mls/hr [id number] IV Last administered on 12/07/16 23:29; Admin Dose 60 MLS/HR; Start 12/02/16 at 09:30 Pantoprazole (Protonix Iv) 40 mg DAILY@06 IV Last administered on 12/08/16 05: 51; Admin Dose 40 MG; Start 12/03/16 at 06:00 Ondansetron HCl (Zofran Inj) 4 mg Q6H PRN IV NAUSEA AND/OR VOMITING Last administered on 12/03/16 14:28; Admin Dose 4 MG; Start 12/02/16 at 13:00 Metoclopramide HCl (Reglan) 10 mg Q6H PRN IV NAUSEA AND/OR VOMITING Last administered on 12/03/16 18:04; Admin Dose 10 MG; Start 12/02/16 at 21:30 Amlodipine Besylate (Norvasc) 5 mg DAILY PO Last administered on 12/08/16 08: 45; Admin Dose 5 MG; Start 12/04/16 at 09:00 Morphine Sulfate (Ms Contin (Er)) 30 mg BID PO Last administered on 12/08/16 08:44; Admin Dose 30 MG; Start 12/05/16 at 09:00 Dexamethasone (Decadron) 8 mg BID PO Last administered on 12/08/16 08:44; Admin Dose 8 MG; Start 12/05/16 at 09:00 Bisacodyl (Dulcolax Supp) 10 mg DAILY PRN [place] CONSTIPATION Last administered on 12/07/16 18:45; Admin Dose 10 MG; Start 12/05/16 at 16:00 Polyethylene Glycol (Miralax) 17 gm DAILY PO Last administered on 12/08/16 08: 43; Admin Dose 17 GM; Start 12/05/16 at 16:00 Senna/Docusate Sodium (Senokot-S) 2 tab BID PO Last administered on 12/08/16 08:44; Admin Dose 2 TAB; Start 12/05/16 at 21:00 Hydromorphone HCl (Dilaudid) 2 mg Q3H PRN PO PAIN LEVEL 4-6 Last administered on 12/06/16 22:22; Admin Dose 2 MG; Start 12/06/16 at 12:30 DANIA VILLAVICENCIO Dec 08, 2016 10:34
[2016-12-08] MEDS ORDERED: BISACODYL 10 MG SUPP PR PRN (11:00)
[2016-12-08 14:00] VITALS: BP 147/83; RESP 20
[2016-12-08] MEDS: HYDROmorphONE 2 MG TAB PO PRN (15:50)
[2016-12-08] MEDS: BISACODYL 10 MG SUPP PR PRN (20:46)
[2016-12-09 03:23] VITALS: BP 133/71; RESP 18
[2016-12-09 04:49] LABS: ABNORMAL IP MESSAGE 1; BASOPHILS % 0.4 % (0.0-2.0); HEMATOCRIT 34.5 % (37.0-47.0); HEMOGLOBIN 12.3 g/dl (12.0-16.0); LYMPHOCYTES # 0.4 10^3/ul (0.8-2.9); LYMPHOCYTES % 4.9 % (15.0-51.0); MEAN CORPUSCULAR HEMOGLOBIN 30.7 pg (29.0-33.0); MEAN CORPUSCULAR HGB CONC 35.7 g/dl (32.0-37.0); MEAN PLATELET VOLUME 9.4 fl (7.4-10.4); MONOCYTE # 0.6 10^3/ul (0.3-0.9); MONOCYTES % 7.1 % (0.0-11.0); NEUTROPHIL # 6.6 10^3/ul (1.6-7.5); NEUTROPHILS % 82.9 % (39.0-77.0); PLATELET COUNT 209 10^3/UL (140-415); RED BLOOD COUNT 4.01 10^6/ul (4.20-5.40); RED CELL DISTRIBUTION WIDTH 12.3 % (11.5-14.5); WHITE BLOOD COUNT 7.9 10^3/ul (4.8-10.8)
[2016-12-09 05:09] LABS: CALCIUM 8.9 mg/dl (8.4-10.2); CREATININE 0.62 mg/dl (0.44-1.00); POTASSIUM 4.3 mmol/L (3.5-5.1)
[2016-12-09 05:10] LABS: POSITIVE DIFF @See below
[2016-12-09 05:50] VITALS: BP 132/77; RESP 18
[2016-12-09] MEDS: PANTOPRAZOLE 40 MG INJ IV SCH (06:24)
[2016-12-09 08:00] VITALS: BP 118/76; RESP 18
[2016-12-09] MEDS: POLYETHYLENE GLYCOL 17 GM PACKET PO SCH (09:05)
[2016-12-09] MEDS: morphine (ER) 30 MG TAB PO SCH (09:05)
[2016-12-09] MEDS: DEXAMETHASONE 4 MG TAB PO SCH ×2 (09:05→20:58)
[2016-12-09] MEDS: SENNA/DOCUSATE NA (8.6MG/50MG) TAB PO SCH ×2 (09:06→20:58)
[2016-12-09] MEDS: AMLODIPINE 5 MG TAB PO SCH (09:06)
--- NOTE | 2016-12-09 11:36 | PN ---
Date/Time of Note Date/Time of Note DATE: 12/09/16 TIME: 11:34 Assessment/Plan VTE Prophylaxis VTE Prophylaxis Intervention: ambulation Lines/Catheters IV [facility]ter Type (from [facility]): [place] Urinary Cath still in place: No Assessment/Plan Chief Complaint/Hosp Course 1. METASTATIC BREAST CA left 2. Left paraspinal intramuscular enhancing lesion most compatible with a metastasis. 3. Multilevel bilateral foraminal stenosis affecting the exiting left C6 and left C7 nerve roots 4. s/p bone biopsy 5. constipation Problems: Assessment/Plan 1. radiation is scheduled in [place] 2. Ambulate PRN 3. Need walker for fall precaution Subjective 24 Hr Interval Summary Constitutional: improved, no complaints Exam/Review of Systems Vital Signs Vitals Vital Signs Date Time Temp Pulse Resp B/P Pulse Ox O2 Delivery O2 Flow Rate FiO2 12/09/16 08:00 98.2 75 18 118/76 96 12/07/16 01:57 Room Air 12/06/16 12:15 2.0 Intake and Output 12/08/16 12/08/16 12/09/16 15:00 23:00 07:00 Intake Total 600 ml 700 ml Balance 600 ml 700 ml Exam Constitutional: alert, oriented Respiratory: clear to auscultation Cardiovascular: regular rate and rhythm Results Result Diagram: 12/09/16 0432 12/09/16 0432 Results 24 hrs Laboratory Tests Test 12/09/16 04:32 White Blood Count 7.9 Red Blood Count 4.01 L Hemoglobin 12.3 Hematocrit 34.5 L Mean Corpuscular Volume 86.0 Mean Corpuscular Hemoglobin 30.7 Mean Corpuscular Hemoglobin Concent 35.7 Red Cell Distribution Width 12.3 Platelet Count 209 Mean Platelet Volume 9.4 Neutrophils % 82.9 H Lymphocytes % 4.9 L Monocytes % 7.1 Eosinophils % 0.0 Basophils % 0.4 Nucleated Red Blood Cells % 0.0 Neutrophils # 6.6 Lymphocytes # 0.4 L Monocytes # 0.6 Eosinophils # 0.0 Basophils # 0.0 Nucleated Red Blood Cells # 0.0 Sodium Level 140 Potassium Level 4.3 Chloride Level 100 Carbon Dioxide Level 30 Anion Gap 14 Blood Urea Nitrogen 18 Creatinine 0.62 Glucose Level 137 Calcium Level 8.9 Medications Medications Current Medications Pantoprazole (Protonix Iv) 40 mg DAILY@06 IV Last administered on 12/09/16t 06: 24; Admin Dose 40 MG; Start 12/03/16 at 06:00 Ondansetron HCl (Zofran Inj) 4 mg Q6H PRN IV NAUSEA AND/OR VOMITING Last administered on 12/03/16 14:28; Admin Dose 4 MG; Start 12/02/16 at 13:00 Metoclopramide HCl (Reglan) 10 mg Q6H PRN IV NAUSEA AND/OR VOMITING Last administered on 12/03/16 18:04; Admin Dose 10 MG; Start 12/02/16 at 21:30 Amlodipine Besylate (Norvasc) 5 mg DAILY PO Last administered on 12/09/16 09: 06; Admin Dose 5 MG; Start 12/04/16 at 09:00 Morphine Sulfate (Ms Contin (Er)) 30 mg BID PO Last administered on 12/09/16 09:05; Admin Dose 30 MG; Start 12/05/16 at 09:00 Dexamethasone (Decadron) 8 mg BID PO Last administered on 12/09/16 09:05; Admin Dose 8 MG; Start 12/05/16 at 09:00 Bisacodyl (Dulcolax Supp) 10 mg DAILY PRN [place] CONSTIPATION Last administered on 12/08/16 20:46; Admin Dose 10 MG; Start 12/05/16 at 16:00 Polyethylene Glycol (Miralax) 17 gm DAILY PO Last administered on 12/09/16 09: 05; Admin Dose 17 GM; Start 12/05/16 at 16:00 Senna/Docusate Sodium (Senokot-S) 2 tab BID PO Last administered on 12/09/16 09:06; Admin Dose 2 TAB; Start 12/05/16 at 21:00 Hydromorphone HCl (Dilaudid) 2 mg Q3H PRN PO PAIN LEVEL 4-6 Last administered on 12/08/16 15:50; Admin Dose 2 MG; Start 12/06/16 at 12:30 DANIA VILLAVICENCIO Dec 09, 2016 11:36
--- NOTE | 2016-12-09 12:13 | CONS ---
Date/Time of Note Date/Time of Note DATE: 12/09/16 TIME: 12:11 Assessment/Plan Assessment/Plan Additional Assessment/Plan Metastatic breast cancer, metastases to the lung and liver States her pain is under good control at rest but she had continued to have radicular pain with activity. Consultation Date/Type/Reason Admit Date/Time Dec 02, 2016 at 04:06 Initial Consult Date 12/04/16 Type of Consultation: Palliative care, pain Reason for Consultation Postdated note for December 08 Exam/Review of Systems Vital Signs Vitals Vital Signs Date Time Temp Pulse Resp B/P Pulse Ox O2 Delivery O2 Flow Rate FiO2 12/09/16 08:00 98.2 75 18 118/76 96 12/07/16 01:57 Room Air 12/06/16 12:15 2.0 Intake and Output 12/08/16 12/08/16 12/09/16 15:00 23:00 07:00 Intake Total 600 ml 700 ml Balance 600 ml 700 ml Exam Constitutional: No alert, No distress, No frail, No non-verbal, No obese, No oriented, No other, No well developed Psych: No anxiety, No confusion, No depression, No nl mood/affect, No no complaints, No other, No suicidal Neurological: No SLOPE HOIST OPERATOR II-XII intact, No DTR's symmetric, No confused, No focal weakness, No lethargic, No nl mental status, No nl speech, No nl strength, No numbness, No other, No reflexes, No unresponsive Results Result Diagram: 12/09/16 0432 12/09/16 0432 Results 24 hrs Laboratory Tests Test 12/09/16 04:32 White Blood Count 7.9 Red Blood Count 4.01 L Hemoglobin 12.3 Hematocrit 34.5 L Mean Corpuscular Volume 86.0 Mean Corpuscular Hemoglobin 30.7 Mean Corpuscular Hemoglobin Concent 35.7 Red Cell Distribution Width 12.3 Platelet Count 209 Mean Platelet Volume 9.4 Neutrophils % 82.9 H Lymphocytes % 4.9 L Monocytes % 7.1 Eosinophils % 0.0 Basophils % 0.4 Nucleated Red Blood Cells % 0.0 Neutrophils # 6.6 Lymphocytes # 0.4 L Monocytes # 0.6 Eosinophils # 0.0 Basophils # 0.0 Nucleated Red Blood Cells # 0.0 Sodium Level 140 Potassium Level 4.3 Chloride Level 100 Carbon Dioxide Level 30 Anion Gap 14 Blood Urea Nitrogen 18 Creatinine 0.62 Glucose Level 137 Calcium Level 8.9 Medications Medications Current Medications Pantoprazole (Protonix Iv) 40 mg DAILY@06 IV Last administered on 12/09/16 06: 24; Admin Dose 40 MG; Start 12/03/16 at 06:00 Ondansetron HCl (Zofran Inj) 4 mg Q6H PRN IV NAUSEA AND/OR VOMITING Last administered on 12/03/16 14:28; Admin Dose 4 MG; Start 12/02/16 at 13:00 Metoclopramide HCl (Reglan) 10 mg Q6H PRN IV NAUSEA AND/OR VOMITING Last administered on 12/03/16 18:04; Admin Dose 10 MG; Start 12/02/16 at 21:30 Amlodipine Besylate (Norvasc) 5 mg DAILY PO Last administered on 12/09/16 09: 06; Admin Dose 5 MG; Start 12/04/16 at 09:00 Morphine Sulfate (Ms Contin (Er)) 30 mg BID PO Last administered on 12/09/16 09:05; Admin Dose 30 MG; Start 12/05/16 at 09:00 Dexamethasone (Decadron) 8 mg BID PO Last administered on 12/09/16 09:05; Admin Dose 8 MG; Start 12/05/16 at 09:00 Bisacodyl (Dulcolax Supp) 10 mg DAILY PRN [place] CONSTIPATION Last administered on 12/08/16 20:46; Admin Dose 10 MG; Start 12/05/16 at 16:00 Polyethylene Glycol (Miralax) 17 gm DAILY PO Last administered on 12/09/16 09: 05; Admin Dose 17 GM; Start 12/05/16 at 16:00 Senna/Docusate Sodium (Senokot-S) 2 tab BID PO Last administered on 12/09/16 09:06; Admin Dose 2 TAB; Start 12/05/16 at 21:00 Hydromorphone HCl (Dilaudid) 2 mg Q3H PRN PO PAIN LEVEL 4-6 Last administered on 12/08/16 15:50; Admin Dose 2 MG; Start 12/06/16 at 12:30 JORDAN CHÁVEZ Dec 09, 2016 12:13
[2016-12-09] MEDS ORDERED: METHYLNALTREXONE 12 MG/0.6 ML VIAL SC SCH (12:30)
[2016-12-09] MEDS ORDERED: morphine (ER) 30 MG TAB PO SCH (17:25)
[2016-12-09 20:11] VITALS: BP 139/82; RESP 19
[2016-12-09] MEDS ORDERED: HYDROmorphONE 2 MG TAB PO PRN (20:30)
[2016-12-10 03:04] VITALS: BP 117/75; RESP 18
[2016-12-10] MEDS: PANTOPRAZOLE 40 MG INJ IV SCH (06:31)
[2016-12-10] MEDS ORDERED: morphine (ER) 15 MG TAB PO SCH (07:20)
[2016-12-10 08:06] VITALS: BP 136/85; RESP 19
[2016-12-10] MEDS: SENNA/DOCUSATE NA (8.6MG/50MG) TAB PO SCH (09:00)
[2016-12-10] MEDS: POLYETHYLENE GLYCOL 17 GM PACKET PO SCH (09:00)
[2016-12-10] MEDS: DEXAMETHASONE 4 MG TAB PO SCH (09:21)
[2016-12-10] MEDS: AMLODIPINE 5 MG TAB PO SCH (09:23)
--- NOTE | 2016-12-10 13:03 | PDOCDIS ---
Discharge Instructions CONDITION Patient Condition: Serious HOME CARE INSTRUCTIONS: Diet Instructions: RegularSpecial Diet: NPO ACTIVITY: Activity Restrictions: Slowly Increase Activity Rest between Activity Avoid heavy lifting Avoid Heavy Housework Bathing Restrictions: Shower SCHOOL/WORK RELEASE May return to School/Work with: With Restrictions DANIA VILLAVICENCIO Dec 10, 2016 13:03
[2016-12-10] MEDS ORDERED: MORP30TA3 PO (13:09)
[2016-12-10] MEDS ORDERED: BISA10SU75 PR (13:09)
[2016-12-10] MEDS ORDERED: SENN-88 PO (13:09)
[2016-12-10] MEDS ORDERED: MORP15TA3 PO (13:09)
[2016-12-10] MEDS ORDERED: DEC4 PO (13:09)
[2016-12-10] MEDS ORDERED: HYDR2TAB36 PO (13:09)
[2016-12-10] MEDS ORDERED: NALT50TA9 PO (13:09)
[2016-12-10] MEDS ORDERED: POLY17PO6 PO (13:09)
--- NOTE | 2016-12-10 17:35 | DS ---
Date/Time of Note Date/Time of Note DATE: 12/10/16 TIME: 17:32 Discharge Summary Admission/Discharge Info Admit Date/Time Dec 02, 2016 at 04:06 Discharge Date/Time Dec 10, 2016 at 16:00 Discharge Diagnosis breast ca with numerous metastasis. Patient Condition: Serious Consults dr Sanford, dr Schwartz, dr Castrejon Hx of Present Illness HPI This is a 61-year-old female with a history of left breast cancer, status post chemotherapy, breast cancer metastatic to cervical spine and other areas, status post laminectomy of the cervical spine in July 2016 is admitted with nausea and vomiting from last 2 days. Patient is admitted under Dr. Bowser from the oncology floor for further treatment and evaluation. Dr. Barron notified to assess the patient further Patient denies any diarrhea, fever, cough, shortness of breath, chest pain, palpitations, dizziness, headache , focal neurological complaints. Patient's breast cancer is in remission but is now subsequently returned with metastasis to cervical spine and other areas. ROS All systems reviewed and are negative except as per history of present illness. Hospital Course 1. METASTATIC BREAST CA left 2. Left paraspinal intramuscular enhancing lesion most compatible with a metastasis. 3. Multilevel bilateral foraminal stenosis affecting the exiting left C6 and left C7 nerve roots 4. s/p bone biopsy 5. constipation Home Meds Active Scripts Naltrexone Hcl (Revia) 50 Mg Tablet, 50 MG PO every other day for 30 Days, TAB Prov:DANIA VILLAVICENCIO 12/10/16 Sennosides/Docusate Sodium (Senna Plus Tablet) 1 Each Tablet, 2 TAB PO BID for 30 Days, TAB Prov:DANIA VILLAVICENCIO 12/10/16 Polyethylene Glycol* (Miralax*) 17 Gm Powd.pack, 17 GM PO DAILY for 30 Days Prov:DANIA VILLAVICENCIO 12/10/16 Morphine Sulfate (Morphine Sulfate ER) 30 Mg Tablet.er, 30 MG PO AC DINNER for 30 Days, TAB Prov:ZENDANIA GOMEZ 12/10/16 Morphine Sulfate (Morphine Sulfate ER) 15 Mg Tablet.er, 45 MG PO AC BREAKFAST for 14 Days, TAB Prov:ZENDANIA GOMEZ 12/10/16 Hydromorphone Hcl* (Dilaudid*) 2 Mg Tablet, 2 MG PO Q3H Y for pain for 14 Days, TAB Prov:DANIA VILLAVICENCIO 12/10/16 Dexamethasone* (Decadron*) 4 Mg Tab, 8 MG PO BID for 10 Days, TAB Prov:DANIA VILLAVICENCIO 12/10/16 Bisacodyl* (Bisacodyl*) 10 Mg Supp, 10 MG CO DAILY Y for CONSTIPATION for 30 Days, SUPP Prov:DANIA VILLAVICENCIO 12/10/16 Ranitidine Hcl* (Zantac*) 150 Mg Tablet, 150 MG PO BID for 7 Days, #14 TAB Prov:DEIRDRE BENOIT DO 12/01/16 Ondansetron (Ondansetron Odt) 8 Mg Tab.rapdis, 8 MG PO Q6H Y for NAUSEA AND/OR VOMITING, #14 TAB Prov:DEIRDRE BENOIT DO 12/01/16 Reported Medications Amlodipine Besylate* (Norvasc*) 5 Mg Tablet, 5 MG PO DAILY, TAB 12/01/16 Discontinued Reported Medications Hydrocodone/Acetaminophen ([place] 5-325 Tablet) 1 Each Tablet, 1 EACH PO Q8H, TAB 12/01/16 Follow-up Plan dr francis for managing radiation and pain control Primary Care Provider DANIA Oropeza Dec 10, 2016 17:35
== END 2016-12-10 16:00 | disposition home or self-care (01) | DRG 988 ==
LOC: E/R 15:09 → MS1 12-02 04:06
PROVIDERS: ADMIT Internal Medicine; ATTEND Internal Medicine
PROC: 0PB23ZX Excision of 3 or More Ribs, Percutaneous Approach, Diagnostic (ICD-10-PCS; principal; 2016-12-06)
PROC: 009U3ZX Drainage of Spinal Canal, Percutaneous Approach, Diagnostic (ICD-10-PCS; 2016-12-07)
PROC: B01BYZZ Fluoroscopy of Spinal Cord using Other Contrast (ICD-10-PCS; 2016-12-07)
DX: C79.31 Secondary malignant neoplasm of brain (principal); C79.51 Secondary malignant neoplasm of bone; C78.7 Secondary malignant neoplasm of liver and intrahepatic bile duct; C79.49 Secondary malignant neoplasm of other parts of nervous system; M48.02 Spinal stenosis, cervical region; C79.89 Secondary malignant neoplasm of other specified sites; G89.3 Neoplasm related pain (acute) (chronic); R11.2 Nausea with vomiting, unspecified; R10.13 Epigastric pain; K59.00 Constipation, unspecified; Z85.3 Personal history of malignant neoplasm of breast; Z79.810 Long term (current) use of selective estrogen receptor modulators (SERMs); Z79.52 Long term (current) use of systemic steroids; Z79.899 Other long term (current) drug therapy
CPT/HCPCS: 36415; 70450; 70552; 72156; 72157; 72158; 72196; 74177; 77012; 80048; 80053; 80076; 81001; 82945; 83690; 84157; 85025; 85610; 85730; 87070; 88307; 88313; 89051; 96374; 96375; 96376; C9113; J1100; J1170; J2250; J2405; J2765; J3010; J3480; J7030; J7040; J7042; Q9967

== ENCOUNTER 2017-03-05 15:09 | Inpatient (IN) | payer MEDICAID, OTHER ==
[~2017-03-05] VITALS: Ht 170.2 cm; Wt 61.1 kg
[~2017-03-05 15:09] MED LIST changes: +AMLO5TAB4 PO; +BISA10SU75 PR; +DEC4 PO; -GABA400C PO; +HYDR2TAB36 PO; -HYDR5SYR PO; -LETR2.5T11 PO; +MORP15TA3 PO; +MORP30TA3 PO; +NALT50TA9 PO; +ONDA8TAB14 PO; -OXYC-279 PO; +POLY17PO6 PO; +RANI150T9 PO; +SENN-88 PO
[2017-03-05 15:17] VITALS: Ht 170.2 cm; Wt 61.1 kg
--- NOTE | 2017-03-05 19:20 | ERD ---
ER Documentation Chief Complaint Chief Complaint WEAK AND DIZZY X 3 DAYS, HPI The patient is a 61-year-old female, presenting to the ER because he has felt dizziness for 3 days, associated with head movement. She feels as if the room is spinning and complains of generalized weakness. She has similar symptoms previously, denies fever, chills, neck pain, chest pain, dyspnea, abdominal pain , vomiting, dysuria. She does not smoke nor drink Past medical history: Hypertension, chronic pain syndrome, history of left breast metastatic carcinoma Past surgical history: Laminectomy ROS All systems reviewed and are negative except as per history of present illness. Medications Home Meds Active Scripts Naltrexone Hcl (Revia) 50 Mg Tablet, 50 MG PO every other day for 30 Days, TAB Prov:DANIA VILLAVICENCIO 12/10/16 Sennosides/Docusate Sodium (Senna Plus Tablet) 1 Each Tablet, 2 TAB PO BID for 30 Days, TAB Prov:DANIA VILLAVICENCIO 12/10/16 Polyethylene Glycol* (Miralax*) 17 Gm Powd.pack, 17 GM PO DAILY for 30 Days Prov:DANIA VILLAVICENCIO 12/10/16 Morphine Sulfate (Morphine Sulfate ER) 30 Mg Tablet.er, 30 MG PO AC DINNER for 30 Days, TAB Prov:DANIA VILLAVICENCIO 12/10/16 Morphine Sulfate (Morphine Sulfate ER) 15 Mg Tablet.er, 45 MG PO AC BREAKFAST for 14 Days, TAB Prov:DANIA VILLAVICENCIO 12/10/16 Hydromorphone Hcl* (Dilaudid*) 2 Mg Tablet, 2 MG PO Q3H Y for pain for 14 Days, TAB Prov:DANIA VILLAVICENCIO 12/10/16 Dexamethasone* (Decadron*) 4 Mg Tab, 8 MG PO BID for 10 Days, TAB Prov:DANIA VILLAVICENCIO 12/10/16 Bisacodyl* (Bisacodyl*) 10 Mg Supp, 10 MG AL DAILY Y for CONSTIPATION for 30 Days, SUPP Prov:DANIA VILLAVICENCIO 12/10/16 Ranitidine Hcl* (Zantac*) 150 Mg Tablet, 150 MG PO BID for 7 Days, #14 TAB Prov:DEIRDRE BENOIT DO 7/21/17 Ondansetron (Ondansetron Odt) 8 Mg Tab.rapdis, 8 MG PO Q6H Y for NAUSEA AND/OR VOMITING, #14 TAB Prov:DEIRDRE BENOIT DO 12/01/16 Reported Medications Amlodipine Besylate* (Norvasc*) 5 Mg Tablet, 5 MG PO DAILY, TAB 12/01/16 Allergies Allergies: Coded Allergies: No Known Allergy (Unverified , 12/01/16) PMhx/Soc History of Surgery: Yes (laminectomy 07/2016) Anesthesia Reaction: No Hx Neurological Disorder: No Hx Respiratory Disorders: No Hx Cardiac Disorders: Yes (HTN) Hx Psychiatric Problems: No Hx Miscellaneous Medical Probl: Yes (Left breast CA with mets, chemo 2012, radiation in 2016) Hx Alcohol Use: No Hx Substance Use: No Hx Tobacco Use: No Physical Exam Vitals Vital Signs Date Time Temp Pulse Resp B/P Pulse Ox O2 Delivery O2 Flow Rate FiO2 03/05/17 19:20 98.4 106 18 125/84 97 Room Air 03/05/17 15:17 99.6 102 18 127/85 94 Physical Exam Const: No acute distress.Dehydrated Head: Atraumatic. Eyes: Normal Conjunctiva. ENT: Normal External Ears, Nose and Mouth.Bilateral tympanic membranes are within normal limits Neck: Full range of motion. No meningismus. Resp: Clear to auscultation bilaterally. Cardio: Regular rate and rhythm. Abd: Soft, non distended, normal bowel sounds, non tender. Skin: No petechiae or rashes. Back: No midline or flank tenderness. Ext: No cyanosis, or edema. Neur: Awake and alert. No focal deficit Psych: Normal Mood and Affect. Result Diagram: 03/05/172014 Results 24 hrs Laboratory Tests Test 03/05/17 20:15 White Blood Count Pending Red Blood Count Pending Hemoglobin Pending Hematocrit Pending Mean Corpuscular Volume Pending Mean Corpuscular Hemoglobin Pending Mean Corpuscular Hemoglobin Concent Pending Red Cell Distribution Width Pending Platelet Count Pending Mean Platelet Volume Pending Prothrombin Time 15.0Sec Prothrombin Time Ratio 1.2 INR International Normalized Ratio 1.17 Activated Partial Thromboplast Time 31.2Sec Sodium Level 141mmol/L Potassium Level 4.0mmol/L Chloride Level 106mmol/L Carbon Dioxide Level 27mmol/L Anion Gap 12 Blood Urea Nitrogen 16mg/dl Creatinine 0.62mg/dl Glucose Level 113mg/dl Calcium Level 9.0mg/dl Current Medications Medications (Trade) Dose Ordered Sig/Hai Route PRN Reason Start Time Stop Time Status Last Admin Dose Admin Sodium Chloride (NS) 1,000 ml @ 1,000 mls/hr Q1H ONCE IV 03/05/17 19:30 03/05/17 20:29 DC 03/05/17 19:30 Meclizine HCl (Antivert) 25 mg ONCE ONCE PO 03/05/17 19:30 03/05/17 19:33 DC 03/05/17 20:35 Lorazepam (Ativan) 0.5 mg ONCE ONCE IV 03/05/17 20:30 03/05/17 20:31 DC 03/05/17 20:52 Procedures/MDM CBC is pending EKG: Read by emergency physician Rate/Rhythm: Sinus tachycardia 103beats/min QRS, ST, T-waves: No ST elevation, no T inversion, Nonspecific T abnormality Impression: Abnormal EKG [place] [id number] Radiology Main Line: [phone] DIAGNOSTIC IMAGING REPORT Patient: ALLA MCQUEEN : 1955 Age: 61 Sex: F MR #: [id number] DOS: 03/05/171928 Ordering MD: ARANZA COSTA MD Location: E/R Room/Bed: PROCEDURE: Noncontrast CT Head. CLINICAL INDICATION: Syncope TECHNIQUE: Noncontrast CT of the head was obtained. The administered radiation dose was CTDI vol = 40.24 mGy, DLP = 793.94 mGy-cm. One or more of the following dose reduction techniques were used: Automated exposure control, Adjustment of the mA and/or kV according to patient size, or Use of iterative reconstruction technique. COMPARISON: CT brain 12/02/2016 FINDINGS: There is no acute intracranial hemorrhage or midline shift. There is a new mixed low attenuation right frontal subdural hematoma measuring up to 7 mm in thickness, late subacute to chronic in appearance (series 4, image 18). There is mild diffuse cerebral volume loss, stable. Mild low attenuation in the periventricular and deep cerebral white matter is nonspecific, but suggestive of mild chronic microangiopathic cerebral white matter change. Redemonstrated along the tentorium in the right ambient cistern is a rounded moderately high attenuation lesion measuring 6 mm AP x 6 mm TR x 6 mm CC, similar in size and appearance compared to prior study allowing for slight differences in technique and possibly representing a meningioma although other etiologies are not excluded (series 4, image 10; series 601, image 57; series 602, image 36). Associated mild mass effect upon the right dorsolateral pontomesencephalic junction is stable. The orbits are grossly unremarkable. The visualized paranasal sinuses and mastoid air cells are clear. No acute fracture or suspicious osseous lesion is identified. IMPRESSION: 1. Mixed low attenuation right frontal subdural hematoma measuring 7 mm in thickness, late subacute to chronic in appearance with mild local mass effect upon the adjacent right frontal lobe, new compared to prior CT brain of 2016. No midline shift. 2. Grossly stable appearance of a rounded moderately high attenuation lesion measuring 6 mm along the anterior tentorium in the right ambient cistern with associated mild local mass effect upon the right dorsolateral pontomesencephalic junction. While this may represent a meningioma, the lesion is incompletely characterized on this study and other etiologies cannot be excluded. Suggest MRI brain with contrast for further evaluation. 3. Mild diffuse cerebral volume loss. 4. Evidence of mild chronic microangiopathic cerebral white matter change. Call report was made to Dr. Costa at 21:10 on 03/05/2017. RPTAT: [facility] Physician Funmilayo Date Time Electronically viewed and signed by Physician Funmilayo on 03/05/2017 21: 15 RC/ CC: ARANZA COSTA MD MEDICAL MAKING DECISION: The patient is a 61-year-old female, presenting with some acute right frontal subdural hematoma, no history of trauma. She was treated with 1 L normal saline for clinical dehydration, Antivert 25 mg p.o. for acute dizziness with some response. The differential diagnoses considered include but are not limited to subarachnoid hemorrhage, occult trauma, CVA, meningitis, encephalitis, hypertension, tension, migraine, cluster, narcotic withdrawal, cervical spine disease. Consultation: I discussed the patient with the on-call neurosurgeon Juliana. He was made aware of the lab, the treatment, the patient condition. He requested for the MRI with and without contrast of the brain Critical Care: Time: 35 minutes excluding all billable procedures. Treatments/Evaluations: Close monitoring and treatment of unstable vital signs, cardiorespiratory, and neurologic status, while maintaining tight balance of fluid, respiratory, and cardiac interventions. Departure Diagnosis: Primary Impression: Acute subdural hematoma Condition: Critical Comments I discussed the findings with the patient. I discussed the patient with his physician Dr. Obrien who was made aware of the lab, the treatment, the patient condition and my discussion to the neurosurgeon. The patient is admitted to ICU at 9:15 pm ARANZA COSTA MD Mar 05, 2017 19:20
[2017-03-05] MEDS ORDERED: MECLIZINE 12.5 MG TAB PO ONE (19:30)
[2017-03-05] MEDS ORDERED: SOD CHLORIDE 0.9% 1,000 ML IV ONE (19:30)
[2017-03-05] MEDS ORDERED: LORAZEPAM 2 MG INJ IV ONE (20:30)
--- NOTE | 2017-03-05 21:15 | RADRPT ---
PROCEDURE: Noncontrast CT Head. CLINICAL INDICATION: Syncope TECHNIQUE: Noncontrast CT of the head was obtained. The administered radiation dose was CTDI vol = 40.24 mGy, DLP = 793.94 mGy-cm. One or more of the following dose reduction techniques were used: Au tomated exposure control, Adjustment of the mA and/or kV according to patient size, or Use of iterat belle reconstruction technique. COMPARISON: CT brain 12/02/2016 FINDINGS: There is no acute intracranial hemorrhage or midline shift. There is a new mixed low attenuation rig ht frontal subdural hematoma measuring up to 7 mm in thickness, late subacute to chronic in appearan ce (series 4, image 18). There is mild diffuse cerebral volume loss, stable. Mild low attenuation in the periventricular and deep cerebral white matter is nonspecific, but suggestive of mild chronic m icroangiopathic cerebral white matter change. Redemonstrated along the tentorium in the right ambien t cistern is a rounded moderately high attenuation lesion measuring 6 mm AP x 6 mm TR x 6 mm CC, sim ilar in size and appearance compared to prior study allowing for slight differences in technique and possibly representing a meningioma although other etiologies are not excluded (series 4, image 10; series 601, image 57; series 602, image 36). Associated mild mass effect upon the right dorsolateral pontomesencephalic junction is stable. The orbits are grossly unremarkable. The visualized paranasal sinuses and mastoid air cells are clear. No acute fracture or suspicious osseous lesion is identified. IMPRESSION: 1. Mixed low attenuation right frontal subdural hematoma measuring 7 mm in thickness, late subacute to chronic in appearance with mild local mass effect upon the adjacent right frontal lobe, new [place] red to prior CT brain of 12/02/2016. No midline shift. 2. Grossly stable appearance of a rounded moderately high attenuation lesion measuring 6 mm along th e anterior tentorium in the right ambient cistern with associated mild local mass effect upon the ri ght dorsolateral pontomesencephalic junction. While this may represent a meningioma, the lesion is i ncompletely characterized on this study and other etiologies cannot be excluded. Suggest MRI brain w ith contrast for further evaluation. 3. Mild diffuse cerebral volume loss. 4. Evidence of mild chronic microangiopathic cerebral white matter change. Call report was made to Dr. Pérez at 21:10 on 03/05/2017. RPTAT: [facility] Yariel Saavedra, Physician Date Time Electronically viewed and signed by Yariel Saavedra Physician on 03/05/2017 21:15 RC/
--- NOTE | 2017-03-05 22:08 | RADRPT ---
PROCEDURE: XR Chest. CLINICAL INDICATION: Syncope TECHNIQUE: Single AP portable chest. COMPARISON: No prior Chest x-ray FINDINGS: The cardiomediastinal silhouette is within normal limits of size. Diffuse sclerosis of the right hum eral head and 1.5 cm sclerotic focus in the left medial humeral neck compatible with blastic metasta sis compatible the patient's known metastatic disease. Atherosclerotic calcification of the aorta. Small bilateral pleural effusions left greater than right. Left axillary surgical clips. No pneumoth orax. The osseous structures and soft tissues are unremarkable. IMPRESSION: 1. Bilateral small pleural effusions. 2. 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 RPTAT:AAJJ Physician Elizabeth Date Time Electronically viewed and signed by Physician Elizabeth on 03/05/2017 22:08 NIKOLAS/
[2017-03-05] MEDS ORDERED: MAGNESIUM HYDROXIDE 30ML CUP PO PRN (22:30)
[2017-03-05] MEDS ORDERED: ACETAMINOPHEN 325 MG TAB PO PRN (22:30)
[2017-03-05] MEDS ORDERED: DOCUSATE SODIUM 100 MG CAP PO PRN (22:30)
[2017-03-05] MEDS ORDERED: ACETAMINOPHEN 650MG/20.3ML CUP PO PRN (22:30)
[2017-03-05] MEDS ORDERED: BISACODYL (EC) 5 MG TAB PO PRN (22:30)
--- NOTE | 2017-03-05 23:30 | QN ---
Documentation Comment [id number] DEON GRIFFIN MD Mar 05, 2017 23:30
--- NOTE | 2017-03-05 23:30 | QN ---
Documentation Comment [id number] DEON GRIFFIN MD Mar 05, 2017 23:30
--- NOTE | 2017-03-05 23:30 | QN ---
Documentation Comment [id number] DEON GRIFFIN MD Mar 05, 2017 23:30
[2017-03-06] MEDS ORDERED: MULTI PO (00:23)
[2017-03-06] MEDS: DEXAMETHASONE 4 MG/ML 1 ML INJ IV SCH ×4 (00:23→18:20)
[2017-03-06] MEDS: ALBUTEROL/IPRATROPIUM (NEB) 3 ML AMP NEB SCH ×6 (00:44→21:05)
[2017-03-06] MEDS: IPRATROPIUM (NEB) 0.5 MG/2.5 ML AMP NEB SCH ×6 (00:44→21:00)
[2017-03-06] MEDS: PANTOPRAZOLE 40 MG INJ IV SCH (06:35)
--- NOTE | 2017-03-06 06:44 | HP ---
DATE OF ADMISSION: 03/05/2017 HISTORY OF PRESENT ILLNESS: Alicia Stephens is a 61-year-old female who follows with _ with history of metastatic breast cancer, history of chemo. The patient also had breast cancer metastatic to history of laminectomy , cervical spine in the past. 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 Patient had a brain CT scan done shows left lower attenuation in the right frontal subdural hematoma measuring 7 mm in thickness, subacute to chronic in appearance with local mass effect upon the distal right frontal lobe, new compared to the prior CT scan of the brain, grossly stable appearance of around, moderately high attenuation lesion measuring 6 mm. _with associated mild local mass effect upon the right dorsal _ post mesencephalon symptoms, _ meningioma diffuse cerebral volume loss and patient is being admitted for further management. In the ER, patient was seen _and patient is being admitted for further management. Patient's blood pressure recorded as 125/60. Sodium 141, potassium 4. PAST MEDICAL HISTORY: Positive for metastatic breast cancer, history of laminectomy, history of radiation treatments. ALLERGY HISTORY: NEGATIVE. FAMILY HISTORY: Negative. SOCIAL HISTORY: Negative. MEDICATION HISTORY: At home, patient is on: 1. Amlodipine. 2. bp meds 3. Dexamethasone. 4. Hydromorphone. 5. pain meds 6. MiraLax. 7. stool softner. 8. Senna. REVIEW OF SYSTEMS HEENT: Dizziness and mild headache. RESPIRATORY: Unremarkable. CARDIOVASCULAR: Unremarkable. ABDOMEN: Unremarkable. EXTREMITIES: neg CENTRAL NERVOUS SYSTEM: The patient has numbness of the right lower extremity . PHYSICAL EXAMINATION: GENERAL: The patient is a thin-looking female, awake, alert. VITAL SIGNS: Stable. HEAD: Atraumatic, normocephalic. Pupils are equal and reactive to light. NECK: Supple, no JVD. LUNGS: Clear. CARDIOVASCULAR: S1, S2 normal. ABDOMEN: Soft. Bowel sounds positive. No palpable mass. EXTREMITIES: No cyanosis, clubbing, or edema. CENTRAL NERVOUS SYSTEM: The patient is awake, alert, moving both upper and lower extremities with some pain and some numbness in the right foot. The patient ___. LABORATORY DATA: WBC 4.1, hematocrit 35.5. Patient's sodium 141. IMPRESSION: 1. The patient has metastatic breast carcinoma. Patient has a subacute right parietal subdural hematoma, subacute to chronic in appearance. The patient has anemia, history of laminectomy per patient. PLAN: At this point is to continue to give this patient pain medications. monitored in intensive care unit. Keppra will be given as well Dictated By: DEON GRIFFIN MD BS/HARISH Conf#: [id number] DID#: [id number] MTDD
[2017-03-06] MEDS: LEVETIRACETAM IV 750 MG in SOD CHLORIDE 0.9% 100 ML IVPB SCH ×2 (08:47→20:42)
--- NOTE | 2017-03-06 12:08 | RADRPT ---
PROCEDURE: MR Brain with and without contrast. CLINICAL INDICATION: Subdural hematoma. History of breast cancer. Metastases. TECHNIQUE: Multiplanar multisequence MRI of the brain was performed before and after the administra tion of 10 cc of Magnevist.. COMPARISON: MRI of the brain with and without contrast from December 03, 2016. Noncontrast CT of the he ad from March 05, 2017. FINDINGS: There is a new 7 mm right frontal subdural collection with minimal mass effect upon the adjacent bra in parenchyma as noted on the more recent head CT. There are few bilateral subcortical T2 hyperinte nsities which are nonspecific. There is a 7 x 3 mm enhancing left parafalcine dural based lesion (image 143 series 10) which is ind eterminate but may represent a meningioma versus dural based metastasis. There is a blush of enhancement of the right frontal centrum semiovale (image 125 series 10) which i s unchanged suggestive of a metastasis. There is a 10 mm enhancing right tentorial dural based lesion which is unchanged. Previous noted medial left cerebellar 4 mm enhancing lesion is no longer identified. There is a focus of susceptibility within the right inferior cerebellum suggestive of hemosiderin de position from chronic microhemorrhage. There is no acute infarction. There is no acute intracranial hemorrhage. There is no midline shift. The brainstem is within normal limits. The posterior fossa is unremarkable. The normal intracranial, intravascular flow voids are preserved. The orbits are grossly unremarkable. The visualized paranasal sinuses are well-aerated. There is a stable 8 mm enhancing right parietal lesion the (image 170 series 10). IMPRESSION: 1. Stable 7 mm right frontal subdural collection with minimal mass effect upon the right frontal lob e unchanged from recent head CT. 2. Previous noted medial left cerebellar 4 mm enhancing lesion is no longer identified. 3. Stable 4 mm right frontal centrum semiovale enhancing lesion. 4. Stable 7 x 3 mm enhancing left parafalcine dural based lesion. 5. Stable 10 mm enhancing dural based right tentorial lesion. 6. Stable 8 mm right parietal calvarial osseous lesion. 7. A few bilateral subcortical T2 hyperintensities which are nonspecific but may be related to seque lae of migraines, prior trauma, prior infectious/inflammatory etiologies or early chronic microvascu lar ischemic changes. 8. Focus of susceptibility within the right inferior cerebellum suggestive of hemosiderin deposition from chronic microhemorrhage Further findings as detailed above. RPTAT: PP .Indra Davison MD, MD Date Time Electronically viewed and signed by .Indra Davison MD, MD on 03/06/2017 12:07 .F/
--- NOTE | 2017-03-06 12:31 | CONS ---
Date/Time of Note Date/Time of Note DATE: 03/06/17 TIME: 12:24 Assessment/Plan Assessment/Plan Chief Complaint/Hosp Course 61 yo female with metastatic breast cancer with spine mets prior laminectomy p/ w dizziness and CTH suggestive of chronic subdural hematoma mass effect. MRI Brain: Stable 7 mm right frontal subdural collection with minimal mass effect upon the right frontal lobe unchanged from recent head CT. Previous noted medial left cerebellar 4 mm enhancing lesion is no longer identified. Stable 4 mm right frontal centrum semiovale enhancing lesion. Stable 7 x 3 mm enhancing left parafalcine dural based lesion. Stable 10 mm enhancing dural based right tentorial lesion. Stable 8 mm right parietal calvarial osseous lesion. A few bilateral subcortical T2 hyperintensities which are nonspecific but may be related to sequelae of migraines, prior trauma, prior infectious/ inflammatory etiologies or early chronic microvascular ischemic changes. Focus of susceptibility within the right inferior cerebellum suggestive of hemosiderin deposition from chronic microhemorrhage Recommendations: Keppra 750 mg q12h for seizure ppx on Decadron 4 mg 6h continue to monitor glucose insulin prn, protonix d/c antiplatelets neurosurgery and oncology consulted fu recommendations for further management Problems: Consultation Date/Type/Reason Admit Date/Time 03/06/17 Date of Consultation: Mar 06, 2017 Type of Consultation: Neurology Reason for Consultation [facility] Referring Provider: JAVIER BERRY MD Hx of Present Illness 61 yo female with history of metastatic Breast CA receiving chemo, she has a hx of spine metastasis s/p laminectomy p/w dizziness and vertigo. Head CT shows attenuation right frontal subdural hematoma 7 mm, subacute to chronic w local mass effect, metastatic brain masses. She reports headache, dizziness at this time, has residual right sided numbness and weakness from prior. No seizures. Past Medical History metastatic Breast CA Social History Smoking Status: Never smoker Exam/Review of Systems Vital Signs Vitals Vital Signs Date Time Temp Pulse Resp B/P Pulse Ox O2 Delivery O2 Flow Rate FiO2 03/06/17 12:22 101 17 111/73 99 Nasal Cannula 2.0 03/06/17 09:00 98.3 03/06/17 00:45 21 Exam awake and alert oriented x3 no aphasia follows commands well CN: Left pupil is 2 mm right pupil 3 mm right NLF flattening palate upgoing uvula midline scm/trap intact tongue midline Motor: no drift in extremities 5-/5 right leg Sensory reportedly dec to right arm and leg Reflexes brisk UE, 1+ in KJ absent ankle jerk mute toes Results Result Diagram: 03/05/17211403/05/172014 Results 24 hrs Laboratory Tests Test 03/05/17 20:15 03/05/17 21:15 03/05/17 21:31 03/05/17 22:00 Prothrombin Time 15.0 H Prothrombin Time Ratio 1.2 INR International Normalized Ratio 1.17 Activated Partial Thromboplast Time 31.2 Sodium Level 141 Potassium Level 4.0 Chloride Level 106 Carbon Dioxide Level 27 Anion Gap 12 Blood Urea Nitrogen 16 Creatinine 0.62 Glucose Level 113 Calcium Level 9.0 White Blood Count 4.1 #L Red Blood Count 2.92 #L Hemoglobin 10.2 L Hematocrit 30.5 L Mean Corpuscular Volume 104.5 #H Mean Corpuscular Hemoglobin 34.9 H Mean Corpuscular Hemoglobin Concent 33.4 Red Cell Distribution Width 19.0 #H Platelet Count 52 #L Mean Platelet Volume Neutrophils % Segmented Neutrophils % (Manual) 69 Lymphocytes % Lymphocytes % (Manual) 24 Monocytes % Monocytes % (Manual) 7 Eosinophils % Basophils % Nucleated Red Blood Cells % 1.9 H Neutrophils # Absolute Lymphocytes (Manual) 0.9 Lymphocytes # 1.0 Monocytes # 0.3 Absolute Monocytes (Manual) 0.2 L Eosinophils # Basophils # Nucleated Red Blood Cells # Macrocytosis 1+ Bedside Glucose 258 H Bedside Urine pH (LAB) 5.5 Bedside Urine Protein (LAB) 2+ H Bedside Urine Glucose (UA) 0.50% H Bedside Urine Ketones (LAB) Trace H Bedside Urine Blood Trace-lysed H Bedside Urine Nitrite (LAB) Negative Bedside Urine Leukocyte Esterase (L Negative Medications Medications Current Medications Ondansetron HCl (Zofran Inj) 4 mg Q6H PRN IV NAUSEA AND/OR VOMITING; Start at 22:30 Acetaminophen (Tylenol Liquid) 650 mg Q6H PRN PO PAIN LEVEL 1-3 OR FEVER; Start 03/05/17 at 22:30 Acetaminophen (Tylenol Tab) 650 mg Q6H PRN PO PAIN LEVEL 1-3 OR FEVER; Start 03/05/17 at 22:30 Morphine Sulfate (morphine) 2 mg Q4H PRN IV PAIN LEVEL 7-10; Start 03/05/17 at 22:30 Docusate Sodium (Colace) 100 mg Q12H PRN PO CONSTIPATION; Start 03/05/17 at 22 :30 Magnesium Hydroxide (Milk Of Mag) 30 ml DAILY PRN PO CONSTIPATION; Start 03/05 at 22:30 Bisacodyl (Dulcolax) 5 mg DAILY PRN PO CONSTIPATION; Start 03/05/17 at 22:30 Pantoprazole (Protonix Iv) 40 mg DAILY@06 IV Last administered on 03/06/17 06 :35; Admin Dose 40 MG; Start 03/06/17 at 06:00 Dexamethasone 4 mg 4 mg Q6 IV Last administered on 03/06/17 06:35; Admin Dose 4 MG; Start 03/06/17 at 00:00 Levetiracetam/ Sodium Chloride (Keppra Iv/NS) 107.5 ml @ 430 mls/hr Q12 IVPB Last administered on 03/06/17 08:47; Admin Dose 430 MLS/HR; Start 03/06/17 at 09:00 ANGELA ANDREWS MD Mar 06, 2017 12:31
[2017-03-06] MEDS: ONDANSETRON 4 MG INJ IV PRN ×2 (13:07→20:59)
[2017-03-06] MEDS: morphine 2 MG INJ IV PRN ×2 (13:07→20:59)
--- NOTE | 2017-03-06 17:53 | QN ---
Documentation Comment Patient well known to me, s/p laminectomy for thoracic metastasis (primary breast CA). She developed brain mets in November and was treated in [place] (SRS or IMRT?). She did not have WBRT per patient report. She had a negative or inconclusive LP at that time (also per patient). Currently patient presented to ED with dizziness. MRI and CT show a right frontal extra-axial fluid collection and pachymeningeal enhancement in addition to previously identified metastases. On exam she has nystagmus but otherwise has no cranial nerve deficits, is awake and alert, oriented x3, moving all extremities 5/5. 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 I recommend an LP for cytology and that her oncologist, Dr. Sharp, be notified of patient's admission. There is no indication for neurosurgical intervention of any kind. Thank you. LUCINA BAUER MD Mar 06, 2017 17:53
--- NOTE | 2017-03-06 18:18 | PN ---
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 # HX HTN # Tacycardia Recs - Neuro checks - pain control - Dr Reyes to see patient - Per neuro c/w Decdron 4 mg q6 and Keppra 750 q12 - Spoke to Dr Sharp who will see patient - No blood thinners - ICU care Problems: Subjective 24 Hr Interval Summary Free Text/Dictation Spoke to patient at bedside, pt concerned about her care Family and pt wanted to go to [facility] treatment Family and pt was explained about pts condition that pt is critocally ill and is under ICU care and will f/u with consultants and if pt needs to get transferred we need to have accepting physician and it will be a lateral transfer Exam/Review of Systems Vital Signs Vitals Vital Signs Date Time Temp Pulse Resp B/P Pulse Ox O2 Delivery O2 Flow Rate FiO2 03/06/17 17:27 98.9 102 17 117/75 100 Nasal Cannula 2.0 03/06/17 00:45 21 Exam ERAL: The patient is a thin-looking female, awake, alert. VITAL SIGNS: Stable. HEAD: Atraumatic, normocephalic. Pupils are equal and reactive to light. NECK: Supple, no JVD. LUNGS: Clear. CARDIOVASCULAR: S1, S2 normal. ABDOMEN: Soft. Bowel sounds positive. No palpable mass. EXTREMITIES: No cyanosis, clubbing, or edema. CENTRAL NERVOUS SYSTEM: The patient is awake, alert, moving both upper and lower extremities with some pain and some numbness in the right foot. The patient Results Result Diagram: 03/05/17211403/05/172014 Results 24 hrs Laboratory Tests Test 03/05/17 20:15 03/05/17 21:15 03/05/17 21:31 03/05/17 22:00 Prothrombin Time 15.0 H Prothrombin Time Ratio 1.2 INR International Normalized Ratio 1.17 Activated Partial Thromboplast Time 31.2 Sodium Level 141 Potassium Level 4.0 Chloride Level 106 Carbon Dioxide Level 27 Anion Gap 12 Blood Urea Nitrogen 16 Creatinine 0.62 Glucose Level 113 Calcium Level 9.0 White Blood Count 4.1 #L Red Blood Count 2.92 #L Hemoglobin 10.2 L Hematocrit 30.5 L Mean Corpuscular Volume 104.5 #H Mean Corpuscular Hemoglobin 34.9 H Mean Corpuscular Hemoglobin Concent 33.4 Red Cell Distribution Width 19.0 #H Platelet Count 52 #L Mean Platelet Volume Neutrophils % Segmented Neutrophils % (Manual) 69 Lymphocytes % Lymphocytes % (Manual) 24 Monocytes % Monocytes % (Manual) 7 Eosinophils % Basophils % Nucleated Red Blood Cells % 1.9 H Neutrophils # Absolute Lymphocytes (Manual) 0.9 Lymphocytes # 1.0 Monocytes # 0.3 Absolute Monocytes (Manual) 0.2 L Eosinophils # Basophils # Nucleated Red Blood Cells # Macrocytosis 1+ Bedside Glucose 258 H Bedside Urine pH (LAB) 5.5 Bedside Urine Protein (LAB) 2+ H Bedside Urine Glucose (UA) 0.50% H Bedside Urine Ketones (LAB) Trace H Bedside Urine Blood Trace-lysed H Bedside Urine Nitrite (LAB) Negative Bedside Urine Leukocyte Esterase (L Negative Test 03/06/17 13:14 Bedside Glucose 143 Medications Medications Current Medications Ondansetron HCl (Zofran Inj) 4 mg Q6H PRN IV NAUSEA AND/OR VOMITING Last administered on 03/06/17 13:07; Admin Dose 4 MG; Start 03/05/17 at 22:30 Acetaminophen (Tylenol Liquid) 650 mg Q6H PRN PO PAIN LEVEL 1-3 OR FEVER; Start 03/05/17 at 22:30 Acetaminophen (Tylenol Tab) 650 mg Q6H PRN PO PAIN LEVEL 1-3 OR FEVER; Start 03/05/17 at 22:30 Morphine Sulfate (morphine) 2 mg Q4H PRN IV PAIN LEVEL 7-10 Last administered on 03/06/17 13:07; Admin Dose 2 MG; Start 03/05/17 at 22:30 Docusate Sodium (Colace) 100 mg Q12H PRN PO CONSTIPATION; Start 03/05/17 at 22 :30 Magnesium Hydroxide (Milk Of Mag) 30 ml DAILY PRN PO CONSTIPATION; Start 03/05 at 22:30 Bisacodyl (Dulcolax) 5 mg DAILY PRN PO CONSTIPATION; Start 03/05/17 at 22:30 Pantoprazole (Protonix Iv) 40 mg DAILY@06 IV Last administered on 03/06/17 06 :35; Admin Dose 40 MG; Start 03/06/17 at 06:00 Dexamethasone 4 mg 4 mg Q6 IV Last administered on 03/06/17 12:57; Admin Dose 4 MG; Start 03/06/17 at 00:00 Levetiracetam/ Sodium Chloride (Keppra Iv/NS) 107.5 ml @ 430 mls/hr Q12 IVPB Last administered on 03/06/17 08:47; Admin Dose 430 MLS/HR; Start 03/06/17 at 09:00 JAVIER BERRY MD Mar 06, 2017 18:18
[2017-03-06] MEDS: INSULIN ASPART [NOVOLOG] 3 ML PEN SC SCH (20:39)
[2017-03-06] MEDS ORDERED: LORAZEPAM 2 MG INJ ONE (21:16)
[2017-03-06] MEDS: LORAZEPAM 2 MG INJ IV PRN (21:24)
[2017-03-07] VITALS (19 sets, daily range): BP systolic 103–139; BP diastolic 73–90; PULSE 96–110; RESP 17–29; TEMP 98
[2017-03-07] MEDS: IPRATROPIUM (NEB) 0.5 MG/2.5 ML AMP NEB SCH ×2 (01:00→05:00)
[2017-03-07] MEDS: ALBUTEROL/IPRATROPIUM (NEB) 3 ML AMP NEB SCH ×2 (01:21→05:00)
[2017-03-07] MEDS: PANTOPRAZOLE 40 MG INJ IV SCH (06:40)
[2017-03-07] MEDS: DEXAMETHASONE 4 MG/ML 1 ML INJ IV SCH ×5 (06:40→23:15)
[2017-03-07] MEDS ORDERED: GLUCOSE GEL 15 GRAM TUBE PO PRN ×2 (07:30)
[2017-03-07] MEDS ORDERED: GLUCAGON 1 MG INJ IM PRN (07:30)
[2017-03-07] MEDS ORDERED: GLUCOSE GEL 15 GRAM TUBE BUCCAL PRN (07:30)
[2017-03-07] MEDS ORDERED: DEXTROSE 50% 50 ML SYRINGE IV PRN ×2 (07:30)
[2017-03-07] MEDS: INSULIN ASPART [NOVOLOG] 3 ML PEN SC SCH ×4 (07:35→20:45)
--- NOTE | 2017-03-07 08:48 | PN ---
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 # HX HTN # Tacycardia could be pain vs anxiety # Pancytopenia Recs - Neuro checks - LP TO be done by Radiology to r/o Leptomeningeal carcinomatosis, will send fluid for cytology - 1 unit of Plt today before Procedure - ABG, if hypoxic, will get CT chest to r/o PE - c/w Decadron 4 mg q6 and ISS - c/w Keppra 750 q 12 - Appreciate Neuro, Neurosurgery and Oncology consult Problems: Subjective 24 Hr Interval Summary Free Text/Dictation Pt feels little relaxed Sob+ Plan for LP today Exam/Review of Systems Vital Signs Vitals Vital Signs Date Time Temp Pulse Resp B/P Pulse Ox O2 Delivery O2 Flow Rate FiO2 03/07/17 06:00 101 25 116/80 93 Nasal Cannula 03/07/17 05:13 2.0 03/07/17 04:00 97.8 03/06/17 00:45 21 Intake and Output 03/06/17 03/06/17 03/07/17 15:00 23:00 07:00 Intake Total 107.5 ml Balance 107.5 ml Exam GENERAL: The patient is a thin-looking female, awake, alert. VITAL SIGNS: Stable. HEAD: Atraumatic, normocephalic. Pupils are equal and reactive to light. NECK: Supple, no JVD. LUNGS: Clear. CARDIOVASCULAR: S1, S2 normal. ABDOMEN: Soft. Bowel sounds positive. No palpable mass. EXTREMITIES: No cyanosis, clubbing, or edema. CENTRAL NERVOUS SYSTEM: The patient is awake, alert, moving both upper and lower extremities with some pain and some numbness in the right foot. Results Result Diagram: 03/07/17 0557 03/07/17 0557 Results 24 hrs Laboratory Tests Test 03/06/17 13:14 03/06/17 20:01 03/07/17 02:37 03/07/17 05:57 Bedside Glucose 143 158 132 White Blood Count 3.1 #L Red Blood Count 2.31 #L Hemoglobin 8.1 #L Hematocrit 24.2 #L Mean Corpuscular Volume 104.8 H Mean Corpuscular Hemoglobin 35.1 H Mean Corpuscular Hemoglobin Concent 33.5 Red Cell Distribution Width 18.7 H Platelet Count 33 #L Mean Platelet Volume 11.2 H Neutrophils % Segmented Neutrophils % (Manual) 68 Band Neutrophils % (Manual) 11 H Lymphocytes % Lymphocytes % (Manual) 6 L Monocytes % Monocytes % (Manual) 11 Eosinophils % Eosinophils % (Manual) 1 Basophils % Metamyelocytes % (manual) 1 H Myelocytes % (Manual) 2 H Nucleated Red Blood Cells % 2 H Neutrophils # Neutrophils # (Manual) 2.1 Band Neutrophils # 0.3 Absolute Lymphocytes (Manual) 0.1 L Lymphocytes # Monocytes # Absolute Monocytes (Manual) 0.3 Eosinophils # Basophils # Metamyelocytes # 0.0 Myelocytes # 0.0 Nucleated Red Blood Cells # Platelet Estimate SIG DECREASED Giant Platelets 2 H Polychromasia 3+ Poikilocytosis 2+ Anisocytosis 1+ Microcytosis 1+ Tear Drop Cells 1+ Schistocytes 1+ Sodium Level 142 Potassium Level 3.6 Chloride Level 109 Carbon Dioxide Level 26 Anion Gap 11 Blood Urea Nitrogen 11 Creatinine 0.54 Glucose Level 127 Calcium Level 8.2 L Phosphorus Level 2.6 Magnesium Level 2.0 Medications Medications Current Medications Ondansetron HCl (Zofran Inj) 4 mg Q6H PRN IV NAUSEA AND/OR VOMITING Last administered on 03/06/17 20:59; Admin Dose 4 MG; Start 03/05/17 at 22:30 Acetaminophen (Tylenol Liquid) 650 mg Q6H PRN PO PAIN LEVEL 1-3 OR FEVER; Start 03/05/17 at 22:30 Acetaminophen (Tylenol Tab) 650 mg Q6H PRN PO PAIN LEVEL 1-3 OR FEVER; Start 03/05/17 at 22:30 Morphine Sulfate (morphine) 2 mg Q4H PRN IV PAIN LEVEL 7-10 Last administered on 03/06/17 20:59; Admin Dose 2 MG; Start 03/05/17 at 22:30 Docusate Sodium (Colace) 100 mg Q12H PRN PO CONSTIPATION; Start 03/05/17 at 22 :30 Magnesium Hydroxide (Milk Of Mag) 30 ml DAILY PRN PO CONSTIPATION; Start 03/05 at 22:30 Bisacodyl (Dulcolax) 5 mg DAILY PRN PO CONSTIPATION; Start 03/05/17 at 22:30 Pantoprazole (Protonix Iv) 40 mg DAILY@06 IV Last administered on 03/07/17 06 :40; Admin Dose 40 MG; Start 03/06/17 at 06:00 Dexamethasone 4 mg 4 mg Q6 IV Last administered on 03/07/17 06:40; Admin Dose 4 MG; Start 03/06/17 at 00:00 Levetiracetam/ Sodium Chloride (Keppra Iv/NS) 107.5 ml @ 430 mls/hr Q12 IVPB Last administered on 03/06/17 20:42; Admin Dose 430 MLS/HR; Start 03/06/17 at 09:00 Lorazepam (Ativan) 0.5 mg Q8 PRN IV SLEEP Last administered on 03/06/17 21:24 ; Admin Dose 0.5 MG; Start 03/06/17 at 21:30 Miscellaneous Information 1 ea NOTE XX ; Start 03/07/17 at 07:30 Glucose (Glutose) 15 gm Q15M PRN PO DECREASED GLUCOSE; Start 03/07/17 at 07:30 Glucose (Glutose) 22.5 gm Q15M PRN PO DECREASED GLUCOSE; Start 03/07/17 at 07: 30 Dextrose (D50w Syringe) 25 ml Q15M PRN IV DECREASED GLUCOSE; Start 03/07/17 at 07:30 Dextrose (D50w Syringe) 50 ml Q15M PRN IV DECREASED GLUCOSE; Start 03/07/17 at 07:30 Glucagon (Glucagen) 1 mg Q15M PRN IM DECREASED GLUCOSE; Start 03/07/17 at 07: 30 Glucose (Glutose) 15 gm Q15M PRN BUCCAL DECREASED GLUCOSE; Start 03/07/17 at 07:30 JAVIER BERRY MD Mar 07, 2017 08:48
--- NOTE | 2017-03-07 09:31 | CONS ---
Date/Time of Note Date/Time of Note DATE: 03/07/17 TIME: 09:18 Assessment/Plan Assessment/Plan Chief Complaint/Hosp Course 61 yo with #ER+ /NJ-/Her 2 negative metastatic breast cancer to the bones, and liver, specifically the right shoulder as well as the T spine causing cord compression -patient's CA 15-3 in 1 month has gone up from 163 to > 1000 -pt is certainly progressing -pt can get CT C/A/P with po and IV contrast as well as bone scan -will plan to start Xeloda 1000mg po BID 14 days on and 7 days off #Dizziness -MRI brain was reviewed with Radiation oncologist who will review the file and let me know if patient would benefit from whole brain XRT -MRI brain shows mostly stable lesions but did demonstrate a 7mm subdural fluid collection , which is unlikely the cause of her symptoms -will get LP with cytology to evaluate for leptomeningeal disease -continue Decadron 4mg IV q 6 - patient is status post radiation and which she finished on Septemberx[address] Saenz -she is now s/p XRT to t spine and Sacrum completed on 01/24/17.need to verify this with his records # right leg pain -given MS Contin 30mg BID # bone metastasis -Patient is on Zometa as an outpatient Problems: Consultation Date/Type/Reason Admit Date/Time 03/06/17 Date of Consultation: Mar 07, 2017 Type of Consultation: oncology Reason for Consultation metastatic breast cancer with brain mets Referring Provider: JAVIER BERRY MD Hx of Present Illness The patient is a 61-year-old female who was initially diagnosed with localized breast cancer of unknown staging of the left breast in 2011 at [facility].Since July 2016 patient is being treated for ER+/NJ+/Her 2 negative metastatic breast ca. -08/07/2016. 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 Path reveals ER 98%, NJ negative, HER-2 negative breast cancer metastasis. Patient subsequently underwent postop radiation, which was completed in early September of 2016. -12/03/16: MRI Brain with IV contrast: 4mm lesion in L cerebellum, plus other intracranial masses in the posterior medial aspect of the L cerebellum -12/01/16: CT A/P revealed R lung lobe with 2.8 cm lesion with lesions in liver and expansile lesion in Left eleventh rib, right ischium and right femur -12/21/2016: pt was started on Ibrance/ Letrozole -12/01/16 patient started Faslodex and Zometa -01/24/17 Completed XRT to her brain, spine and sacrum -02/28/2017 - pt presented to office very weak with increase in CA 15-3 from 163 to 650. Given concern for progressive disease, pt was to follow up with an out patient PET CT and Brain MRI 03/06/17: Pt admitted to [facility] with dizziness. MRI Brain demonstrated a 7 mm right frontal subdural collection with minimal mass effect upon the adjacent brain parenchyma as noted on the more recent head CT.Otherwise her DIAMOND GRADER disease appears stable to improved from when she completed her radiation. Note CA 15-3 from 03/05 reveals the CA 15-3 has risen to 1139 and platelets were down to 55. Currently the platelets count is in the 30's Constitutional: disoriented, poor po ENT: no complaints Respiratory: shortness of breath Gastrointestinal: decreased appetite Musculoskeletal: back pain, bone/joint pain Skin: no complaints Past Medical History metastatic breast cancer Past Surgical History -08/07/2016. 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 Path reveals ER 98%, NJ negative, HER-2 negative breast cancer metastasis. Patient subsequently underwent postop radiation, which was completed in early September of 2016. Family History Significant Family History: no pertinent family hx Social History Alcohol Use: none Smoking Status: Never smoker Exam/Review of Systems Vital Signs Vitals Vital Signs Date Time Temp Pulse Resp B/P Pulse Ox O2 Delivery O2 Flow Rate FiO2 03/07/17 08:00 97.6 101 28 123/74 90 Nasal Cannula 03/07/17 08:00 2.0 03/06/17 00:45 21 Intake and Output 03/06/17 03/06/17 03/07/17 15:00 23:00 07:00 Intake Total 107.5 ml Balance 107.5 ml Exam Constitutional: distress, frail Psych: anxiety, depression Head: normocephalic Eyes: nl conjunctiva ENMT: nl external ears & nose Neck: non-tender, supple Respiratory: clear to auscultation Cardiovascular: regular rate and rhythm Gastrointestinal: soft Musculoskeletal: nl extremities to inspection Neurological: DIAMOND GRADER II-XII intact, lethargic Results Result Diagram: 03/07/17 0557 03/07/17 0557 Results 24 hrs Laboratory Tests Test 03/06/17 13:14 03/06/17 20:01 03/07/17 02:37 03/07/17 05:57 Bedside Glucose 143 158 132 White Blood Count 3.1 #L Red Blood Count 2.31 #L Hemoglobin 8.1 #L Hematocrit 24.2 #L Mean Corpuscular Volume 104.8 H Mean Corpuscular Hemoglobin 35.1 H Mean Corpuscular Hemoglobin Concent 33.5 Red Cell Distribution Width 18.7 H Platelet Count 33 #L Mean Platelet Volume 11.2 H Neutrophils % Segmented Neutrophils % (Manual) 68 Band Neutrophils % (Manual) 11 H Lymphocytes % Lymphocytes % (Manual) 6 L Monocytes % Monocytes % (Manual) 11 Eosinophils % Eosinophils % (Manual) 1 Basophils % Metamyelocytes % (manual) 1 H Myelocytes % (Manual) 2 H Nucleated Red Blood Cells % 2 H Neutrophils # Neutrophils # (Manual) 2.1 Band Neutrophils # 0.3 Absolute Lymphocytes (Manual) 0.1 L Lymphocytes # Monocytes # Absolute Monocytes (Manual) 0.3 Eosinophils # Basophils # Metamyelocytes # 0.0 Myelocytes # 0.0 Nucleated Red Blood Cells # Platelet Estimate SIG DECREASED Giant Platelets 2 H Polychromasia 3+ Poikilocytosis 2+ Anisocytosis 1+ Microcytosis 1+ Tear Drop Cells 1+ Schistocytes 1+ Sodium Level 142 Potassium Level 3.6 Chloride Level 109 Carbon Dioxide Level 26 Anion Gap 11 Blood Urea Nitrogen 11 Creatinine 0.54 Glucose Level 127 Calcium Level 8.2 L Phosphorus Level 2.6 Magnesium Level 2.0 Medications Medications Current Medications Ondansetron HCl (Zofran Inj) 4 mg Q6H PRN IV NAUSEA AND/OR VOMITING Last administered on 03/06/17t 20:59; Admin Dose 4 MG; Start 03/05/17 at 22:30 Acetaminophen (Tylenol Liquid) 650 mg Q6H PRN PO PAIN LEVEL 1-3 OR FEVER; Start 03/05/17 at 22:30 Acetaminophen (Tylenol Tab) 650 mg Q6H PRN PO PAIN LEVEL 1-3 OR FEVER; Start 03/05/17 at 22:30 Morphine Sulfate (morphine) 2 mg Q4H PRN IV PAIN LEVEL 7-10 Last administered on 03/06/17 20:59; Admin Dose 2 MG; Start 03/05/17 at 22:30 Docusate Sodium (Colace) 100 mg Q12H PRN PO CONSTIPATION; Start 03/05/17 at 22 :30 Magnesium Hydroxide (Milk Of Mag) 30 ml DAILY PRN PO CONSTIPATION; Start 03/05 at 22:30 Bisacodyl (Dulcolax) 5 mg DAILY PRN PO CONSTIPATION; Start 03/05/17 at 22:30 Pantoprazole (Protonix Iv) 40 mg DAILY@06 IV Last administered on 03/07/17 06 :40; Admin Dose 40 MG; Start 03/06/17 at 06:00 Dexamethasone 4 mg 4 mg Q6 IV Last administered on 03/07/17 06:40; Admin Dose 4 MG; Start 03/06/17 at 00:00 Levetiracetam/ Sodium Chloride (Keppra Iv/NS) 107.5 ml @ 430 mls/hr Q12 IVPB Last administered on 03/06/17 20:42; Admin Dose 430 MLS/HR; Start 03/06/17 at 09:00 Lorazepam (Ativan) 0.5 mg Q8 PRN IV SLEEP Last administered on 03/06/17 21:24 ; Admin Dose 0.5 MG; Start 03/06/17 at 21:30 Miscellaneous Information 1 ea NOTE XX ; Start 03/07/17 at 07:30 Glucose (Glutose) 15 gm Q15M PRN PO DECREASED GLUCOSE; Start 03/07/17 at 07:30 Glucose (Glutose) 22.5 gm Q15M PRN PO DECREASED GLUCOSE; Start 03/07/17 at 07: 30 Dextrose (D50w Syringe) 25 ml Q15M PRN IV DECREASED GLUCOSE; Start 03/07/17 at 07:30 Dextrose (D50w Syringe) 50 ml Q15M PRN IV DECREASED GLUCOSE; Start 03/07/17 at 07:30 Glucagon (Glucagen) 1 mg Q15M PRN IM DECREASED GLUCOSE; Start 03/07/17 at 07: 30 Glucose (Glutose) 15 gm Q15M PRN BUCCAL DECREASED GLUCOSE; Start 03/07/17 at 07:30 MILEY PARHAM M.D. Mar 07, 2017 09:30 30 Glucose (Glutose) 15 gm Q15M PRN BUCCAL DECREASED GLUCOSE; Start 03/07/17 at 07:30 MILEY PARHAM M.D. Mar 07, 2017 09:30
--- NOTE | 2017-03-07 09:31 | CONS ---
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, and liver, specifically the right shoulder as well as the T spine causing cord compression -patient's CA 15-3 in 1 month has gone up from 163 to > 1000 -pt is certainly progressing -pt can get CT C/A/P with po and IV contrast as well as bone scan -will plan to start Xeloda 1000mg po BID 14 days on and 7 days off #Dizziness -MRI brain was reviewed with Radiation oncologist who will review the file and let me know if patient would benefit from whole brain XRT -MRI brain shows mostly stable lesions but did demonstrate a 7mm subdural fluid collection , which is unlikely the cause of her symptoms -will get LP with cytology to evaluate for leptomeningeal disease -continue Decadron 4mg IV q 6 - patient is status post radiation and which she finished on Septemberx19 sessions [address] Dr[address] Saenz -she is now s/p XRT to t spine and Sacrum completed on 01/24/17.need to verify this with his records # right leg pain -given MS Contin 30mg BID # bone metastasis -Patient is on Zometa as an outpatient Problems: Consultation Date/Type/Reason Admit Date/Time 03/06/17 Date of Consultation: Mar 07, 2017 Type of Consultation: oncology Reason for Consultation metastatic breast cancer with brain mets Referring Provider: JAVIER BERRY MD Hx of Present Illness The patient is a 61-year-old female who was initially diagnosed with localized breast cancer of unknown staging of the left breast in 2011 at [facility].Since July 2016 patient is being treated for ER+/ID+/Her 2 negative metastatic breast ca. -08/07/2016. 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 Path reveals ER 98%, ID negative, HER-2 negative breast cancer metastasis. Patient subsequently underwent postop radiation, which was completed in early September of 2016. -12/03/16: MRI Brain with IV contrast: 4mm lesion in L cerebellum, plus other intracranial masses in the posterior medial aspect of the L cerebellum -12/01/16: CT A/P revealed R lung lobe with 2.8 cm lesion with lesions in liver and expansile lesion in Left eleventh rib, right ischium and right femur -12/21/2016: pt was started on Ibrance/ Letrozole -12/01/16 patient started Faslodex and Zometa -01/24/17 Completed XRT to her brain, spine and sacrum -02/28/2017 - pt presented to office very weak with increase in CA 15-3 from 163 to 650. Given concern for progressive disease, pt was to follow up with an out patient PET CT and Brain MRI 03/06/17: Pt admitted to [facility] with dizziness. MRI Brain demonstrated a 7 mm right frontal subdural collection with minimal mass effect upon the adjacent brain parenchyma as noted on the more recent head CT.Otherwise her EXAMINATION SCORER disease appears stable to improved from when she completed her radiation. Note CA 15-3 from 03/05 reveals the CA 15-3 has risen to 1139 and platelets were down to 55. Currently the platelets count is in the 30's Constitutional: disoriented, poor po ENT: no complaints Respiratory: shortness of breath Gastrointestinal: decreased appetite Musculoskeletal: back pain, bone/joint pain Skin: no complaints Past Medical History metastatic breast cancer Past Surgical History -08/07/2016. 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 Path reveals ER 98%, ID negative, HER-2 negative breast cancer metastasis. Patient subsequently underwent postop radiation, which was completed in early September of 2016. Family History Significant Family History: no pertinent family hx Social History Alcohol Use: none Smoking Status: Never smoker Exam/Review of Systems Vital Signs Vitals Vital Signs Date Time Temp Pulse Resp B/P Pulse Ox O2 Delivery O2 Flow Rate FiO2 03/07/17 08:00 97.6 101 28 123/74 90 Nasal Cannula 03/07/17 08:00 2.0 03/06/17 00:45 21 Intake and Output 03/06/17 03/06/17 03/07/17 15:00 23:00 07:00 Intake Total 107.5 ml Balance 107.5 ml Exam Constitutional: distress, frail Psych: anxiety, depression Head: normocephalic Eyes: nl conjunctiva ENMT: nl external ears & nose Neck: non-tender, supple Respiratory: clear to auscultation Cardiovascular: regular rate and rhythm Gastrointestinal: soft Musculoskeletal: nl extremities to inspection Neurological: EXAMINATION SCORER II-XII intact, lethargic Results Result Diagram: 03/07/17 0557 03/07/17 0557 Results 24 hrs Laboratory Tests Test 03/06/17 13:14 03/06/17 20:01 03/07/17 02:37 03/07/17 05:57 Bedside Glucose 143 158 132 White Blood Count 3.1 #L Red Blood Count 2.31 #L Hemoglobin 8.1 #L Hematocrit 24.2 #L Mean Corpuscular Volume 104.8 H Mean Corpuscular Hemoglobin 35.1 H Mean Corpuscular Hemoglobin Concent 33.5 Red Cell Distribution Width 18.7 H Platelet Count 33 #L Mean Platelet Volume 11.2 H Neutrophils % Segmented Neutrophils % (Manual) 68 Band Neutrophils % (Manual) 11 H Lymphocytes % Lymphocytes % (Manual) 6 L Monocytes % Monocytes % (Manual) 11 Eosinophils % Eosinophils % (Manual) 1 Basophils % Metamyelocytes % (manual) 1 H Myelocytes % (Manual) 2 H Nucleated Red Blood Cells % 2 H Neutrophils # Neutrophils # (Manual) 2.1 Band Neutrophils # 0.3 Absolute Lymphocytes (Manual) 0.1 L Lymphocytes # Monocytes # Absolute Monocytes (Manual) 0.3 Eosinophils # Basophils # Metamyelocytes # 0.0 Myelocytes # 0.0 Nucleated Red Blood Cells # Platelet Estimate SIG DECREASED Giant Platelets 2 H Polychromasia 3+ Poikilocytosis 2+ Anisocytosis 1+ Microcytosis 1+ Tear Drop Cells 1+ Schistocytes 1+ Sodium Level 142 Potassium Level 3.6 Chloride Level 109 Carbon Dioxide Level 26 Anion Gap 11 Blood Urea Nitrogen 11 Creatinine 0.54 Glucose Level 127 Calcium Level 8.2 L Phosphorus Level 2.6 Magnesium Level 2.0 Medications Medications Current Medications Ondansetron HCl (Zofran Inj) 4 mg Q6H PRN IV NAUSEA AND/OR VOMITING Last administered on 03/06/17t 20:59; Admin Dose 4 MG; Start 03/05/17 at 22:30 Acetaminophen (Tylenol Liquid) 650 mg Q6H PRN PO PAIN LEVEL 1-3 OR FEVER; Start 03/05/17 at 22:30 Acetaminophen (Tylenol Tab) 650 mg Q6H PRN PO PAIN LEVEL 1-3 OR FEVER; Start 03/05/17 at 22:30 Morphine Sulfate (morphine) 2 mg Q4H PRN IV PAIN LEVEL 7-10 Last administered on 03/06/17 20:59; Admin Dose 2 MG; Start 03/05/17 at 22:30 Docusate Sodium (Colace) 100 mg Q12H PRN PO CONSTIPATION; Start 03/05/17 at 22 :30 Magnesium Hydroxide (Milk Of Mag) 30 ml DAILY PRN PO CONSTIPATION; Start 03/05 at 22:30 Bisacodyl (Dulcolax) 5 mg DAILY PRN PO CONSTIPATION; Start 03/05/17 at 22:30 Pantoprazole (Protonix Iv) 40 mg DAILY@06 IV Last administered on 03/07/17 06 :40; Admin Dose 40 MG; Start 03/06/17 at 06:00 Dexamethasone 4 mg 4 mg Q6 IV Last administered on 03/07/17 06:40; Admin Dose 4 MG; Start 03/06/17 at 00:00 Levetiracetam/ Sodium Chloride (Keppra Iv/NS) 107.5 ml @ 430 mls/hr Q12 IVPB Last administered on 03/06/17 20:42; Admin Dose 430 MLS/HR; Start 03/06/17 at 09:00 Lorazepam (Ativan) 0.5 mg Q8 PRN IV SLEEP Last administered on 03/06/17 21:24 ; Admin Dose 0.5 MG; Start 03/06/17 at 21:30 Miscellaneous Information 1 ea NOTE XX ; Start 03/07/17 at 07:30 Glucose (Glutose) 15 gm Q15M PRN PO DECREASED GLUCOSE; Start 03/07/17 at 07:30 Glucose (Glutose) 22.5 gm Q15M PRN PO DECREASED GLUCOSE; Start 03/07/17 at 07: 30 Dextrose (D50w Syringe) 25 ml Q15M PRN IV DECREASED GLUCOSE; Start 03/07/17 at 07:30 Dextrose (D50w Syringe) 50 ml Q15M PRN IV DECREASED GLUCOSE; Start 03/07/17 at 07:30 Glucagon (Glucagen) 1 mg Q15M PRN IM DECREASED GLUCOSE; Start 03/07/17 at 07: 30 Glucose (Glutose) 15 gm Q15M PRN BUCCAL DECREASED GLUCOSE; Start 03/07/17 at 07:30 MILEY PARHAM M.D. Mar 07, 2017 09:30 30 Glucose (Glutose) 15 gm Q15M PRN BUCCAL DECREASED GLUCOSE; Start 03/07/17 at 07:30 MILEY PARHAM M.D. Mar 07, 2017 09:30
[2017-03-07] MEDS: LEVETIRACETAM IV 750 MG in SOD CHLORIDE 0.9% 100 ML IVPB SCH ×2 (10:24→20:39)
--- NOTE | 2017-03-07 16:41 | RADRPT ---
PROCEDURE: Fluoroscopic guided lumbar puncture. CLINICAL INDICATION: History of breast cancer. Abnormal meningeal enhancement. TECHNIQUE: Prior to the procedure, informed consent was obtained. Risks including bleeding and in fection were explained to the patient. The patient understood and was willing to proceed. A proced ural pause was performed. The patient's name, date of , and procedure to be performed were lucita ified. Using local anesthetic, sterile technique, and fluoroscopic guidance, a 22-gauge spinal needle was a dvanced into the thecal sac at the L5-S1 level. Opening pressure was 17 cm of water. 7 mL of clear cerebrospinal fluid was aspirated and sent for laboratory analysis. The needle was removed. A tonio ssing was applied. The patient tolerated the procedure well. A total of 0.1 minutes of fluoroscopy time was used. 4 images of the lower lumbar spine were obtaine d with image intensifier. COMPARISON: MRI of the brain dated 03/06/2017. FINDINGS: Images demonstrate the needle at the L5-S1 level in the thecal sac. IMPRESSION: Satisfactory fluoroscopic guided lumbar puncture. The opening pressure was elevated measuring 17 cm of water. RPTAT: QQ .Arnold David MD, Date Time Electronically viewed and signed by .Arnold David MD, on 03/07/2017 16:41 .R/
[2017-03-07] MEDS: CAPECITABINE 500 MG TAB PO SCH (20:19)
[2017-03-07] MEDS: ONDANSETRON 4 MG INJ IV PRN (23:15)
[2017-03-07] MEDS: morphine 2 MG INJ IV PRN (23:16)
[2017-03-08] VITALS (25 sets, daily range): BP systolic 105–150; BP diastolic 68–89; PULSE 86–101; RESP 17–30
[2017-03-08] MEDS: LORAZEPAM 2 MG INJ IV PRN ×2 (03:33→14:54)
[2017-03-08] MEDS: DEXAMETHASONE 4 MG/ML 1 ML INJ IV SCH ×3 (06:21→17:44)
[2017-03-08] MEDS: PANTOPRAZOLE (EC) 40 MG TAB PO SCH (06:21)
[2017-03-08] MEDS: INSULIN ASPART [NOVOLOG] 3 ML PEN SC SCH ×4 (07:35→21:00)
--- NOTE | 2017-03-08 08:44 | PN ---
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 # HX HTN # Tacycardia could be pain vs anxiety # Pancytopenia likley due to chemo Recs - s/p LP done yesterday to r/o lepto meningeal disease - CT CAP and CT C/T/L spine - 2 units PRBC today - Palliative care consult - c/w Decadron 4 mg q6 and ISS - c/w Keppra 750 q 12 - Appreciate Neuro, Neurosurgery and Oncology consult - Transfer to Telemetry - SCD Problems: Subjective 24 Hr Interval Summary Free Text/Dictation Pt was tearful in am discussing about disease Still dizzy Spoke with Dr Sharp at bedside Exam/Review of Systems Vital Signs Vitals Vital Signs Date Time Temp Pulse Resp B/P Pulse Ox O2 Delivery O2 Flow Rate FiO2 03/08/17 06:00 90 27 110/73 99 Nasal Cannula 03/08/17 04:00 98.2 03/08/17 00:55 1.0 03/06/17 00:45 21 Intake and Output 03/07/17 03/07/17 03/08/17 15:00 23:00 07:00 Intake Total 587.5 ml 180 ml Output Total 125 ml 500 ml Balance 587.5 ml -125 ml -320 ml Exam ENERAL: The patient is a thin-looking female, awake, alert. VITAL SIGNS: Stable. HEAD: Atraumatic, normocephalic. Pupils are equal and reactive to light. NECK: Supple, no JVD. LUNGS: Clear. CARDIOVASCULAR: S1, S2 normal. ABDOMEN: Soft. Bowel sounds positive. No palpable mass. EXTREMITIES: No cyanosis, clubbing, or edema. CENTRAL NERVOUS SYSTEM: The patient is awake, alert, moving both upper and lower extremities with some pain and some numbness in the right foot. Results Result Diagram: 03/08/17 0611 03/08/17 0611 Results 24 hrs Laboratory Tests Test 03/07/17 09:00 03/07/17 09:40 03/07/17 12:04 03/07/17 17:29 Blood Gas Specimen Source Blood arterial Arterial Blood Date Drawn 03/07/2017 10:05:55 AM Arterial Blood pH (Temp corrected) 7.508 H Arterial Blood pCO2 (Temp correct) 30.4 L Arterial Blood pO2 (Temp corrected) 87.1 Arterial Blood HCO3 23.6 Arterial Blood Base Excess 0.9 Arterial Blood Oxygen Saturation 96.6 Seun Test ACCEPTAB Arterial Blood Gas Puncture Site Right Radial Arterial Blood Carboxyhemoglobin 0.3 Arterial Blood Methemoglobin 0.4 Blood Gas A-a O2 Differential 69.5 H Oxyhemoglobin Percent 95.9 Total Hemoglobin 8.7 L Blood Gas Temperature 37.0 Blood Gas Modality NASAL CANNULA FiO2 27.0 Blood Gas Notified Whom JLD Blood Gas Notified Time 03/07/2017 10:21:47 AM Bedside Glucose 132 162 133 Test 03/07/17 20:44 03/08/17 05:03 03/08/17 06:11 Bedside Glucose 114 Lab Scanned Report BLOOD TRANSFUSION White Blood Count 4.8 # Red Blood Count 2.33 L Hemoglobin 8.1 L Hematocrit 24.3 L Mean Corpuscular Volume 104.3 H Mean Corpuscular Hemoglobin 34.8 H Mean Corpuscular Hemoglobin Concent 33.3 Red Cell Distribution Width 18.8 H Platelet Count 51 #L Mean Platelet Volume 13.4 H Neutrophils % Lymphocytes % Monocytes % Eosinophils % Basophils % Nucleated Red Blood Cells % 3.1 H Neutrophils # Lymphocytes # Monocytes # Eosinophils # Basophils # Nucleated Red Blood Cells # Sodium Level 142 Potassium Level 4.2 Chloride Level 108 Carbon Dioxide Level 25 Anion Gap 13 Blood Urea Nitrogen 16 Creatinine 0.57 Glucose Level 112 Calcium Level 8.4 Phosphorus Level 3.0 Magnesium Level 2.0 Total Bilirubin 1.0 Direct Bilirubin 0.00 Indirect Bilirubin 1.0 Aspartate Amino Transf (AST/SGOT) 374 H Alanine Aminotransferase (ALT/SGPT) 178 H Alkaline Phosphatase 387 H Total Protein 5.8 L Albumin 3.3 Globulin 2.50 Albumin/Globulin Ratio 1.32 Medications Medications Current Medications Ondansetron HCl (Zofran Inj) 4 mg Q6H PRN IV NAUSEA AND/OR VOMITING Last administered on 03/07/17t 23:15; Admin Dose 4 MG; Start 03/05/17 at 22:30 Acetaminophen (Tylenol Liquid) 650 mg Q6H PRN PO PAIN LEVEL 1-3 OR FEVER; Start 03/05/17 at 22:30 Acetaminophen (Tylenol Tab) 650 mg Q6H PRN PO PAIN LEVEL 1-3 OR FEVER; Start 03/05/17 at 22:30 Morphine Sulfate (morphine) 2 mg Q4H PRN IV PAIN LEVEL 7-10 Last administered on 03/07/17 23:16; Admin Dose 2 MG; Start 03/05/17 at 22:30 Docusate Sodium (Colace) 100 mg Q12H PRN PO CONSTIPATION Last administered on 03/07/17 18:05; Admin Dose 100 MG; Start 03/05/17 at 22:30 Magnesium Hydroxide (Milk Of Mag) 30 ml DAILY PRN PO CONSTIPATION; Start 03/05 at 22:30 Bisacodyl (Dulcolax) 5 mg DAILY PRN PO CONSTIPATION Last administered on 18:05; Admin Dose 5 MG; Start 03/05/17 at 22:30 Dexamethasone 4 mg 4 mg Q6 IV Last administered on 03/08/17 06:21; Admin Dose 4 MG; Start 03/06/17 at 00:00 Levetiracetam/ Sodium Chloride (Keppra Iv/NS) 107.5 ml @ 430 mls/hr Q12 IVPB Last administered on 03/07/17 20:39; Admin Dose 430 MLS/HR; Start 03/06/17 at 09:00 Lorazepam (Ativan) 0.5 mg Q8 PRN IV SLEEP Last administered on 03/08/17 03:33 ; Admin Dose 0.5 MG; Start 03/06/17 at 21:30 Miscellaneous Information 1 ea NOTE XX ; Start 03/07/17 at 07:30 Glucose (Glutose) 15 gm Q15M PRN PO DECREASED GLUCOSE; Start 03/07/17 at 07:30 Glucose (Glutose) 22.5 gm Q15M PRN PO DECREASED GLUCOSE; Start 03/07/17 at 07: 30 Dextrose (D50w Syringe) 25 ml Q15M PRN IV DECREASED GLUCOSE; Start 03/07/17 at 07:30 Dextrose (D50w Syringe) 50 ml Q15M PRN IV DECREASED GLUCOSE; Start 03/07/17 at 07:30 Glucagon (Glucagen) 1 mg Q15M PRN IM DECREASED GLUCOSE; Start 03/07/17 at 07: 30 Glucose (Glutose) 15 gm Q15M PRN BUCCAL DECREASED GLUCOSE; Start 03/07/17 at 07:30 Capecitabine (Xeloda) 1,500 mg DAILY PO ; Start 03/08/17 at 09:00; Stop at 09:01 Capecitabine (Xeloda) 1,000 mg QPM PO Last administered on 03/07/17 20:19; Admin Dose 1,000 MG; Start 03/07/17 at 21:00; Stop 03/20/17 at 21:01 Capecitabine (Xeloda) 1,500 mg DAILY PO ; Start 03/28/17 at 09:00 Capecitabine (Xeloda) 1,000 mg QPM PO ; Start 03/28/17 at 21:00 Pantoprazole (Protonix Tab) 40 mg DAILY@06 PO Last administered on 03/08/17 06:21; Admin Dose 40 MG; Start 03/08/17 at 06:00 JAVIER BERRY MD Mar 08, 2017 08:44
[2017-03-08] MEDS: CAPECITABINE 500 MG TAB PO SCH ×2 (08:51→21:55)
[2017-03-08] MEDS: LEVETIRACETAM IV 750 MG in SOD CHLORIDE 0.9% 100 ML IVPB SCH ×2 (08:53→21:56)
[2017-03-08] MEDS ORDERED: BARIUM SULF 2% 450 ML BTL (BERRY SMOOTHIE) PO SCH (10:00)
--- NOTE | 2017-03-08 11:48 | CONS ---
Date/Time of Note Date/Time of Note DATE: 03/08/17 TIME: 11:46 Assessment/Plan Assessment/Plan Chief Complaint/Hosp Course 61 yo with #ER+ /AZ-/Her 2 negative metastatic breast cancer to the bones, and liver, specifically the right shoulder as well as the T spine causing cord compression -patient's CA 15-3 in 1 month has gone up from 163 to > 1000 -pt is certainly progressing -pt can get CT C/A/P with po and IV contrast as well as bone scan -will plan to start Xeloda 1000mg po BID 14 days on and 7 days off #Dizziness -MRI brain was reviewed with Radiation oncologist who will review the file and let me know if patient would benefit from whole brain XRT -MRI brain shows mostly stable lesions but did demonstrate a 7mm subdural fluid collection , which is unlikely the cause of her symptoms -will get LP with cytology to evaluate for leptomeningeal disease -continue Decadron 4mg IV q 6 - patient is status post radiation and which she finished on Septemberx[address] Saenz -she is now s/p XRT to t spine and Sacrum completed on 01/24/17.need to verify this with his records # right leg pain -given MS Contin 30mg BID # bone metastasis -Patient is on Zometa as an outpatient Problems: Consultation Date/Type/Reason Admit Date/Time Mar 06, 2017 at 20:31 Initial Consult Date 03/07/17 Type of Consultation: oncology Reason for Consultation metastatic breast cancer/ ER+ Referring Provider: JAVIER BERRY MD 24 HR Interval Summary Free Text/Dictation pt feels slight Exam/Review of Systems Vital Signs Vitals Vital Signs Date Time Temp Pulse Resp B/P Pulse Ox O2 Delivery O2 Flow Rate FiO2 03/08/17 11:00 95 21 114/69 98 Nasal Cannula 2.0 03/08/17 10:30 98.4 03/06/17 00:45 21 Intake and Output 03/07/17 03/07/17 03/08/17 15:00 23:00 07:00 Intake Total 587.5 ml 180 ml Output Total 125 ml 500 ml Balance 587.5 ml -125 ml -320 ml Results Result Diagram: 03/08/17 0611 03/08/17 0611 Results 24 hrs Laboratory Tests Test 03/07/17 12:04 03/07/17 17:29 03/07/17 20:44 03/08/17 05:03 Bedside Glucose 162 133 114 Lab Scanned Report BLOOD TRANSFUSION Test 03/08/17 06:11 03/08/17 08:45 White Blood Count 4.8 # Red Blood Count 2.33 L Hemoglobin 8.1 L Hematocrit 24.3 L Mean Corpuscular Volume 104.3 H Mean Corpuscular Hemoglobin 34.8 H Mean Corpuscular Hemoglobin Concent 33.3 Red Cell Distribution Width 18.8 H Platelet Count 51 #L Mean Platelet Volume 13.4 H Neutrophils % Segmented Neutrophils % (Manual) 65 Band Neutrophils % (Manual) 16 H Lymphocytes % Lymphocytes % (Manual) 5 L Reactive Lymphocytes % (Manual) 1 H Monocytes % Monocytes % (Manual) 13 H Eosinophils % Basophils % Nucleated Red Blood Cells % 2 H Neutrophils # Neutrophils # (Manual) 3.2 Band Neutrophils # 0.7 H Absolute Lymphocytes (Manual) 0.2 L Lymphocytes # Reactive Lymphocytes # 0.0 Monocytes # Absolute Monocytes (Manual) 0.6 Eosinophils # Basophils # Nucleated Red Blood Cells # Platelet Estimate DECREASED Platelet Morphology Comment @See below Polychromasia 2+ Poikilocytosis 1+ Anisocytosis 1+ Microcytosis 1+ Tear Drop Cells 1+ Sodium Level 142 Potassium Level 4.2 Chloride Level 108 Carbon Dioxide Level 25 Anion Gap 13 Blood Urea Nitrogen 16 Creatinine 0.57 Glucose Level 112 Calcium Level 8.4 Phosphorus Level 3.0 Magnesium Level 2.0 Total Bilirubin 1.0 Direct Bilirubin 0.00 Indirect Bilirubin 1.0 Aspartate Amino Transf (AST/SGOT) 374 H Alanine Aminotransferase (ALT/SGPT) 178 H Alkaline Phosphatase 387 H Total Protein 5.8 L Albumin 3.3 Globulin 2.50 Albumin/Globulin Ratio 1.32 Bedside Glucose 115 Medications Medications Current Medications Ondansetron HCl (Zofran Inj) 4 mg Q6H PRN IV NAUSEA AND/OR VOMITING Last administered on 03/07/17t 23:15; Admin Dose 4 MG; Start 03/05/17 at 22:30 Acetaminophen (Tylenol Liquid) 650 mg Q6H PRN PO PAIN LEVEL 1-3 OR FEVER; Start 03/05/17 at 22:30 Acetaminophen (Tylenol Tab) 650 mg Q6H PRN PO PAIN LEVEL 1-3 OR FEVER; Start 03/05/17 at 22:30 Morphine Sulfate (morphine) 2 mg Q4H PRN IV PAIN LEVEL 7-10 Last administered on 03/07/17 23:16; Admin Dose 2 MG; Start 03/05/17 at 22:30 Docusate Sodium (Colace) 100 mg Q12H PRN PO CONSTIPATION Last administered on 03/07/17 18:05; Admin Dose 100 MG; Start 03/05/17 at 22:30 Magnesium Hydroxide (Milk Of Mag) 30 ml DAILY PRN PO CONSTIPATION; Start 03/05 at 22:30 Bisacodyl (Dulcolax) 5 mg DAILY PRN PO CONSTIPATION Last administered on 18:05; Admin Dose 5 MG; Start 03/05/17 at 22:30 Dexamethasone 4 mg 4 mg Q6 IV Last administered on 03/08/17 06:21; Admin Dose 4 MG; Start 03/06/17 at 00:00 Levetiracetam/ Sodium Chloride (Keppra Iv/NS) 107.5 ml @ 430 mls/hr Q12 IVPB Last administered on 03/08/17 08:53; Admin Dose 430 MLS/HR; Start 03/06/17 at 09:00 Lorazepam (Ativan) 0.5 mg Q8 PRN IV SLEEP Last administered on 03/08/17 03:33 ; Admin Dose 0.5 MG; Start 03/06/17 at 21:30 Miscellaneous Information 1 ea NOTE XX ; Start 03/07/17 at 07:30 Glucose (Glutose) 15 gm Q15M PRN PO DECREASED GLUCOSE; Start 03/07/17 at 07:30 Glucose (Glutose) 22.5 gm Q15M PRN PO DECREASED GLUCOSE; Start 03/07/17 at 07: 30 Dextrose (D50w Syringe) 25 ml Q15M PRN IV DECREASED GLUCOSE; Start 03/07/17 at 07:30 Dextrose (D50w Syringe) 50 ml Q15M PRN IV DECREASED GLUCOSE; Start 03/07/17 at 07:30 Glucagon (Glucagen) 1 mg Q15M PRN IM DECREASED GLUCOSE; Start 03/07/17 at 07: 30 Glucose (Glutose) 15 gm Q15M PRN BUCCAL DECREASED GLUCOSE; Start 03/07/17 at 07:30 Capecitabine (Xeloda) 1,500 mg DAILY PO Last administered on 03/08/17 08:51; Admin Dose 1,500 MG; Start 03/08/17 at 09:00; Stop 03/21/17 at 09:01 Capecitabine (Xeloda) 1,000 mg QPM PO Last administered on 03/07/17 20:19; Admin Dose 1,000 MG; Start 03/07/17 at 21:00; Stop 03/20/17 at 21:01 Capecitabine (Xeloda) 1,500 mg DAILY PO ; Start 03/28/17 at 09:00 Capecitabine (Xeloda) 1,000 mg QPM PO ; Start 03/28/17 at 21:00 Pantoprazole (Protonix Tab) 40 mg DAILY@06 PO Last administered on 03/08/17 06:21; Admin Dose 40 MG; Start 03/08/17 at 06:00 MILEY PARHAM M.D. Mar 08, 2017 11:48
--- NOTE | 2017-03-08 15:04 | CONS ---
Date/Time of Note Date/Time of Note DATE: 03/08/17 TIME: 14:50 Consultation Date/Type/Reason Admit Date/Time Mar 06, 2017 at 20:31 Type of Consultation: Palliative care Hx of Present Illness To begin with has decided he does not want heroic measures at the end of her life therefore I will change her chart to DO NOT RESUSCITATE. Long discussion with her and her at the bedside he was very tearful but it was obvious that she makes up all the decisions for ongoing level of care. Without my asking she gave me a clear history of her underlying medical problems and treatment course prior to this hospitalization. Her hope is that she does not suffer at the end of life, that there is a possibility that [facility] may have some suggestion on experimental treatment and that her mother and sister will not suffer at the end of her life. She is not spiritual there were no cultural issues communication preferences is for all of her healthcare providers to be honest with her prognosis she wants to know some realistic short -term prognosis for . She has issues that she like to address mainly to speak to her sister and her mother about the progression of her malignancy. Her did not contribute at all during the discussion. We addressed pain and symptom management she states that she is not in pain but generally uncomfortable. I did not discuss prognosis but I will speak to her primary care providers including . There are no psychosocial or ethical issues as patient makes her own decisions. Change CODE STATUS to DO NOT RESUSCITATE I have told her that I will speak to her healthcare team and keep her informed of any discussion of further treatment options though I believe this is been discussed with Dr. Nichols in detail prior to this hospitalization. Constitutional: disoriented, poor po ENT: no complaints Respiratory: shortness of breath Gastrointestinal: decreased appetite Musculoskeletal: back pain, bone/joint pain Skin: no complaints Psychological: anxiety, depression Social History Alcohol Use: none Smoking Status: Never smoker Exam/Review of Systems Vital Signs Vitals Vital Signs Date Time Temp Pulse Resp B/P Pulse Ox O2 Delivery O2 Flow Rate FiO2 03/08/17 13:35 98.2 94 20 131/80 94 Nasal Cannula 2.0 03/06/17 00:45 21 Intake and Output 03/07/17 03/07/17 03/08/17 15:00 23:00 07:00 Intake Total 587.5 ml 180 ml Output Total 125 ml 500 ml Balance 587.5 ml -125 ml -320 ml Results Result Diagram: 03/08/17 0611 03/08/17 0611 Results 24 hrs Laboratory Tests Test 03/07/17 17:29 03/07/17 20:44 03/08/17 05:03 03/08/17 06:11 Bedside Glucose 133 114 Lab Scanned Report BLOOD TRANSFUSION White Blood Count 4.8 # Red Blood Count 2.33 L Hemoglobin 8.1 L Hematocrit 24.3 L Mean Corpuscular Volume 104.3 H Mean Corpuscular Hemoglobin 34.8 H Mean Corpuscular Hemoglobin Concent 33.3 Red Cell Distribution Width 18.8 H Platelet Count 51 #L Mean Platelet Volume 13.4 H Neutrophils % Segmented Neutrophils % (Manual) 65 Band Neutrophils % (Manual) 16 H Lymphocytes % Lymphocytes % (Manual) 5 L Reactive Lymphocytes % (Manual) 1 H Monocytes % Monocytes % (Manual) 13 H Eosinophils % Basophils % Nucleated Red Blood Cells % 2 H Neutrophils # Neutrophils # (Manual) 3.2 Band Neutrophils # 0.7 H Absolute Lymphocytes (Manual) 0.2 L Lymphocytes # Reactive Lymphocytes # 0.0 Monocytes # Absolute Monocytes (Manual) 0.6 Eosinophils # Basophils # Nucleated Red Blood Cells # Platelet Estimate DECREASED Platelet Morphology Comment @See below Polychromasia 2+ Poikilocytosis 1+ Anisocytosis 1+ Microcytosis 1+ Tear Drop Cells 1+ Sodium Level 142 Potassium Level 4.2 Chloride Level 108 Carbon Dioxide Level 25 Anion Gap 13 Blood Urea Nitrogen 16 Creatinine 0.57 Glucose Level 112 Calcium Level 8.4 Phosphorus Level 3.0 Magnesium Level 2.0 Total Bilirubin 1.0 Direct Bilirubin 0.00 Indirect Bilirubin 1.0 Aspartate Amino Transf (AST/SGOT) 374 H Alanine Aminotransferase (ALT/SGPT) 178 H Alkaline Phosphatase 387 H Total Protein 5.8 L Albumin 3.3 Globulin 2.50 Albumin/Globulin Ratio 1.32 Test 03/08/17 08:45 03/08/17 12:11 Bedside Glucose 115 131 Medications Medications Current Medications Ondansetron HCl (Zofran Inj) 4 mg Q6H PRN IV NAUSEA AND/OR VOMITING Last administered on 03/07/17t 23:15; Admin Dose 4 MG; Start 03/05/17 at 22:30 Acetaminophen (Tylenol Liquid) 650 mg Q6H PRN PO PAIN LEVEL 1-3 OR FEVER; Start 03/05/17 at 22:30 Acetaminophen (Tylenol Tab) 650 mg Q6H PRN PO PAIN LEVEL 1-3 OR FEVER; Start 03/05/17 at 22:30 Morphine Sulfate (morphine) 2 mg Q4H PRN IV PAIN LEVEL 7-10 Last administered on 03/07/17 23:16; Admin Dose 2 MG; Start 03/05/17 at 22:30 Docusate Sodium (Colace) 100 mg Q12H PRN PO CONSTIPATION Last administered on 03/07/17 18:05; Admin Dose 100 MG; Start 03/05/17 at 22:30 Magnesium Hydroxide (Milk Of Mag) 30 ml DAILY PRN PO CONSTIPATION; Start 03/05 at 22:30 Bisacodyl (Dulcolax) 5 mg DAILY PRN PO CONSTIPATION Last administered on 18:05; Admin Dose 5 MG; Start 03/05/17 at 22:30 Dexamethasone 4 mg 4 mg Q6 IV Last administered on 03/08/17 12:27; Admin Dose 4 MG; Start 03/06/17 at 00:00 Levetiracetam/ Sodium Chloride (Keppra Iv/NS) 107.5 ml @ 430 mls/hr Q12 IVPB Last administered on 03/08/17 08:53; Admin Dose 430 MLS/HR; Start 03/06/17 at 09:00 Lorazepam (Ativan) 0.5 mg Q8 PRN IV SLEEP Last administered on 03/08/17 03:33 ; Admin Dose 0.5 MG; Start 03/06/17 at 21:30 Miscellaneous Information 1 ea NOTE XX ; Start 03/07/17 at 07:30 Glucose (Glutose) 15 gm Q15M PRN PO DECREASED GLUCOSE; Start 03/07/17 at 07:30 Glucose (Glutose) 22.5 gm Q15M PRN PO DECREASED GLUCOSE; Start 03/07/17 at 07: 30 Dextrose (D50w Syringe) 25 ml Q15M PRN IV DECREASED GLUCOSE; Start 03/07/17 at 07:30 Dextrose (D50w Syringe) 50 ml Q15M PRN IV DECREASED GLUCOSE; Start 03/07/17 at 07:30 Glucagon (Glucagen) 1 mg Q15M PRN IM DECREASED GLUCOSE; Start 03/07/17 at 07: 30 Glucose (Glutose) 15 gm Q15M PRN BUCCAL DECREASED GLUCOSE; Start 03/07/17 at 07:30 Capecitabine (Xeloda) 1,500 mg DAILY PO Last administered on 03/08/17 08:51; Admin Dose 1,500 MG; Start 03/08/17 at 09:00; Stop 03/21/17 at 09:01 Capecitabine (Xeloda) 1,000 mg QPM PO Last administered on 03/07/17 20:19; Admin Dose 1,000 MG; Start 03/07/17 at 21:00; Stop 03/20/17 at 21:01 Capecitabine (Xeloda) 1,500 mg DAILY PO ; Start 03/28/17 at 09:00 Capecitabine (Xeloda) 1,000 mg QPM PO ; Start 03/28/17 at 21:00 Pantoprazole (Protonix Tab) 40 mg DAILY@06 PO Last administered on 03/08/17 06:21; Admin Dose 40 MG; Start 03/08/17 at 06:00 Influenza Virus Vaccine (Fluzone) 0.5 ml ONCE ONCE IM* ; Start 03/09/17 at 10: 00; Stop 03/09/17 at 10:01 JORDAN CHÁVEZ Mar 08, 2017 15:03
[2017-03-08] MEDS ORDERED: IODIXANOL LOCM 100 ML BTL ONE (16:09)
[2017-03-08] MEDS ORDERED: SOD CHLORIDE 0.9% 100 ML ONE (16:09)
--- NOTE | 2017-03-08 17:01 | RADRPT ---
AMENDMENT: 03/08/2017 5:18:27 PM Davey Mancera D.o Comparison is made to previous MRI of 12/04/2016. The metastatic foci of the cervical vertebral bodi es appear slightly more extensive than on the previous examination but otherwise there has been no s ignificant interval change PROCEDURE: CT cervical spine without contrast. CLINICAL INDICATION: Neck pain. Concern for metastatic disease TECHNIQUE: CT of the cervical spine without contrast was performed. Axial images were obtained th rough the cervical spine and reformatted at 1.25 mm slice thickness. Coronal and sagittal images wer e reformatted. One or more of the following dose reduction techniques were used: Automated exposure control, adjustment of the mA and/or kV according to patient size, use of iterative reconstruction technique. Exam CTDIvol = 22.14 mGy and DLP = 443.99 mGy-cm. COMPARISON: None available. FINDINGS: Vertebral bodies: The lordosis is straightened. Stature is preserved at every level without evidence of pathologic fracture. There is normal mineralization and trabeculation. Small scattered lytic a reas are seen throughout the vertebral bodies most conspicuous at C2, C3, C4, C5 and C6. Anterior sp ondylosis is greatest at C5-6 and C6-7. The C 05/1989 and predental space are intact. Central canal and cervical spinal cord: No abnormal density within the spinal cord is evident and no intraspinal masses are delineated. C2-3: The disk is within normal limits. The facet joints are normal. The uncovertebral joints and f oramina are unremarkable. C3-4: The disk is within normal limits. Mild left facet arthropathy is present the right facet brandon nt is normal. The uncovertebral joints and foramina are unremarkable. C4-5: Mild degenerative disc narrowing with slight disc bulging but no evidence of protrusion or ce ntral stenosis. Mild left facet arthropathy is present the right facet joint is unremarkable. The u ncovertebral joints and foramina are unremarkable. C5-6: Moderate degenerative disc narrowing with a small osteophyte and disc complex not causing sig nificant central stenosis. The facet joints are normal. Uncovertebral hypertrophy causes moderate l eft foraminal stenosis the right foramen is patent. C6-7: Moderate to severe degenerative disc narrowing with endplate irregularity and and osteophyte /disc complex of approximately 5 mm causing mild central stenosis. There are some subtle lucent area s within the lamina and spinous process of C7 consistent with metastasis. Left greater than right f acet arthropathy is noted. Uncovertebral hypertrophy causes moderate left foraminal stenosis the rig ht foramen is patent. C7-T1: The disk is within normal limits. Moderate bilateral facet arthropathy is present. The uncov ertebral joints and foramina are unremarkable. Non spine related findings: No abnormalities of significance are seen. RPTAT:HJJR IMPRESSION: 1. Small scattered lytic lesions throughout the cervical vertebral bodies and in the posterior eleme nts including the C7 spinous process, findings compatible with metastatic disease and correlating wi th the given history. 2. No evidence of pathologic fracture. 3. Degenerative disc disease greatest at C5-6 and C6-7 with some C6-7 central stenosis. 4. Uncovertebral hypertrophy causing foraminal stenosis is greatest on the left at C5-6 and C6-7. Physician Michael Date Time Electronically viewed and signed by Physician Michael on 03/08/2017 17:18 /
--- NOTE | 2017-03-08 17:09 | RADRPT ---
AMENDMENT: 03/08/2017 5:21:32 PM Davey Mancera D.o Comparison is made to a previous MRI thoracic spine is 12/04/2016. Overall the size and number of th e multiple vertebral body posterior element metastases are not significantly changed allowing for th e difference in modalities. [facility] Radiology Report Patient Name: RICHAR GOLD Report Date: 08-Mar-2017 17:09.00 Accession No.: [id number] Patient Date: 1955 Report Status: S Referring Physician: JORGE ALBERTO HERRERA Reason For Study: R/O SPINAL METS [place] [id number] Radiology Main Line: [phone] DIAGNOSTIC IMAGING REPORT Patient: ALLA MCQUEEN : 1955 Age: 61 Sex: F MR #: [id number] DOS: 03/08/17 0000 Ordering MD: JAVIER BERRY MD [facility]: CT thoracic spine without contrast. CLINICAL INDICATION: Back pain . Evaluate for possible metastatic disease. TECHNIQUE: CT of the thoracic spine was performed. Axial images were obtained and reformatted at 2.5 mm slice thickness. Coronal and sagittal images were reformatted. One or more of the following dose reduction techniques were used: Automated exposure control, adjustment of the mA and/ or kV according to patient size, use of iterative reconstruction technique. Exam CTDIvol = 18.05 mGy and DLP = 765.51 mGy-cm. COMPARISON: None available. FINDINGS: Vertebral bodies: Multiple lytic foci throughout the the thoracic vertebral bodies are present, visualized at every level and largest at T9 and T10. Some of the lytic foci have a sclerotic rim. There is slight loss of the superior axial height at T6 and inferior height at T8 suggestive of minimal, 10% or less, pathologic compression deformities. The thoracic kyphosis is preserved. Mild anterior spondylosis is present at T7-T10. Thoracic spinal cord: No abnormal densities seen within the spinal canal.. T1-2: No discogenic abnormality of significance is seen and there is no central canal or foraminal stenosis. The posterior elements are unremarkable. T2-3: No discogenic abnormality of significance is seen and there is no central canal or foraminal stenosis. The facet joints are intact. T3-4: There is a blastic lesion within the T3 spinous process that may reflect metastasis but does not have the same appearance as the other lesions. There is no disc abnormality or stenosis. There is mild bilateral facet arthropathy T4-5: No discogenic abnormalities significance is seen. There is right greater than left facet arthropathy. A lytic lesion destroying the left T4 transverse process is noted T5-6: No discogenic abnormalities in its is seen. There is moderate bilateral facet arthropathy. Multiple lytic lesions in the permeative appearance of the left T5 transverse process is consistent with metastasis T6-7: Mild degenerative disc narrowing and slight anterior spondylosis with lytic metastatic foci of the left T6 transverse process and the lamina. There is moderate facet arthropathy without central or foraminal stenosis. T7-8: Mild degenerative disc narrowing the anterior spondylosis but no disc protrusion or central stenosis. Lytic foci within the left T7 transverse process are present and there is suggestion of a nondisplaced pathologic fracture. There are lamina lytic lesions at T7 and bilateral facet arthropathy without stenosis T8-9: Moderate degenerate disc narrowing with some anterior spondylosis but no disc protrusion or central stenosis. The posterior elements show mild facet arthropathy there otherwise unremarkable T9-10: Mild degenerative disc and endplate irregularity and no evidence of central stenosis. The facet joints and posterior elements are unremarkable T10-11: Mild degenerative disc narrowing with endplate irregularity and changes of prior laminectomy. Expansile lytic lesion of the left eleventh rib is likely metastatic disease T11-12: Post laminectomy changes are present with preservation of disc stature and no evidence of stenosis or posterior element metastatic disease T12-L1: No discogenic abnormality of significance is seen and there is no facet arthropathy, central canal or foraminal stenosis Non spine related findings: Moderate to large bilateral dependent pleural effusions are present with compressive atelectasis of the lower lobes RPTAT:HJJR IMPRESSION: 1. Multiple, too numerous to count, lytic lesions involving the thoracic vertebral bodies greater than the posterior elements with suggestion of subtle pathologic fractures involving the superior T6 and inferior T8 endplates without bone retropulsion or central canal compromise. 2. Changes of prior laminectomy at the T10-T12 levels. 3. Multilevel upper and mid thoracic facet arthropathy without significant foraminal stenosis. 4. Mid thoracic spondylosis and degenerative disc disease without significant central canal stenosis at any level. Marlo Mancera, Physician Date Time Electronically viewed and signed by Marlo Mancera Physician on 03/08/2017 17:09 / CC: JAVIER BERRY MD Marlo Mancera, Physician Date Time Electronically viewed and signed by Marlo Mancera Physician on 03/08/2017 17:21 /
--- NOTE | 2017-03-08 17:09 | RADRPT ---
AMENDMENT: 03/08/2017 5:21:32 PM Davey Mancera D.o Comparison is made to a previous MRI thoracic spine is 12/04/2016. Overall the size and number of th e multiple vertebral body posterior element metastases are not significantly changed allowing for th e difference in modalities. [facility] Radiology Report Patient Name: RICHAR GOLD Report Date: 08-Mar-2017 17:09.00 Accession No.: [id number] Patient Date: 1955 Report Status: S Referring Physician: JORGE ALBERTO HERRERA Reason For Study: R/O SPINAL METS [place] [id number] Radiology Main Line: [phone] DIAGNOSTIC IMAGING REPORT Patient: ALLA MCQUEEN : 1955 Age: 61 Sex: F MR #: [id number] DOS: 03/08/17 0000 Ordering MD: JAVIER BERRY MD [facility]: [facility]: CT thoracic spine without contrast. CLINICAL INDICATION: Back pain . Evaluate for possible metastatic disease. TECHNIQUE: CT of the thoracic spine was performed. Axial images were obtained and reformatted at 2.5 mm slice thickness. Coronal and sagittal images were reformatted. One or more of the following dose reduction techniques were used: Automated exposure control, adjustment of the mA and/ or kV according to patient size, use of iterative reconstruction technique. Exam CTDIvol = 18.05 mGy and DLP = 765.51 mGy-cm. COMPARISON: None available. FINDINGS: Vertebral bodies: Multiple lytic foci throughout the the thoracic vertebral bodies are present, visualized at every level and largest at T9 and T10. Some of the lytic foci have a sclerotic rim. There is slight loss of the superior axial height at T6 and inferior height at T8 suggestive of minimal, 10% or less, pathologic compression deformities. The thoracic kyphosis is preserved. Mild anterior spondylosis is present at T7-T10. Thoracic spinal cord: No abnormal densities seen within the spinal canal.. T1-2: No discogenic abnormality of significance is seen and there is no central canal or foraminal stenosis. The posterior elements are unremarkable. T2-3: No discogenic abnormality of significance is seen and there is no central canal or foraminal stenosis. The facet joints are intact. T3-4: There is a blastic lesion within the T3 spinous process that may reflect metastasis but does not have the same appearance as the other lesions. There is no disc abnormality or stenosis. There is mild bilateral facet arthropathy T4-5: No discogenic abnormalities significance is seen. There is right greater than left facet arthropathy. A lytic lesion destroying the left T4 transverse process is noted T5-6: No discogenic abnormalities in its is seen. There is moderate bilateral facet arthropathy. Multiple lytic lesions in the permeative appearance of the left T5 transverse process is consistent with metastasis T6-7: Mild degenerative disc narrowing and slight anterior spondylosis with lytic metastatic foci of the left T6 transverse process and the lamina. There is moderate facet arthropathy without central or foraminal stenosis. T7-8: Mild degenerative disc narrowing the anterior spondylosis but no disc protrusion or central stenosis. Lytic foci within the left T7 transverse process are present and there is suggestion of a nondisplaced pathologic fracture. There are lamina lytic lesions at T7 and bilateral facet arthropathy without stenosis T8-9: Moderate degenerate disc narrowing with some anterior spondylosis but no disc protrusion or central stenosis. The posterior elements show mild facet arthropathy there otherwise unremarkable T9-10: Mild degenerative disc and endplate irregularity and no evidence of central stenosis. The facet joints and posterior elements are unremarkable T10-11: Mild degenerative disc narrowing with endplate irregularity and changes of prior laminectomy. Expansile lytic lesion of the left eleventh rib is likely metastatic disease T11-12: Post laminectomy changes are present with preservation of disc stature and no evidence of stenosis or posterior element metastatic disease T12-L1: No discogenic abnormality of significance is seen and there is no facet arthropathy, central canal or foraminal stenosis Non spine related findings: Moderate to large bilateral dependent pleural effusions are present with compressive atelectasis of the lower lobes RPTAT:HJJR IMPRESSION: 1. Multiple, too numerous to count, lytic lesions involving the thoracic vertebral bodies greater than the posterior elements with suggestion of subtle pathologic fractures involving the superior T6 and inferior T8 endplates without bone retropulsion or central canal compromise. 2. Changes of prior laminectomy at the T10-T12 levels. 3. Multilevel upper and mid thoracic facet arthropathy without significant foraminal stenosis. 4. Mid thoracic spondylosis and degenerative disc disease without significant central canal stenosis at any level. Marlo Mancera, Physician Date Time Electronically viewed and signed by Marlo Mancera Physician on 03/08/2017 17:09 / CC: JAVIER BERRY MD Marlo Mancera, Physician Date Time Electronically viewed and signed by Marlo Mancera Physician on 03/08/2017 17:21 /
--- NOTE | 2017-03-08 17:09 | RADRPT ---
AMENDMENT: 03/08/2017 5:21:32 PM Davey Mancera D.o Comparison is made to a previous MRI thoracic spine is 12/04/2016. Overall the size and number of th e multiple vertebral body posterior element metastases are not significantly changed allowing for th e difference in modalities. [facility] Radiology Report Patient Name: RICHAR GOLD Report Date: 08-Mar-2017 17:09.00 Accession No.: [id number] Patient Date: 1955 Report Status: S Referring Physician: JORGE ALBERTO HERRERA Reason For Study: R/O SPINAL METS [place] [address] Radiology Main Line: [phone] DIAGNOSTIC IMAGING REPORT Patient: ALLA MCQUEEN : 1955 Age: 61 Sex: F MR #: [id number] DOS: 03/08/17 0000 Ordering MD: JAVIER BERRY MD Location: [facility] PROCEDURE: CT thoracic spine without contrast. CLINICAL INDICATION: Back pain . Evaluate for possible metastatic disease. TECHNIQUE: CT of the thoracic spine was performed. Axial images were obtained and reformatted at 2.5 mm slice thickness. Coronal and sagittal images were reformatted. One or more of the following dose reduction techniques were used: Automated exposure control, adjustment of the mA and/ or kV according to patient size, use of iterative reconstruction technique. Exam CTDIvol = 18.05 mGy and DLP = 765.51 mGy-cm. COMPARISON: None available. FINDINGS: Vertebral bodies: Multiple lytic foci throughout the the thoracic vertebral bodies are present, visualized at every level and largest at T9 and T10. Some of the lytic foci have a sclerotic rim. There is slight loss of the superior axial height at T6 and inferior height at T8 suggestive of minimal, 10% or less, pathologic compression deformities. The thoracic kyphosis is preserved. Mild anterior spondylosis is present at T7-T10. Thoracic spinal cord: No abnormal densities seen within the spinal canal.. T1-2: No discogenic abnormality of significance is seen and there is no central canal or foraminal stenosis. The posterior elements are unremarkable. T2-3: No discogenic abnormality of significance is seen and there is no central canal or foraminal stenosis. The facet joints are intact. T3-4: There is a blastic lesion within the T3 spinous process that may reflect metastasis but does not have the same appearance as the other lesions. There is no disc abnormality or stenosis. There is mild bilateral facet arthropathy T4-5: No discogenic abnormalities significance is seen. There is right greater than left facet arthropathy. A lytic lesion destroying the left T4 transverse process is noted T5-6: No discogenic abnormalities in its is seen. There is moderate bilateral facet arthropathy. Multiple lytic lesions in the permeative appearance of the left T5 transverse process is consistent with metastasis T6-7: Mild degenerative disc narrowing and slight anterior spondylosis with lytic metastatic foci of the left T6 transverse process and the lamina. There is moderate facet arthropathy without central or foraminal stenosis. T7-8: Mild degenerative disc narrowing the anterior spondylosis but no disc protrusion or central stenosis. Lytic foci within the left T7 transverse process are present and there is suggestion of a nondisplaced pathologic fracture. There are lamina lytic lesions at T7 and bilateral facet arthropathy without stenosis T8-9: Moderate degenerate disc narrowing with some anterior spondylosis but no disc protrusion or central stenosis. The posterior elements show mild facet arthropathy there otherwise unremarkable T9-10: Mild degenerative disc and endplate irregularity and no evidence of central stenosis. The facet joints and posterior elements are unremarkable T10-11: Mild degenerative disc narrowing with endplate irregularity and changes of prior laminectomy. Expansile lytic lesion of the left eleventh rib is likely metastatic disease T11-12: Post laminectomy changes are present with preservation of disc stature and no evidence of stenosis or posterior element metastatic disease T12-L1: No discogenic abnormality of significance is seen and there is no facet arthropathy, central canal or foraminal stenosis Non spine related findings: Moderate to large bilateral dependent pleural effusions are present with compressive atelectasis of the lower lobes RPTAT:HJJR IMPRESSION: 1. Multiple, too numerous to count, lytic lesions involving the thoracic vertebral bodies greater than the posterior elements with suggestion of subtle pathologic fractures involving the superior T6 and inferior T8 endplates without bone retropulsion or central canal compromise. 2. Changes of prior laminectomy at the T10-T12 levels. 3. Multilevel upper and mid thoracic facet arthropathy without significant foraminal stenosis. 4. Mid thoracic spondylosis and degenerative disc disease without significant central canal stenosis at any level. Marlo Mancera, Physician Date Time Electronically viewed and signed by Marlo Mancera Physician on 03/08/2017 17:09 / CC: JAVIER BERRY MD Marlo Mancera, Physician Date Time Electronically viewed and signed by Marlo Mancera Physician on 03/08/2017 17:21 /
--- NOTE | 2017-03-08 17:17 | RADRPT ---
PROCEDURE: CT Lumbar Spine without contrast. CLINICAL INDICATION: Low back pain. Concern for metastatic disease. TECHNIQUE: CT of the lumbar spine without contrast was performed. Axial images were obtained thro [facility] the lumbar spine and reformatted at 2.5 mm slice thickness. Coronal and sagittal images were ref ormatted. One or more of the following dose reduction techniques were used: Automated exposure cont rol, adjustment of the mA and/or kV according to patient size, use of iterative reconstruction techn ique. The CTDIvol = 17.74 mGy and DLP = 602.21 mGy-cm. COMPARISON: MRI lumbar spine 12/05/2016 FINDINGS: Vertebral bodies: Predominantly lytic metastatic foci are again demonstrated in the L2, the and L5 v ertebral bodies corresponding to the prior abnormalities. There has been development of a more consp icuous L4 metastatic focus. Schmorl's nodes involving the inferior L2 and superior L5 end plates are noted. There is no evidence of pathologic fracture. The lordosis is preserved. Conus medularis region: Normal in attenuation and termination estimated at the L1 level. T12-L1: No discogenic abnormality of significance is seen. There is no facet arthropathy. The centr al canal is patent. There is no evidence for foraminal stenosis. L1-L2: No discogenic abnormality of significance is seen. Right facet arthropathy is present. There is likely metastatic disease involving the spinous processes. The ligamentum flava are normal in thi ckness. The central canal is patent. There is no evidence for foraminal stenosis. L2-L3: No discogenic abnormality of significance is seen. There is no facet arthropathy. The ligamen emmie flava are normal in thickness. The central canal is patent. There is no evidence for foraminal stenosis. L3-L4: Mild disc bulging without loss of disc stature or focal protrusion. Minimal bilateral facet a rthropathy is present. The ligamentum flava are normal in thickness. The central canal is patent. There is no evidence for foraminal stenosis. L4-L5: Mild annular disc bulging is present. Moderate facet arthropathy greater on the left is seen with a trace anterolisthesis. The ligamentum flava are normal in thickness. The central canal is pa tent. Minimal bilateral lateral recess and foraminal stenosis is similar to the prior study. L5-S1: Mild loss of disc stature with asymmetric disc bulging to the left. Mild bilateral facet arth ropathy is demonstrated. The ligamentum flava are normal in thickness. The central canal is patent. There is no evidence for foraminal stenosis. Sacrum and sacroiliac joints: Metastatic foci of the right greater than left iliac bones and the sac rum present. Sacral metastasis on the right are again noted at S1 and S2. There is no evidence of pa thologic fracture. None spine related findings: Incidental atherosclerotic calcification of the aorta. RPTAT:HJJR IMPRESSION: 1. Compared to the MRI of 12/05/2016, there has been some progression of metastatic disease now invo lving the L4 vertebral body not evident previously with stable metastatic foci of the remaining lumb ar vertebral bodies and sacrum. 2. No evidence of pathologic fracture or significant central canal stenosis at any level. 3. Facet arthropathy causing a trace anterolisthesis at L4-5 is again noted with disc material cont ributing to bilateral lateral recess and foraminal stenosis unchanged from the prior MRI. Physician Michael Date Time Electronically viewed and signed by Physician Michael on 03/08/2017 17:17 /
--- NOTE | 2017-03-08 17:34 | RADRPT ---
PROCEDURE: CT chest, abdomen and pelvis with contrast CLINICAL INDICATION: Evaluate for metastatic disease. Chest abdomen and pelvic pain. TECHNIQUE: CT scan of the chest, abdomen and pelvis was performed with 100 cc Visipaque 320 intrav enous contrast. Coronal and sagittal images were reformatted. One or more of the following dose re duction techniques were used: Automated exposure control, adjustment of the mA and/or kV according t o patient size, use of iterative reconstruction technique. The CTDIvol = 11.34 mGy and DLP = 882.04 mGycm. COMPARISON: CT chest 08/04/2016. CT abdomen and pelvis 12/01/2016 FINDINGS: Lungs, airway and pleura: The trachea and bronchi are patent as well as normal in caliber. Small p eripheral scattered noncalcified pulmonary nodules are slightly more conspicuous than on the previou s examination the largest in the lateral segment right middle lobe subpleural an approximately 5 mm. Findings cannot exclude metastatic disease. Compressive atelectasis of the right greater than left posterior lower lobes is present caused by bilateral pleural effusions. The right pleural effusion is slightly larger than left and occupying approximately 10% of the dependent cavity. Mediastinum, sylvia and cardiovascular: The heart is top normal in size. There is no evidence for pe ricardial effusion. The thoracic aorta is normal in caliber. New precarinal adenopathy measures ap proximately 1.3 cm in short axis. There is a left posterior hilar adenopathy of approximately 1.5 cm . The esophagus is normal in caliber. Osseous structures and musculoskeletal findings: Multiple metastatic foci of the sternum, right hum erus and thoracic vertebral bodies are again noted. There are bilateral rib metastatic foci with hea led anterior right second rib fractures are not evident on the previous exam. An additional healed a nterior right sixth rib fracture is also noted. Postoperative changes of the left breast are again seen. Interval development of right axillary adenopathy the largest lymph node 2.2 cm in short axis . Metastatic soft tissue mass about the right humeral head is suspected. Left axillary lymphadenecto my changes are noted. Liver, gallbladder, pancreas and spleen: Interval increase in both size and number of multiple roun ded centrally hypodense liver masses too numerous to count the consistent with progression of metast atic disease. The largest mass is in the posterior segment right hepatic lobe measuring approximate 6 cm. There is no evidence of ductal dilatation. Mild hepatomegaly of 19 cm is present. Gallbladde r wall thickening is present without calcified gallstones. No common bile duct abnormality is demon strated. The pancreas is unremarkable. Mild splenomegaly of 13 cm is present without evidence of s plenic mass. Adrenal glands and genitourinary system: The adrenal glands are normal bilaterally. The kidneys are normal and size, contour and attenuation with no evidence for masses, calculi or hydronephrosis. T he ureters are unremarkable. No urinary bladder abnormality is demonstrated. The uterus and adnexa are unremarkable. Gastrointestinal system: The stomach is normal in caliber with no abnormality of significance. The small bowel is normal in caliber with no ileus, obstruction or wall thickening. There is no evidenc e of appendicitis. The colon shows no evidence for wall thickening or acute abnormality. There is no evidence for colitis or diverticulitis. Peritoneum, retroperitoneum, lymph nodes and vessels: The abdominal aorta is normal in caliber. The re is mild aortic atherosclerotic calcification. The inferior vena cava is unremarkable. There is no evidence for adenopathy or mass. Ascites is present adjacent to the liver in the upper abdomen. A small amount of perisplenic ascites is seen. There is no evidence of pneumoperitoneum. Osseous structures and musculoskeletal findings: Multiple osseous metastatic foci of the lumbar spi ne, sacrum and pelvis are present with metastatic disease in the proximal right femur. No muscular abnormality or soft tissue pathology is present. RPTAT:HJJR IMPRESSION: 1. Compared to the prior CT chests of 08/04/2016, there has been development of right axillary, med iastinal and hilar adenopathy as follows increased size of pulmonary nodules, findings concerning fo r disease progression and metastasis. 2. Bilateral pleural effusions causing compressive atelectasis of the lung bases is also new compar ed to prior CT. 3. Compared to the CT abdomen and pelvis of 12/01/2016, there has been interval increase in both si ze and number of multiple hepatic metastases with development of perihepatic and perisplenic ascites . 4. Diffuse osseous metastatic foci of the thorax, lumbosacral spine, pelvis, proximal femoral and r ight humeral head are again noted, overall slightly worse compared to the previous studies. Marlo Mancera Physician Date Time Electronically viewed and signed by Marlo Mancera Physician on 03/08/2017 17:33 JR/
--- NOTE | 2017-03-08 19:12 | CONS ---
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 -pt has been started on Xeloda 1000mg po BID 14 days on and 7 days off -Lengthy discussion was had with the patient and her . I explained that although there are many more treatment options available her ability to tolerate treatment is becoming more difficult. I explained that she has terminal disease that is now affecting her liver as well as other organs. She understands that she is terminally ill and has also had a discussion with palliative care. she is now DNR/ DNI #Dizziness -MRI brain was reviewed with Radiation oncologist who will review the file and let me know if patient would benefit from whole brain XRT -MRI brain shows mostly stable lesions but did demonstrate a 7mm subdural fluid collection , which is unlikely the cause of her symptoms -will get LP with cytology to evaluate for leptomeningeal disease. If LP cytology is positive We will consider whole brain radiation. , radiation oncologist, is aware of patient's status. -continue Decadron 4mg IV q 6 - patient is status post radiation and which she finished on Septemberx19 sessions [address] Dr[address] Saenz -she is now s/p XRT to t spine and Sacrum completed on 01/24/17.need to verify this with his records # right leg pain -given MS Contin 30mg BID # bone metastasis -Patient is on Zometa as an outpatient Problems: Consultation Date/Type/Reason Admit Date/Time Mar 06, 2017 at 20:31 Initial Consult Date 03/07/17 Type of Consultation: Palliative care Reason for Consultation pt still has dizziness and is very frail. A lengthy discussion was had about her poor prognosis. A separate discussion was had with her in my office about her prognosis as well. Referring Provider: JAVIER BERRY MD 24 HR Interval Summary Free Text/Dictation pt still has dizziness and is very frail. Xeloda was started yesterday. A lengthy discussion was had about her poor prognosis. A separate discussion was had with her in my office about her prognosis as well. Exam/Review of Systems Vital Signs Vitals Vital Signs Date Time Temp Pulse Resp B/P Pulse Ox O2 Delivery O2 Flow Rate FiO2 03/08/17 16:11 92 03/08/17 15:05 98.4 19 140/82 97 03/08/17 13:35 Nasal Cannula 2.0 03/06/17 00:45 21 Intake and Output 03/07/17 03/07/17 03/08/17 15:00 23:00 07:00 Intake Total 587.5 ml 180 ml Output Total 125 ml 500 ml Balance 587.5 ml -125 ml -320 ml Exam Constitutional: alert, frail, oriented Psych: anxiety, nl mood/affect, no complaints Head: normocephalic Eyes: nl conjunctiva ENMT: nl external ears & nose Neck: non-tender, supple Respiratory: clear to auscultation Cardiovascular: regular rate and rhythm Gastrointestinal: soft Musculoskeletal: nl extremities to inspection Results Result Diagram: 03/08/17 0611 03/08/17 0611 Results 24 hrs Laboratory Tests Test 03/07/17 20:44 03/08/17 05:03 03/08/17 06:11 03/08/17 08:45 Bedside Glucose 114 115 Lab Scanned Report BLOOD TRANSFUSION White Blood Count 4.8 # Red Blood Count 2.33 L Hemoglobin 8.1 L Hematocrit 24.3 L Mean Corpuscular Volume 104.3 H Mean Corpuscular Hemoglobin 34.8 H Mean Corpuscular Hemoglobin Concent 33.3 Red Cell Distribution Width 18.8 H Platelet Count 51 #L Mean Platelet Volume 13.4 H Neutrophils % Segmented Neutrophils % (Manual) 65 Band Neutrophils % (Manual) 16 H Lymphocytes % Lymphocytes % (Manual) 5 L Reactive Lymphocytes % (Manual) 1 H Monocytes % Monocytes % (Manual) 13 H Eosinophils % Basophils % Nucleated Red Blood Cells % 2 H Neutrophils # Neutrophils # (Manual) 3.2 Band Neutrophils # 0.7 H Absolute Lymphocytes (Manual) 0.2 L Lymphocytes # Reactive Lymphocytes # 0.0 Monocytes # Absolute Monocytes (Manual) 0.6 Eosinophils # Basophils # Nucleated Red Blood Cells # Platelet Estimate DECREASED Platelet Morphology Comment @See below Polychromasia 2+ Poikilocytosis 1+ Anisocytosis 1+ Microcytosis 1+ Tear Drop Cells 1+ Sodium Level 142 Potassium Level 4.2 Chloride Level 108 Carbon Dioxide Level 25 Anion Gap 13 Blood Urea Nitrogen 16 Creatinine 0.57 Glucose Level 112 Calcium Level 8.4 Phosphorus Level 3.0 Magnesium Level 2.0 Total Bilirubin 1.0 Direct Bilirubin 0.00 Indirect Bilirubin 1.0 Aspartate Amino Transf (AST/SGOT) 374 H Alanine Aminotransferase (ALT/SGPT) 178 H Alkaline Phosphatase 387 H Total Protein 5.8 L Albumin 3.3 Globulin 2.50 Albumin/Globulin Ratio 1.32 Test 03/08/17 12:11 03/08/17 17:37 Bedside Glucose 131 111 Medications Medications Current Medications Ondansetron HCl (Zofran Inj) 4 mg Q6H PRN IV NAUSEA AND/OR VOMITING Last administered on 03/07/17 23:15; Admin Dose 4 MG; Start 03/05/17 at 22:30 Acetaminophen (Tylenol Liquid) 650 mg Q6H PRN PO PAIN LEVEL 1-3 OR FEVER; Start 03/05/17 at 22:30 Acetaminophen (Tylenol Tab) 650 mg Q6H PRN PO PAIN LEVEL 1-3 OR FEVER; Start 03/05/17 at 22:30 Morphine Sulfate (morphine) 2 mg Q4H PRN IV PAIN LEVEL 7-10 Last administered on 03/07/17 23:16; Admin Dose 2 MG; Start 03/05/17 at 22:30 Docusate Sodium (Colace) 100 mg Q12H PRN PO CONSTIPATION Last administered on 03/07/17 18:05; Admin Dose 100 MG; Start 03/05/17 at 22:30 Magnesium Hydroxide (Milk Of Mag) 30 ml DAILY PRN PO CONSTIPATION; Start 03/05 at 22:30 Bisacodyl (Dulcolax) 5 mg DAILY PRN PO CONSTIPATION Last administered on 18:05; Admin Dose 5 MG; Start 03/05/17 at 22:30 Dexamethasone 4 mg 4 mg Q6 IV Last administered on 03/08/17 17:44; Admin Dose 4 MG; Start 03/06/17 at 00:00 Levetiracetam/ Sodium Chloride (Keppra Iv/NS) 107.5 ml @ 430 mls/hr Q12 IVPB Last administered on 03/08/17 08:53; Admin Dose 430 MLS/HR; Start 03/06/17 at 09:00 Lorazepam (Ativan) 0.5 mg Q8 PRN IV SLEEP Last administered on 03/08/17 14:54 ; Admin Dose 0.5 MG; Start 03/06/17 at 21:30 Miscellaneous Information 1 ea NOTE XX ; Start 03/07/17 at 07:30 Glucose (Glutose) 15 gm Q15M PRN PO DECREASED GLUCOSE; Start 03/07/17 at 07:30 Glucose (Glutose) 22.5 gm Q15M PRN PO DECREASED GLUCOSE; Start 03/07/17 at 07: 30 Dextrose (D50w Syringe) 25 ml Q15M PRN IV DECREASED GLUCOSE; Start 03/07/17 at 07:30 Dextrose (D50w Syringe) 50 ml Q15M PRN IV DECREASED GLUCOSE; Start 03/07/17 at 07:30 Glucagon (Glucagen) 1 mg Q15M PRN IM DECREASED GLUCOSE; Start 03/07/17 at 07: 30 Glucose (Glutose) 15 gm Q15M PRN BUCCAL DECREASED GLUCOSE; Start 03/07/17 at 07:30 Capecitabine (Xeloda) 1,500 mg DAILY PO Last administered on 03/08/17 08:51; Admin Dose 1,500 MG; Start 03/08/17 at 09:00; Stop 03/21/17 at 09:01 Capecitabine (Xeloda) 1,000 mg QPM PO Last administered on 03/07/17 20:19; Admin Dose 1,000 MG; Start 03/07/17 at 21:00; Stop 03/20/17 at 21:01 Capecitabine (Xeloda) 1,500 mg DAILY PO ; Start 03/28/17 at 09:00 Capecitabine (Xeloda) 1,000 mg QPM PO ; Start 03/28/17 at 21:00 Pantoprazole (Protonix Tab) 40 mg DAILY@06 PO Last administered on 03/08/17 06:21; Admin Dose 40 MG; Start 03/08/17 at 06:00 Influenza Virus Vaccine (Fluzone) 0.5 ml ONCE ONCE IM* ; Start 03/09/17 at 10: 00; Stop 03/09/17 at 10:01 MILEY PARHAM M.D. Mar 08, 2017 19:12
[2017-03-08] MEDS: ONDANSETRON 4 MG INJ IV PRN (21:04)
[2017-03-08] MEDS: morphine 2 MG INJ IV PRN (21:04)
[2017-03-09] VITALS (11 sets, daily range): BP systolic 126–146; BP diastolic 82–88; PULSE 85–95; RESP 16–20
[2017-03-09] MEDS: DEXAMETHASONE 4 MG/ML 1 ML INJ IV SCH ×5 (00:03→23:45)
[2017-03-09] MEDS: LORAZEPAM 2 MG INJ IV PRN (00:10)
[2017-03-09] MEDS: PANTOPRAZOLE (EC) 40 MG TAB PO SCH (06:20)
[2017-03-09] MEDS: INSULIN ASPART [NOVOLOG] 3 ML PEN SC SCH ×4 (07:55→21:00)
[2017-03-09] MEDS: LEVETIRACETAM IV 750 MG in SOD CHLORIDE 0.9% 100 ML IVPB SCH ×2 (09:38→21:18)
[2017-03-09] MEDS: CAPECITABINE 500 MG TAB PO SCH ×2 (09:40→21:21)
[2017-03-09] MEDS ORDERED: INFLUENZA VIRUS VACCINE 0.5 ML SYG IM* ONE (10:00)
--- NOTE | 2017-03-09 13:42 | PN ---
DANIA LITTLE 03/09/17 1342: Date/Time of Note Date/Time of Note DATE: 03/09/17 TIME: 13:40 Assessment/Plan VTE Prophylaxis VTE Prophylaxis Intervention: ambulation Lines/Catheters IV Catheter Type (from Nrsg): Saline Lock Urinary Cath still in place: No Assessment/Plan Chief Complaint/Hosp Course 1. Metastatic breast cancer to the bones, and liver, specifically the right shoulder as well as the T spine causing cord compression now with progression 2. Dizziness 3. HX HTN 4. Tacycardia could be pain vs anxiety 5. Pancytopenia likely due to chemo 6. insomnia 7. Anxiety/depression Problems: Assessment/Plan . Start Fentanyl patch 2. xanax for Anxiety and low dose fluoxetine for depression 3. continue oncology per Dr Shelton Subjective 24 Hr Interval Summary Free Text/Dictation crying, has no hope Constitutional: other (pain /10) Skin: bruising Psychological: anxiety, depression Additional Comments insomnia Exam/Review of Systems Vital Signs Vitals Vital Signs Date Time Temp Pulse Resp B/P Pulse Ox O2 Delivery O2 Flow Rate FiO2 03/09/17 12:16 92 03/09/17 12:05 2.0 28 03/09/17 11:23 98.4 19 134/85 98 03/09/17 00:00 Nasal Cannula Intake and Output 03/08/17 03/08/17 03/09/17 15:00 23:00 07:00 Intake Total 695.0 ml 557.5 ml 220 ml Balance 695.0 ml 557.5 ml 220 ml Exam Constitutional: alert, oriented Cardiovascular: regular rate and rhythm Gastrointestinal: soft Results Result Diagram: 03/09/17 0754 03/09/17 0754 Results 24 hrs Laboratory Tests Test 03/08/17 17:37 03/08/17 21:47 03/09/17 07:54 03/09/17 08:05 Bedside Glucose 111 148 119 White Blood Count 5.9 # Red Blood Count 3.31 #L Hemoglobin 10.7 #L Hematocrit 32.3 #L Mean Corpuscular Volume 97.6 Mean Corpuscular Hemoglobin 32.3 Mean Corpuscular Hemoglobin Concent 33.1 Red Cell Distribution Width 21.3 H Platelet Count 31 #L Mean Platelet Volume Neutrophils % 75.6 Lymphocytes % 6.1 L Monocytes % 8.8 Eosinophils % 0.2 Basophils % 0.5 Nucleated Red Blood Cells % 2.7 H Neutrophils # 4.5 Lymphocytes # 0.4 L Monocytes # 0.5 Eosinophils # 0.0 Basophils # 0.0 Nucleated Red Blood Cells # 0.2 H Sodium Level 140 Potassium Level 4.0 Chloride Level 108 Carbon Dioxide Level 28 Anion Gap 8 Blood Urea Nitrogen 17 Creatinine 0.57 Glucose Level 106 Calcium Level 8.1 L Phosphorus Level 2.8 Magnesium Level 2.0 Total Bilirubin 1.8 H Direct Bilirubin 0.00 Indirect Bilirubin 1.8 H Aspartate Amino Transf (AST/SGOT) 433 H Alanine Aminotransferase (ALT/SGPT) 198 H Alkaline Phosphatase 428 H Total Protein 5.4 L Albumin 2.8 L Globulin 2.60 Albumin/Globulin Ratio 1.07 Test 03/09/17 12:16 Bedside Glucose 117 Medications Medications Current Medications Ondansetron HCl (Zofran Inj) 4 mg Q6H PRN IV NAUSEA AND/OR VOMITING Last administered on 03/08/17 21:04; Admin Dose 4 MG; Start 03/05/17 at 22:30 Acetaminophen (Tylenol Liquid) 650 mg Q6H PRN PO PAIN LEVEL 1-3 OR FEVER; Start 03/05/17 at 22:30 Acetaminophen (Tylenol Tab) 650 mg Q6H PRN PO PAIN LEVEL 1-3 OR FEVER; Start 03/05/17 at 22:30 Morphine Sulfate (morphine) 2 mg Q4H PRN IV PAIN LEVEL 7-10 Last administered on 03/08/17 21:04; Admin Dose 2 MG; Start 03/05/17 at 22:30 Docusate Sodium (Colace) 100 mg Q12H PRN PO CONSTIPATION Last administered on 03/07/17 18:05; Admin Dose 100 MG; Start 03/05/17 at 22:30 Magnesium Hydroxide (Milk Of Mag) 30 ml DAILY PRN PO CONSTIPATION; Start 03/05 at 22:30 Bisacodyl (Dulcolax) 5 mg DAILY PRN PO CONSTIPATION Last administered on 18:05; Admin Dose 5 MG; Start 03/05/17 at 22:30 Dexamethasone 4 mg 4 mg Q6 IV Last administered on 03/09/17 12:34; Admin Dose 4 MG; Start 03/06/17 at 00:00 Levetiracetam/ Sodium Chloride (Keppra Iv/NS) 107.5 ml @ 430 mls/hr Q12 IVPB Last administered on 03/09/17 09:38; Admin Dose 430 MLS/HR; Start 03/06/17 at 09:00 Lorazepam (Ativan) 0.5 mg Q8 PRN IV SLEEP Last administered on 03/09/17 00:10 ; Admin Dose 0.5 MG; Start 03/06/17 at 21:30 Miscellaneous Information 1 ea NOTE XX ; Start 03/07/17 at 07:30 Glucose (Glutose) 15 gm Q15M PRN PO DECREASED GLUCOSE; Start 03/07/17 at 07:30 Glucose (Glutose) 22.5 gm Q15M PRN PO DECREASED GLUCOSE; Start 03/07/17 at 07: 30 Dextrose (D50w Syringe) 25 ml Q15M PRN IV DECREASED GLUCOSE; Start 03/07/17 at 07:30 Dextrose (D50w Syringe) 50 ml Q15M PRN IV DECREASED GLUCOSE; Start 03/07/17 at 07:30 Glucagon (Glucagen) 1 mg Q15M PRN IM DECREASED GLUCOSE; Start 03/07/17 at 07: 30 Glucose (Glutose) 15 gm Q15M PRN BUCCAL DECREASED GLUCOSE; Start 03/07/17 at 07:30 Capecitabine (Xeloda) 1,500 mg DAILY PO Last administered on 03/09/17 09:40; Admin Dose 1,500 MG; Start 03/08/17 at 09:00; Stop 03/21/17 at 09:01 Capecitabine (Xeloda) 1,000 mg QPM PO Last administered on 03/08/17 21:55; Admin Dose 1,000 MG; Start 03/07/17 at 21:00; Stop 03/20/17 at 21:01 Capecitabine (Xeloda) 1,500 mg DAILY PO ; Start 03/28/17 at 09:00 Capecitabine (Xeloda) 1,000 mg QPM PO ; Start 03/28/17 at 21:00 Pantoprazole (Protonix Tab) 40 mg DAILY@06 PO Last administered on 03/09/17 06:20; Admin Dose 40 MG; Start 03/08/17 at 06:00 Fluoxetine HCl (Prozac) 10 mg DAILY PO ; Start 03/09/17 at 14:00; Status UNV Fentanyl (Duragesic 12 Mcg/Hr Patch) 1 patch Q72H TRANSDERM ; Start 03/09/17 at 14:00; Status UNV Oxycodone HCl (Roxicodone) 5 mg Q6 PRN PO PAIN; Start 03/09/17 at 14:00; Status UNV JAVIER BERRY MD 03/09/17 1834: Exam/Review of Systems Results Result Diagram: 03/09/17 0754 03/09/17 0754 DANIA VILLAVICENCIO Mar 09, 2017 13:42 JAVIER BERRY MD Mar 09, 2017 18:34
[2017-03-09] MEDS: FLUOXETINE 10 MG CAP PO SCH (14:00)
[2017-03-09] MEDS ORDERED: ALPRAZOLAM 0.5 MG TAB PO SCH (14:00)
--- NOTE | 2017-03-09 14:07 | CONS ---
Date/Time of Note Date/Time of Note DATE: 03/09/17 TIME: 14:05 Assessment/Plan Assessment/Plan Chief Complaint/Hosp Course 61 yo with #ER+ /ID-/Her 2 negative metastatic breast cancer to the bones, and liver, specifically the right shoulder as well as the T spine causing cord compression -patient's CA 15-3 in 1 month has gone up from 163 to > 1000 -CT C/A/P confirms progession of right axillary, mediastinal and hilar adenopathy, bilateral malignant pleural effusions, hepatic mets as well as osseous mets. -pt has been started on Xeloda 1000mg po BID 14 days on and 7 days off -Lengthy discussion was had with the patient and her . I explained that although there are many more treatment options available her ability to tolerate treatment is becoming more difficult. I explained that she has terminal disease that is now affecting her liver as well as other organs. She understands that she is terminally ill and has also had a discussion with palliative care. 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 Saenz -she is now s/p XRT to t spine and Sacrum completed on 01/24/17.need to verify this with his records # right leg pain -given MS Contin 30mg BID # bone metastasis -Patient is on Zometa as an outpatient Problems: Consultation Date/Type/Reason Admit Date/Time Mar 06, 2017 at 20:31 Initial Consult Date 03/07/17 Type of Consultation: Oncology Reason for Consultation metastatic breast cancer Referring Provider: JAVIER BERRY MD 24 HR Interval Summary Free Text/Dictation pt feels slightly better since blood transfusion was given Exam/Review of Systems Vital Signs Vitals Vital Signs Date Time Temp Pulse Resp B/P Pulse Ox O2 Delivery O2 Flow Rate FiO2 03/09/17 12:16 92 03/09/17 12:05 2.0 28 03/09/17 11:23 98.4 19 134/85 98 03/09/17 00:00 Nasal Cannula Intake and Output 03/08/17 03/08/17 03/09/17 14:59 22:59 06:59 Intake Total 695.0 ml 450 ml 327.5 ml Balance 695.0 ml 450 ml 327.5 ml Exam Constitutional: alert, oriented Psych: no complaints Head: normocephalic Eyes: nl conjunctiva ENMT: nl external ears & nose Neck: non-tender, supple Respiratory: clear to auscultation Cardiovascular: regular rate and rhythm Gastrointestinal: soft Neurological: OFFSET MACHINE OPERATOR II-XII intact Results Result Diagram: 03/09/17 0754 03/09/17 0754 Results 24 hrs Laboratory Tests Test 03/08/17 17:37 03/08/17 21:47 03/09/17 07:54 03/09/17 08:05 Bedside Glucose 111 148 119 White Blood Count 5.9 # Red Blood Count 3.31 #L Hemoglobin 10.7 #L Hematocrit 32.3 #L Mean Corpuscular Volume 97.6 Mean Corpuscular Hemoglobin 32.3 Mean Corpuscular Hemoglobin Concent 33.1 Red Cell Distribution Width 21.3 H Platelet Count 31 #L Mean Platelet Volume Neutrophils % 75.6 Lymphocytes % 6.1 L Monocytes % 8.8 Eosinophils % 0.2 Basophils % 0.5 Nucleated Red Blood Cells % 2.7 H Neutrophils # 4.5 Lymphocytes # 0.4 L Monocytes # 0.5 Eosinophils # 0.0 Basophils # 0.0 Nucleated Red Blood Cells # 0.2 H Sodium Level 140 Potassium Level 4.0 Chloride Level 108 Carbon Dioxide Level 28 Anion Gap 8 Blood Urea Nitrogen 17 Creatinine 0.57 Glucose Level 106 Calcium Level 8.1 L Phosphorus Level 2.8 Magnesium Level 2.0 Total Bilirubin 1.8 H Direct Bilirubin 0.00 Indirect Bilirubin 1.8 H Aspartate Amino Transf (AST/SGOT) 433 H Alanine Aminotransferase (ALT/SGPT) 198 H Alkaline Phosphatase 428 H Total Protein 5.4 L Albumin 2.8 L Globulin 2.60 Albumin/Globulin Ratio 1.07 Test 03/09/17 12:16 Bedside Glucose 117 Medications Medications Current Medications Ondansetron HCl (Zofran Inj) 4 mg Q6H PRN IV NAUSEA AND/OR VOMITING Last administered on 03/08/17t 21:04; Admin Dose 4 MG; Start 03/05/17 at 22:30 Acetaminophen (Tylenol Liquid) 650 mg Q6H PRN PO PAIN LEVEL 1-3 OR FEVER; Start 03/05/17 at 22:30 Acetaminophen (Tylenol Tab) 650 mg Q6H PRN PO PAIN LEVEL 1-3 OR FEVER; Start 03/05/17 at 22:30 Morphine Sulfate (morphine) 2 mg Q4H PRN IV PAIN LEVEL 7-10 Last administered on 03/08/17 21:04; Admin Dose 2 MG; Start 03/05/17 at 22:30 Docusate Sodium (Colace) 100 mg Q12H PRN PO CONSTIPATION Last administered on 03/07/17 18:05; Admin Dose 100 MG; Start 03/05/17 at 22:30 Magnesium Hydroxide (Milk Of Mag) 30 ml DAILY PRN PO CONSTIPATION; Start 03/05 at 22:30 Bisacodyl (Dulcolax) 5 mg DAILY PRN PO CONSTIPATION Last administered on 18:05; Admin Dose 5 MG; Start 03/05/17 at 22:30 Dexamethasone 4 mg 4 mg Q6 IV Last administered on 03/09/17 12:34; Admin Dose 4 MG; Start 03/06/17 at 00:00 Levetiracetam/ Sodium Chloride (Keppra Iv/NS) 107.5 ml @ 430 mls/hr Q12 IVPB Last administered on 03/09/17 09:38; Admin Dose 430 MLS/HR; Start 03/06/17 at 09:00 Lorazepam (Ativan) 0.5 mg Q8 PRN IV ANXIETY Last administered on 03/09/17 00: 10; Admin Dose 0.5 MG; Start 03/06/17 at 21:30 Miscellaneous Information 1 ea NOTE XX ; Start 03/07/17 at 07:30 Glucose (Glutose) 15 gm Q15M PRN PO DECREASED GLUCOSE; Start 03/07/17 at 07:30 Glucose (Glutose) 22.5 gm Q15M PRN PO DECREASED GLUCOSE; Start 03/07/17 at 07: 30 Dextrose (D50w Syringe) 25 ml Q15M PRN IV DECREASED GLUCOSE; Start 03/07/17 at 07:30 Dextrose (D50w Syringe) 50 ml Q15M PRN IV DECREASED GLUCOSE; Start 03/07/17 at 07:30 Glucagon (Glucagen) 1 mg Q15M PRN IM DECREASED GLUCOSE; Start 03/07/17 at 07: 30 Glucose (Glutose) 15 gm Q15M PRN BUCCAL DECREASED GLUCOSE; Start 03/07/17 at 07:30 Capecitabine (Xeloda) 1,500 mg DAILY PO Last administered on 03/09/17 09:40; Admin Dose 1,500 MG; Start 03/08/17 at 09:00; Stop 03/21/17 at 09:01 Capecitabine (Xeloda) 1,000 mg QPM PO Last administered on 03/08/17 21:55; Admin Dose 1,000 MG; Start 03/07/17 at 21:00; Stop 03/20/17 at 21:01 Capecitabine (Xeloda) 1,500 mg DAILY PO ; Start 03/28/17 at 09:00 Capecitabine (Xeloda) 1,000 mg QPM PO ; Start 03/28/17 at 21:00 Pantoprazole (Protonix Tab) 40 mg DAILY@06 PO Last administered on 03/09/17 06:20; Admin Dose 40 MG; Start 03/08/17 at 06:00 Fluoxetine HCl (Prozac) 10 mg DAILY PO ; Start 03/09/17 at 14:00 Fentanyl (Duragesic 12 Mcg/Hr Patch) 1 patch Q72H TRANSDERM ; Start 03/09/17 at 15:00 Oxycodone HCl (Roxicodone) 5 mg Q6 PRN PO PAIN; Start 03/09/17 at 14:00 Alprazolam (Xanax) 0.5 mg BID PO ; Start 03/09/17 at 14:00 MILEY PARHAM M.D. Mar 09, 2017 14:07
[2017-03-09] MEDS: FENTAnyl PATCH 12 MCG/HR TRANSDERM SCH (14:32)
[2017-03-09] MEDS: ALPRAZOLAM 0.5 MG TAB PO PRN (21:18)
[2017-03-10] VITALS (12 sets, daily range): BP systolic 112–136; BP diastolic 73–85; PULSE 80–94; RESP 16–17
[2017-03-10] MEDS: PANTOPRAZOLE (EC) 40 MG TAB PO SCH (05:49)
[2017-03-10] MEDS: DEXAMETHASONE 4 MG/ML 1 ML INJ IV SCH ×3 (05:49→17:39)
[2017-03-10] MEDS: INSULIN ASPART [NOVOLOG] 3 ML PEN SC SCH ×4 (07:55→20:59)
[2017-03-10] MEDS: FLUOXETINE 10 MG CAP PO SCH (09:18)
[2017-03-10] MEDS: LEVETIRACETAM IV 750 MG in SOD CHLORIDE 0.9% 100 ML IVPB SCH ×2 (09:18→20:52)
[2017-03-10] MEDS: CAPECITABINE 500 MG TAB PO SCH ×2 (09:21→20:54)
--- NOTE | 2017-03-10 13:15 | PN ---
Date/Time of Note Date/Time of Note DATE: 03/10/17 TIME: 13:14 Assessment/Plan VTE Prophylaxis VTE Prophylaxis Intervention: ambulation Lines/Catheters IV Catheter Type (from Nrs): Saline Lock Urinary Cath still in place: No Assessment/Plan Chief Complaint/Hosp Course 1. Metastatic breast cancer to the bones, and liver, specifically the right shoulder as well as the T spine causing cord compression now with progression 2. Dizziness 3. HX HTN 4. Tacycardia could be pain vs anxiety 5. Pancytopenia likely due to chemo 6. insomnia 7. Anxiety/depression Problems: Assessment/Plan 1. continue antidepressants. 2. Continue pain meds Subjective 24 Hr Interval Summary Constitutional: improved, no complaints Exam/Review of Systems Vital Signs Vitals Vital Signs Date Time Temp Pulse Resp B/P Pulse Ox O2 Delivery O2 Flow Rate FiO2 03/10/17 12:18 90 03/10/17 12:08 97.5 17 112/75 96 03/10/17 00:00 Nasal Cannula 2.0 03/09/17 17:01 28 Intake and Output 03/09/17 03/09/17 03/10/17 15:00 23:00 07:00 Intake Total 400 ml Output Total 3 ml Balance 397 ml Exam Constitutional: alert, oriented Cardiovascular: regular rate and rhythm Gastrointestinal: soft Results Result Diagram: 03/10/17 0626 03/10/17 0626 Results 24 hrs Laboratory Tests Test 03/09/17 17:24 03/09/17 21:23 03/10/17 05:22 03/10/17 06:26 Bedside Glucose 124 152 Lab Scanned Report BLOOD TRANSFUSION White Blood Count 6.4 Red Blood Count 3.42 L Hemoglobin 11.7 L Hematocrit 34.0 L Mean Corpuscular Volume 99.4 Mean Corpuscular Hemoglobin 34.2 H Mean Corpuscular Hemoglobin Concent 34.4 Red Cell Distribution Width 21.0 H Platelet Count 27 *L Mean Platelet Volume Neutrophils % 75.1 Segmented Neutrophils % (Manual) 66 Band Neutrophils % (Manual) 18 H Lymphocytes % 7.6 L Lymphocytes % (Manual) 3 L Monocytes % 6.9 Monocytes % (Manual) 4 Eosinophils % 0.2 Basophils % 0.8 Metamyelocytes % (manual) 3 H Myelocytes % (Manual) 5 H Promyelocytes % (Manual) 1 H Nucleated Red Blood Cells % 3 H Neutrophils # 4.8 Neutrophils # (Manual) 4.3 Band Neutrophils # 1.1 H Absolute Lymphocytes (Manual) 0.1 L Lymphocytes # 0.5 L Monocytes # 0.4 Absolute Monocytes (Manual) 0.2 L Eosinophils # 0.0 Basophils # 0.1 Metamyelocytes # 0.1 H Myelocytes # 0.3 H Promyelocytes # 0.0 Nucleated Red Blood Cells # 0.1 H Platelet Estimate DECREASED Giant Platelets 1 H Polychromasia 2+ Poikilocytosis 1+ Anisocytosis 1+ Sodium Level 140 Potassium Level 4.2 Chloride Level 109 Carbon Dioxide Level 25 Anion Gap 10 Blood Urea Nitrogen 17 Creatinine 0.51 Glucose Level 112 Calcium Level 8.1 L Test 03/10/17 08:17 03/10/17 12:15 Bedside Glucose 114 136 Medications Medications Current Medications Ondansetron HCl (Zofran Inj) 4 mg Q6H PRN IV NAUSEA AND/OR VOMITING Last administered on 03/08/17 21:04; Admin Dose 4 MG; Start 03/05/17 at 22:30 Acetaminophen (Tylenol Liquid) 650 mg Q6H PRN PO PAIN LEVEL 1-3 OR FEVER; Start 03/05/17 at 22:30 Acetaminophen (Tylenol Tab) 650 mg Q6H PRN PO PAIN LEVEL 1-3 OR FEVER; Start 03/05/17 at 22:30 Morphine Sulfate (morphine) 2 mg Q4H PRN IV PAIN LEVEL 7-10 Last administered on 03/08/17 21:04; Admin Dose 2 MG; Start 03/05/17 at 22:30 Docusate Sodium (Colace) 100 mg Q12H PRN PO CONSTIPATION Last administered on 03/07/17 18:05; Admin Dose 100 MG; Start 03/05/17 at 22:30 Magnesium Hydroxide (Milk Of Mag) 30 ml DAILY PRN PO CONSTIPATION; Start 03/05 at 22:30 Bisacodyl (Dulcolax) 5 mg DAILY PRN PO CONSTIPATION Last administered on 18:05; Admin Dose 5 MG; Start 03/05/17 at 22:30 Dexamethasone 4 mg 4 mg Q6 IV Last administered on 03/10/17 12:20; Admin Dose 4 MG; Start 03/06/17 at 00:00 Levetiracetam/ Sodium Chloride (Keppra Iv/NS) 107.5 ml @ 430 mls/hr Q12 IVPB Last administered on 03/10/17 09:18; Admin Dose 430 MLS/HR; Start 03/06/17 at 09:00 Lorazepam (Ativan) 0.5 mg Q8 PRN IV ANXIETY Last administered on 03/09/17 00: 10; Admin Dose 0.5 MG; Start 03/06/17 at 21:30 Miscellaneous Information 1 ea NOTE XX ; Start 03/07/17 at 07:30 Glucose (Glutose) 15 gm Q15M PRN PO DECREASED GLUCOSE; Start 03/07/17 at 07:30 Glucose (Glutose) 22.5 gm Q15M PRN PO DECREASED GLUCOSE; Start 03/07/17 at 07: 30 Dextrose (D50w Syringe) 25 ml Q15M PRN IV DECREASED GLUCOSE; Start 03/07/17 at 07:30 Dextrose (D50w Syringe) 50 ml Q15M PRN IV DECREASED GLUCOSE; Start 03/07/17 at 07:30 Glucagon (Glucagen) 1 mg Q15M PRN IM DECREASED GLUCOSE; Start 03/07/17 at 07: 30 Glucose (Glutose) 15 gm Q15M PRN BUCCAL DECREASED GLUCOSE; Start 03/07/17 at 07:30 Capecitabine (Xeloda) 1,500 mg DAILY PO Last administered on 03/10/17 09:21; Admin Dose 1,500 MG; Start 03/08/17 at 09:00; Stop 03/21/17 at 09:01 Capecitabine (Xeloda) 1,000 mg QPM PO Last administered on 03/09/17 21:21; Admin Dose 1,000 MG; Start 03/07/17 at 21:00; Stop 03/20/17 at 21:01 Capecitabine (Xeloda) 1,500 mg DAILY PO ; Start 03/28/17 at 09:00 Capecitabine (Xeloda) 1,000 mg QPM PO ; Start 03/28/17 at 21:00 Pantoprazole (Protonix Tab) 40 mg DAILY@06 PO Last administered on 03/10/17 05:49; Admin Dose 40 MG; Start 03/08/17 at 06:00 Fluoxetine HCl (Prozac) 10 mg DAILY PO Last administered on 03/10/17 09:18; Admin Dose 10 MG; Start 03/09/17 at 14:00 Fentanyl (Duragesic 12 Mcg/Hr Patch) 1 patch Q72H TRANSDERM Last administered on 03/09/17 14:32; Admin Dose 1 PATCH; Start 03/09/17 at 15:00 Oxycodone HCl (Roxicodone) 5 mg Q6 PRN PO PAIN; Start 03/09/17 at 14:00 Alprazolam (Xanax) 0.5 mg TID PRN PO ANXIETY Last administered on 03/09/17 21 :18; Admin Dose 0.5 MG; Start 03/09/17 at 21:00 DANIA VILLAVICENCIO Mar 10, 2017 13:15
[2017-03-10] MEDS: MULTIVITAMINS THERAPEUTIC TAB PO SCH (14:12)
[2017-03-10] MEDS: POLYETHYLENE GLYCOL 17 GM PACKET PO SCH (14:12)
[2017-03-10] MEDS: ALPRAZOLAM 0.5 MG TAB PO PRN (20:54)
[2017-03-11] VITALS (14 sets, daily range): BP systolic 116–134; BP diastolic 64–85; PULSE 86–164; RESP 16–18
[2017-03-11] MEDS: DEXAMETHASONE 4 MG/ML 1 ML INJ IV SCH ×5 (00:08→23:36)
[2017-03-11] MEDS: ZOLPIDEM 5 MG TAB PO PRN ×2 (01:06→20:58)
[2017-03-11] MEDS: PANTOPRAZOLE (EC) 40 MG TAB PO SCH (05:32)
[2017-03-11] MEDS: INSULIN ASPART [NOVOLOG] 3 ML PEN SC SCH ×4 (07:55→21:00)
[2017-03-11] MEDS: FLUOXETINE 10 MG CAP PO SCH (08:38)
[2017-03-11] MEDS: MULTIVITAMINS THERAPEUTIC TAB PO SCH (08:38)
[2017-03-11] MEDS: LEVETIRACETAM IV 750 MG in SOD CHLORIDE 0.9% 100 ML IVPB SCH (08:38)
[2017-03-11] MEDS: POLYETHYLENE GLYCOL 17 GM PACKET PO SCH (08:38)
[2017-03-11] MEDS: CAPECITABINE 500 MG TAB PO SCH ×2 (08:43→20:57)
--- NOTE | 2017-03-11 12:00 | PN ---
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 CT scan C/T/L spine with numerous mets # HX HTN # Tacycardia could be pain vs anxiety # Pancytopenia likley due to chemo # Depressiom # Insomnia Recs - LP negative - Spoke to Dr Miguel, hold plt transfusion for now, will recheck - Dose reduce Xeloda due to cytopenia - PT - c/w Decadron 4 mg q6 and ISS - Switch Keppra 750 q 12 po - c/w Fentanyl, oxycodone - Appreciate Neuro, Neurosurgery and Oncology consult - SCD - Labs am Problems: Subjective 24 Hr Interval Summary Free Text/Dictation Pt feels weak, tired No energy Denies bleeding Plt count 29 yest, spoke to Dr francis hold off plt transfusion for now, will recheck Exam/Review of Systems Vital Signs Vitals Vital Signs Date Time Temp Pulse Resp B/P Pulse Ox O2 Delivery O2 Flow Rate FiO2 03/11/17 11:37 98.3 91 17 116/71 93 03/11/17 01:36 2.0 03/10/17 00:00 Nasal Cannula 03/09/17 17:01 28 Intake and Output 03/10/17 03/10/17 03/11/17 15:00 23:00 07:00 Intake Total 107.5 ml 900 ml 600 ml Balance 107.5 ml 900 ml 600 ml Exam Exam gENERAL: The patient is a thin-looking female, awake, alert. VITAL SIGNS: Stable. HEAD: Atraumatic, normocephalic. Pupils are equal and reactive to light. NECK: Supple, no JVD. LUNGS: Clear. CARDIOVASCULAR: S1, S2 normal. ABDOMEN: Soft. Bowel sounds positive. No palpable mass. EXTREMITIES: No cyanosis, clubbing, or edema. CENTRAL NERVOUS SYSTEM: The patient is awake, alert, moving both upper and lower extremities with some pain and some numbness in the right foot. Results Result Diagram: 03/10/17 0626 03/10/17 0626 Results 24 hrs Laboratory Tests Test 03/10/17 12:15 03/10/17 17:18 03/10/17 20:22 03/11/17 08:13 Bedside Glucose 136 125 161 124 Test 03/11/17 11:45 Bedside Glucose 139 Medications Medications Current Medications Ondansetron HCl (Zofran Inj) 4 mg Q6H PRN IV NAUSEA AND/OR VOMITING Last administered on 03/08/17 21:04; Admin Dose 4 MG; Start 03/05/17 at 22:30 Acetaminophen (Tylenol Liquid) 650 mg Q6H PRN PO PAIN LEVEL 1-3 OR FEVER; Start 03/05/17 at 22:30 Acetaminophen (Tylenol Tab) 650 mg Q6H PRN PO PAIN LEVEL 1-3 OR FEVER; Start 03/05/17 at 22:30 Morphine Sulfate (morphine) 2 mg Q4H PRN IV PAIN LEVEL 7-10 Last administered on 03/08/17 21:04; Admin Dose 2 MG; Start 03/05/17 at 22:30 Docusate Sodium (Colace) 100 mg Q12H PRN PO CONSTIPATION Last administered on 03/07/17 18:05; Admin Dose 100 MG; Start 03/05/17 at 22:30 Magnesium Hydroxide (Milk Of Mag) 30 ml DAILY PRN PO CONSTIPATION; Start 03/05 at 22:30 Bisacodyl (Dulcolax) 5 mg DAILY PRN PO CONSTIPATION Last administered on 18:05; Admin Dose 5 MG; Start 03/05/17 at 22:30 Dexamethasone (Decadron) 4 mg Q6 IV Last administered on 03/11/17 05:31; Admin Dose 4 MG; Start 03/06/17 at 00:00 Lorazepam (Ativan) 0.5 mg Q8 PRN IV ANXIETY Last administered on 03/09/17 00: 10; Admin Dose 0.5 MG; Start 03/06/17 at 21:30 Miscellaneous Information 1 ea NOTE XX ; Start 03/07/17 at 07:30 Glucose (Glutose) 15 gm Q15M PRN PO DECREASED GLUCOSE; Start 03/07/17 at 07:30 Glucose (Glutose) 22.5 gm Q15M PRN PO DECREASED GLUCOSE; Start 03/07/17 at 07: 30 Dextrose (D50w Syringe) 25 ml Q15M PRN IV DECREASED GLUCOSE; Start 03/07/17 at 07:30 Dextrose (D50w Syringe) 50 ml Q15M PRN IV DECREASED GLUCOSE; Start 03/07/17 at 07:30 Glucagon (Glucagen) 1 mg Q15M PRN IM DECREASED GLUCOSE; Start 03/07/17 at 07: 30 Glucose (Glutose) 15 gm Q15M PRN BUCCAL DECREASED GLUCOSE; Start 03/07/17 at 07:30 Capecitabine (Xeloda) 1,500 mg DAILY PO Last administered on 03/11/17 08:43; Admin Dose 1,500 MG; Start 03/08/17 at 09:00; Stop 03/21/17 at 09:01 Capecitabine (Xeloda) 1,000 mg QPM PO Last administered on 03/10/17 20:54; Admin Dose 1,000 MG; Start 03/07/17 at 21:00; Stop 03/20/17 at 21:01 Capecitabine (Xeloda) 1,500 mg DAILY PO ; Start 03/28/17 at 09:00 Capecitabine (Xeloda) 1,000 mg QPM PO ; Start 03/28/17 at 21:00 Pantoprazole (Protonix Tab) 40 mg DAILY@06 PO Last administered on 03/11/17 05:32; Admin Dose 40 MG; Start 03/08/17 at 06:00 Fluoxetine HCl (Prozac) 10 mg DAILY PO Last administered on 03/11/17 08:38; Admin Dose 10 MG; Start 03/09/17 at 14:00 Fentanyl (Duragesic 12 Mcg/Hr Patch) 1 patch Q72H TRANSDERM Last administered on 03/09/17 14:32; Admin Dose 1 PATCH; Start 03/09/17 at 15:00 Oxycodone HCl (Roxicodone) 5 mg Q6 PRN PO PAIN; Start 03/09/17 at 14:00 Alprazolam (Xanax) 0.5 mg TID PRN PO ANXIETY Last administered on 03/10/17 20 :54; Admin Dose 0.5 MG; Start 03/09/17 at 21:00 Multivitamins Therapeutic (Theragran) 1 tab DAILY PO Last administered on 03/11 08:38; Admin Dose 1 TAB; Start 03/10/17 at 13:30 Polyethylene Glycol (Miralax) 17 gm DAILY PO Last administered on 03/11/17 08 :38; Admin Dose 17 GM; Start 03/10/17 at 13:30 Levetiracetam (Keppra) 750 mg BID PO ; Start 03/11/17 at 21:00 JAVIER BERRY MD Mar 11, 2017 12:00
--- NOTE | 2017-03-11 12:33 | CONS ---
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 -pt has been started on Xeloda 1000mg po BID 14 days on and 7 days off -Lengthy discussion was had with the patient and her . I explained that although there are many more treatment options available her ability to tolerate treatment is becoming more difficult. I explained that she has terminal disease that is now affecting her liver as well as other organs. She understands that she is terminally ill and has also had a discussion with palliative care. she is now DNR/ DNI #thrombocytopenia -likely secondary to bone marrow involvement of her cancer -will continue on current dose of Xeloda for now as platelets spontaneously went up to 46 without transfusion #Dizziness -Given Lumbar puncture cytology is negative, it is unlikely that patient has leptomeningeal disease -I believe her sx are mainly secondary to her radiation as well as progressive systemic disease and not related to new [employer]OP[employer] disease -change to Decadron 4mg poq 8 - patient is status post radiation and which she finished on Septemberx19 sessions [address] Dr[address] Saenz -she is now s/p XRT to t spine and Sacrum completed on 01/24/17.need to verify this with his records -agree with Anusha for seizure ppx # right leg pain -given MS Contin 30mg BID # bone metastasis -Patient is on Zometa as an outpatient Problems: Consultation Date/Type/Reason Admit Date/Time Mar 06, 2017 at 20:31 Initial Consult Date 03/07/17 Type of Consultation: Oncology Reason for Consultation metastatic breast cancer Referring Provider: JAVIER BERRY MD 24 HR Interval Summary Free Text/Dictation p was started on keppra yesterday. dizziness and fatigue have slightly improved Exam/Review of Systems Vital Signs Vitals Vital Signs Date Time Temp Pulse Resp B/P Pulse Ox O2 Delivery O2 Flow Rate FiO2 03/11/17 12:11 164 03/11/17 11:37 98.3 17 116/71 93 03/11/17 08:00 Nasal Cannula 2.0 03/09/17 17:01 28 Intake and Output 03/10/17 03/10/17 03/11/17 15:00 23:00 07:00 Intake Total 107.5 ml 900 ml 600 ml Balance 107.5 ml 900 ml 600 ml Exam Constitutional: alert Psych: anxiety, depression Head: normocephalic Eyes: nl conjunctiva ENMT: nl external ears & nose Neck: supple Respiratory: clear to auscultation, normal air movement Cardiovascular: regular rate and rhythm Gastrointestinal: soft Musculoskeletal: muscle weakness, nl extremities to inspection Extremities: normal pulses Results Result Diagram: 03/11/17 1208 03/10/17 0626 Results 24 hrs Laboratory Tests Test 03/10/17 17:18 03/10/17 20:22 03/11/17 08:13 03/11/17 11:45 Bedside Glucose 125 161 124 139 Test 03/11/17 12:08 White Blood Count 8.6 # Red Blood Count 3.62 L Hemoglobin 11.8 L Hematocrit 36.0 L Mean Corpuscular Volume 99.4 Mean Corpuscular Hemoglobin 32.6 Mean Corpuscular Hemoglobin Concent 32.8 Red Cell Distribution Width 20.9 H Platelet Count 46 #L Mean Platelet Volume Neutrophils % 80.7 H Lymphocytes % 6.4 L Monocytes % 4.9 Eosinophils % 0.1 Basophils % 0.1 Nucleated Red Blood Cells % 1.6 H Neutrophils # 7.0 Lymphocytes # 0.6 L Monocytes # 0.4 Eosinophils # 0.0 Basophils # 0.0 Nucleated Red Blood Cells # 0.1 H Medications Medications Current Medications Ondansetron HCl (Zofran Inj) 4 mg Q6H PRN IV NAUSEA AND/OR VOMITING Last administered on 03/08/17t 21:04; Admin Dose 4 MG; Start 03/05/17 at 22:30 Acetaminophen (Tylenol Liquid) 650 mg Q6H PRN PO PAIN LEVEL 1-3 OR FEVER; Start 03/05/17 at 22:30 Acetaminophen (Tylenol Tab) 650 mg Q6H PRN PO PAIN LEVEL 1-3 OR FEVER; Start 03/05/17 at 22:30 Docusate Sodium (Colace) 100 mg Q12H PRN PO CONSTIPATION Last administered on 03/07/17 18:05; Admin Dose 100 MG; Start 03/05/17 at 22:30 Magnesium Hydroxide (Milk Of Mag) 30 ml DAILY PRN PO CONSTIPATION; Start 03/05 at 22:30 Bisacodyl (Dulcolax) 5 mg DAILY PRN PO CONSTIPATION Last administered on 18:05; Admin Dose 5 MG; Start 03/05/17 at 22:30 Dexamethasone (Decadron) 4 mg Q6 IV Last administered on 03/11/17 11:56; Admin Dose 4 MG; Start 03/06/17 at 00:00 Lorazepam (Ativan) 0.5 mg Q8 PRN IV ANXIETY Last administered on 03/09/17 00: 10; Admin Dose 0.5 MG; Start 03/06/17 at 21:30 Miscellaneous Information 1 ea NOTE XX ; Start 03/07/17 at 07:30 Glucose (Glutose) 15 gm Q15M PRN PO DECREASED GLUCOSE; Start 03/07/17 at 07:30 Glucose (Glutose) 22.5 gm Q15M PRN PO DECREASED GLUCOSE; Start 03/07/17 at 07: 30 Dextrose (D50w Syringe) 25 ml Q15M PRN IV DECREASED GLUCOSE; Start 03/07/17 at 07:30 Dextrose (D50w Syringe) 50 ml Q15M PRN IV DECREASED GLUCOSE; Start 03/07/17 at 07:30 Glucagon (Glucagen) 1 mg Q15M PRN IM DECREASED GLUCOSE; Start 03/07/17 at 07: 30 Glucose (Glutose) 15 gm Q15M PRN BUCCAL DECREASED GLUCOSE; Start 03/07/17 at 07:30 Capecitabine (Xeloda) 1,500 mg DAILY PO Last administered on 03/11/17 08:43; Admin Dose 1,500 MG; Start 03/08/17 at 09:00; Stop 03/21/17 at 09:01 Capecitabine (Xeloda) 1,000 mg QPM PO Last administered on 03/10/17 20:54; Admin Dose 1,000 MG; Start 03/07/17 at 21:00; Stop 03/20/17 at 21:01 Capecitabine (Xeloda) 1,500 mg DAILY PO ; Start 03/28/17 at 09:00 Capecitabine (Xeloda) 1,000 mg QPM PO ; Start 03/28/17 at 21:00 Pantoprazole (Protonix Tab) 40 mg DAILY@06 PO Last administered on 03/11/17 05:32; Admin Dose 40 MG; Start 03/08/17 at 06:00 Fluoxetine HCl (Prozac) 10 mg DAILY PO Last administered on 03/11/17 08:38; Admin Dose 10 MG; Start 03/09/17 at 14:00 Fentanyl (Duragesic 12 Mcg/Hr Patch) 1 patch Q72H TRANSDERM Last administered on 03/09/17 14:32; Admin Dose 1 PATCH; Start 03/09/17 at 15:00 Oxycodone HCl (Roxicodone) 5 mg Q6 PRN PO PAIN; Start 03/09/17 at 14:00 Alprazolam (Xanax) 0.5 mg TID PRN PO ANXIETY Last administered on 03/10/17 20 :54; Admin Dose 0.5 MG; Start 03/09/17 at 21:00 Multivitamins Therapeutic (Theragran) 1 tab DAILY PO Last administered on 03/11 08:38; Admin Dose 1 TAB; Start 03/10/17 at 13:30 Polyethylene Glycol (Miralax) 17 gm DAILY PO Last administered on 03/11/17 08 :38; Admin Dose 17 GM; Start 03/10/17 at 13:30 Levetiracetam (Keppra) 750 mg BID PO ; Start 03/11/17 at 21:00 MILEY PARHAM M.D. Mar 11, 2017 12:33
[2017-03-11] MEDS: METOPROLOL 25 MG TAB PO SCH (18:56)
[2017-03-11] MEDS: LEVETIRACETAM 750 MG TAB PO SCH (20:51)
[2017-03-11] MEDS: ALPRAZOLAM 0.5 MG TAB PO PRN (23:36)
[2017-03-12] VITALS (14 sets, daily range): BP systolic 101–118; BP diastolic 59–73; PULSE 66–86; RESP 16–18
[2017-03-12] MEDS: METOPROLOL 25 MG TAB PO SCH ×4 (01:00→21:15)
[2017-03-12] MEDS: ZOLPIDEM 5 MG TAB PO PRN (01:54)
[2017-03-12] MEDS: DEXAMETHASONE 4 MG/ML 1 ML INJ IV SCH ×4 (05:49→23:14)
[2017-03-12] MEDS: PANTOPRAZOLE (EC) 40 MG TAB PO SCH (05:49)
[2017-03-12] MEDS: INSULIN ASPART [NOVOLOG] 3 ML PEN SC SCH ×4 (07:55→21:00)
[2017-03-12] MEDS: FLUOXETINE 10 MG CAP PO SCH (09:00)
[2017-03-12] MEDS: POLYETHYLENE GLYCOL 17 GM PACKET PO SCH (09:31)
[2017-03-12] MEDS: LEVETIRACETAM 750 MG TAB PO SCH ×2 (09:31→21:03)
[2017-03-12] MEDS: MULTIVITAMINS THERAPEUTIC TAB PO SCH (09:31)
[2017-03-12] MEDS: CAPECITABINE 500 MG TAB PO SCH ×2 (09:35→21:07)
--- NOTE | 2017-03-12 10:12 | RADRPT ---
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 Physician: JOHN MORALES Quality: Adequate Procedures: Transthoracic echocardiogram with complete 2D, M-Mode, and doppler examination. Indications: Episodes of paroxysmal A-Tach. 2D/M Mode Doppler Measurement Value Normal Ranges Measurement Value Normal Ranges LVIDd 2D 4.3 3.5 - 5.6 cm AV Peak Reji 1.2 m/sec LVIDs 2D 2.5 2.1 - 4.1 cm AV Peak PG 6.1 mmHg LVPWd 2D 0.9 0.6 - 1.1 cm LVOT Peak Reji 1.1 m/sec IVSd 2D 0.9 0.6 - 1.1 cm LVOT Peak PG 4.7 mmHg AoR Diam 2D 2.9 2.0 - 3.7 cm MV E Peak Reji 0.7 m/sec EDV 2D 81.9 cm3 MV A Peak Reji 0.8 m/sec ESV 2D 15.6 cm3 MV E/A 0.9 LA Dimen 2D 3.5 2.3 - 4.0 cm MV Decel Time 155 msec MV Decel [place] 5 MV E/A 0.9 Findings Left Ventricle: Normal left ventricular systolic function. Normal left ventricular cavity size. Normal left ventricular wall thickness. Ejection fraction is visually estimated at 55 %. Tissue Doppler/Mitral Doppler indices are consistent with impaired relaxation (Stage I diastolic dysfunction). Right Ventricle: Normal right ventricular size. Normal right ventricular systolic function. Left Atrium: The left atrium is normal in size. Right Atrium: The right atrium is normal in size. Mitral Valve: Mitral valve leaflets appear mildly thickened. Mild mitral annular calcification. Trace mitral regurgitation. Aortic Valve: Normal appearance of the aortic valve. No significant aortic stenosis or insufficiency. Tricuspid Valve: Normal appearance of the tricuspid valve. Unable to obtain RVSP due to minimal presence of tricuspid regurgitation. Pulmonic Valve: Normal pulmonic valve appearance. Pericardium: Small pericardial effusion. Pleural effusion seen. Aorta: Normal aortic root. IVC: Normal size and normal respiratory collapse consistent with normal right atrial pressure. Conclusions Normal left ventricular systolic function. Normal left ventricular cavity size. Normal left ventricular wall thickness. Ejection fraction is visually estimated at 55 %. Tissue Doppler/Mitral Doppler indices are consistent with impaired relaxation (Stage I diastolic dysfunction). Normal right ventricular size. Normal right ventricular systolic function. Mitral valve leaflets appear mildly thickened. Mild mitral annular calcification. Trace mitral regurgitation. Normal appearance of the aortic valve. No significant aortic stenosis or insufficiency. Normal appearance of the tricuspid valve. Unable to obtain RVSP due to minimal presence of tricuspid regurgitation. Small pericardial effusion. Pleural effusion seen. Electronically Signed By: John Morales 12-Mar-2017 10:11:44 -0700 Patient Name: ALLA MCQUEEN Study Date: 12-Mar-[id number]
--- NOTE | 2017-03-12 10:12 | RADRPT ---
Echocardiogram Report Patient Name: ALLA MCQUEEN Gender: Female Date: 1955 Study Date: 12-Mar-2017 Heating Fixture Tender: Shabbir Wright [facility] Location: [facility] Ref. Physician: JOHN MORALES Quality: Adequate Procedures: Transthoracic echocardiogram with complete 2D, M-Mode, and doppler examination. Indications: Episodes of paroxysmal A-Tach. 2D/M Mode Doppler Measurement Value Normal Ranges Measurement Value Normal Ranges LVIDd 2D 4.3 3.5 - 5.6 cm AV Peak Reji 1.2 m/sec LVIDs 2D 2.5 2.1 - 4.1 cm AV Peak PG 6.1 mmHg LVPWd 2D 0.9 0.6 - 1.1 cm LVOT Peak Reji 1.1 m/sec IVSd 2D 0.9 0.6 - 1.1 cm LVOT Peak PG 4.7 mmHg AoR Diam 2D 2.9 2.0 - 3.7 cm MV E Peak Reji 0.7 m/sec EDV 2D 81.9 cm3 MV A Peak Reji 0.8 m/sec ESV 2D 15.6 cm3 MV E/A 0.9 LA Dimen 2D 3.5 2.3 - 4.0 cm MV Decel Time 155 msec MV Decel [place] 5 MV E/A 0.9 Findings Left Ventricle: Normal left ventricular systolic function. Normal left ventricular cavity size. Normal left ventricular wall thickness. Ejection fraction is visually estimated at 55 %. Tissue Doppler/Mitral Doppler indices are consistent with impaired relaxation (Stage I diastolic dysfunction). Right Ventricle: Normal right ventricular size. Normal right ventricular systolic function. Left Atrium: The left atrium is normal in size. Right Atrium: The right atrium is normal in size. Mitral Valve: Mitral valve leaflets appear mildly thickened. Mild mitral annular calcification. Trace mitral regurgitation. Aortic Valve: Normal appearance of the aortic valve. No significant aortic stenosis or insufficiency. Tricuspid Valve: Normal appearance of the tricuspid valve. Unable to obtain RVSP due to minimal presence of tricuspid regurgitation. Pulmonic Valve: Normal pulmonic valve appearance. Pericardium: Small pericardial effusion. Pleural effusion seen. Aorta: Normal aortic root. IVC: Normal size and normal respiratory collapse consistent with normal right atrial pressure. Conclusions Normal left ventricular systolic function. Normal left ventricular cavity size. Normal left ventricular wall thickness. Ejection fraction is visually estimated at 55 %. Tissue Doppler/Mitral Doppler indices are consistent with impaired relaxation (Stage I diastolic dysfunction). Normal right ventricular size. Normal right ventricular systolic function. Mitral valve leaflets appear mildly thickened. Mild mitral annular calcification. Trace mitral regurgitation. Normal appearance of the aortic valve. No significant aortic stenosis or insufficiency. Normal appearance of the tricuspid valve. Unable to obtain RVSP due to minimal presence of tricuspid regurgitation. Small pericardial effusion. Pleural effusion seen. Electronically Signed By: John Morales 12-Mar-2017 10:11:44 -0700 Patient Name: ALLA MCQUEEN Study Date: 12-Mar-[id number]
--- NOTE | 2017-03-12 10:12 | RADRPT ---
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 Physician: JOHN MORALES Quality: Adequate Procedures: Transthoracic echocardiogram with complete 2D, M-Mode, and doppler examination. Indications: Episodes of paroxysmal A-Tach. 2D/M Mode Doppler Measurement Value Normal Ranges Measurement Value Normal Ranges LVIDd 2D 4.3 3.5 - 5.6 cm AV Peak Reji 1.2 m/sec LVIDs 2D 2.5 2.1 - 4.1 cm AV Peak PG 6.1 mmHg LVPWd 2D 0.9 0.6 - 1.1 cm LVOT Peak Reji 1.1 m/sec IVSd 2D 0.9 0.6 - 1.1 cm LVOT Peak PG 4.7 mmHg AoR Diam 2D 2.9 2.0 - 3.7 cm MV E Peak Reji 0.7 m/sec EDV 2D 81.9 cm3 MV A Peak Reji 0.8 m/sec ESV 2D 15.6 cm3 MV E/A 0.9 LA Dimen 2D 3.5 2.3 - 4.0 cm MV Decel Time 155 msec MV Decel [place] 5 MV E/A 0.9 Findings Left Ventricle: Normal left ventricular systolic function. Normal left ventricular cavity size. Normal left ventricular wall thickness. Ejection fraction is visually estimated at 55 %. Tissue Doppler/Mitral Doppler indices are consistent with impaired relaxation (Stage I diastolic dysfunction). Right Ventricle: Normal right ventricular size. Normal right ventricular systolic function. Left Atrium: The left atrium is normal in size. Right Atrium: The right atrium is normal in size. Mitral Valve: Mitral valve leaflets appear mildly thickened. Mild mitral annular calcification. Trace mitral regurgitation. Aortic Valve: Normal appearance of the aortic valve. No significant aortic stenosis or insufficiency. Tricuspid Valve: Normal appearance of the tricuspid valve. Unable to obtain RVSP due to minimal presence of tricuspid regurgitation. Pulmonic Valve: Normal pulmonic valve appearance. Pericardium: Small pericardial effusion. Pleural effusion seen. Aorta: Normal aortic root. IVC: Normal size and normal respiratory collapse consistent with normal right atrial pressure. Conclusions Normal left ventricular systolic function. Normal left ventricular cavity size. Normal left ventricular wall thickness. Ejection fraction is visually estimated at 55 %. Tissue Doppler/Mitral Doppler indices are consistent with impaired relaxation (Stage I diastolic dysfunction). Normal right ventricular size. Normal right ventricular systolic function. Mitral valve leaflets appear mildly thickened. Mild mitral annular calcification. Trace mitral regurgitation. Normal appearance of the aortic valve. No significant aortic stenosis or insufficiency. Normal appearance of the tricuspid valve. Unable to obtain RVSP due to minimal presence of tricuspid regurgitation. Small pericardial effusion. Pleural effusion seen. Electronically Signed By: John Morales 12-Mar-2017 10:11:44 -0700 Patient Name: ALLA MCQUEEN Study Date: 12-Mar-[id number]
--- NOTE | 2017-03-12 15:56 | CONS ---
DATE OF ADMISSION: 03/06/2017 DATE OF CONSULTATION: 03/12/2017 CARDIOLOGY CONSULTATION REASON FOR CONSULTATION: Tachyarrhythmia. REQUESTING PHYSICIAN: Dr. Moura and Dr. Osito Griffin HISTORY OF PRESENT ILLNESS: Ms. Stephens is a 61-year-old female with a history of metastatic breast cancer on chemotherapy, status post radiation therapy, who presented with complaints of dizziness, w eakness. Upon arrival on 03/05/2017, patient underwent a head CT that revealed a right frontal subd ural hematoma with local mass effect upon the distal right frontal lobe. Since admit, patient has b een followed by her primary oncologist, Dr. Sharp and is being treated with Xeloda at this time. Ad ditionally, patient underwent a 2D echo 03/12/2017 revealing a preserved EF of 55% with diastolic dy sfunction, trace mitral and tricuspid regurgitation. The patient, additionally, has been monitored on telemetry with episodes of paroxysmal supraventricular tachyarrhythmias up to approximately 140s to 150s, regular. On patient's chemotherapy regimen, most recently, she has also developed signific ant thrombocytopenia with the most recent platelet count of 23, ongoing anemia with a hemoglobin of 10.4. The patient, at this time, denies chest pain, shortness of breath, but does state she feels g eneralized weakness and intermittent palpitations. PAST MEDICAL HISTORY: As above in HPI. MEDICATIONS CURRENTLY IN HOSPITAL: 1. Xeloda. 2. Keppra 750 mg b.i.d. 3. Lopressor 25 mg p.o. q.6. 4. MiraLax. 5. Prozac. 6. Oxycodone p.r.n. 7. Protonix 40 mg daily. ALLERGIES: NO KNOWN DRUG ALLERGIES. SOCIAL HISTORY: No tobacco, ETOH or illicit drug use. FAMILY HISTORY: Negative for sudden cardiac or early CAD. REVIEW OF SYSTEMS: As above in HPI. CONSTITUTIONAL: No fevers, chills. PULMONARY: No current shortness of breath. CARDIOVASCULAR: No current chest pain. GASTROINTESTINAL: No vomiting. GENITOURINARY: No hematuria. MUSCULOSKELETAL: Degenerative joint disease. PSYCHIATRIC: The patient denies depression. NEUROLOGICAL: Subdural hematoma. ENDOCRINE: No documented history of diabetes mellitus or thyroid disease. NEUROLOGIC: Positive depression. PHYSICAL EXAMINATION: VITAL SIGNS: Temperature of 97.5, blood pressure 109/65, pulse 76, respirations 17, saturating 94%. GENERAL: The patient is alert, awake with generalized weakness. NECK: JVP approximately 8 to 9 cm of water. CHEST: Fair air movement throughout. HEART: Regular rate and rhythm. Normal S1, S2, I/ systolic murmur, nondisplaced PMI. ABDOMEN: Positive bowel sounds, soft. EXTREMITIES: No pitting edema, 1+ pulses bilaterally, posterior tibial. LABORATORY DATA: As above in HPI. Most recently from today, white blood cell count of 6.1, hemoglo bin 10.4, platelet count of 23. Sodium 137, potassium 4.1, creatinine 0.5, BUN 19. IMAGING STUDIES: Most recent cervical spine on the CT from 03/08/2017 revealing small scattered lyt ic areas seen throughout the vertebral bodies most C2, C3, C4, C5, C6 and central canal and ce rvical spinal cord with no abnormal density within the spinal cord. Additionally, patient underwent a chest CT on 03/08/2017 revealing bilateral pleural effusions, diffuse osseous metastatic foci ___ __ lumbosacral spine, pelvis, proximal femoral and right humeral head, and a brain MRI that revealed stable 7 mm right frontal subdural collection. ELECTROCARDIOGRAM: Dated 03/05/2017 at that time revealed sinus tachycardia, rate of 103, normal ax is, normal intervals, anterior T-wave inversion. IMPRESSION: 1. Recurrent episodes of supraventricular tachycardia, approximately 150, concerning for possible a trial flutter versus atrial tachycardia, atrioventricular hannah reentrant tachycardia (AVNRT). 2. Hypertension, well controlled. 3. Abnormal EKG. Assess for acute coronary syndrome. 5. Metastatic breast CA, on chemotherapy, status post XRT. 6. Pancytopenia with severe thrombocytopenia. 7. Depression. 8. Subdural hematoma with dizziness. 9. Increased liver function tests. RECOMMENDATIONS: 1. At this time, would maintain patient on telemetry monitoring to follow rhythm and rate control c losely. 2. The patient is status post TSH within normal limits. 3. The patient is status post 2D echo revealing a preserved EF. 4. Would continue the patient's beta dulce as tolerated for suppression of further bouts of SVT. 5. Would additionally send troponins q.6 x2 to assure the patient's EKG abnormalities are chronic i n nature and not due to any recent acute coronary syndrome. 6. Continue the patient's chemotherapy as tolerated. 7. Pain control. 8. Follow the patient's volume status closely. 9. Continue the patient's anti-seizure medications. Thank you for allowing me to take part in the care of this patient. I will continue to follow along very closely with you. Further recommendations will be made as the patient progresses through her inpatient hospital clinical course. Dictated By: KAYA HINTON/HARISH Conf#: [id number] DID#: [id number] CC: OSITO GRFIFIN MD; JAMAL;*EndCC*
[2017-03-12] MEDS: oxyCODONE 5 MG TAB PO PRN ×2 (16:07→23:14)
[2017-03-12] MEDS: FENTAnyl PATCH 12 MCG/HR TRANSDERM SCH (16:15)
--- NOTE | 2017-03-12 16:51 | CONS ---
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 -pt has been started on Xeloda 1000mg po BID 14 days on and 7 days off -Lengthy discussion was had with the patient and her . I explained that although there are many more treatment options available her ability to tolerate treatment is becoming more difficult. I explained that she has terminal disease that is now affecting her liver as well as other organs. She understands that she is terminally ill and has also had a discussion with palliative care. 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 Saenz -she is now s/p XRT to t spine and Sacrum completed on 01/24/17.need to verify this with his records -agree with Anusha for seizure ppx #Tachyarrhythmia -pt has seen cardiology -pt stared on beta dulce # right leg pain -given MS Contin 30mg BID # bone metastasis -Patient is on Zometa as an outpatient Problems: Consultation Date/Type/Reason Admit Date/Time Mar 06, 2017 at 20:31 Initial Consult Date 03/07/17 Type of Consultation: Oncology Reason for Consultation metastatic breast cancer Referring Provider: JAVIER BERRY MD 24 HR Interval Summary Free Text/Dictation pt's energy slightly improved. s/p evaluation by cardiology for tachyarrhythmia. pt started on Beta dulce Exam/Review of Systems Vital Signs Vitals Vital Signs Date Time Temp Pulse Resp B/P Pulse Ox O2 Delivery O2 Flow Rate FiO2 03/12/17 15:27 97.8 73 18 101/61 96 03/12/17 13:36 2.0 03/12/17 04:00 Nasal Cannula 03/09/17 17:01 28 Intake and Output 03/11/17 03/11/17 03/12/17 15:00 23:00 07:00 Intake Total 880 ml 550 ml Balance 880 ml 550 ml Exam Constitutional: alert, frail, oriented Psych: anxiety, confusion, depression, no complaints Head: normocephalic Eyes: nl conjunctiva ENMT: nl external ears & nose Neck: supple Respiratory: clear to auscultation Cardiovascular: irregular rhythm, regular rate and rhythm Gastrointestinal: soft Musculoskeletal: nl extremities to inspection Results Result Diagram: 03/12/17 0617 03/12/17 0617 Results 24 hrs Laboratory Tests Test 03/11/17 16:56 03/11/17 20:46 03/12/17 06:17 03/12/17 08:20 Bedside Glucose 136 160 119 White Blood Count 6.1 # Red Blood Count 3.21 L Hemoglobin 10.4 L Hematocrit 32.2 L Mean Corpuscular Volume 100.3 Mean Corpuscular Hemoglobin 32.4 Mean Corpuscular Hemoglobin Concent 32.3 Red Cell Distribution Width 20.8 H Platelet Count 23 #*L Mean Platelet Volume Neutrophils % Segmented Neutrophils % (Manual) 67 Band Neutrophils % (Manual) 14 H Lymphocytes % Lymphocytes % (Manual) 6 L Monocytes % Monocytes % (Manual) 6 Eosinophils % Basophils % Metamyelocytes % (manual) 2 H Myelocytes % (Manual) 3 H Promyelocytes % (Manual) 3 H Nucleated Red Blood Cells % 1 H Neutrophils # Neutrophils # (Manual) 4.1 Band Neutrophils # 0.8 H Absolute Lymphocytes (Manual) 0.3 L Lymphocytes # Monocytes # Absolute Monocytes (Manual) 0.3 Eosinophils # Basophils # Metamyelocytes # 0.1 H Myelocytes # 0.1 H Promyelocytes # 0.1 H Nucleated Red Blood Cells # Platelet Estimate SIG DECREASED Polychromasia 1+ Poikilocytosis 1+ Anisocytosis 2+ Macrocytosis 2+ Sodium Level 137 Potassium Level 4.1 Chloride Level 106 Carbon Dioxide Level 25 Anion Gap 10 Blood Urea Nitrogen 19 Creatinine 0.52 Glucose Level 111 Calcium Level 7.8 L Magnesium Level 2.2 Total Bilirubin 1.0 Direct Bilirubin 0.00 Indirect Bilirubin 1.0 Aspartate Amino Transf (AST/SGOT) 546 H Alanine Aminotransferase (ALT/SGPT) 278 H Alkaline Phosphatase 596 H Total Protein 5.0 L Albumin 3.0 L Globulin 2.00 Albumin/Globulin Ratio 1.50 Thyroid Stimulating Hormone (TSH) 1.890 Test 03/12/17 12:46 Bedside Glucose 177 Medications Medications Current Medications Ondansetron HCl (Zofran Inj) 4 mg Q6H PRN IV NAUSEA AND/OR VOMITING Last administered on 03/08/17 21:04; Admin Dose 4 MG; Start 03/05/17 at 22:30 Acetaminophen (Tylenol Liquid) 650 mg Q6H PRN PO PAIN LEVEL 1-3 OR FEVER; Start 03/05/17 at 22:30 Acetaminophen (Tylenol Tab) 650 mg Q6H PRN PO PAIN LEVEL 1-3 OR FEVER Last administered on 03/12/17 12:58; Admin Dose 650 MG; Start 03/05/17 at 22:30 Docusate Sodium (Colace) 100 mg Q12H PRN PO CONSTIPATION Last administered on 03/07/17 18:05; Admin Dose 100 MG; Start 03/05/17 at 22:30 Magnesium Hydroxide (Milk Of Mag) 30 ml DAILY PRN PO CONSTIPATION Last administered on 03/12/17 16:07; Admin Dose 30 ML; Start 03/05/17 at 22:30 Bisacodyl (Dulcolax) 5 mg DAILY PRN PO CONSTIPATION Last administered on 18:05; Admin Dose 5 MG; Start 03/05/17 at 22:30 Dexamethasone (Decadron) 4 mg Q6 IV Last administered on 03/12/17 12:58; Admin Dose 4 MG; Start 03/06/17 at 00:00 Lorazepam (Ativan) 0.5 mg Q8 PRN IV ANXIETY Last administered on 03/09/17 00: 10; Admin Dose 0.5 MG; Start 03/06/17 at 21:30 Miscellaneous Information 1 ea NOTE XX ; Start 03/07/17 at 07:30 Glucose (Glutose) 15 gm Q15M PRN PO DECREASED GLUCOSE; Start 03/07/17 at 07:30 Glucose (Glutose) 22.5 gm Q15M PRN PO DECREASED GLUCOSE; Start 03/07/17 at 07: 30 Dextrose (D50w Syringe) 25 ml Q15M PRN IV DECREASED GLUCOSE; Start 03/07/17 at 07:30 Dextrose (D50w Syringe) 50 ml Q15M PRN IV DECREASED GLUCOSE; Start 03/07/17 at 07:30 Glucagon (Glucagen) 1 mg Q15M PRN IM DECREASED GLUCOSE; Start 03/07/17 at 07: 30 Glucose (Glutose) 15 gm Q15M PRN BUCCAL DECREASED GLUCOSE; Start 03/07/17 at 07:30 Pantoprazole (Protonix Tab) 40 mg DAILY@06 PO Last administered on 03/12/17 05:49; Admin Dose 40 MG; Start 03/08/17 at 06:00 Fluoxetine HCl (Prozac) 10 mg DAILY PO Last administered on 03/11/17 08:38; Admin Dose 10 MG; Start 03/09/17 at 14:00 Fentanyl (Duragesic 12 Mcg/Hr Patch) 1 patch Q72H TRANSDERM Last administered on 03/12/17 16:15; Admin Dose 1 PATCH; Start 03/09/17 at 15:00 Oxycodone HCl (Roxicodone) 5 mg Q6 PRN PO PAIN Last administered on 03/12/17 16:07; Admin Dose 5 MG; Start 03/09/17 at 14:00 Alprazolam (Xanax) 0.5 mg TID PRN PO ANXIETY Last administered on 03/11/17 23 :36; Admin Dose 0.5 MG; Start 03/09/17 at 21:00 Multivitamins Therapeutic (Theragran) 1 tab DAILY PO Last administered on 03/12 09:31; Admin Dose 1 TAB; Start 03/10/17 at 13:30 Polyethylene Glycol (Miralax) 17 gm DAILY PO Last administered on 03/12/17 09 :31; Admin Dose 17 GM; Start 03/10/17 at 13:30 Levetiracetam (Keppra) 750 mg BID PO Last administered on 03/12/17 09:31; Admin Dose 750 MG; Start 03/11/17 at 21:00 Capecitabine (Xeloda) 1,000 mg BID PO Last administered on 03/12/17 09:35; Admin Dose 1,000 MG; Start 03/12/17 at 09:30 Metoprolol Tartrate (Lopressor) 25 mg Q8 PO Last administered on 03/12/17 16: 08; Admin Dose 25 MG; Start 03/12/17 at 14:00 MILEY PARHAM M.D. Mar 12, 2017 16:51
--- NOTE | 2017-03-12 18:08 | PN ---
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 CT scan C/T/L spine with numerous mets # HX HTN # Tacycardia could be pain vs anxiety # Pancytopenia likley due to chemo # Depressiom # Insomnia VERY [facility] PROG[facility] HOSP[facility] EVAL Problems: Subjective 24 Hr Interval Summary Cardiovascular: No chest pain Gastrointestinal: no complaints Musculoskeletal: bone/joint pain (+) Exam/Review of Systems Vital Signs Vitals Vital Signs Date Time Temp Pulse Resp B/P Pulse Ox O2 Delivery O2 Flow Rate FiO2 03/12/17 16:00 70 03/12/17 15:27 97.8 18 101/61 96 03/12/17 13:36 2.0 03/12/17 04:00 Nasal Cannula 03/09/17 17:01 28 Intake and Output 03/11/17 03/11/17 03/12/17 15:00 23:00 07:00 Intake Total 880 ml 550 ml Balance 880 ml 550 ml Exam Neck: supple Respiratory: clear to auscultation Cardiovascular: regular rate and rhythm Gastrointestinal: bowel sounds (+), soft Musculoskeletal: nl extremities to inspection Results Result Diagram: 03/12/1717 03/12/17 0617 Results 24 hrs Laboratory Tests Test 03/11/17 20:46 03/12/17 06:17 03/12/17 08:20 03/12/17 12:46 Bedside Glucose 160 119 177 White Blood Count 6.1 # Red Blood Count 3.21 L Hemoglobin 10.4 L Hematocrit 32.2 L Mean Corpuscular Volume 100.3 Mean Corpuscular Hemoglobin 32.4 Mean Corpuscular Hemoglobin Concent 32.3 Red Cell Distribution Width 20.8 H Platelet Count 23 #*L Mean Platelet Volume Neutrophils % Segmented Neutrophils % (Manual) 67 Band Neutrophils % (Manual) 14 H Lymphocytes % Lymphocytes % (Manual) 6 L Monocytes % Monocytes % (Manual) 6 Eosinophils % Basophils % Metamyelocytes % (manual) 2 H Myelocytes % (Manual) 3 H Promyelocytes % (Manual) 3 H Nucleated Red Blood Cells % 1 H Neutrophils # Neutrophils # (Manual) 4.1 Band Neutrophils # 0.8 H Absolute Lymphocytes (Manual) 0.3 L Lymphocytes # Monocytes # Absolute Monocytes (Manual) 0.3 Eosinophils # Basophils # Metamyelocytes # 0.1 H Myelocytes # 0.1 H Promyelocytes # 0.1 H Nucleated Red Blood Cells # Platelet Estimate SIG DECREASED Polychromasia 1+ Poikilocytosis 1+ Anisocytosis 2+ Macrocytosis 2+ Sodium Level 137 Potassium Level 4.1 Chloride Level 106 Carbon Dioxide Level 25 Anion Gap 10 Blood Urea Nitrogen 19 Creatinine 0.52 Glucose Level 111 Calcium Level 7.8 L Magnesium Level 2.2 Total Bilirubin 1.0 Direct Bilirubin 0.00 Indirect Bilirubin 1.0 Aspartate Amino Transf (AST/SGOT) 546 H Alanine Aminotransferase (ALT/SGPT) 278 H Alkaline Phosphatase 596 H Total Protein 5.0 L Albumin 3.0 L Globulin 2.00 Albumin/Globulin Ratio 1.50 Thyroid Stimulating Hormone (TSH) 1.890 Test 03/12/17 17:30 Bedside Glucose 137 Medications Medications Current Medications Ondansetron HCl (Zofran Inj) 4 mg Q6H PRN IV NAUSEA AND/OR VOMITING Last administered on 03/08/17 21:04; Admin Dose 4 MG; Start 03/05/17 at 22:30 Acetaminophen (Tylenol Liquid) 650 mg Q6H PRN PO PAIN LEVEL 1-3 OR FEVER; Start 03/05/17 at 22:30 Acetaminophen (Tylenol Tab) 650 mg Q6H PRN PO PAIN LEVEL 1-3 OR FEVER Last administered on 03/12/17 12:58; Admin Dose 650 MG; Start 03/05/17 at 22:30 Docusate Sodium (Colace) 100 mg Q12H PRN PO CONSTIPATION Last administered on 03/07/17 18:05; Admin Dose 100 MG; Start 03/05/17 at 22:30 Magnesium Hydroxide (Milk Of Mag) 30 ml DAILY PRN PO CONSTIPATION Last administered on 03/12/17 16:07; Admin Dose 30 ML; Start 03/05/17 at 22:30 Bisacodyl (Dulcolax) 5 mg DAILY PRN PO CONSTIPATION Last administered on 18:05; Admin Dose 5 MG; Start 03/05/17 at 22:30 Dexamethasone (Decadron) 4 mg Q6 IV Last administered on 03/12/17 12:58; Admin Dose 4 MG; Start 03/06/17 at 00:00 Lorazepam (Ativan) 0.5 mg Q8 PRN IV ANXIETY Last administered on 03/09/17 00: 10; Admin Dose 0.5 MG; Start 03/06/17 at 21:30 Miscellaneous Information 1 ea NOTE XX ; Start 03/07/17 at 07:30 Glucose (Glutose) 15 gm Q15M PRN PO DECREASED GLUCOSE; Start 03/07/17 at 07:30 Glucose (Glutose) 22.5 gm Q15M PRN PO DECREASED GLUCOSE; Start 03/07/17 at 07: 30 Dextrose (D50w Syringe) 25 ml Q15M PRN IV DECREASED GLUCOSE; Start 03/07/17 at 07:30 Dextrose (D50w Syringe) 50 ml Q15M PRN IV DECREASED GLUCOSE; Start 03/07/17 at 07:30 Glucagon (Glucagen) 1 mg Q15M PRN IM DECREASED GLUCOSE; Start 03/07/17 at 07: 30 Glucose (Glutose) 15 gm Q15M PRN BUCCAL DECREASED GLUCOSE; Start 03/07/17 at 07:30 Pantoprazole (Protonix Tab) 40 mg DAILY@06 PO Last administered on 03/12/17 05:49; Admin Dose 40 MG; Start 03/08/17 at 06:00 Fluoxetine HCl (Prozac) 10 mg DAILY PO Last administered on 03/11/17 08:38; Admin Dose 10 MG; Start 03/09/17 at 14:00 Fentanyl (Duragesic 12 Mcg/Hr Patch) 1 patch Q72H TRANSDERM Last administered on 03/12/17 16:15; Admin Dose 1 PATCH; Start 03/09/17 at 15:00 Oxycodone HCl (Roxicodone) 5 mg Q6 PRN PO PAIN Last administered on 03/12/17 16:07; Admin Dose 5 MG; Start 03/09/17 at 14:00 Alprazolam (Xanax) 0.5 mg TID PRN PO ANXIETY Last administered on 03/11/17 23 :36; Admin Dose 0.5 MG; Start 03/09/17 at 21:00 Multivitamins Therapeutic (Theragran) 1 tab DAILY PO Last administered on 03/12 09:31; Admin Dose 1 TAB; Start 03/10/17 at 13:30 Polyethylene Glycol (Miralax) 17 gm DAILY PO Last administered on 03/12/17 09 :31; Admin Dose 17 GM; Start 03/10/17 at 13:30 Levetiracetam (Keppra) 750 mg BID PO Last administered on 03/12/17 09:31; Admin Dose 750 MG; Start 03/11/17 at 21:00 Capecitabine (Xeloda) 1,000 mg BID PO Last administered on 03/12/17 09:35; Admin Dose 1,000 MG; Start 03/12/17 at 09:30 Metoprolol Tartrate (Lopressor) 25 mg Q8 PO Last administered on 03/12/17 16: 08; Admin Dose 25 MG; Start 03/12/17 at 14:00 Temazepam (Restoril) 30 mg HS PO ; Start 03/12/17 at 21:00 DEON GRIFFIN MD Mar 12, 2017 18:08
[2017-03-12] MEDS: TEMAZEPAM 15 MG CAP PO SCH (21:04)
[2017-03-13] VITALS (11 sets, daily range): BP systolic 98–108; BP diastolic 58–72; PULSE 66–78; RESP 16–18
[2017-03-13] MEDS: METOPROLOL 25 MG TAB PO SCH ×3 (06:00→21:49)
[2017-03-13] MEDS: PANTOPRAZOLE (EC) 40 MG TAB PO SCH (06:20)
[2017-03-13] MEDS: DEXAMETHASONE 4 MG/ML 1 ML INJ IV SCH ×3 (06:21→18:35)
[2017-03-13] MEDS: INSULIN ASPART [NOVOLOG] 3 ML PEN SC SCH ×4 (07:55→21:00)
--- NOTE | 2017-03-13 08:31 | RADRPT ---
PROCEDURE: US Abdomen and Retroperitoneum. CLINICAL INDICATION: Elevated liver function tests. TECHNIQUE: Multiple real-time longitudinal and transverse images were acquired of the patient's ab domen and retroperitoneum utilizing a curved array transducer. COMPARISON: None FINDINGS: Liver appears heterogeneous in echotexture. There are multiple varying size masses. 1 in the left lobe measuring 2.4 x 1.5 cm 1 in the right lob e measuring 4.0 x 2.6 cm. Normal hepatopedal flow is seen within the main portal vein. Gallbladder is contracted. The no filling defects. No intra or extrahepatic biliary dilatation is seen. The common bile duct measures 5.1 mm in maximal dimension. The visualized portions of the pancreas are unremarkable. Spleen is borderline enlarged and 12.3 cm. The right kidney measures 10.1 cm. The left kidney measures 10.6 cm. There is normal echogenicity within the kidneys. There are no perinephric fluid collections. No hydronephrosis, mass, or calculus is seen. The aorta and IVC are unremarkable. There is a small amount of ascites present. There are tiny bilateral pleural effusions IMPRESSION: 1. Heterogeneous appearance to the liver with multiple masses suggesting metastatic disease. Dynami c CT of the liver is suggested for further characterization. 2. Small amount of ascites. 3. Tiny bilateral pleural effusions. RPTAT: [facility] Physician Zurdo Date Time Electronically viewed and signed by Physician Zurdo on 03/13/2017 08:30 /
[2017-03-13] MEDS: LEVETIRACETAM 750 MG TAB PO SCH ×2 (08:50→21:48)
[2017-03-13] MEDS: POLYETHYLENE GLYCOL 17 GM PACKET PO SCH (08:50)
[2017-03-13] MEDS: MULTIVITAMINS THERAPEUTIC TAB PO SCH (08:50)
[2017-03-13] MEDS: CAPECITABINE 500 MG TAB PO SCH ×2 (08:58→21:56)
[2017-03-13] MEDS: FLUOXETINE 10 MG CAP PO SCH (09:00)
--- NOTE | 2017-03-13 14:33 | CONS ---
Date/Time of Note Date/Time of Note DATE: 03/13/17 TIME: 14:30 Assessment/Plan Assessment/Plan Chief Complaint/Hosp Course 61 yo with #ER+ /CA-/Her 2 negative metastatic breast cancer to the bones, and liver, specifically the right shoulder as well as the T spine causing cord compression -patient's CA 15-3 in 1 month has gone up from 163 to > 1000 -CT C/A/P confirms progression of right axillary, mediastinal and hilar adenopathy, bilateral malignant pleural effusions, hepatic mets as well as osseous mets. -pt has been started on Xeloda 1000mg po BID 14 days on and 7 days off -Lengthy discussion was had with the patient and her . I explained that although there are many more treatment options available her ability to tolerate treatment is becoming more difficult especially given her platelet count is declining with the therapy. I explained that she has terminal disease that is now affecting her liver as well as other organs. She understands that she is terminally ill and has also had a discussion with palliative care. she is now DNR/ DNI. I have asked the patient and her to consider hospice care at this time. 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 Saenz -she is now s/p XRT to t spine and Sacrum completed on 01/24/17.need to verify this with his records -agree with Anusha for seizure ppx #Tachyarrhythmia -pt has seen cardiology -pt stared on beta dulce # right leg pain -given MS Contin 30mg BID # bone metastasis -Patient is on Zometa as an outpatient Problems: Consultation Date/Type/Reason Admit Date/Time Mar 06, 2017 at 20:31 Initial Consult Date 03/07/17 Type of Consultation: Oncology Reason for Consultation metastatic breast cancer Referring Provider: JAVIER BERRY MD 24 HR Interval Summary Free Text/Dictation pt symptoms are stable. still with dizziness. not c/o pain Exam/Review of Systems Vital Signs Vitals Vital Signs Date Time Temp Pulse Resp B/P Pulse Ox O2 Delivery O2 Flow Rate FiO2 03/13/17 12:00 75 03/13/17 08:20 Nasal Cannula 2.0 03/13/17 08:03 97.7 17 99/58 93 03/09/17 17:01 28 Intake and Output 03/12/17 03/12/17 03/13/17 15:00 23:00 07:00 Intake Total 900 ml Balance 900 ml Exam Constitutional: alert, frail, oriented Psych: depression Head: normocephalic Eyes: nl conjunctiva ENMT: nl external ears & nose Neck: non-tender, supple Respiratory: clear to auscultation Cardiovascular: regular rate and rhythm Gastrointestinal: soft Musculoskeletal: muscle weakness Results Result Diagram: 03/12/17 0617 03/12/17 0617 Results 24 hrs Laboratory Tests Test 03/12/17 17:30 03/12/17 18:18 03/12/17 21:00 03/13/17 00:35 Bedside Glucose 137 164 Magnesium Level 2.4 Troponin I < 0.012 < 0.012 Test 03/13/17 08:13 03/13/17 12:15 Bedside Glucose 109 165 Medications Medications Current Medications Ondansetron HCl (Zofran Inj) 4 mg Q6H PRN IV NAUSEA AND/OR VOMITING Last administered on 03/08/17 21:04; Admin Dose 4 MG; Start 03/05/17 at 22:30 Acetaminophen (Tylenol Liquid) 650 mg Q6H PRN PO PAIN LEVEL 1-3 OR FEVER; Start 03/05/17 at 22:30 Acetaminophen (Tylenol Tab) 650 mg Q6H PRN PO PAIN LEVEL 1-3 OR FEVER Last administered on 03/12/17 12:58; Admin Dose 650 MG; Start 03/05/17 at 22:30 Docusate Sodium (Colace) 100 mg Q12H PRN PO CONSTIPATION Last administered on 03/07/17 18:05; Admin Dose 100 MG; Start 03/05/17 at 22:30 Magnesium Hydroxide (Milk Of Mag) 30 ml DAILY PRN PO CONSTIPATION Last administered on 03/12/17 16:07; Admin Dose 30 ML; Start 03/05/17 at 22:30 Bisacodyl (Dulcolax) 5 mg DAILY PRN PO CONSTIPATION Last administered on 18:05; Admin Dose 5 MG; Start 03/05/17 at 22:30 Dexamethasone (Decadron) 4 mg Q6 IV Last administered on 03/13/17 12:16; Admin Dose 4 MG; Start 03/06/17 at 00:00 Lorazepam (Ativan) 0.5 mg Q8 PRN IV ANXIETY Last administered on 03/09/17 00: 10; Admin Dose 0.5 MG; Start 03/06/17 at 21:30 Miscellaneous Information 1 ea NOTE XX ; Start 03/07/17 at 07:30 Glucose (Glutose) 15 gm Q15M PRN PO DECREASED GLUCOSE; Start 03/07/17 at 07:30 Glucose (Glutose) 22.5 gm Q15M PRN PO DECREASED GLUCOSE; Start 03/07/17 at 07: 30 Dextrose (D50w Syringe) 25 ml Q15M PRN IV DECREASED GLUCOSE; Start 03/07/17 at 07:30 Dextrose (D50w Syringe) 50 ml Q15M PRN IV DECREASED GLUCOSE; Start 03/07/17 at 07:30 Glucagon (Glucagen) 1 mg Q15M PRN IM DECREASED GLUCOSE; Start 03/07/17 at 07: 30 Glucose (Glutose) 15 gm Q15M PRN BUCCAL DECREASED GLUCOSE; Start 03/07/17 at 07:30 Pantoprazole (Protonix Tab) 40 mg DAILY@06 PO Last administered on 03/13/17 06:20; Admin Dose 40 MG; Start 03/08/17 at 06:00 Fluoxetine HCl (Prozac) 10 mg DAILY PO Last administered on 03/11/17 08:38; Admin Dose 10 MG; Start 03/09/17 at 14:00 Fentanyl (Duragesic 12 Mcg/Hr Patch) 1 patch Q72H TRANSDERM Last administered on 03/12/17 16:15; Admin Dose 1 PATCH; Start 03/09/17 at 15:00 Oxycodone HCl (Roxicodone) 5 mg Q6 PRN PO PAIN Last administered on 03/12/17 23:14; Admin Dose 5 MG; Start 03/09/17 at 14:00 Alprazolam (Xanax) 0.5 mg TID PRN PO ANXIETY Last administered on 03/11/17 23 :36; Admin Dose 0.5 MG; Start 03/09/17 at 21:00 Multivitamins Therapeutic (Theragran) 1 tab DAILY PO Last administered on 03/13 08:50; Admin Dose 1 TAB; Start 03/10/17 at 13:30 Polyethylene Glycol (Miralax) 17 gm DAILY PO Last administered on 03/13/17 08 :50; Admin Dose 17 GM; Start 03/10/17 at 13:30 Levetiracetam (Keppra) 750 mg BID PO Last administered on 03/13/17 08:50; Admin Dose 750 MG; Start 03/11/17 at 21:00 Capecitabine (Xeloda) 1,000 mg BID PO Last administered on 03/13/17 08:58; Admin Dose 1,000 MG; Start 03/12/17 at 09:30 Metoprolol Tartrate (Lopressor) 25 mg Q8 PO Last administered on 03/12/17 21: 15; Admin Dose 25 MG; Start 03/12/17 at 14:00 Temazepam (Restoril) 30 mg HS PO Last administered on 03/12/17 21:04; Admin Dose 30 MG; Start 03/12/17 at 21:00 MILEY PARHAM M.D. Mar 13, 2017 14:33
--- NOTE | 2017-03-13 14:44 | RADRPT ---
Vent Rate: 70 bpm RR Interval: 0 msec MO Interval: 136 msec QRS Duration: 82 msec QT Interval: 448 msec QTC Interval: 483 msec P-R-T [place]: 66 - 35 - 52 degrees Normal sinus rhythm Prolonged QT Abnormal ECG Electronically Signed By: Mau Osborn [id number]
--- NOTE | 2017-03-13 14:44 | RADRPT ---
Vent Rate: 70 bpm RR Interval: 0 msec PA Interval: 136 msec QRS Duration: 82 msec QT Interval: 448 msec QTC Interval: 483 msec P-R-T [place]: 66 - 35 - 52 degrees Normal sinus rhythm Prolonged QT Abnormal ECG Electronically Signed By: Mau Osborn [id number]
--- NOTE | 2017-03-13 14:44 | RADRPT ---
Vent Rate: 70 bpm RR Interval: 0 msec PA Interval: 136 msec QRS Duration: 82 msec QT Interval: 448 msec QTC Interval: 483 msec P-R-T [place]: 66 - 35 - 52 degrees Normal sinus rhythm Prolonged QT Abnormal ECG Electronically Signed By: Mau Osborn [id number]
--- NOTE | 2017-03-13 15:40 | CONS ---
Date/Time of Note Date/Time of Note DATE: 03/13/17 TIME: 15:38 Assessment/Plan Assessment/Plan Additional Assessment/Plan 1. Recurrent episodes of supraventricular tachycardia, approximately 150, concerning for possible atrial flutter versus atrial tachycardia, atrioventricular hannah reentrant tachycardia (AVNRT)- no new episodes here - no EP lab available - consider for outpt SVT evaluation. 2. Hypertension, well controlled- will adjust Rx as needed. 3. Abnormal EKG. Assess for acute coronary syndrome. 5. Metastatic breast CA, on chemotherapy, status post XRT- oncology follows. 6. Pancytopenia with severe thrombocytopenia. 7. Depression. 8. Subdural hematoma with dizziness - not a candidate for anti-coagulation now. 9. Increased liver function tests. Consultation Date/Type/Reason Admit Date/Time Mar 06, 2017 at 20:31 Initial Consult Date 03/07/17 Type of Consultation: Oncology Referring Provider: JAVIER BERRY MD 24 HR Interval Summary Free Text/Dictation no new episodes here - no EP lab available - consider for outpt SVT evaluation. ROS: No fever, no chills, no nausea, no vomiting, no diarrhea/constipation No recent weight changes No chest pain, no PND, no orthopnea No dizziness, blurred vision No thirst, no heat or cold intolerance MALAISE + Exam/Review of Systems Vital Signs Vitals Vital Signs Date Time Temp Pulse Resp B/P Pulse Ox O2 Delivery O2 Flow Rate FiO2 03/13/17 15:27 97.4 75 17 103/72 98 03/13/17 08:20 Nasal Cannula 2.0 03/09/17 17:01 28 Intake and Output 03/12/17 03/12/17 03/13/17 15:00 23:00 07:00 Intake Total 900 ml Balance 900 ml Exam General: WN/WD/NAD, AOx 3 HEENT: Unicetric/atraumatic/EOMI (follows commands) NECK: JVD elevated, no thyromegaly Lymph: no lymphadenopathy HEART: regular with no S3, II/ systolic murmur at apex LUNGS: Coarse sounds ABD: soft, NT, ND, +BS : Intact Neuro: non focal SKIN: chronic changes EXT: trace edema Results Result Diagram: 03/12/1717 03/12/1717 Results 24 hrs Laboratory Tests Test 03/12/17 17:30 03/12/17 18:18 03/12/17 21:00 03/13/17 00:35 Bedside Glucose 137 164 Magnesium Level 2.4 Troponin I < 0.012 < 0.012 Test 03/13/17 08:13 03/13/17 12:15 03/13/17 14:27 Bedside Glucose 109 165 White Blood Count Pending Red Blood Count Pending Hemoglobin Pending Hematocrit Pending Mean Corpuscular Volume Pending Mean Corpuscular Hemoglobin Pending Mean Corpuscular Hemoglobin Concent Pending Red Cell Distribution Width Pending Platelet Count Pending Mean Platelet Volume Pending Medications Medications Current Medications Ondansetron HCl (Zofran Inj) 4 mg Q6H PRN IV NAUSEA AND/OR VOMITING Last administered on 03/08/17 21:04; Admin Dose 4 MG; Start 03/05/17 at 22:30 Acetaminophen (Tylenol Liquid) 650 mg Q6H PRN PO PAIN LEVEL 1-3 OR FEVER; Start 03/05/17 at 22:30 Acetaminophen (Tylenol Tab) 650 mg Q6H PRN PO PAIN LEVEL 1-3 OR FEVER Last administered on 03/12/17 12:58; Admin Dose 650 MG; Start 03/05/17 at 22:30 Docusate Sodium (Colace) 100 mg Q12H PRN PO CONSTIPATION Last administered on 03/07/17 18:05; Admin Dose 100 MG; Start 03/05/17 at 22:30 Magnesium Hydroxide (Milk Of Mag) 30 ml DAILY PRN PO CONSTIPATION Last administered on 03/12/17 16:07; Admin Dose 30 ML; Start 03/05/17 at 22:30 Bisacodyl (Dulcolax) 5 mg DAILY PRN PO CONSTIPATION Last administered on 18:05; Admin Dose 5 MG; Start 03/05/17 at 22:30 Dexamethasone (Decadron) 4 mg Q6 IV Last administered on 03/13/17 12:16; Admin Dose 4 MG; Start 03/06/17 at 00:00 Lorazepam (Ativan) 0.5 mg Q8 PRN IV ANXIETY Last administered on 03/09/17 00: 10; Admin Dose 0.5 MG; Start 03/06/17 at 21:30 Miscellaneous Information 1 ea NOTE XX ; Start 03/07/17 at 07:30 Glucose (Glutose) 15 gm Q15M PRN PO DECREASED GLUCOSE; Start 03/07/17 at 07:30 Glucose (Glutose) 22.5 gm Q15M PRN PO DECREASED GLUCOSE; Start 03/07/17 at 07: 30 Dextrose (D50w Syringe) 25 ml Q15M PRN IV DECREASED GLUCOSE; Start 03/07/17 at 07:30 Dextrose (D50w Syringe) 50 ml Q15M PRN IV DECREASED GLUCOSE; Start 03/07/17 at 07:30 Glucagon (Glucagen) 1 mg Q15M PRN IM DECREASED GLUCOSE; Start 03/07/17 at 07: 30 Glucose (Glutose) 15 gm Q15M PRN BUCCAL DECREASED GLUCOSE; Start 03/07/17 at 07:30 Pantoprazole (Protonix Tab) 40 mg DAILY@06 PO Last administered on 03/13/17 06:20; Admin Dose 40 MG; Start 03/08/17 at 06:00 Fluoxetine HCl (Prozac) 10 mg DAILY PO Last administered on 03/11/17 08:38; Admin Dose 10 MG; Start 03/09/17 at 14:00 Fentanyl (Duragesic 12 Mcg/Hr Patch) 1 patch Q72H TRANSDERM Last administered on 03/12/17 16:15; Admin Dose 1 PATCH; Start 03/09/17 at 15:00 Oxycodone HCl (Roxicodone) 5 mg Q6 PRN PO PAIN Last administered on 03/12/17 23:14; Admin Dose 5 MG; Start 03/09/17 at 14:00 Alprazolam (Xanax) 0.5 mg TID PRN PO ANXIETY Last administered on 03/11/17 23 :36; Admin Dose 0.5 MG; Start 03/09/17 at 21:00 Multivitamins Therapeutic (Theragran) 1 tab DAILY PO Last administered on 03/13 08:50; Admin Dose 1 TAB; Start 03/10/17 at 13:30 Polyethylene Glycol (Miralax) 17 gm DAILY PO Last administered on 03/13/17 08 :50; Admin Dose 17 GM; Start 03/10/17 at 13:30 Levetiracetam (Keppra) 750 mg BID PO Last administered on 03/13/17 08:50; Admin Dose 750 MG; Start 03/11/17 at 21:00 Capecitabine (Xeloda) 1,000 mg BID PO Last administered on 03/13/17 08:58; Admin Dose 1,000 MG; Start 03/12/17 at 09:30 Metoprolol Tartrate (Lopressor) 25 mg Q8 PO Last administered on 03/13/17 14: 58; Admin Dose 25 MG; Start 03/12/17 at 14:00 Temazepam (Restoril) 30 mg HS PO Last administered on 03/12/17 21:04; Admin Dose 30 MG; Start 03/12/17 at 21:00 LEXY COUCH MD Mar 13, 2017 15:40
--- NOTE | 2017-03-13 16:40 | PDOCDIS ---
Discharge Instructions CONDITION Patient Condition: Stable HOME CARE INSTRUCTIONS: Special Diet: CARDIAC DIET ACTIVITY: Activity Restrictions: Slowly Increase Activity FOLLOW UP/APPOINTMENTS Follow-up Plan f/u dr francis /pcp 2 wks DEON GRIFFIN MD Mar 13, 2017 16:40
[2017-03-13] MEDS ORDERED: FLUO10CA17 PO (16:48)
[2017-03-13] MEDS ORDERED: BISA5TAB6 PO (16:48)
[2017-03-13] MEDS ORDERED: ACET325T40 PO (16:48)
[2017-03-13] MEDS ORDERED: TEMA15CA6 PO (16:48)
[2017-03-13] MEDS ORDERED: LEVE750T70 PO (16:48)
[2017-03-13] MEDS ORDERED: FENT1PAT7 TRANSDERM (16:48)
[2017-03-13] MEDS ORDERED: ONDA4VIA2 IV (16:48)
[2017-03-13] MEDS ORDERED: OXYC-481 PO (16:48)
[2017-03-13] MEDS ORDERED: UDMOM PO (16:48)
[2017-03-13] MEDS ORDERED: DOCU-216 PO (16:48)
[2017-03-13] MEDS ORDERED: ALPR0.5T6 PO (16:48)
[2017-03-13] MEDS ORDERED: CAPE500T13 PO (16:48)
[2017-03-13] MEDS ORDERED: METO-448 PO (16:48)
[2017-03-13] MEDS ORDERED: [UNRECOGNIZED DRUG - CODE] IV (16:48)
[2017-03-13] MEDS ORDERED: PANT40TA4 PO (16:48)
--- NOTE | 2017-03-13 16:56 | PN ---
Date/Time of Note Date/Time of Note DATE: 03/13/17 TIME: 16:53 Assessment/Plan VTE Prophylaxis VTE Prophylaxis Intervention: other Lines/Catheters IV Catheter Type (from [email or web address] Sal[facility] Lock Urinary Cath still in place: No Assessment/Plan Chief Complaint/Hosp Course # R+ /WI-/Her 2 negative metastatic breast cancer to the bones, and liver, specifically the right shoulder as well as the T spine causing cord compression now with progression # dizziness and CTH suggestive of chronic subdural hematoma mass effect. CT scan C/T/L spine with numerous mets # HX HTN # Tacycardia could be pain vs anxiety # Pancytopenia likley due to chemo # Depressiom # Insomnia VERY POOR PROGNOSIS PLAN HOSPICE EVAL transfer to rehab for pt/ot Problems: Subjective 24 Hr Interval Summary Subjective hx not possible: pt critical, other (weakness,us seen poor prognosis will benefit from hospice) Exam/Review of Systems Vital Signs Vitals Vital Signs Date Time Temp Pulse Resp B/P Pulse Ox O2 Delivery O2 Flow Rate FiO2 03/13/17 15:50 2.0 03/13/17 15:27 97.4 75 17 103/72 98 03/13/17 08:20 Nasal Cannula 03/09/17 17:01 28 Intake and Output 03/12/17 03/12/17 03/13/17 15:00 23:00 07:00 Intake Total 900 ml Balance 900 ml Exam Neck: supple Respiratory: clear to auscultation Cardiovascular: regular rate and rhythm Gastrointestinal: bowel sounds (+), soft Extremities: No edema Results Result Diagram: 03/13/17 1427 03/12/17 0617 Results 24 hrs Laboratory Tests Test 03/12/17 17:30 03/12/17 18:18 03/12/17 21:00 03/13/17 00:35 Bedside Glucose 137 164 Magnesium Level 2.4 Troponin I < 0.012 < 0.012 Test 03/13/17 08:13 03/13/17 12:15 03/13/17 14:27 Bedside Glucose 109 165 White Blood Count 7.3 Red Blood Count 3.33 L Hemoglobin 11.4 L Hematocrit 34.1 L Mean Corpuscular Volume 102.4 H Mean Corpuscular Hemoglobin 34.2 H Mean Corpuscular Hemoglobin Concent 33.4 Red Cell Distribution Width 20.2 H Platelet Count 36 #L Mean Platelet Volume Neutrophils % Segmented Neutrophils % (Manual) 79 H Band Neutrophils % (Manual) 2 Lymphocytes % Lymphocytes % (Manual) 5 L Monocytes % Monocytes % (Manual) 14 H Eosinophils % Basophils % Nucleated Red Blood Cells % 1 H Neutrophils # Neutrophils # (Manual) 5.8 Band Neutrophils # 0.1 Absolute Lymphocytes (Manual) 0.3 L Lymphocytes # Monocytes # Absolute Monocytes (Manual) 1.0 H Eosinophils # Basophils # Nucleated Red Blood Cells # Giant Platelets 1 H Platelet Morphology Comment @See below Polychromasia 1+ Poikilocytosis 2+ Anisocytosis 1+ Macrocytosis 1+ Medications Medications Current Medications Ondansetron HCl (Zofran Inj) 4 mg Q6H PRN IV NAUSEA AND/OR VOMITING Last administered on 03/08/17 21:04; Admin Dose 4 MG; Start 03/05/17 at 22:30 Acetaminophen (Tylenol Liquid) 650 mg Q6H PRN PO PAIN LEVEL 1-3 OR FEVER; Start 03/05/17 at 22:30 Acetaminophen (Tylenol Tab) 650 mg Q6H PRN PO PAIN LEVEL 1-3 OR FEVER Last administered on 03/12/17 12:58; Admin Dose 650 MG; Start 03/05/17 at 22:30 Docusate Sodium (Colace) 100 mg Q12H PRN PO CONSTIPATION Last administered on 03/07/17 18:05; Admin Dose 100 MG; Start 03/05/17 at 22:30 Magnesium Hydroxide (Milk Of Mag) 30 ml DAILY PRN PO CONSTIPATION Last administered on 03/12/17 16:07; Admin Dose 30 ML; Start 03/05/17 at 22:30 Bisacodyl (Dulcolax) 5 mg DAILY PRN PO CONSTIPATION Last administered on 18:05; Admin Dose 5 MG; Start 03/05/17 at 22:30 Dexamethasone (Decadron) 4 mg Q6 IV Last administered on 03/13/17 12:16; Admin Dose 4 MG; Start 03/06/17 at 00:00 Lorazepam (Ativan) 0.5 mg Q8 PRN IV ANXIETY Last administered on 03/09/17 00: 10; Admin Dose 0.5 MG; Start 03/06/17 at 21:30 Miscellaneous Information 1 ea NOTE XX ; Start 03/07/17 at 07:30 Glucose (Glutose) 15 gm Q15M PRN PO DECREASED GLUCOSE; Start 03/07/17 at 07:30 Glucose (Glutose) 22.5 gm Q15M PRN PO DECREASED GLUCOSE; Start 03/07/17 at 07: 30 Dextrose (D50w Syringe) 25 ml Q15M PRN IV DECREASED GLUCOSE; Start 03/07/17 at 07:30 Dextrose (D50w Syringe) 50 ml Q15M PRN IV DECREASED GLUCOSE; Start 03/07/17 at 07:30 Glucagon (Glucagen) 1 mg Q15M PRN IM DECREASED GLUCOSE; Start 03/07/17 at 07: 30 Glucose (Glutose) 15 gm Q15M PRN BUCCAL DECREASED GLUCOSE; Start 03/07/17 at 07:30 Pantoprazole (Protonix Tab) 40 mg DAILY@06 PO Last administered on 03/13/17 06:20; Admin Dose 40 MG; Start 03/08/17 at 06:00 Fluoxetine HCl (Prozac) 10 mg DAILY PO Last administered on 03/11/17 08:38; Admin Dose 10 MG; Start 03/09/17 at 14:00 Fentanyl (Duragesic 12 Mcg/Hr Patch) 1 patch Q72H TRANSDERM Last administered on 03/12/17 16:15; Admin Dose 1 PATCH; Start 03/09/17 at 15:00 Oxycodone HCl (Roxicodone) 5 mg Q6 PRN PO PAIN Last administered on 03/12/17 23:14; Admin Dose 5 MG; Start 03/09/17 at 14:00 Alprazolam (Xanax) 0.5 mg TID PRN PO ANXIETY Last administered on 03/11/17 23 :36; Admin Dose 0.5 MG; Start 03/09/17 at 21:00 Multivitamins Therapeutic (Theragran) 1 tab DAILY PO Last administered on 03/13 08:50; Admin Dose 1 TAB; Start 03/10/17 at 13:30 Polyethylene Glycol (Miralax) 17 gm DAILY PO Last administered on 03/13/17 08 :50; Admin Dose 17 GM; Start 03/10/17 at 13:30 Levetiracetam (Keppra) 750 mg BID PO Last administered on 03/13/17 08:50; Admin Dose 750 MG; Start 03/11/17 at 21:00 Capecitabine (Xeloda) 1,000 mg BID PO Last administered on 03/13/17 08:58; Admin Dose 1,000 MG; Start 03/12/17 at 09:30 Metoprolol Tartrate (Lopressor) 25 mg Q8 PO Last administered on 03/13/17 14: 58; Admin Dose 25 MG; Start 03/12/17 at 14:00 Temazepam (Restoril) 30 mg HS PO Last administered on 03/12/17 21:04; Admin Dose 30 MG; Start 03/12/17 at 21:00 DEON GRIFFIN MD Mar 13, 2017 16:56
[2017-03-13] MEDS: TEMAZEPAM 15 MG CAP PO SCH (21:50)
[2017-03-14] VITALS (10 sets, daily range): BP systolic 92–114; BP diastolic 55–72; PULSE 69–76; RESP 17–20
[2017-03-14] MEDS: DEXAMETHASONE 4 MG/ML 1 ML INJ IV SCH ×4 (00:12→18:00)
[2017-03-14] MEDS: PANTOPRAZOLE (EC) 40 MG TAB PO SCH (06:15)
[2017-03-14] MEDS: METOPROLOL 25 MG TAB PO SCH ×3 (06:16→21:21)
[2017-03-14] MEDS: INSULIN ASPART [NOVOLOG] 3 ML PEN SC SCH ×4 (07:55→21:00)
[2017-03-14] MEDS ORDERED: [UNRECOGNIZED DRUG - REMARK] XX SCH (09:00)
[2017-03-14] MEDS: MULTIVITAMINS THERAPEUTIC TAB PO SCH (09:05)
[2017-03-14] MEDS: LEVETIRACETAM 750 MG TAB PO SCH ×2 (09:05→21:20)
[2017-03-14] MEDS: POLYETHYLENE GLYCOL 17 GM PACKET PO SCH (09:05)
[2017-03-14] MEDS: FLUOXETINE 10 MG CAP PO SCH (09:07)
--- NOTE | 2017-03-14 15:03 | CONS ---
Date/Time of Note Date/Time of Note DATE: 03/14/17 TIME: 15:01 Assessment/Plan Assessment/Plan Chief Complaint/Hosp Course 61 yo with #ER+ /ND-/Her 2 negative metastatic breast cancer to the bones, and liver, specifically the right shoulder as well as the T spine causing cord compression -patient's CA 15-3 in 1 month has gone up from 163 to > 1000 -CT C/A/P confirms progression of right axillary, mediastinal and hilar adenopathy, bilateral malignant pleural effusions, hepatic mets as well as osseous mets. -pt has been started on Xeloda 1000mg po BID 14 days on and 7 days off -Lengthy discussion was had with the patient and her . I explained that although there are many more treatment options available her ability to tolerate treatment is becoming more difficult especially given her platelet count is declining with the therapy. I explained that she has terminal disease that is now affecting her liver as well as other organs. She understands that she is terminally ill and has also had a discussion with palliative care. she is now DNR/ DNI. I have asked the patient and her to consider hospice care at this time. They are considering this option #thrombocytopenia -likely secondary to bone marrow involvement of her cancer -cannot given any more Xeloda at this time given the severe thrombocytopenia #Dizziness -Given Lumbar puncture cytology is negative, it is unlikely that patient has leptomeningeal disease -I believe her sx are mainly secondary to her radiation as well as progressive systemic disease and not related to new [employer] disease -change to Decadron 4mg poq 8 - patient is status post radiation and which she finished on Septemberx19 sessions [address] Dr[address] Saenz -she is now s/p XRT to t spine and Sacrum completed on 01/24/17.need to verify this with his records -agree with Anusha for seizure ppx #Tachyarrhythmia -pt has seen cardiology -pt stared on beta dulce # right leg pain -given MS Contin 30mg BID # bone metastasis -Patient is on Zometa as an outpatient Problems: Consultation Date/Type/Reason Admit Date/Time Mar 06, 2017 at 20:31 Initial Consult Date 03/07/17 Type of Consultation: Oncology Reason for Consultation metastatic breast cancer Referring Provider: JAVIER BERRY MD 24 HR Interval Summary Free Text/Dictation spoke at length with patient about the difficulty of giving more chemotherapy given her very low platelet count. pt understands chemotherapy is too toxic for her. she is considering hospice Exam/Review of Systems Vital Signs Vitals Vital Signs Date Time Temp Pulse Resp B/P Pulse Ox O2 Delivery O2 Flow Rate FiO2 03/14/17 12:00 98.0 71 20 101/59 94 03/13/17 21:16 2.0 03/13/17 20:30 Nasal Cannula Intake and Output 03/13/17 03/13/17 03/14/17 15:00 23:00 07:00 Intake Total 200 ml Balance 200 ml Exam Constitutional: alert, distress, frail, oriented Psych: anxiety, depression Head: normocephalic Eyes: nl conjunctiva ENMT: nl external ears & nose Neck: non-tender, supple Respiratory: clear to auscultation Cardiovascular: regular rate and rhythm Gastrointestinal: soft Musculoskeletal: muscle weakness Results Result Diagram: 03/14/17 0612 03/14/17 0612 Results 24 hrs Laboratory Tests Test 03/13/17 17:37 03/13/17 21:44 03/14/17 06:12 03/14/17 08:19 Bedside Glucose 160 142 112 White Blood Count 6.2 Red Blood Count 3.04 L Hemoglobin 10.4 L Hematocrit 31.4 L Mean Corpuscular Volume 103.3 H Mean Corpuscular Hemoglobin 34.2 H Mean Corpuscular Hemoglobin Concent 33.1 Red Cell Distribution Width 20.4 H Platelet Count 28 #*L Mean Platelet Volume Neutrophils % Segmented Neutrophils % (Manual) 75 Band Neutrophils % (Manual) 9 H Lymphocytes % Lymphocytes % (Manual) 4 L Monocytes % Monocytes % (Manual) 6 Eosinophils % Eosinophils % (Manual) 1 Basophils % Metamyelocytes % (manual) 1 H Myelocytes % (Manual) 1 H Promyelocytes % (Manual) 2 H Nucleated Red Blood Cells % 0.8 H Neutrophils # Neutrophils # (Manual) 4.7 Band Neutrophils # 0.5 Absolute Lymphocytes (Manual) 0.2 L Lymphocytes # Monocytes # Absolute Monocytes (Manual) 0.3 Eosinophils # Basophils # Metamyelocytes # 0.0 Myelocytes # 0.0 Promyelocytes # 0.1 H Nucleated Red Blood Cells # Platelet Estimate SIG DECREASED Polychromasia 1+ Poikilocytosis 2+ Basophilic Stippling 1+ Anisocytosis 1+ Microcytosis 1+ Tear Drop Cells 1+ Ovalocytes 1+ Schistocytes 1+ Sodium Level 136 Potassium Level 4.8 Chloride Level 105 Carbon Dioxide Level 28 Anion Gap 8 Blood Urea Nitrogen 21 H Creatinine 0.56 Glucose Level 110 Calcium Level 8.2 L Total Bilirubin 0.7 Direct Bilirubin 0.00 Indirect Bilirubin 0.7 Aspartate Amino Transf (AST/SGOT) 578 H Alanine Aminotransferase (ALT/SGPT) 314 H Alkaline Phosphatase 691 H Total Protein 5.1 L Albumin 2.6 L Globulin 2.50 Albumin/Globulin Ratio 1.04 Test 03/14/17 12:02 Bedside Glucose 224 H Medications Medications Current Medications Ondansetron HCl (Zofran Inj) 4 mg Q6H PRN IV NAUSEA AND/OR VOMITING Last administered on 03/08/17 21:04; Admin Dose 4 MG; Start 03/05/17 at 22:30 Acetaminophen (Tylenol Liquid) 650 mg Q6H PRN PO PAIN LEVEL 1-3 OR FEVER; Start 03/05/17 at 22:30 Acetaminophen (Tylenol Tab) 650 mg Q6H PRN PO PAIN LEVEL 1-3 OR FEVER Last administered on 03/12/17 12:58; Admin Dose 650 MG; Start 03/05/17 at 22:30 Docusate Sodium (Colace) 100 mg Q12H PRN PO CONSTIPATION Last administered on 03/07/17 18:05; Admin Dose 100 MG; Start 03/05/17 at 22:30 Magnesium Hydroxide (Milk Of Mag) 30 ml DAILY PRN PO CONSTIPATION Last administered on 03/12/17 16:07; Admin Dose 30 ML; Start 03/05/17 at 22:30 Bisacodyl (Dulcolax) 5 mg DAILY PRN PO CONSTIPATION Last administered on 18:05; Admin Dose 5 MG; Start 03/05/17 at 22:30 Dexamethasone (Decadron) 4 mg Q6 IV Last administered on 03/14/17 12:27; Admin Dose 4 MG; Start 03/06/17 at 00:00 Lorazepam (Ativan) 0.5 mg Q8 PRN IV ANXIETY Last administered on 03/09/17 00: 10; Admin Dose 0.5 MG; Start 03/06/17 at 21:30 Miscellaneous Information 1 ea NOTE XX ; Start 03/07/17 at 07:30 Glucose (Glutose) 15 gm Q15M PRN PO DECREASED GLUCOSE; Start 03/07/17 at 07:30 Glucose (Glutose) 22.5 gm Q15M PRN PO DECREASED GLUCOSE; Start 03/07/17 at 07: 30 Dextrose (D50w Syringe) 25 ml Q15M PRN IV DECREASED GLUCOSE; Start 03/07/17 at 07:30 Dextrose (D50w Syringe) 50 ml Q15M PRN IV DECREASED GLUCOSE; Start 03/07/17 at 07:30 Glucagon (Glucagen) 1 mg Q15M PRN IM DECREASED GLUCOSE; Start 03/07/17 at 07: 30 Glucose (Glutose) 15 gm Q15M PRN BUCCAL DECREASED GLUCOSE; Start 03/07/17 at 07:30 Pantoprazole (Protonix Tab) 40 mg DAILY@06 PO Last administered on 03/14/17 06 :15; Admin Dose 40 MG; Start 03/08/17 at 06:00 Fluoxetine HCl (Prozac) 10 mg DAILY PO Last administered on 03/14/17 09:07; Admin Dose 10 MG; Start 03/09/17 at 14:00 Fentanyl (Duragesic 12 Mcg/Hr Patch) 1 patch Q72H TRANSDERM Last administered on 03/12/17 16:15; Admin Dose 1 PATCH; Start 03/09/17 at 15:00 Oxycodone HCl (Roxicodone) 5 mg Q6 PRN PO PAIN Last administered on 03/12/17 23:14; Admin Dose 5 MG; Start 03/09/17 at 14:00 Alprazolam (Xanax) 0.5 mg TID PRN PO ANXIETY Last administered on 03/11/17 23 :36; Admin Dose 0.5 MG; Start 03/09/17 at 21:00 Multivitamins Therapeutic (Theragran) 1 tab DAILY PO Last administered on 09:05; Admin Dose 1 TAB; Start 03/10/17 at 13:30 Polyethylene Glycol (Miralax) 17 gm DAILY PO Last administered on 03/14/17 09: 05; Admin Dose 17 GM; Start 03/10/17 at 13:30 Levetiracetam (Keppra) 750 mg BID PO Last administered on 03/14/17 09:05; Admin Dose 750 MG; Start 03/11/17 at 21:00 Capecitabine (Xeloda) 1,000 mg BID PO Last administered on 03/13/17 21:56; Admin Dose 1,000 MG; Start 03/12/17 at 09:30; Status Future Hold Metoprolol Tartrate (Lopressor) 25 mg Q8 PO Last administered on 03/14/17 06: 16; Admin Dose 25 MG; Start 03/12/17 at 14:00 Temazepam (Restoril) 30 mg HS PO Last administered on 03/13/17 21:50; Admin Dose 30 MG; Start 03/12/17 at 21:00 MILEY PARHAM M.D. Mar 14, 2017 15:03
--- NOTE | 2017-03-14 18:37 | PN ---
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 Problems: Subjective 24 Hr Interval Summary Subjective hx not possible: other (discussed w dr francis and staff,will benefit from hospice) Exam/Review of Systems Vital Signs Vitals Vital Signs Date Time Temp Pulse Resp B/P Pulse Ox O2 Delivery O2 Flow Rate FiO2 03/14/17 16:00 73 03/14/17 15:50 98.0 18 101/59 98 03/14/17 08:20 Nasal Cannula 2.0 Intake and Output 03/13/17 03/13/17 03/14/17 15:00 23:00 07:00 Intake Total 200 ml Balance 200 ml Exam Neck: supple Respiratory: clear to auscultation Cardiovascular: regular rate and rhythm Gastrointestinal: bowel sounds (+), soft Results Result Diagram: 03/14/17 0612 03/14/17 0612 Results 24 hrs Laboratory Tests Test 03/13/17 21:44 03/14/17 06:12 03/14/17 08:19 03/14/17 12:02 Bedside Glucose 142 112 224 H White Blood Count 6.2 Red Blood Count 3.04 L Hemoglobin 10.4 L Hematocrit 31.4 L Mean Corpuscular Volume 103.3 H Mean Corpuscular Hemoglobin 34.2 H Mean Corpuscular Hemoglobin Concent 33.1 Red Cell Distribution Width 20.4 H Platelet Count 28 #*L Mean Platelet Volume Neutrophils % Segmented Neutrophils % (Manual) 75 Band Neutrophils % (Manual) 9 H Lymphocytes % Lymphocytes % (Manual) 4 L Monocytes % Monocytes % (Manual) 6 Eosinophils % Eosinophils % (Manual) 1 Basophils % Metamyelocytes % (manual) 1 H Myelocytes % (Manual) 1 H Promyelocytes % (Manual) 2 H Nucleated Red Blood Cells % 0.8 H Neutrophils # Neutrophils # (Manual) 4.7 Band Neutrophils # 0.5 Absolute Lymphocytes (Manual) 0.2 L Lymphocytes # Monocytes # Absolute Monocytes (Manual) 0.3 Eosinophils # Basophils # Metamyelocytes # 0.0 Myelocytes # 0.0 Promyelocytes # 0.1 H Nucleated Red Blood Cells # Platelet Estimate SIG DECREASED Polychromasia 1+ Poikilocytosis 2+ Basophilic Stippling 1+ Anisocytosis 1+ Microcytosis 1+ Tear Drop Cells 1+ Ovalocytes 1+ Schistocytes 1+ Sodium Level 136 Potassium Level 4.8 Chloride Level 105 Carbon Dioxide Level 28 Anion Gap 8 Blood Urea Nitrogen 21 H Creatinine 0.56 Glucose Level 110 Calcium Level 8.2 L Total Bilirubin 0.7 Direct Bilirubin 0.00 Indirect Bilirubin 0.7 Aspartate Amino Transf (AST/SGOT) 578 H Alanine Aminotransferase (ALT/SGPT) 314 H Alkaline Phosphatase 691 H Total Protein 5.1 L Albumin 2.6 L Globulin 2.50 Albumin/Globulin Ratio 1.04 Test 03/14/17 17:57 Bedside Glucose 107 Medications Medications Current Medications Ondansetron HCl (Zofran Inj) 4 mg Q6H PRN IV NAUSEA AND/OR VOMITING Last administered on 03/08/17 21:04; Admin Dose 4 MG; Start 03/05/17 at 22:30 Acetaminophen (Tylenol Liquid) 650 mg Q6H PRN PO PAIN LEVEL 1-3 OR FEVER; Start 03/05/17 at 22:30 Acetaminophen (Tylenol Tab) 650 mg Q6H PRN PO PAIN LEVEL 1-3 OR FEVER Last administered on 03/12/17 12:58; Admin Dose 650 MG; Start 03/05/17 at 22:30 Docusate Sodium (Colace) 100 mg Q12H PRN PO CONSTIPATION Last administered on 03/07/17 18:05; Admin Dose 100 MG; Start 03/05/17 at 22:30 Magnesium Hydroxide (Milk Of Mag) 30 ml DAILY PRN PO CONSTIPATION Last administered on 03/12/17 16:07; Admin Dose 30 ML; Start 03/05/17 at 22:30 Bisacodyl (Dulcolax) 5 mg DAILY PRN PO CONSTIPATION Last administered on 18:05; Admin Dose 5 MG; Start 03/05/17 at 22:30 Dexamethasone (Decadron) 4 mg Q6 IV Last administered on 03/14/17 12:27; Admin Dose 4 MG; Start 03/06/17 at 00:00 Lorazepam (Ativan) 0.5 mg Q8 PRN IV ANXIETY Last administered on 03/09/17 00: 10; Admin Dose 0.5 MG; Start 03/06/17 at 21:30 Miscellaneous Information 1 ea NOTE XX ; Start 03/07/17 at 07:30 Glucose (Glutose) 15 gm Q15M PRN PO DECREASED GLUCOSE; Start 03/07/17 at 07:30 Glucose (Glutose) 22.5 gm Q15M PRN PO DECREASED GLUCOSE; Start 03/07/17 at 07: 30 Dextrose (D50w Syringe) 25 ml Q15M PRN IV DECREASED GLUCOSE; Start 03/07/17 at 07:30 Dextrose (D50w Syringe) 50 ml Q15M PRN IV DECREASED GLUCOSE; Start 03/07/17 at 07:30 Glucagon (Glucagen) 1 mg Q15M PRN IM DECREASED GLUCOSE; Start 03/07/17 at 07: 30 Glucose (Glutose) 15 gm Q15M PRN BUCCAL DECREASED GLUCOSE; Start 03/07/17 at 07:30 Pantoprazole (Protonix Tab) 40 mg DAILY@06 PO Last administered on 03/14/17 06 :15; Admin Dose 40 MG; Start 03/08/17 at 06:00 Fluoxetine HCl (Prozac) 10 mg DAILY PO Last administered on 03/14/17 09:07; Admin Dose 10 MG; Start 03/09/17 at 14:00 Fentanyl (Duragesic 12 Mcg/Hr Patch) 1 patch Q72H TRANSDERM Last administered on 03/12/17 16:15; Admin Dose 1 PATCH; Start 03/09/17 at 15:00 Oxycodone HCl (Roxicodone) 5 mg Q6 PRN PO PAIN Last administered on 03/12/17 23:14; Admin Dose 5 MG; Start 03/09/17 at 14:00 Alprazolam (Xanax) 0.5 mg TID PRN PO ANXIETY Last administered on 03/11/17 23 :36; Admin Dose 0.5 MG; Start 10/27/17 at 21:00 Multivitamins Therapeutic (Theragran) 1 tab DAILY PO Last administered on 09:05; Admin Dose 1 TAB; Start 03/10/17 at 13:30 Polyethylene Glycol (Miralax) 17 gm DAILY PO Last administered on 03/14/17 09: 05; Admin Dose 17 GM; Start 03/10/17 at 13:30 Levetiracetam (Keppra) 750 mg BID PO Last administered on 03/14/17 09:05; Admin Dose 750 MG; Start 03/11/17 at 21:00 Capecitabine (Xeloda) 1,000 mg BID PO Last administered on 03/13/17 21:56; Admin Dose 1,000 MG; Start 03/12/17 at 09:30; Status Future Hold Metoprolol Tartrate (Lopressor) 25 mg Q8 PO Last administered on 03/14/17 06: 16; Admin Dose 25 MG; Start 03/12/17 at 14:00 Temazepam (Restoril) 30 mg HS PO Last administered on 03/13/17 21:50; Admin Dose 30 MG; Start 03/12/17 at 21:00 DEON GRIFFIN MD Mar 14, 2017 18:37
--- NOTE | 2017-03-14 20:00 | CONS ---
Date/Time of Note Date/Time of Note DATE: 03/14/17 TIME: 19:56 Assessment/Plan Assessment/Plan Chief Complaint/Hosp Course MPRESSION: 1. Recurrent episodes of supraventricular tachycardia, approximately 150, concerning for possible atrial flutter versus atrial tachycardia, atrioventricular hannah reentrant tachycardia (AVNRT).-no recurrence on current BB 2. Hypertension, well controlled-on lower end 3. Abnormal EKG. Assess for acute coronary syndrome. -negative trop x 2/Nl EF by echo this admit 5. Metastatic breast CA, on chemotherapy, status post XRT.s/p LP with negative cytology 6. Pancytopenia with severe thrombocytopenia. 7. Depression. 8. Subdural hematoma with dizziness. 9. Increased liver function tests. Recc: -Tele -continue low dose BB as tolerated -Continue keppra -Continue steroids -pnding hospice eval Problems: Consultation Date/Type/Reason Admit Date/Time Mar 06, 2017 at 20:31 Initial Consult Date 03/07/17 Type of Consultation: cardiology Reason for Consultation tachycardia Referring Provider: JAVIER BERRY MD Exam/Review of Systems Vital Signs Vitals Vital Signs Date Time Temp Pulse Resp B/P Pulse Ox O2 Delivery O2 Flow Rate FiO2 03/14/17 16:00 73 03/14/17 15:50 98.0 18 101/59 98 03/14/17 08:20 Nasal Cannula 2.0 Intake and Output 03/13/17 03/13/17 03/14/17 15:00 23:00 07:00 Intake Total 200 ml Balance 200 ml Exam Review of Systems: CONSTITUTIONAL: No fevers, chills. PULMONARY: No sob CARDIOVASCULAR: No chest pain/palpitations GASTROINTESTINAL: No nausea/vomiting. GENITOURINARY: No hematuria/dysuria. MUSCULOSKELETAL: No myagias/arthalgias. PSYCHIATRIC: The patient denies depression. NEUROLOGIC: mild generalized weakness Constitutional: alert, oriented Psych: no complaints Head: normocephalic ENMT: mucosa pink and moist Neck: jvd (8 cm water), supple Respiratory: clear to auscultation Cardiovascular: regular rate and rhythm Gastrointestinal: non-tender, soft Extremities: edema (none) Neurological: other (No focal deficits) Results Result Diagram: 03/14/1712 03/14/17 0612 Results 24 hrs Laboratory Tests Test 03/13/17 21:44 03/14/17 06:12 03/14/17 08:19 03/14/17 12:02 Bedside Glucose 142 112 224 H White Blood Count 6.2 Red Blood Count 3.04 L Hemoglobin 10.4 L Hematocrit 31.4 L Mean Corpuscular Volume 103.3 H Mean Corpuscular Hemoglobin 34.2 H Mean Corpuscular Hemoglobin Concent 33.1 Red Cell Distribution Width 20.4 H Platelet Count 28 #*L Mean Platelet Volume Neutrophils % Segmented Neutrophils % (Manual) 75 Band Neutrophils % (Manual) 9 H Lymphocytes % Lymphocytes % (Manual) 4 L Monocytes % Monocytes % (Manual) 6 Eosinophils % Eosinophils % (Manual) 1 Basophils % Metamyelocytes % (manual) 1 H Myelocytes % (Manual) 1 H Promyelocytes % (Manual) 2 H Nucleated Red Blood Cells % 0.8 H Neutrophils # Neutrophils # (Manual) 4.7 Band Neutrophils # 0.5 Absolute Lymphocytes (Manual) 0.2 L Lymphocytes # Monocytes # Absolute Monocytes (Manual) 0.3 Eosinophils # Basophils # Metamyelocytes # 0.0 Myelocytes # 0.0 Promyelocytes # 0.1 H Nucleated Red Blood Cells # Platelet Estimate SIG DECREASED Polychromasia 1+ Poikilocytosis 2+ Basophilic Stippling 1+ Anisocytosis 1+ Microcytosis 1+ Tear Drop Cells 1+ Ovalocytes 1+ Schistocytes 1+ Sodium Level 136 Potassium Level 4.8 Chloride Level 105 Carbon Dioxide Level 28 Anion Gap 8 Blood Urea Nitrogen 21 H Creatinine 0.56 Glucose Level 110 Calcium Level 8.2 L Total Bilirubin 0.7 Direct Bilirubin 0.00 Indirect Bilirubin 0.7 Aspartate Amino Transf (AST/SGOT) 578 H Alanine Aminotransferase (ALT/SGPT) 314 H Alkaline Phosphatase 691 H Total Protein 5.1 L Albumin 2.6 L Globulin 2.50 Albumin/Globulin Ratio 1.04 Test 03/14/17 17:57 Bedside Glucose 107 Medications Medications Current Medications Ondansetron HCl (Zofran Inj) 4 mg Q6H PRN IV NAUSEA AND/OR VOMITING Last administered on 03/08/17t 21:04; Admin Dose 4 MG; Start 03/05/17 at 22:30 Acetaminophen (Tylenol Liquid) 650 mg Q6H PRN PO PAIN LEVEL 1-3 OR FEVER; Start 03/05/17 at 22:30 Acetaminophen (Tylenol Tab) 650 mg Q6H PRN PO PAIN LEVEL 1-3 OR FEVER Last administered on 03/12/17 12:58; Admin Dose 650 MG; Start 03/05/17 at 22:30 Docusate Sodium (Colace) 100 mg Q12H PRN PO CONSTIPATION Last administered on 03/07/17 18:05; Admin Dose 100 MG; Start 03/05/17 at 22:30 Magnesium Hydroxide (Milk Of Mag) 30 ml DAILY PRN PO CONSTIPATION Last administered on 03/12/17 16:07; Admin Dose 30 ML; Start 03/05/17 at 22:30 Bisacodyl (Dulcolax) 5 mg DAILY PRN PO CONSTIPATION Last administered on 18:05; Admin Dose 5 MG; Start 03/05/17 at 22:30 Lorazepam (Ativan) 0.5 mg Q8 PRN IV ANXIETY Last administered on 03/09/17 00: 10; Admin Dose 0.5 MG; Start 03/06/17 at 21:30 Miscellaneous Information 1 ea NOTE XX ; Start 03/07/17 at 07:30 Glucose (Glutose) 15 gm Q15M PRN PO DECREASED GLUCOSE; Start 03/07/17 at 07:30 Glucose (Glutose) 22.5 gm Q15M PRN PO DECREASED GLUCOSE; Start 03/07/17 at 07: 30 Dextrose (D50w Syringe) 25 ml Q15M PRN IV DECREASED GLUCOSE; Start 03/07/17 at 07:30 Dextrose (D50w Syringe) 50 ml Q15M PRN IV DECREASED GLUCOSE; Start 03/07/17 at 07:30 Glucagon (Glucagen) 1 mg Q15M PRN IM DECREASED GLUCOSE; Start 03/07/17 at 07: 30 Glucose (Glutose) 15 gm Q15M PRN BUCCAL DECREASED GLUCOSE; Start 03/07/17 at 07:30 Pantoprazole (Protonix Tab) 40 mg DAILY@06 PO Last administered on 03/14/17 06 :15; Admin Dose 40 MG; Start 03/08/17 at 06:00 Fluoxetine HCl (Prozac) 10 mg DAILY PO Last administered on 03/14/17 09:07; Admin Dose 10 MG; Start 03/09/17 at 14:00 Fentanyl (Duragesic 12 Mcg/Hr Patch) 1 patch Q72H TRANSDERM Last administered on 03/12/17 16:15; Admin Dose 1 PATCH; Start 03/09/17 at 15:00 Oxycodone HCl (Roxicodone) 5 mg Q6 PRN PO PAIN Last administered on 03/12/17 23:14; Admin Dose 5 MG; Start 03/09/17 at 14:00 Alprazolam (Xanax) 0.5 mg TID PRN PO ANXIETY Last administered on 03/11/17 23 :36; Admin Dose 0.5 MG; Start 03/09/17 at 21:00 Multivitamins Therapeutic (Theragran) 1 tab DAILY PO Last administered on 09:05; Admin Dose 1 TAB; Start 03/10/17 at 13:30 Polyethylene Glycol (Miralax) 17 gm DAILY PO Last administered on 03/14/17 09: 05; Admin Dose 17 GM; Start 03/10/17 at 13:30 Levetiracetam (Keppra) 750 mg BID PO Last administered on 03/14/17 09:05; Admin Dose 750 MG; Start 03/11/17 at 21:00 Capecitabine (Xeloda) 1,000 mg BID PO Last administered on 03/13/17 21:56; Admin Dose 1,000 MG; Start 03/12/17 at 09:30; Status Future Hold Metoprolol Tartrate (Lopressor) 25 mg Q8 PO Last administered on 03/14/17 06: 16; Admin Dose 25 MG; Start 03/12/17 at 14:00 Temazepam (Restoril) 30 mg HS PO Last administered on 03/13/17 21:50; Admin Dose 30 MG; Start 03/12/17 at 21:00 Dexamethasone (Decadron) 4 mg BID IV ; Start 03/15/17 at 09:00 KAYA VERDUGO Mar 14, 2017 20:00
[2017-03-14] MEDS: TEMAZEPAM 15 MG CAP PO SCH (22:33)
[2017-03-15] VITALS (7 sets, daily range): BP systolic 99–108; BP diastolic 56–64; PULSE 70–79; RESP 17–18
[2017-03-15] MEDS: PANTOPRAZOLE (EC) 40 MG TAB PO SCH (06:50)
[2017-03-15] MEDS: INSULIN ASPART [NOVOLOG] 3 ML PEN SC SCH ×4 (07:55→20:36)
[2017-03-15] MEDS: DEXAMETHASONE 4 MG/ML 1 ML INJ IV SCH ×2 (08:26→20:37)
[2017-03-15] MEDS: FLUOXETINE 10 MG CAP PO SCH (08:26)
[2017-03-15] MEDS: MULTIVITAMINS THERAPEUTIC TAB PO SCH (08:26)
[2017-03-15] MEDS: LEVETIRACETAM 750 MG TAB PO SCH ×2 (08:27→20:43)
[2017-03-15] MEDS: METOPROLOL 25 MG TAB PO SCH ×2 (08:28→20:44)
[2017-03-15] MEDS: POLYETHYLENE GLYCOL 17 GM PACKET PO SCH (08:28)
--- NOTE | 2017-03-15 11:32 | CONS ---
Date/Time of Note Date/Time of Note DATE: 03/15/17 TIME: 11:30 Assessment/Plan Assessment/Plan Chief Complaint/Hosp Course 61 yo with #ER+ /NH-/Her 2 negative metastatic breast cancer to the bones, and liver, specifically the right shoulder as well as the T spine causing cord compression -patient's CA 15-3 in 1 month has gone up from 163 to > 1000 -CT C/A/P confirms progression of right axillary, mediastinal and hilar adenopathy, bilateral malignant pleural effusions, hepatic mets as well as osseous mets. -pt has been started on Xeloda 1000mg po BID 14 days on and 7 days off -Lengthy discussion was had with the patient and her . I explained that although there are many more treatment options available her ability to tolerate treatment is becoming more difficult especially given her platelet count is declining with the therapy. I explained that she has terminal disease that is now affecting her liver as well as other organs. She understands that she is terminally ill and has also had a discussion with palliative care. she is now DNR/ DNI. -pt and have now agreed for hospice care #thrombocytopenia -likely secondary to bone marrow involvement of her cancer -cannot given any more Xeloda at this time given the severe thrombocytopenia #Dizziness -Given Lumbar puncture cytology is negative, it is unlikely that patient has leptomeningeal disease -I believe her sx are mainly secondary to her radiation as well as progressive systemic disease and not related to new [employer] disease -change to Decadron 4mg poq 8 - patient is status post radiation and which she finished on Septemberx19 sessions [address] Dr[address] Saenz -she is now s/p XRT to t spine and Sacrum completed on 01/24/17.need to verify this with his records -agree with [facility] for seizure ppx #Tachyarrhythmia -pt has seen cardiology -pt stared on beta dulce # right leg pain -given MS Contin 30mg BID # bone metastasis -Patient is on Zometa as an outpatient Problems: Consultation Date/Type/Reason Admit Date/Time Mar 06, 2017 at 20:31 Initial Consult Date 03/07/17 Type of Consultation: oncology Reason for Consultation metastatic breast cancer Referring Provider: JAVIER BERRY MD 24 HR Interval Summary Free Text/Dictation pt is sitting up in chair. still very weak. asked again about considering chemotherapy in counts improve but I explained that her counts will drop again if chemotherapy is started Exam/Review of Systems Vital Signs Vitals Vital Signs Date Time Temp Pulse Resp B/P Pulse Ox O2 Delivery O2 Flow Rate FiO2 03/15/17 08:41 79 03/15/17 07:26 97.6 18 102/56 97 03/15/17 01:27 2.0 27 03/14/17 20:00 Nasal Cannula Intake and Output 03/14/17 03/14/17 03/15/17 15:00 23:00 07:00 Intake Total 950 ml 400 ml Balance 950 ml 400 ml Exam Constitutional: alert, distress, frail Psych: anxiety, depression Head: normocephalic Eyes: nl conjunctiva ENMT: nl external ears & nose Neck: non-tender, supple Respiratory: diminished breath sounds Cardiovascular: regular rate and rhythm Gastrointestinal: distended, hepatomegaly Musculoskeletal: muscle weakness Extremities: normal pulses Results Result Diagram: 03/15/17 0756 03/15/17 0756 Results 24 hrs Laboratory Tests Test 03/14/17 12:02 03/14/17 17:57 03/14/17 21:17 03/15/17 07:56 Bedside Glucose 224 H 107 158 White Blood Count 5.4 Red Blood Count 3.02 L Hemoglobin 10.6 L Hematocrit 31.6 L Mean Corpuscular Volume 104.6 H Mean Corpuscular Hemoglobin 35.1 H Mean Corpuscular Hemoglobin Concent 33.5 Red Cell Distribution Width 20.5 H Platelet Count 39 #L Mean Platelet Volume Neutrophils % Segmented Neutrophils % (Manual) 69 Band Neutrophils % (Manual) 17 H Lymphocytes % Lymphocytes % (Manual) 4 L Monocytes % Monocytes % (Manual) 7 Eosinophils % Basophils % Myelocytes % (Manual) 2 H Nucleated Red Blood Cells % 3 H Neutrophils # Neutrophils # (Manual) 3.8 Band Neutrophils # 0.9 H Absolute Lymphocytes (Manual) 0.2 L Lymphocytes # Monocytes # Absolute Monocytes (Manual) 0.3 Eosinophils # Basophils # Myelocytes # 0.1 H Nucleated Red Blood Cells # Platelet Estimate DECREASED Polychromasia 3+ Poikilocytosis 2+ Anisocytosis 1+ Microcytosis 1+ Sodium Level 138 Potassium Level 4.4 Chloride Level 105 Carbon Dioxide Level 29 Anion Gap 8 Blood Urea Nitrogen 17 Creatinine 0.61 Glucose Level 84 Calcium Level 7.8 L Total Bilirubin 0.7 Direct Bilirubin 0.00 Indirect Bilirubin 0.7 Aspartate Amino Transf (AST/SGOT) 593 H Alanine Aminotransferase (ALT/SGPT) 312 H Alkaline Phosphatase 806 H Total Protein 4.9 L Albumin 2.6 L Globulin 2.30 Albumin/Globulin Ratio 1.13 Test 03/15/17 08:23 Bedside Glucose 94 Medications Medications Current Medications Ondansetron HCl (Zofran Inj) 4 mg Q6H PRN IV NAUSEA AND/OR VOMITING Last administered on 03/08/17 21:04; Admin Dose 4 MG; Start 03/05/17 at 22:30 Acetaminophen (Tylenol Liquid) 650 mg Q6H PRN PO PAIN LEVEL 1-3 OR FEVER; Start 03/05/17 at 22:30 Acetaminophen (Tylenol Tab) 650 mg Q6H PRN PO PAIN LEVEL 1-3 OR FEVER Last administered on 03/12/17 12:58; Admin Dose 650 MG; Start 03/05/17 at 22:30 Docusate Sodium (Colace) 100 mg Q12H PRN PO CONSTIPATION Last administered on 03/07/17 18:05; Admin Dose 100 MG; Start 03/05/17 at 22:30 Magnesium Hydroxide (Milk Of Mag) 30 ml DAILY PRN PO CONSTIPATION Last administered on 03/12/17 16:07; Admin Dose 30 ML; Start 03/05/17 at 22:30 Bisacodyl (Dulcolax) 5 mg DAILY PRN PO CONSTIPATION Last administered on 18:05; Admin Dose 5 MG; Start 03/05/17 at 22:30 Lorazepam (Ativan) 0.5 mg Q8 PRN IV ANXIETY Last administered on 03/09/17 00: 10; Admin Dose 0.5 MG; Start 03/06/17 at 21:30 Miscellaneous Information 1 ea NOTE XX ; Start 03/07/17 at 07:30 Glucose (Glutose) 15 gm Q15M PRN PO DECREASED GLUCOSE; Start 03/07/17 at 07:30 Glucose (Glutose) 22.5 gm Q15M PRN PO DECREASED GLUCOSE; Start 03/07/17 at 07: 30 Dextrose (D50w Syringe) 25 ml Q15M PRN IV DECREASED GLUCOSE; Start 03/07/17 at 07:30 Dextrose (D50w Syringe) 50 ml Q15M PRN IV DECREASED GLUCOSE; Start 03/07/17 at 07:30 Glucagon (Glucagen) 1 mg Q15M PRN IM DECREASED GLUCOSE; Start 03/07/17 at 07: 30 Glucose (Glutose) 15 gm Q15M PRN BUCCAL DECREASED GLUCOSE; Start 03/07/17 at 07:30 Pantoprazole (Protonix Tab) 40 mg DAILY@06 PO Last administered on 03/15/17 06 :50; Admin Dose 40 MG; Start 03/08/17 at 06:00 Fluoxetine HCl (Prozac) 10 mg DAILY PO Last administered on 03/15/17 08:26; Admin Dose 10 MG; Start 03/09/17 at 14:00 Fentanyl (Duragesic 12 Mcg/Hr Patch) 1 patch Q72H TRANSDERM Last administered on 03/12/17 16:15; Admin Dose 1 PATCH; Start 03/09/17 at 15:00 Oxycodone HCl (Roxicodone) 5 mg Q6 PRN PO PAIN Last administered on 03/12/17 23:14; Admin Dose 5 MG; Start 03/09/17 at 14:00 Alprazolam (Xanax) 0.5 mg TID PRN PO ANXIETY Last administered on 03/11/17 23 :36; Admin Dose 0.5 MG; Start 03/09/17 at 21:00 Multivitamins Therapeutic (Theragran) 1 tab DAILY PO Last administered on 08:26; Admin Dose 1 TAB; Start 03/10/17 at 13:30 Polyethylene Glycol (Miralax) 17 gm DAILY PO Last administered on 03/15/17 08: 28; Admin Dose 17 GM; Start 03/10/17 at 13:30 Levetiracetam (Keppra) 750 mg BID PO Last administered on 03/15/17 08:27; Admin Dose 750 MG; Start 03/11/17 at 21:00 Capecitabine (Xeloda) 1,000 mg BID PO Last administered on 03/13/17 21:56; Admin Dose 1,000 MG; Start 03/12/17 at 09:30; Status Future Hold Temazepam (Restoril) 30 mg HS PO Last administered on 03/14/17 22:33; Admin Dose 30 MG; Start 10/30/17 at 21:00 Dexamethasone (Decadron) 4 mg BID IV Last administered on 03/15/17 08:26; Admin Dose 4 MG; Start 03/15/17 at 09:00 Metoprolol Tartrate (Lopressor) 25 mg Q12 PO Last administered on 03/15/17 08: 28; Admin Dose 25 MG; Start 03/14/17 at 21:00 MILEY PARHAM M.D. Mar 15, 2017 11:32
--- NOTE | 2017-03-15 12:38 | CONS ---
Date/Time of Note Date/Time of Note DATE: 03/15/17 TIME: 12:37 Assessment/Plan Assessment/Plan Chief Complaint/Hosp Course MPRESSION: 1. Recurrent episodes of supraventricular tachycardia, approximately 150, concerning for possible atrial flutter versus atrial tachycardia, atrioventricular hannah reentrant tachycardia (AVNRT).-no recurrence on current BB 2. Hypertension, well controlled-on lower end 3. Abnormal EKG. Assess for acute coronary syndrome. -negative trop x 2/Nl EF by echo this admit 5. Metastatic breast CA, on chemotherapy, status post XRT.s/p LP with negative cytology 6. Pancytopenia with severe thrombocytopenia. 7. Depression. 8. Subdural hematoma with dizziness. 9. Increased liver function tests. Recc: -Tele -continue low dose BB as tolerated -Continue keppra -Continue steroids -pnding hospice eval Problems: Consultation Date/Type/Reason Admit Date/Time Mar 06, 2017 at 20:31 Initial Consult Date 03/07/17 Type of Consultation: cardiology Reason for Consultation SVT Referring Provider: JAVIER BERRY MD Exam/Review of Systems Vital Signs Vitals Vital Signs Date Time Temp Pulse Resp B/P Pulse Ox O2 Delivery O2 Flow Rate FiO2 03/15/17 08:41 79 03/15/17 07:26 97.6 18 102/56 97 03/15/17 01:27 2.0 27 03/14/17 20:00 Nasal Cannula Intake and Output 03/14/17 03/14/17 03/15/17 15:00 23:00 07:00 Intake Total 950 ml 400 ml Balance 950 ml 400 ml Exam Review of Systems: CONSTITUTIONAL: No fevers, chills. PULMONARY: No sob CARDIOVASCULAR: No chest pain/palpitations GASTROINTESTINAL: No nausea/vomiting. GENITOURINARY: No hematuria/dysuria. MUSCULOSKELETAL: No myagias/arthalgias. PSYCHIATRIC: The patient denies depression. NEUROLOGIC generalized weakness Constitutional: alert, oriented Psych: no complaints Head: normocephalic ENMT: mucosa pink and moist Neck: jvd (9 cm water), supple Respiratory: diminished breath sounds (at bases/B) Cardiovascular: regular rate and rhythm Gastrointestinal: non-tender, soft Musculoskeletal: muscle weakness (milod generaralized) Extremities: edema (none) Neurological: other (No focalk deficits) Results Result Diagram: 03/15/17 0756 03/15/17 0756 Results 24 hrs Laboratory Tests Test 03/14/17 17:57 03/14/17 21:17 03/15/17 07:56 03/15/17 08:23 Bedside Glucose 107 158 94 White Blood Count 5.4 Red Blood Count 3.02 L Hemoglobin 10.6 L Hematocrit 31.6 L Mean Corpuscular Volume 104.6 H Mean Corpuscular Hemoglobin 35.1 H Mean Corpuscular Hemoglobin Concent 33.5 Red Cell Distribution Width 20.5 H Platelet Count 39 #L Mean Platelet Volume Neutrophils % Segmented Neutrophils % (Manual) 69 Band Neutrophils % (Manual) 17 H Lymphocytes % Lymphocytes % (Manual) 4 L Monocytes % Monocytes % (Manual) 7 Eosinophils % Basophils % Myelocytes % (Manual) 2 H Nucleated Red Blood Cells % 3 H Neutrophils # Neutrophils # (Manual) 3.8 Band Neutrophils # 0.9 H Absolute Lymphocytes (Manual) 0.2 L Lymphocytes # Monocytes # Absolute Monocytes (Manual) 0.3 Eosinophils # Basophils # Myelocytes # 0.1 H Nucleated Red Blood Cells # Platelet Estimate DECREASED Polychromasia 3+ Poikilocytosis 2+ Anisocytosis 1+ Microcytosis 1+ Sodium Level 138 Potassium Level 4.4 Chloride Level 105 Carbon Dioxide Level 29 Anion Gap 8 Blood Urea Nitrogen 17 Creatinine 0.61 Glucose Level 84 Calcium Level 7.8 L Total Bilirubin 0.7 Direct Bilirubin 0.00 Indirect Bilirubin 0.7 Aspartate Amino Transf (AST/SGOT) 593 H Alanine Aminotransferase (ALT/SGPT) 312 H Alkaline Phosphatase 806 H Total Protein 4.9 L Albumin 2.6 L Globulin 2.30 Albumin/Globulin Ratio 1.13 Test 03/15/17 12:05 Bedside Glucose 122 Medications Medications Current Medications Ondansetron HCl (Zofran Inj) 4 mg Q6H PRN IV NAUSEA AND/OR VOMITING Last administered on 03/08/17 21:04; Admin Dose 4 MG; Start 03/05/17 at 22:30 Acetaminophen (Tylenol Liquid) 650 mg Q6H PRN PO PAIN LEVEL 1-3 OR FEVER; Start 03/05/17 at 22:30 Acetaminophen (Tylenol Tab) 650 mg Q6H PRN PO PAIN LEVEL 1-3 OR FEVER Last administered on 03/12/17 12:58; Admin Dose 650 MG; Start 03/05/17 at 22:30 Docusate Sodium (Colace) 100 mg Q12H PRN PO CONSTIPATION Last administered on 03/07/17 18:05; Admin Dose 100 MG; Start 03/05/17 at 22:30 Magnesium Hydroxide (Milk Of Mag) 30 ml DAILY PRN PO CONSTIPATION Last administered on 03/12/17 16:07; Admin Dose 30 ML; Start 03/05/17 at 22:30 Bisacodyl (Dulcolax) 5 mg DAILY PRN PO CONSTIPATION Last administered on 18:05; Admin Dose 5 MG; Start 03/05/17 at 22:30 Lorazepam (Ativan) 0.5 mg Q8 PRN IV ANXIETY Last administered on 03/09/17 00: 10; Admin Dose 0.5 MG; Start 03/06/17 at 21:30 Miscellaneous Information 1 ea NOTE XX ; Start 03/07/17 at 07:30 Glucose (Glutose) 15 gm Q15M PRN PO DECREASED GLUCOSE; Start 03/07/17 at 07:30 Glucose (Glutose) 22.5 gm Q15M PRN PO DECREASED GLUCOSE; Start 03/07/17 at 07: 30 Dextrose (D50w Syringe) 25 ml Q15M PRN IV DECREASED GLUCOSE; Start 03/07/17 at 07:30 Dextrose (D50w Syringe) 50 ml Q15M PRN IV DECREASED GLUCOSE; Start 03/07/17 at 07:30 Glucagon (Glucagen) 1 mg Q15M PRN IM DECREASED GLUCOSE; Start 03/07/17 at 07: 30 Glucose (Glutose) 15 gm Q15M PRN BUCCAL DECREASED GLUCOSE; Start 03/07/17 at 07:30 Pantoprazole (Protonix Tab) 40 mg DAILY@06 PO Last administered on 03/15/17 06 :50; Admin Dose 40 MG; Start 03/08/17 at 06:00 Fluoxetine HCl (Prozac) 10 mg DAILY PO Last administered on 03/15/17 08:26; Admin Dose 10 MG; Start 03/09/17 at 14:00 Fentanyl (Duragesic 12 Mcg/Hr Patch) 1 patch Q72H TRANSDERM Last administered on 03/12/17 16:15; Admin Dose 1 PATCH; Start 03/09/17 at 15:00 Oxycodone HCl (Roxicodone) 5 mg Q6 PRN PO PAIN Last administered on 03/12/17 23:14; Admin Dose 5 MG; Start 03/09/17 at 14:00 Alprazolam (Xanax) 0.5 mg TID PRN PO ANXIETY Last administered on 03/11/17 23 :36; Admin Dose 0.5 MG; Start 03/09/17 at 21:00 Multivitamins Therapeutic (Theragran) 1 tab DAILY PO Last administered on 08:26; Admin Dose 1 TAB; Start 03/10/17 at 13:30 Polyethylene Glycol (Miralax) 17 gm DAILY PO Last administered on 03/15/17 08: 28; Admin Dose 17 GM; Start 03/10/17 at 13:30 Levetiracetam (Keppra) 750 mg BID PO Last administered on 03/15/17 08:27; Admin Dose 750 MG; Start 03/11/17 at 21:00 Capecitabine (Xeloda) 1,000 mg BID PO Last administered on 03/13/17 21:56; Admin Dose 1,000 MG; Start 03/12/17 at 09:30; Status Future Hold Temazepam (Restoril) 30 mg HS PO Last administered on 03/14/17 22:33; Admin Dose 30 MG; Start 03/12/17 at 21:00 Dexamethasone (Decadron) 4 mg BID IV Last administered on 03/15/17 08:26; Admin Dose 4 MG; Start 03/15/17 at 09:00 Metoprolol Tartrate (Lopressor) 25 mg Q12 PO Last administered on 03/15/17 08: 28; Admin Dose 25 MG; Start 03/14/17 at 21:00 KAYA VERDUGO 2, 2017 12:38
[2017-03-15] MEDS: FENTAnyl PATCH 12 MCG/HR TRANSDERM SCH (16:40)
--- NOTE | 2017-03-15 19:22 | PN ---
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 FAMILY TO DECIDE ABOUT HOME VS SNF HOSPICE Problems: Subjective 24 Hr Interval Summary Subjective hx not possible: other (WEAKNESS+D/W FAMILY,WILL BENEFIT FROM HOSPICE AT SNF OR HOME) Exam/Review of Systems Vital Signs Vitals Vital Signs Date Time Temp Pulse Resp B/P Pulse Ox O2 Delivery O2 Flow Rate FiO2 03/15/17 14:16 2.0 03/15/17 12:39 70 03/15/17 12:00 Nasal Cannula 03/15/17 07:26 97.6 18 102/56 97 03/15/17 01:27 27 Intake and Output 03/14/17 03/14/17 03/15/17 15:00 23:00 07:00 Intake Total 950 ml 400 ml Balance 950 ml 400 ml Exam Respiratory: clear to auscultation Cardiovascular: regular rate and rhythm Gastrointestinal: bowel sounds, soft Extremities: normal pulses Neurological: other (WEAKNESS+) Results Result Diagram: 03/15/17 0756 03/15/17 0756 Results 24 hrs Laboratory Tests Test 03/14/17 21:17 03/15/17 07:56 03/15/17 08:23 03/15/17 12:05 Bedside Glucose 158 94 122 White Blood Count 5.4 Red Blood Count 3.02 L Hemoglobin 10.6 L Hematocrit 31.6 L Mean Corpuscular Volume 104.6 H Mean Corpuscular Hemoglobin 35.1 H Mean Corpuscular Hemoglobin Concent 33.5 Red Cell Distribution Width 20.5 H Platelet Count 39 #L Mean Platelet Volume Neutrophils % Segmented Neutrophils % (Manual) 69 Band Neutrophils % (Manual) 17 H Lymphocytes % Lymphocytes % (Manual) 4 L Monocytes % Monocytes % (Manual) 7 Eosinophils % Basophils % Myelocytes % (Manual) 2 H Nucleated Red Blood Cells % 3 H Neutrophils # Neutrophils # (Manual) 3.8 Band Neutrophils # 0.9 H Absolute Lymphocytes (Manual) 0.2 L Lymphocytes # Monocytes # Absolute Monocytes (Manual) 0.3 Eosinophils # Basophils # Myelocytes # 0.1 H Nucleated Red Blood Cells # Platelet Estimate DECREASED Polychromasia 3+ Poikilocytosis 2+ Anisocytosis 1+ Microcytosis 1+ Sodium Level 138 Potassium Level 4.4 Chloride Level 105 Carbon Dioxide Level 29 Anion Gap 8 Blood Urea Nitrogen 17 Creatinine 0.61 Glucose Level 84 Calcium Level 7.8 L Total Bilirubin 0.7 Direct Bilirubin 0.00 Indirect Bilirubin 0.7 Aspartate Amino Transf (AST/SGOT) 593 H Alanine Aminotransferase (ALT/SGPT) 312 H Alkaline Phosphatase 806 H Total Protein 4.9 L Albumin 2.6 L Globulin 2.30 Albumin/Globulin Ratio 1.13 Test 03/15/17 17:25 Bedside Glucose 120 Medications Medications Current Medications Ondansetron HCl (Zofran Inj) 4 mg Q6H PRN IV NAUSEA AND/OR VOMITING Last administered on 03/08/17 21:04; Admin Dose 4 MG; Start 03/05/17 at 22:30 Acetaminophen (Tylenol Liquid) 650 mg Q6H PRN PO PAIN LEVEL 1-3 OR FEVER; Start 03/05/17 at 22:30 Acetaminophen (Tylenol Tab) 650 mg Q6H PRN PO PAIN LEVEL 1-3 OR FEVER Last administered on 03/12/17 12:58; Admin Dose 650 MG; Start 03/05/17 at 22:30 Docusate Sodium (Colace) 100 mg Q12H PRN PO CONSTIPATION Last administered on 03/07/17 18:05; Admin Dose 100 MG; Start 03/05/17 at 22:30 Magnesium Hydroxide (Milk Of Mag) 30 ml DAILY PRN PO CONSTIPATION Last administered on 03/12/17 16:07; Admin Dose 30 ML; Start 03/05/17 at 22:30 Bisacodyl (Dulcolax) 5 mg DAILY PRN PO CONSTIPATION Last administered on 18:05; Admin Dose 5 MG; Start 03/05/17 at 22:30 Lorazepam (Ativan) 0.5 mg Q8 PRN IV ANXIETY Last administered on 03/09/17 00: 10; Admin Dose 0.5 MG; Start 03/06/17 at 21:30 Miscellaneous Information 1 ea NOTE XX ; Start 03/07/17 at 07:30 Glucose (Glutose) 15 gm Q15M PRN PO DECREASED GLUCOSE; Start 03/07/17 at 07:30 Glucose (Glutose) 22.5 gm Q15M PRN PO DECREASED GLUCOSE; Start 03/07/17 at 07: 30 Dextrose (D50w Syringe) 25 ml Q15M PRN IV DECREASED GLUCOSE; Start 03/07/17 at 07:30 Dextrose (D50w Syringe) 50 ml Q15M PRN IV DECREASED GLUCOSE; Start 03/07/17 at 07:30 Glucagon (Glucagen) 1 mg Q15M PRN IM DECREASED GLUCOSE; Start 03/07/17 at 07: 30 Glucose (Glutose) 15 gm Q15M PRN BUCCAL DECREASED GLUCOSE; Start 03/07/17 at 07:30 Pantoprazole (Protonix Tab) 40 mg DAILY@06 PO Last administered on 03/15/17 06 :50; Admin Dose 40 MG; Start 03/08/17 at 06:00 Fluoxetine HCl (Prozac) 10 mg DAILY PO Last administered on 03/15/17 08:26; Admin Dose 10 MG; Start 03/09/17 at 14:00 Fentanyl (Duragesic 12 Mcg/Hr Patch) 1 patch Q72H TRANSDERM Last administered on 03/15/17 16:40; Admin Dose 1 PATCH; Start 03/09/17 at 15:00 Oxycodone HCl (Roxicodone) 5 mg Q6 PRN PO PAIN Last administered on 03/12/17 23:14; Admin Dose 5 MG; Start 03/09/17 at 14:00 Alprazolam (Xanax) 0.5 mg TID PRN PO ANXIETY Last administered on 03/11/17 23 :36; Admin Dose 0.5 MG; Start 03/09/17 at 21:00 Multivitamins Therapeutic (Theragran) 1 tab DAILY PO Last administered on 08:26; Admin Dose 1 TAB; Start 03/10/17 at 13:30 Polyethylene Glycol (Miralax) 17 gm DAILY PO Last administered on 03/15/17 08: 28; Admin Dose 17 GM; Start 03/10/17 at 13:30 Levetiracetam (Keppra) 750 mg BID PO Last administered on 03/15/17 08:27; Admin Dose 750 MG; Start 03/11/17 at 21:00 Capecitabine (Xeloda) 1,000 mg BID PO Last administered on 03/13/17 21:56; Admin Dose 1,000 MG; Start 03/12/17 at 09:30; Status Future Hold Temazepam (Restoril) 30 mg HS PO Last administered on 03/14/17 22:33; Admin Dose 30 MG; Start 03/12/17 at 21:00 Dexamethasone (Decadron) 4 mg BID IV Last administered on 03/15/17 08:26; Admin Dose 4 MG; Start 03/15/17 at 09:00 Metoprolol Tartrate (Lopressor) 25 mg Q12 PO Last administered on 03/15/17 08: 28; Admin Dose 25 MG; Start 03/14/17 at 21:00 DEON GRIFFIN MD Mar 15, 2017 19:22
[2017-03-15] MEDS: TEMAZEPAM 15 MG CAP PO SCH (21:52)
[2017-03-16 02:28] VITALS: BP 119/71; RESP 18
[2017-03-16] MEDS: PANTOPRAZOLE (EC) 40 MG TAB PO SCH (06:47)
[2017-03-16 07:49] VITALS: BP 110/71; RESP 16
[2017-03-16] MEDS: INSULIN ASPART [NOVOLOG] 3 ML PEN SC SCH ×2 (08:15→12:12)
[2017-03-16] MEDS: FLUOXETINE 10 MG CAP PO SCH (08:56)
[2017-03-16] MEDS: LEVETIRACETAM 750 MG TAB PO SCH (08:56)
[2017-03-16] MEDS: POLYETHYLENE GLYCOL 17 GM PACKET PO SCH (08:56)
[2017-03-16] MEDS: MULTIVITAMINS THERAPEUTIC TAB PO SCH (08:56)
[2017-03-16] MEDS: DEXAMETHASONE 4 MG/ML 1 ML INJ IV SCH (08:57)
[2017-03-16] MEDS: METOPROLOL 25 MG TAB PO SCH (08:57)
[2017-03-16 13:49] VITALS: BP 98/60; RESP 16
--- NOTE | 2017-03-16 14:28 | PDOCDIS ---
Discharge Instructions DIAGNOSIS Discharge Diagnosis metastatic cancer CONDITION Patient Condition: Serious HOME CARE INSTRUCTIONS: Diet Instructions: RegularSpecial Diet: CARDIAC DIET ACTIVITY: Activity Restrictions: Slowly Increase Activity FOLLOW UP/APPOINTMENTS Follow-up Plan f/u dr francis /pcp 2 wks REFERRALS Other Referrals Hospice SCHOOL/WORK RELEASE May return to School/Work with: home services DANIA VILLAVICENCIO Mar 16, 2017 14:28
[2017-03-16] MEDS ORDERED: METO-448 PO (14:29)
--- NOTE | 2017-03-16 14:34 | PN ---
Date/Time of Note Date/Time of Note DATE: 03/16/17 TIME: 14:33 Assessment/Plan VTE Prophylaxis VTE Prophylaxis Intervention: ambulation Lines/Catheters [facility] Saline Lock Urinary Cath still in place: No Assessment/Plan Chief Complaint/Hosp Course 1. Metastatic breast cancer to the bones, and liver, specifically the right shoulder as well as the T spine causing cord compression now with progression 2. Dizziness 3. HX HTN 4. Tachycardia, resolved 5. Pancytopenia likely due to chemo 6. insomnia 7. Anxiety/depression Problems: Assessment/Plan 1. D/c with hospice Subjective 24 Hr Interval Summary Free Text/Dictation pain over the body controlable Constitutional: no complaints Respiratory: no complaints Exam/Review of Systems Vital Signs Vitals Vital Signs Date Time Temp Pulse Resp B/P Pulse Ox O2 Delivery O2 Flow Rate FiO2 03/16/17 13:49 98.7 83 16 98/60 95 03/16/17 12:56 2.0 03/16/17 11:16 Nasal Cannula 03/15/17 01:27 27 Intake and Output 03/15/17 03/15/17 03/16/17 15:00 23:00 07:00 Intake Total 120 ml 360 ml Output Total 200 ml Balance -80 ml 360 ml Exam Constitutional: alert, oriented Neck: supple Respiratory: clear to auscultation Cardiovascular: regular rate and rhythm Musculoskeletal: muscle weakness Results Result Diagram: 03/16/17 0522 03/16/17 0523 Results 24 hrs Laboratory Tests Test 03/15/17 17:25 03/15/17 20:29 03/16/17 05:22 03/16/17 05:23 Bedside Glucose 120 145 White Blood Count 5.6 Red Blood Count 2.97 L Hemoglobin 10.2 L Hematocrit 31.3 L Mean Corpuscular Volume 105.4 H Mean Corpuscular Hemoglobin 34.3 H Mean Corpuscular Hemoglobin Concent 32.6 Red Cell Distribution Width 20.5 H Platelet Count 32 L Mean Platelet Volume Neutrophils % 78.2 H Lymphocytes % 6.8 L Monocytes % 7.2 Eosinophils % 0.2 Basophils % 0.4 Nucleated Red Blood Cells % 1.3 H Neutrophils # 4.4 Lymphocytes # 0.4 L Monocytes # 0.4 Eosinophils # 0.0 Basophils # 0.0 Nucleated Red Blood Cells # 0.1 H Sodium Level 138 Potassium Level 4.9 Chloride Level 105 Carbon Dioxide Level 29 Anion Gap 9 Blood Urea Nitrogen 15 Creatinine 0.61 Glucose Level 107 Calcium Level 7.8 L Total Bilirubin 0.7 Direct Bilirubin 0.00 Indirect Bilirubin 0.7 Aspartate Amino Transf (AST/SGOT) 573 H Alanine Aminotransferase (ALT/SGPT) 323 H Alkaline Phosphatase 816 H Total Protein 4.8 L Albumin 2.5 L Globulin 2.30 Albumin/Globulin Ratio 1.08 Test 03/16/17 08:11 03/16/17 12:05 Bedside Glucose 87 145 Medications Medications Current Medications Ondansetron HCl (Zofran Inj) 4 mg Q6H PRN IV NAUSEA AND/OR VOMITING Last administered on 03/08/17 21:04; Admin Dose 4 MG; Start 03/05/17 at 22:30 Acetaminophen (Tylenol Liquid) 650 mg Q6H PRN PO PAIN LEVEL 1-3 OR FEVER; Start 03/05/17 at 22:30 Acetaminophen (Tylenol Tab) 650 mg Q6H PRN PO PAIN LEVEL 1-3 OR FEVER Last administered on 03/12/17 12:58; Admin Dose 650 MG; Start 03/05/17 at 22:30 Docusate Sodium (Colace) 100 mg Q12H PRN PO CONSTIPATION Last administered on 03/07/17 18:05; Admin Dose 100 MG; Start 03/05/17 at 22:30 Magnesium Hydroxide (Milk Of Mag) 30 ml DAILY PRN PO CONSTIPATION Last administered on 03/12/17 16:07; Admin Dose 30 ML; Start 03/05/17 at 22:30 Bisacodyl (Dulcolax) 5 mg DAILY PRN PO CONSTIPATION Last administered on 18:05; Admin Dose 5 MG; Start 03/05/17 at 22:30 Lorazepam (Ativan) 0.5 mg Q8 PRN IV ANXIETY Last administered on 03/09/17 00: 10; Admin Dose 0.5 MG; Start 03/06/17 at 21:30 Miscellaneous Information 1 ea NOTE XX ; Start 03/07/17 at 07:30 Glucose (Glutose) 15 gm Q15M PRN PO DECREASED GLUCOSE; Start 03/07/17 at 07:30 Glucose (Glutose) 22.5 gm Q15M PRN PO DECREASED GLUCOSE; Start 03/07/17 at 07: 30 Dextrose (D50w Syringe) 25 ml Q15M PRN IV DECREASED GLUCOSE; Start 03/07/17 at 07:30 Dextrose (D50w Syringe) 50 ml Q15M PRN IV DECREASED GLUCOSE; Start 03/07/17 at 07:30 Glucagon (Glucagen) 1 mg Q15M PRN IM DECREASED GLUCOSE; Start 03/07/17 at 07: 30 Glucose (Glutose) 15 gm Q15M PRN BUCCAL DECREASED GLUCOSE; Start 03/07/17 at 07:30 Pantoprazole (Protonix Tab) 40 mg DAILY@06 PO Last administered on 03/16/17 06 :47; Admin Dose 40 MG; Start 03/08/17 at 06:00 Fluoxetine HCl (Prozac) 10 mg DAILY PO Last administered on 03/16/17 08:56; Admin Dose 10 MG; Start 03/09/17 at 14:00 Fentanyl (Duragesic 12 Mcg/Hr Patch) 1 patch Q72H TRANSDERM Last administered on 03/15/17 16:40; Admin Dose 1 PATCH; Start 03/09/17 at 15:00 Oxycodone HCl (Roxicodone) 5 mg Q6 PRN PO PAIN Last administered on 03/12/17 23:14; Admin Dose 5 MG; Start 03/09/17 at 14:00 Alprazolam (Xanax) 0.5 mg TID PRN PO ANXIETY Last administered on 03/11/17 23 :36; Admin Dose 0.5 MG; Start 03/09/17 at 21:00 Multivitamins Therapeutic (Theragran) 1 tab DAILY PO Last administered on 08:56; Admin Dose 1 TAB; Start 03/10/17 at 13:30 Polyethylene Glycol (Miralax) 17 gm DAILY PO Last administered on 03/16/17 08: 56; Admin Dose 17 GM; Start 03/10/17 at 13:30 Levetiracetam (Keppra) 750 mg BID PO Last administered on 03/16/17 08:56; Admin Dose 750 MG; Start 03/11/17 at 21:00 Capecitabine (Xeloda) 1,000 mg BID PO Last administered on 03/13/17 21:56; Admin Dose 1,000 MG; Start 03/12/17 at 09:30; Status Future Hold Temazepam (Restoril) 30 mg HS PO Last administered on 03/15/17 21:52; Admin Dose 30 MG; Start 03/12/17 at 21:00 Dexamethasone (Decadron) 4 mg BID IV Last administered on 03/16/17 08:57; Admin Dose 4 MG; Start 03/15/17 at 09:00 Metoprolol Tartrate (Lopressor) 25 mg Q12 PO Last administered on 03/16/17 08: 57; Admin Dose 25 MG; Start 03/14/17 at 21:00 DANIA VILLAVICENCIO Mar 16, 2017 14:34
--- NOTE | 2017-03-16 14:52 | CONS ---
Date/Time of Note Date/Time of Note DATE: 03/16/17 TIME: 14:50 Assessment/Plan Assessment/Plan Chief Complaint/Hosp Course MPRESSION: 1. Recurrent episodes of supraventricular tachycardia, approximately 150, concerning for possible atrial flutter versus atrial tachycardia, atrioventricular hannah reentrant tachycardia (AVNRT).-no recurrence on current BB 2. Hypertension-on lower end today 3. Abnormal EKG. Assess for acute coronary syndrome. -negative trop x 2/Nl EF by echo this admit 5. Metastatic breast CA, on chemotherapy, status post XRT.s/p LP with negative cytology 6. Pancytopenia with severe thrombocytopenia. 7. Depression. 8. Subdural hematoma with dizziness. 9. Increased liver function tests. Recc: -Tele -continue low dose BB as tolerated only -Continue keppra -Continue steroids -pnding hospice eval Problems: Consultation Date/Type/Reason Admit Date/Time Mar 06, 2017 at 20:31 Initial Consult Date 03/07/17 Type of Consultation: cardiology Reason for Consultation SVT Referring Provider: JAVIER BERRY MD Exam/Review of Systems Vital Signs Vitals Vital Signs Date Time Temp Pulse Resp B/P Pulse Ox O2 Delivery O2 Flow Rate FiO2 03/16/17 13:49 98.7 83 16 98/60 95 03/16/17 12:56 2.0 03/16/17 11:16 Nasal Cannula 03/15/17 01:27 27 Intake and Output 03/15/17 03/15/17 03/16/17 15:00 23:00 07:00 Intake Total 120 ml 360 ml Output Total 200 ml Balance -80 ml 360 ml Exam Review of Systems: CONSTITUTIONAL: No fevers, chills. PULMONARY: No sob CARDIOVASCULAR: No chest pain/palpitations GASTROINTESTINAL: No nausea/vomiting. GENITOURINARY: No hematuria/dysuria. MUSCULOSKELETAL: No myagias/arthalgias. PSYCHIATRIC: The patient denies depression. NEUROLOGIC: generalized weakness Constitutional: alert, oriented Psych: no complaints ENMT: mucosa pink and moist Neck: jvd (9 cm water), supple Respiratory: diminished breath sounds (at bases/B) Cardiovascular: regular rate and rhythm Gastrointestinal: non-tender, soft Musculoskeletal: muscle tone (normal) Extremities: edema (none) Neurological: other (No focal deficits) Results Result Diagram: 03/16/17 0522 03/16/17 0523 Results 24 hrs Laboratory Tests Test 03/15/17 17:25 03/15/17 20:29 03/16/17 05:22 03/16/17 05:23 Bedside Glucose 120 145 White Blood Count 5.6 Red Blood Count 2.97 L Hemoglobin 10.2 L Hematocrit 31.3 L Mean Corpuscular Volume 105.4 H Mean Corpuscular Hemoglobin 34.3 H Mean Corpuscular Hemoglobin Concent 32.6 Red Cell Distribution Width 20.5 H Platelet Count 32 L Mean Platelet Volume Neutrophils % 78.2 H Lymphocytes % 6.8 L Monocytes % 7.2 Eosinophils % 0.2 Basophils % 0.4 Nucleated Red Blood Cells % 1.3 H Neutrophils # 4.4 Lymphocytes # 0.4 L Monocytes # 0.4 Eosinophils # 0.0 Basophils # 0.0 Nucleated Red Blood Cells # 0.1 H Sodium Level 138 Potassium Level 4.9 Chloride Level 105 Carbon Dioxide Level 29 Anion Gap 9 Blood Urea Nitrogen 15 Creatinine 0.61 Glucose Level 107 Calcium Level 7.8 L Total Bilirubin 0.7 Direct Bilirubin 0.00 Indirect Bilirubin 0.7 Aspartate Amino Transf (AST/SGOT) 573 H Alanine Aminotransferase (ALT/SGPT) 323 H Alkaline Phosphatase 816 H Total Protein 4.8 L Albumin 2.5 L Globulin 2.30 Albumin/Globulin Ratio 1.08 Test 03/16/17 08:11 03/16/17 12:05 Bedside Glucose 87 145 Medications Medications Current Medications Ondansetron HCl (Zofran Inj) 4 mg Q6H PRN IV NAUSEA AND/OR VOMITING Last administered on 03/08/17 21:04; Admin Dose 4 MG; Start 03/05/17 at 22:30 Acetaminophen (Tylenol Liquid) 650 mg Q6H PRN PO PAIN LEVEL 1-3 OR FEVER; Start 03/05/17 at 22:30 Acetaminophen (Tylenol Tab) 650 mg Q6H PRN PO PAIN LEVEL 1-3 OR FEVER Last administered on 03/12/17 12:58; Admin Dose 650 MG; Start 03/05/17 at 22:30 Docusate Sodium (Colace) 100 mg Q12H PRN PO CONSTIPATION Last administered on 03/07/17 18:05; Admin Dose 100 MG; Start 03/05/17 at 22:30 Magnesium Hydroxide (Milk Of Mag) 30 ml DAILY PRN PO CONSTIPATION Last administered on 03/12/17 16:07; Admin Dose 30 ML; Start 03/05/17 at 22:30 Bisacodyl (Dulcolax) 5 mg DAILY PRN PO CONSTIPATION Last administered on 18:05; Admin Dose 5 MG; Start 03/05/17 at 22:30 Lorazepam (Ativan) 0.5 mg Q8 PRN IV ANXIETY Last administered on 03/09/17 00: 10; Admin Dose 0.5 MG; Start 03/06/17 at 21:30 Miscellaneous Information 1 ea NOTE XX ; Start 03/07/17 at 07:30 Glucose (Glutose) 15 gm Q15M PRN PO DECREASED GLUCOSE; Start 03/07/17 at 07:30 Glucose (Glutose) 22.5 gm Q15M PRN PO DECREASED GLUCOSE; Start 03/07/17 at 07: 30 Dextrose (D50w Syringe) 25 ml Q15M PRN IV DECREASED GLUCOSE; Start 03/07/17 at 07:30 Dextrose (D50w Syringe) 50 ml Q15M PRN IV DECREASED GLUCOSE; Start 03/07/17 at 07:30 Glucagon (Glucagen) 1 mg Q15M PRN IM DECREASED GLUCOSE; Start 03/07/17 at 07: 30 Glucose (Glutose) 15 gm Q15M PRN BUCCAL DECREASED GLUCOSE; Start 03/07/17 at 07:30 Pantoprazole (Protonix Tab) 40 mg DAILY@06 PO Last administered on 03/16/17 06 :47; Admin Dose 40 MG; Start 03/08/17 at 06:00 Fluoxetine HCl (Prozac) 10 mg DAILY PO Last administered on 03/16/17 08:56; Admin Dose 10 MG; Start 03/09/17 at 14:00 Fentanyl (Duragesic 12 Mcg/Hr Patch) 1 patch Q72H TRANSDERM Last administered on 03/15/17 16:40; Admin Dose 1 PATCH; Start 03/09/17 at 15:00 Oxycodone HCl (Roxicodone) 5 mg Q6 PRN PO PAIN Last administered on 03/12/17 23:14; Admin Dose 5 MG; Start 03/09/17 at 14:00 Alprazolam (Xanax) 0.5 mg TID PRN PO ANXIETY Last administered on 03/11/17 23 :36; Admin Dose 0.5 MG; Start 03/09/17 at 21:00 Multivitamins Therapeutic (Theragran) 1 tab DAILY PO Last administered on 08:56; Admin Dose 1 TAB; Start 03/10/17 at 13:30 Polyethylene Glycol (Miralax) 17 gm DAILY PO Last administered on 03/16/17 08: 56; Admin Dose 17 GM; Start 03/10/17 at 13:30 Levetiracetam (Keppra) 750 mg BID PO Last administered on 03/16/17 08:56; Admin Dose 750 MG; Start 03/11/17 at 21:00 Capecitabine (Xeloda) 1,000 mg BID PO Last administered on 03/13/17 21:56; Admin Dose 1,000 MG; Start 03/12/17 at 09:30; Status Future Hold Temazepam (Restoril) 30 mg HS PO Last administered on 03/15/17 21:52; Admin Dose 30 MG; Start 03/12/17 at 21:00 Dexamethasone (Decadron) 4 mg BID IV Last administered on 03/16/17 08:57; Admin Dose 4 MG; Start 03/15/17 at 09:00 Metoprolol Tartrate (Lopressor) 25 mg Q12 PO Last administered on 03/16/17 08: 57; Admin Dose 25 MG; Start 03/14/17 at 21:00 KAYA VERDUGO 3, 2017 14:52
[2017-03-16 16:28] VITALS: BP 112/67; PULSE 84
--- NOTE | 2017-03-18 15:39 | DS ---
Date/Time of Note Date/Time of Note DATE: 03/18/17 TIME: 15:38 Discharge Summary Admission/Discharge Info Admit Date/Time Mar 06, 2017 at 20:31 Discharge Date/Time Mar 16, 2017 at 16:30 Discharge Diagnosis metastatic breast cancer Patient Condition: Serious Consults Dr Sharp, oncology, dr Tejeda,cardiology, dr Alanis, neurosurgery, dr Sanford, palliative care Procedures MR brain with and without contrast, Lumbar puncture fluoroscopy Hospital Course This is a 61-year-old female who follows with with history of metastatic breast cancer, history of chemo. The patient also had breast cancer metastatic to history of laminectomy, cervical spine in the past. 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 Patient had a brain CT scan done shows left lower attenuation in the right frontal subdural hematoma measuring 7 mm in thickness, subacute to chronic in appearance with local mass effect upon the distal right frontal lobe, new compared to the prior CT scan of the brain, grossly stable appearance of around, moderately high attenuation lesion measuring 6 mm. _with associated mild local mass effect upon the right dorsal _ post mesencephalon symptoms, _ meningioma diffuse cerebral volume loss and patient is being admitted for further management. IMPRESSION: 1. Recurrent episodes of supraventricular tachycardia, approximately 150, concerning for possible atrial flutter versus atrial tachycardia, atrioventricular hannah reentrant tachycardia (AVNRT).-no recurrence on current BB 2. Hypertension-on lower end today 3. Abnormal EKG. Assess for acute coronary syndrome. -negative trop x 2/Nl EF by echo this admit 5. Metastatic breast CA, on chemotherapy, status post XRT.s/p LP with negative cytology 6. Pancytopenia with severe thrombocytopenia. 7. Depression. 8. Subdural hematoma with dizziness. 9. Increased liver function tests. Recc: -Tele -continue low dose BB as tolerated only -Continue Keppra -Continue steroids -pending hospice evaluation Pt with her decided to start outpatient hospice and was discharged home. Home Meds Active Scripts Metoprolol Tartrate* (Lopressor*) 25 Mg Tab, 25 MG PO Q12 for 30 Days, TAB Prov:DANIA VILLAVICENCIO 03/16/17 Dexamethasone Sod Phos* (Decadron* Inj.) 20 Mg/5 Ml Vial, 4 MG IV Q6 for 14 Days Prov:DEON GRIFFIN MD 03/13/17 Pantoprazole* (Pantoprazole*) 40 Mg Tablet.dr, 40 MG PO DAILY@06 for 28 Days Prov:DEON GRIFFIN MD 03/13/17 Ondansetron Hcl* (Ondansetron Hcl* Inj) 4 Mg/2 Ml Vial, 4 MG IV Q6H Y for NAUSEA AND/OR VOMITING for 10 Days, VIAL Prov:DEON GRIFFIN MD 03/13/17 Magnesium Hydroxide* (Hillman' MOM*) 30 Ml Susp, 30 ML PO DAILY Y for CONSTIPATION for 28 Days Prov:DEON GRIFFIN MD 03/13/17 Docusate Sodium (Dok) 100 Mg Capsule, 100 MG PO Q12H Y for CONSTIPATION for 14 Days, CAP Prov:DEON GRIFFIN MD 03/13/17 Bisacodyl* (Bisacodyl*) 5 Mg Tablet.dr, 5 MG PO DAILY Y for CONSTIPATION for 14 Days Prov:DEON GRIFFIN MD 03/13/17 Temazepam* (Restoril*) 15 Mg Capsule, 30 MG PO HS for 28 Days, CAP Prov:DEON GRIFFIN MD 03/13/17 Oxycodone Hcl* (IR) (Roxicodone*) 5 Mg Tab, 5 MG PO Q6 Y for PAIN for 28 Days, TAB Prov:DEON GRIFFIN MD 03/13/17 Levetiracetam* (Keppra*) 750 Mg Tablet, 750 MG PO BID for 28 Days, TAB Prov:DEON GRIFFIN MD 03/13/17 Fluoxetine Hcl* (Fluoxetine Hcl*) 10 Mg Capsule, 10 MG PO DAILY for 28 Days, CAP Prov:DEON GRIFFIN MD 03/13/17 Fentanyl Patch* (Duragesic Patch*) 12 Mcg/Hr Transdermal Patch, 1 PATCH TRANSDERM Q72H for 14 Days, PATCH Prov:DEON GRIFFIN MD 03/13/17 Alprazolam* (Alprazolam*) 0.5 Mg Tablet, 0.5 MG PO TID Y for ANXIETY for 14 Days , TAB Prov:DEON GRIFFIN MD 03/13/17 Acetaminophen (MAPAP) 325 Mg Tablet, 650 MG PO Q6H Y for PAIN LEVEL 1-3 OR FEVER for 14 Days, TAB Prov:DEON GRIFFIN MD 03/13/17 Metoprolol Tartrate* (Lopressor*) 25 Mg Tab, 25 MG PO Q8 for 14 Days, TAB Prov:DEON GRIFFIN MD 03/13/17 Capecitabine (Capecitabine) 500 Mg Tablet, 1000 MG PO BID for 28 Days, TAB Prov:DEON GRIFFIN MD 03/13/17 Polyethylene Glycol* (Miralax*) 17 Gm Powd.pack, 17 GM PO DAILY for 30 Days Prov:DANIA VILLAVICENCIO 12/10/16 Ranitidine Hcl* (Zantac*) 150 Mg Tablet, 150 MG PO BID for 7 Days, #14 TAB Prov:DEIRDRE BENOIT DO 12/01/16 Reported Medications Multivitamins* (Theragran*) 1 Tab Tab, 1 TAB PO DAILY, TAB 03/06/17 Discontinued Reported Medications Amlodipine Besylate* (Norvasc*) 5 Mg Tablet, 5 MG PO DAILY, TAB 12/01/16 Discontinued Scripts Morphine Sulfate (Morphine Sulfate ER) 15 Mg Tablet.er, 45 MG PO AC BREAKFAST for 14 Days, TAB Prov:DANIA VILLAVICENCIO 12/10/16 Follow-up Plan f/u dr sharp /pcp 2 wks Primary Care Provider DANIA Oropeza Mar 18, 2017 15:39
[2017-03-28] MEDS ORDERED: CAPECITABINE 500 MG TAB PO SCH ×2 (09:00→21:00)
== END 2017-03-16 16:30 | disposition hospice, home (50) | DRG 597 ==
LOC: E/R 15:09 → ICU 03-06 20:31 → TEL 03-08 13:07 → MS2 03-15 14:59
PROVIDERS: ADMIT Internal Medicine Nephrology; ATTEND Internal Medicine Nephrology
PROC: 009U3ZX Drainage of Spinal Canal, Percutaneous Approach, Diagnostic (ICD-10-PCS; principal; 2017-03-07)
PROC: B01BYZZ Fluoroscopy of Spinal Cord using Other Contrast (ICD-10-PCS; 2017-03-07)
PROC: 30233R1 Transfusion of Nonautologous Platelets into Peripheral Vein, Percutaneous Approach (ICD-10-PCS; 2017-03-07)
PROC: 30233N1 Transfusion of Nonautologous Red Blood Cells into Peripheral Vein, Percutaneous Approach (ICD-10-PCS; 2017-03-08)
DX: C50.912 Malignant neoplasm of unspecified site of left female breast (principal); D61.810 Antineoplastic chemotherapy induced pancytopenia; I62.02 Nontraumatic subacute subdural hemorrhage; J91.0 Malignant pleural effusion; C79.31 Secondary malignant neoplasm of brain; C78.7 Secondary malignant neoplasm of liver and intrahepatic bile duct; I47.1 Supraventricular tachycardia; C79.51 Secondary malignant neoplasm of bone; G95.29 Other cord compression; G89.4 Chronic pain syndrome; I10 Essential (primary) hypertension; R53.1 Weakness; R42 Dizziness and giddiness; F41.9 Anxiety disorder, unspecified; F32.9 Major depressive disorder, single episode, unspecified; Z66 Do not resuscitate; Z51.5 Encounter for palliative care; M79.604 Pain in right leg; G47.00 Insomnia, unspecified; R94.31 Abnormal electrocardiogram [ECG] [EKG]; Z17.0 Estrogen receptor positive status [ER+]; Z92.3 Personal history of irradiation
CPT/HCPCS: 36415; 36430; 36600; 70450; 70553; 71010; 71260; 72125; 72128; 72131; 74177; 76700; 80048; 80053; 81003; 82803; 82962; 83735; 84100; 84443; 84484; 85025; 85610; 85730; 86850; 86900; 86901; 86920; 87081; 88104; 90686; 93005; 93306; 94640; 94664; 96365; 96366; 96372; 96375; 96376; 97116; 97162; 97530; C9113; J1100; J1815; J1953; J2060; J2270; J2405; J7030; P9016; P9035; Q9967